=== PATIENT | female | born 1935 | race Caucasian/White ===

== ENCOUNTER 2017-02-01 09:16 | Emergency (ER) | payer MEDICARE, BC ==
[2017-02-01] MEDS ORDERED: Ondansetron INJ* 2 MG/ML VIAL IV ONE ×2 (10:09→13:07)
--- NOTE | 2017-02-01 10:22 | RAD ---
Indication: Chest pain. Single frontal view of the chest performed at 1000 hours was reviewed. Comparison is made with previous exam dated January 24, 2017. Interstitial edema is increased since previous exam. There is suggestion of a spiculated mass in the right midlung field which is more prominent on the current exam. CT of the chest is suggested for further evaluation. IMPRESSION: VASCULAR CONGESTION. QUESTION OF A SPICULATED DENSITY IN THE RIGHT MIDLUNG FIELD FOR WHICH CT IS SUGGESTED. 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
--- NOTE | 2017-02-01 10:23 | RAD ---
Indication: Right rib injury. 3 views of the right ribs demonstrates no fracture. No other bone or joint abnormalities identified. IMPRESSION: No fracture of the right ribs is noted.
[2017-02-01 10:43] LABS: Comments Flag Yes; Hematocrit 40 % (35-47); Hemoglobin 13.5 g/dl (12.0-16.0); Mean Corpuscular HGB Conc 34 g/dl (31-36); Mean Corpuscular Hemoglobin 36 pg (27-31); Mean Corpuscular Volume 106 fL (80-97); Mean Platelet Volume 10 um3 (7.4-10.4); Red Blood Count 3.79 10^6/ul (4.0-5.4); Red Cell Distribution Width 15 % (10.5-15); White Blood Count 8.1 10^3/ul (3.5-10.8)
[2017-02-01 10:44] LABS: Add Diff/Slide Review? Slide Review Added
[2017-02-01 10:54] LABS: Albumin 3.4 g/dL (3.2-5.2); BUN/Creatinine Ratio 18.5 (8-20); Calcium 8.7 mg/dL (8.6-10.3); Globulin 2.4 g/dL (2-4); Magnesium 1.8 mg/dL (1.9-2.7); Potassium 3.5 mmol/L (3.5-5.0); Total Bilirubin 1.1 mg/dL (0.2-1.0); Total Protein 5.8 g/dL (6.4-8.9)
[2017-02-01] MEDS ORDERED: Ibuprofen TAB* 600 MG PO ONE (11:17)
[2017-02-01] MEDS ORDERED: HYDROcodone/ACETAMIN 5-325 MG* 1 TAB PO ONE (11:17)
[2017-02-01 11:31] LABS: TSH (Thyroid Stimulating Horm) 3.2 mcIU/mL (0.34-5.60)
[2017-02-01] MEDS ORDERED: Morphine INJ* 2 MG/ML 1 ML CARPUJECT IV ONE (11:55)
--- NOTE | 2017-02-01 12:40 | RAD ---
Indication: Back pain. 5 views of lumbar spine are reviewed. Vertebral bodies appear normal in height. There is facet arthropathy at L2-L3, L3-L4, L4-L5 and L5-S1 with grade 1 spondylolisthesis of L3 on 4, L4 on 5. Spinal canal appears to be intact. IMPRESSION: Multilevel degenerative disc disease with grade 1 spondylolisthesis of L2 on 3, L3 on 4 and L4 on 5.
--- NOTE | 2017-02-01 12:44 | RAD ---
Indication: Back pain. 2 views of the thoracic spine demonstrates disc space calcifications throughout the lower lumbar spine. Osteopenia is noted. No fracture is noted. IMPRESSION: Diffuse osteopenia with calcifications in the discs.
[2017-02-01 15:41] VITALS: BP 134/65
[2017-02-01] MEDS ORDERED: ValACYclovir (*) 1 GM TAB PO SCH (21:00)
--- NOTE | 2017-02-02 18:43 | ED ---
Lyn Glover Thomas, scribed for Khoa Landeros MD on 02/01/17 at 1003 . HPI Chest Pain - HPI Summary HPI Summary: The pt is an 81 y/o F presenting to the ED c/o L-sided CP that began in the last few days. The pain radiates to her back. The pt rates the pain 4/10 and she describes it as aching. The patient c/o a persistent cough with phlegm production since 12/28/16, and her PMD Dr. Weber has referred her to the ED. Pt additionally c/o chills, nausea (in the ED), and vomiting (this AM). Pt denies fever. The patient has been treated with Augmentin and Oxycontin. PMHx: Pagets disease, asthma, spinal and cervical stenosis. PSHx: mastectomy. - History of Current Complaint Chief Complaint: EDGeneral Time Seen by Provider: 02/01/17 09:36 Hx Obtained From: Patient Onset/Duration: Started Days Ago - onset a few days ago, Still Present Timing: Constant Pain Intensity: 4 Pain Scale Used: 0-10 Numeric Chest Pain Location: Left Anterior Chest Pain Radiates: Yes Chest Pain Radiates To:: Back Character: Dull/Aching Associated Signs and Symptoms: Positive: Chest Pain, Chills, Nausea - in the ED , Productive Cough - phlegm production, Vomiting - this AM - Allergy/Home Medications Allergies/Adverse Reactions: Allergies Allergy/AdvReac Type Severity Reaction Status Date / Time CAT SCAN DYE Allergy Severe Itching Uncoded 01/21/17 14:53 XYLOCAINE WITH EPINEPHRINE AdvReac Intermediate Palpitation Uncoded 01/21/17 14: 53 s Home Medications: Home Medications Albuterol HFA INHALER* [Ventolin HFA Inhaler*] 1 - 2 puff INH Q6H PRN 02/01/17 [ History Confirmed 02/01/17] Aspirin Low Dose CHEW TAB* [Aspirin Low Dose TAB*] 81 mg PO DAILY 02/01/17 [ History Confirmed 02/01/17] Budesonide/Formote 160/4.5(NF) [Symbicort 160/4.5 (NF)] 1 puff INH BID 02/01/17 [History Confirmed 02/01/17] Bumetanide TAB* [Bumex 1 MG TAB*] 0.5 mg PO MOWEFR 02/01/17 [History Confirmed 02/01/17] Ciclesonide 80 MCG MDI (NF) [Alvesco 80 MDI (NF)] 1 puff INH BID 02/01/17 [ History Confirmed 02/01/17] DOXYcycline CAP(*) [DOXYcycline 100MG CAP(*)] 100 mg PO BID 02/01/17 [History Confirmed 02/01/17] Diclofenac 1% GEL (NF) [Voltaren 1% GEL (NF)] 1 applic TOPICAL DAILY 02/01/17 [ History Confirmed 02/01/17] Docusate CAP* [Colace Cap*] 200 mg PO DAILY 02/01/17 [History Confirmed 02/01/17 ] Ergocalciferol CAP* [Drisdol CAP*] 50,000 unit PO MONTHLY 02/01/17 [History Confirmed 02/01/17] Estradiol [Estrogel] 0.06 % TRANSDERM .2 TIMES A WEEK 02/01/17 [History Confirmed 02/01/17] Ibuprofen TAB* [Advil TAB*] 400 mg PO TID PRN 02/01/17 [History Confirmed ] Magnesium Hydroxide LIQ* [Milk of Magnesia LIQ*] 30 ml PO DAILY PRN 02/01/17 [ History Confirmed 02/01/17] Multivitamins/Minerals TAB* [Theragran/minerals TAB*] 1 tab PO DAILY 02/01/17 [ History Confirmed 02/01/17] Naproxen Sodium-Diphenhydramin [Aleve PM 220-25 mg] 1 tab PO BEDTIME PRN [History Confirmed 02/01/17] Polyethylene Glycol 3350* [Miralax*] 17 gm PO DAILY 02/01/17 [History Confirmed 02/01/17] Potassium Chloride [Klor-Con 8] 8 meq PO MOWEFR 02/01/17 [History Confirmed ] PMH/Surg Hx/FS Hx/Imm Hx Previously Healthy: No Endocrine/Hematology History: Reports: Hx Bone Marrow Disease - MYELODYSPLASTIC SYNDROME Denies: Hx Diabetes, Hx Systemic Lupus Erythematosus Cardiovascular History: Denies: Hx Congestive Heart Failure, Hx Hypertension, Hx Pacemaker/ICD Respiratory History: Reports: Hx Asthma - ADULT ONSET-2002, Hx Chronic Obstructive Pulmonary Disease (COPD), Other Respiratory Problems/Disorders - HX OF PETER GI History: Reports: Hx Diverticulosis History: Reports: Other Problems/Disorders - caricle of urethra Denies: Hx Dialysis, Hx Renal Disease Musculoskeletal History: Reports: Hx Arthritis - OSTEOARTHRITIS, Hx Back Problems, Hx Osteoporosis, Other Musculoskeletal History - right rotator cuff injury Denies: Hx Rheumatoid Arthritis Sensory History: Reports: Hx Contacts or Glasses, Hx Hearing Aid - JORI Opthamlomology History: Reports: Hx Contacts or Glasses Neurological History: Reports: Other Neuro Impairments/Disorders - PAIN CLINIC PT Psychiatric History: Reports: Hx Depression Denies: Hx Panic Disorder - Cancer History Cancer Type, Location and Year: Paggett's disease - breast right mastectomy; toe sq cell carcinoma Hx Chemotherapy: No Hx Radiation Therapy: No - Surgical History Surgery Procedure, Year, and Place: SKIN BIOPSY June 29 at [facility]; T&A 194; APPENDIX 1950; Rt OVARY CYST REMOVED 1950; X3; DENTAL IMPLANTS 2013; Rt MASTECTOMY 1985; WEDGE RESECTION Rt LUNG; BRONCHOSCOPY X3; Rt BREAST BIOPSY 1971 AND 1985; HERNIA REPAIR ; D&C ; REPAIR OF DOG BITE ON LEG 07/23; CATARACTS BILATERAL 01/22 & 02/22; RIGHT 2ND TOE AMPUTATED 06/28; BONE MARROW BIOPSY X3 01/25, 04/28 & 04/30; LAMINECTOMY L3-4 & L4-5 08/04/12; SEVERAL MOH'S PROCEDURES; lumbar stimulator 09/2013 - could not be programmed so removed - CHECKED WITH DR. MENENDEZ TODAY(01/04/14)...HE LOOKED AT XRAYS DATED 10/13/13 WHICH CONFIRMED THE STIMULATOR AND LEADS HAD BEEN REMOVED..OK FOR MRI PER DR. MENENDEZ...RAMESH,RT Hx Anesthesia Reactions: No Infectious Disease History: Yes Infectious Disease History: Reports: History Other Infectious Disease - MYCOBACTERIUM AVIUM Denies: Traveled Outside the [place] in Last 30 Days - Family History Known Family History: Negative: Hypertension, Diabetes - Social History Alcohol Use: Weekly Alcohol Amount: 3-4 drinks per week Hx Substance Use: No Substance Use Type: Reports: None Substance Use Comment - Amount & Last Used: butran's patch Hx Tobacco Use: No Smoking Status (MU): Former Smoker Type: Cigarettes Length of Time of Smoking/Using Tobacco: 13 years Have You Smoked in the Last Year: No Review of Systems Positive: Chills. Negative: Fever Positive: Chest Pain - L-sided with radiation to back Positive: Cough - productive cough since 12/28/16. Positive: Vomiting - this AM, Nausea All Other Systems Reviewed And Are Negative: Yes Physical Exam - Summary Physical Exam Summary: VITAL SIGNS: Reviewed. GENERAL: Patient is a well-developed and nourished female is lying comfortable in the stretcher. Patient is not in any acute respiratory distress. HEAD AND FACE: No signs of trauma. ~No ecchymosis, hematomas or skull depressions. No sinus tenderness. EYES: PERRLA, EOMI x 2, No injected conjunctiva, no nystagmus. EARS: Hearing grossly intact. Ear canals and tympanic membranes are within normal limits. MOUTH: Oropharynx within normal limits. NECK: Supple, trachea is midline, no adenopathy, no JVD, no carotid bruit, no c- spine tenderness, neck with full ROM. CHEST: Symmetric. She is tender to her rib cave. LUNGS: Clear to auscultation bilaterally. No wheezing. There are crackles in both bases of the lungs. CVS: Regular rate and rhythm, S1 and S2 present, no murmurs or gallops appreciated. ABDOMEN: Soft, non-tender. No signs of distention. No rebound no guarding, and no masses palpated. Bowel sounds are normal. EXTREMITIES: FROM in all major joints, no edema, no cyanosis or clubbing. NEURO: Alert and oriented x 3. No acute neurological deficits. Speech is normal and follows commands. SKIN: Dry and warm Triage Information Reviewed: Yes Vital Signs On Initial Exam: Initial Vitals Temp Pulse Resp BP Pulse Ox 99.1 F 77 16 169/76 98 02/01/17 09:17 02/01/17 09:17 02/01/17 09:17 02/01/17 09:17 02/01/17 09:17 Vital Signs Reviewed: Yes Diagnostics - Vital Signs Vital Signs Temp Pulse Resp BP Pulse Ox 02/01/17 09:17 99.1 F 77 16 169/76 98 - Laboratory Lab Results: Lab Results 02/01/17 02/01/17 02/01/17 Range/Units 10:22 10:22 10:22 WBC 8.1 (3.5-10.8) 10^3/ul RBC 3.79 L (4.0-5.4) 10^6/ul Hgb 13.5 (12.0-16.0) g/dl Hct 40 (35-47) % MCV 106 H (80-97) fL MCH 36 H (27-31) pg MCHC 34 (31-36) g/dl RDW 15 (10.5-15) % Plt Count 96 L (150-450) 10^3/ul MPV 10 (7.4-10.4) um3 Neut % (Auto) 62.5 (38-83) % Lymph % (Auto) 13.8 L (25-47) % Traill % (Auto) 17.3 H (1-9) % Eos % (Auto) 6.0 (0-6) % Baso % (Auto) 0.4 (0-2) % Absolute Neuts (auto) 5.1 (1.5-7.7) 10^3/ul Absolute Lymphs (auto) 1.1 (1.0-4.8) 10^3/ul Absolute Monos (auto) 1.4 H (0-0.8) 10^3/ul Absolute Eos (auto) 0.5 (0-0.6) 10^3/ul Absolute Basos (auto) 0 (0-0.2) 10^3/ul Absolute Nucleated RBC 0.01 10^3/ul Nucleated RBC % 0.2 Sodium (133-145) mmol/L Potassium (3.5-5.0) mmol/L Chloride (101-111) mmol/L Carbon Dioxide (22-32) mmol/L Anion Gap (2-11) mmol/L BUN (6-24) mg/dL Creatinine (0.51-0.95) mg/dL Est GFR ( Amer) (>60) Est GFR (Non-Af Amer) (>60) BUN/Creatinine Ratio (8-20) Glucose (70-100) mg/dL Lactic Acid (0.5-2.0) mmol/L Calcium (8.6-10.3) mg/dL Magnesium (1.9-2.7) mg/dL Total Bilirubin (0.2-1.0) mg/dL AST (13-39) U/L ALT (7-52) U/L Alkaline Phosphatase (34-104) U/L Total Creatine Kinase 36 (10-223) U/L CK-MB (CK-2) (0.6-6.3) ng/mL Troponin I (<0.04) ng/mL B-Natriuretic Peptide 96 ( - 100) pg/mL Total Protein (6.4-8.9) g/dL Albumin (3.2-5.2) g/dL Globulin (2-4) g/dL Albumin/Globulin Ratio (1-3) TSH (0.34-5.60) mcIU/mL 02/01/17 02/01/17 02/01/17 Range/Units 10:22 10:22 13:00 WBC (3.5-10.8) 10^3/ul RBC (4.0-5.4) 10^6/ul Hgb (12.0-16.0) g/dl Hct (35-47) % MCV (80-97) fL MCH (27-31) pg MCHC (31-36) g/dl RDW (10.5-15) % Plt Count (150-450) 10^3/ul MPV (7.4-10.4) um3 Neut % (Auto) (38-83) % Lymph % (Auto) (25-47) % Traill % (Auto) (1-9) % Eos % (Auto) (0-6) % Baso % (Auto) (0-2) % Absolute Neuts (auto) (1.5-7.7) 10^3/ul Absolute Lymphs (auto) (1.0-4.8) 10^3/ul Absolute Monos (auto) (0-0.8) 10^3/ul Absolute Eos (auto) (0-0.6) 10^3/ul Absolute Basos (auto) (0-0.2) 10^3/ul Absolute Nucleated RBC 10^3/ul Nucleated RBC % Sodium 134 (133-145) mmol/L Potassium 3.5 (3.5-5.0) mmol/L Chloride 101 (101-111) mmol/L Carbon Dioxide 29 (22-32) mmol/L Anion Gap 4 (2-11) mmol/L BUN 12 (6-24) mg/dL Creatinine 0.65 (0.51-0.95) mg/dL Est GFR ( Amer) 112.0 (>60) Est GFR (Non-Af Amer) 87.0 (>60) BUN/Creatinine Ratio 18.5 (8-20) Glucose 100 (70-100) mg/dL Lactic Acid 0.7 (0.5-2.0) mmol/L Calcium 8.7 (8.6-10.3) mg/dL Magnesium 1.8 L (1.9-2.7) mg/dL Total Bilirubin 1.10 H (0.2-1.0) mg/dL AST 14 (13-39) U/L ALT 12 (7-52) U/L Alkaline Phosphatase 37 (34-104) U/L Total Creatine Kinase (10-223) U/L CK-MB (CK-2) 2.0 (0.6-6.3) ng/mL Troponin I 0.00 0.01 (<0.04) ng/mL B-Natriuretic Peptide ( - 100) pg/mL Total Protein 5.8 L (6.4-8.9) g/dL Albumin 3.4 (3.2-5.2) g/dL Globulin 2.4 (2-4) g/dL Albumin/Globulin Ratio 1.4 (1-3) TSH 3.20 (0.34-5.60) mcIU/mL Result Diagrams: 02/01/17 10:22 02/01/17 10:22 Lab Statement: Any lab studies that have been ordered have been reviewed, and results considered in the medical decision making process. - Radiology CXR Xray Interpretation: No Acute Changes - VASCULAR CONGESTION. QUESTION OF A SPICULATED DENSITY IN THE RIGHT MIDLUNG FIELD FOR WHICH CT IS SUGGESTED. 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 ED physician has reviewed this report and agrees. Radiology Interpretation Completed By: Radiologist Ribs XR Xray Interpretation: No Acute Changes - No fracture of the right ribs is noted. ED physician has reviewed this report and agrees. Radiology Interpretation Completed By: Radiologist T-Spine XR Xray Interpretation: No Acute Changes - Diffuse osteopenia with calficiations in the discs. ED physician has reviewed this report and agrees. Radiology Interpretation Completed By: Radiologist L-Spine XR Xray Interpretation: No Acute Changes - Multilevel degenerative disc disease with grade 1 spondylolisthesis of L2 on 3, L3 on 4 and L4 on 5. ED physician has reviewed this report and agrees. Radiology Interpretation Completed By: Radiologist - EKG 09:34 Cardiac Rate: NL - 78 BPM EKG Rhythm: Sinus Rhythm EKG Interpretation: No ST elevations. Chest Pain Course/Dx - Course Assessment/Plan: The pt is an 81 y/o F presenting to the ED c/o L-sided CP that began in the last few days. The pain radiates to her back. The pt rates the pain 4/10 and she describes it as aching. The patient c/o a persistent cough with phlegm production since 12/28/16, and her PMD Dr. Weber has referred her to the ED. Pt additionally c/o chills, nausea (in the ED), and vomiting ( this AM). Pt denies fever. The patient has been treated with Augmentin and Oxycontin. PMHx: Pagets disease, asthma, spinal and cervical stenosis. PSHx: mastectomy. Test results are without significant abnormality. CXR shows VASCULAR CONGESTION. QUESTION OF A SPICULATED DENSITY IN THE RIGHT MIDLUNG FIELD FOR WHICH CT IS SUGGESTED. 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 Ribs XR shows No Fx. T-spine XR shows Diffuse osteopenia with calcifications in the discs. L-Spine XR shows Multilevel degenerative disc disease with grade 1 spondylolisthesis of L2 on. 3, L3 on 4 and L4 on 5. I believed that the patients symptoms are secondary to viral infection; therefore , I believed she would benefit from a cough suppressant. I also re-examined the patients back after 8 hours and now she has developed a rash with positive vesicles; therefore, I believe the pain is secondary to shingles. The patient was started on Valtrex, given morphine for the pain, and the patient was very comfortable. I discussed the physical exam and findings with Dr. Rocael Weber and he agrees with management. The patient will be discharged back to the custodial. - Chest Pain Differential Diagnosis/HQI/PQRI: Acute AR, ACS, Angina, CHF, Chest Wall, GI Disease, Lower Respiratory Infection - Diagnoses Provider Diagnoses: Cough, Shingles, Back pain, Rib pain on right side Discharge - Discharge Plan Condition: Stable Disposition: HOME Prescriptions: Promethazine W/Codeine [Promethazine/Codeine] 1 syp PO TID PRN #90 ml MDD 15 ml PRN Reason: Cough ValACYclovir (*) [Valtrex 1 GM(*)] 1 gm PO BID #14 tab ValACYclovir (*) [Valtrex 1 GM(*)] 1 gm PO BID #20 tab Patient Education Materials: Shingles (ED), Chronic Cough (ED) Referrals: Rocael Weber MD [Primary Care Provider] - 3 Days Additional Instructions: Follow up with your primary care provider in 3 days. Return to the emergency department for any new or worsening symptoms. The documentation as recorded by the Lyn dominguez Thomas accurately reflects the service I personally performed and the decisions made by Tigre mario Walter, MD.
== END 2017-02-01 16:21 | disposition home or self-care (01) ==
LOC: ED 09:16
DX: B02.9 Zoster without complications (principal); R07.81 Pleurodynia; R05 Cough; M54.9 Dorsalgia, unspecified; D46.9 Myelodysplastic syndrome, unspecified; J44.9 Chronic obstructive pulmonary disease, unspecified; Z87.891 Personal history of nicotine dependence; Z88.8 Allergy status to other drugs, medicaments and biological substances; Z91.041 Radiographic dye allergy status; M51.36 Other intervertebral disc degeneration, lumbar region; R11.2 Nausea with vomiting, unspecified; R07.9 Chest pain, unspecified; M88.9 Osteitis deformans of unspecified bone
CPT/HCPCS: 36415; 71010; 72070; 72100; 80053; 82550; 82553; 83605; 83735; 83880; 84443; 84484; 85025; 87040; 93005; 96374; 96375; 99284; A9270-GY; J2270; J2405

== ENCOUNTER 2017-05-18 20:53 | Inpatient (IN) | payer MEDICARE, BC ==
--- OUTSIDE RECORDS SUMMARY | 2017-05-18 21:00 | XMS REPORT ---
:1935 External Reference #:[id number] Author Organization [facility] Address [address] [address] Phone [phone] Care Team Providers Name Role Phone Rocael Weber MD Primary Care Physician Unavailable Payers Type Date Identification Numbers Payment Provider Subscriber Medicare Primary Effective: Policy Number: Medicare Alis Cabrera 2013 [id number] Wan PayID: [id number] [address] [place] [address] Medigap Part B Policy Number: [id number] [facility] Alis Rick [place] PayID: [id number] [address] [place] [address] Medigap Part B Expires: 2016 Policy Number: [id number] [facility] Sagle Wan PayID: [id number] [address] [place] [address] Commercial PayID: [id number] [facility] Alisbrionna Ruiznant [address] [place] [address] Problems Date Description Provider Status Onset: 08/25/2015 Late effect of open wound of Moe Booth M.D. Active extremities without tendon injury Onset: 11/28/2015 Eosinophil count raised Magaly Will N.P. 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 hours Prednisone 10/04/ Active Tablets 10mg 1 tab qd Cristobal, 2016 MD Lalo Flonase Allergy 11/27/ Active Suspension 50mcg/Act Magaly Relief 2016 Nicolette, N.P. Lidocaine / Active Patches 5% 3 patchs Unknown 0000 qd Oxycontin / Active Tab ER 12H 10mg 1 tab by Unknown 0000 Abuse-Det mouth in the Am and 20 po in PM Percocet / Active Tablets 5-325mg 2 po @hs Unknown 0000 prn Rifampin / Active Capsules 300mg q1 tab Unknown 0000 po bid Zithromax / Active Tablets 500mg 1 tab po Unknown 0000 qd Dulera / Active Aerosol 100-5mcg/A [address] bid Vitamin D / Active Capsules 88228Mbfi 1 cap by Unknown (Ergocalciferol 0000 mouth ) every month Alvesco / Active Aerosol 80mcg/Act 2 puffs Unknown 0000 bid Ventolin HFA / Active Aerosol 108(90Base 2 puffs Unknown 0000 ) mcg/Act by mouth four times a day as needed Senna / Active Tablets 8.6mg 4 tabs Unknown 0000 po qd Estrace / Active Cream 0.1mg/GM apply Unknown 0000 once a week Movantik / Active Tablets 25mg 1 tab po Unknown 0000 qd Sertraline HCL / Active Tablets 50mg 1 tab po Unknown 0000 mon, sat, and saturday Bumetanide / Active Tablets 0.5mg 1 tab po Unknown 0000 mon, Wed, and Saturday Potassium / Active Capsules ER 8Meq 1 tab po Unknown Chloride ER 0000 mon, sat, and eloy Zoloft 0000/ Active Tablets 50mg 1 by Unknown 0000 mouth every day Augmentin 0000/ Active Tablets 500-125mg 1 by Unknown 0000 mouth twice a day Percocet 02/19/ Hx Tablets 5-325mg 40tabs 1 PO Q4H Ernst MShayna 2008 - ac Nichols, 12/23/ MDiana 2013 Dexamethasone /00/ Hx Unknown - 2015 Diprivan /00/ Hx Unknown - 2015 Fentanyl /00/ Hx Unknown 2015 Cefazolin / Hx Unknown Sodium - 2015 Levaquin // Hx Unknown 2015 Bupivacaine HCL 00/ Hx Unknown 2015 Neomycin/Polymy / Hx Unknown gonzalo/Dexamethaso 0000 - ne 2015 Oxycodone HCL /00/ Hx Unknown 2015 Remifemin /00/ Hx Unknown 2015 Albuterol 00/ Hx use 1-2 Unknown Sulfate 0000 - puffs 11/27/ every 6 2016 hours Xopenex /00/ Hx Unknown - 2015 Ondansetron HCL 0000/ Hx Tablets 4mg 30tabs one by Unknown 0000 - mouth 11/27/ every 8 2016 hours as needed for nausea Kim Allergy 0000/ Hx Tablets 180mg 1 tab po Unknown 0000 - qd 2016 Prednisone 00/00/ Hx Tablets 10mg 1 tab qd Unknown 0000 - 2016 Calcium 600 + D 0000/ Hx Tablets 600-200mg- 1 tab po Unknown 0000 - Unit qd 2016 Spiriva 00/00/ Hx Aerosol 1.25mcg/Ac 2 puffs Unknown Respimat 0000 - t once a 2016 Centrum Silver 00/00/ Hx Tablets 1 tab po Unknown 0000 - qd 2016 Medications Administered in Office Medication Date Status Form Strength Qnty SIG Indications Ordering Provider Triamcinolone 04/26/ Administered Injection Zaneb (Kenalog) 2017 MD Sally Triamcinolone 12/27/ Administered Injection Zaneb (Kenalog) 2016 MD Sally Triamcinolone 09/25/ Administered Injection Zaneb (Kenalog) 2016 MD Sally Triamcinolone 06/28/ Administered Injection Zaneb (Kenalog) 2016 MD Sally Triamcinolone 03/29/ Administered Injection Zaneb (Kenalog) 2015 MD Sally Celestone 3 mg 11/03/ Administered Injection Dipti and 3mg 2015 ANASTASIYA Nieves Depomedrol 40MG 08/24/ Administered Injection Moe 2015 Lucas Booth Depomedrol 80MG 01/14/ Administered Injection Rebecca 2013 Lucas Bennett Depomedrol 80MG 03/06/ Administered Injection Moe 2010 Lucas Booth Depomedrol 40MG 02/17/ Administered Injection Calvin Lomeli M.D. Vital Signs Date Vital Result Comment 05/08/2017 Heart Rate 88 /min BP Systolic Sitting 106 mmHg BP Diastolic Sitting 64 mmHg Body Temperature 99.0 F 04/26/2017 Heart Rate 82 /min BP Systolic Sitting 102 mmHg BP Diastolic Sitting 68 mmHg Body Temperature 98.5 F Pain Level 2 02/18/2017 Heart Rate 95 /min BP Systolic 110 mmHg BP Diastolic 60 mmHg Respiratory Rate 18 /min Body Temperature 98.0 F O2 % BldC Oximetry 98 % 01/09/2017 Height 64 inches 5'4" Weight 126.00 lb BP Systolic Sitting 118 mmHg BP Diastolic Sitting 70 mmHg Pain Level 2 BMI (Body Mass Index) 21.6 kg/m2 12/27/2016 Height 64 inches 5'4" Weight 125.00 lb per patient BP Systolic 110 mmHg BP Diastolic 68 mmHg Respiratory Rate 16 /min Pain Level 5 BMI (Body Mass Index) 21.5 kg/m2 10/04/2016 Weight 129.12 lb Heart Rate 84 /min BP Systolic Sitting 116 mmHg BP Diastolic Sitting 66 mmHg Respiratory Rate 16 /min Body Temperature 98.6 F O2 % BldC Oximetry 99 % 09/25/2016 Height 64 inches 5'4" Weight 124.00 lb Heart Rate 85 /min BP Systolic 127 mmHg BP Diastolic 65 mmHg Body Temperature 97.5 F Pain Level 2 BMI (Body Mass Index) 21.3 kg/m2 06/28/2016 Height 64 inches 5'4" Weight 134.00 lb Respiratory Rate 16 /min Pain Level 6 BMI (Body Mass Index) 23.0 kg/m2 04/26/2016 Height 64 inches 5'4" Weight 143.00 lb Respiratory Rate 16 /min Pain Level 4 BMI (Body Mass Index) 24.5 kg/m2 03/29/2016 Height 64 inches 5'4" Weight 143.00 lb Respiratory Rate 16 /min Pain Level 4 BMI (Body Mass Index) 24.5 kg/m2 12/02/2015 Height 64 inches 5'4" Weight 143.00 lb Pain Level 3 BMI (Body Mass Index) 24.5 kg/m2 11/28/2015 Weight 143.12 lb Heart Rate 84 /min BP Systolic Sitting 122 mmHg BP Diastolic Sitting 62 mmHg Respiratory Rate 20 /min Body Temperature 98.4 F O2 % BldC Oximetry 97 % 11/04/2015 Height 64 inches 5'4" Weight 140.00 lb Pain Level 1 BMI (Body Mass Index) 24.0 kg/m2 10/12/2015 Height 64 inches 5'4" Weight 140.00 lb Heart Rate 64 /min Respiratory Rate 18 /min Pain Level 3 BMI (Body Mass Index) 24.0 kg/m2 09/28/2015 Height 64 inches 5'4" Weight 140.00 lb Pain Level 7 BMI (Body Mass Index) 24.0 kg/m2 08/25/2015 Height 64 inches 5'4" Weight 140.00 lb Heart Rate 95 /min BP Systolic 125 mmHg BP Diastolic 76 mmHg BMI (Body Mass Index) 24.0 kg/m2 02/17/2015 Weight 148.50 lb Heart Rate 86 /min BP Systolic Sitting 116 mmHg BP Diastolic Sitting 64 mmHg Respiratory Rate 16 /min Body Temperature 98.7 F O2 % BldC Oximetry 95 % 01/14/2014 Height 64 inches 5'4" Weight 135.00 lb Heart Rate 72 /min BMI (Body Mass Index) 23.2 kg/m2 12/24/2013 Height 64 inches 5'4" Heart Rate 73 /min BP Systolic 104 mmHg BP Diastolic 64 mmHg 11/12/2013 Height 64 inches 5'4" Weight 155.00 lb Heart Rate 83 /min BP Systolic 126 mmHg BP Diastolic 69 mmHg BMI (Body Mass Index) 26.6 kg/m2 10/15/2013 Height 64 inches 5'4" Weight 135.00 lb Heart Rate 83 /min BP Systolic 129 mmHg BP Diastolic 75 mmHg BMI (Body Mass Index) 23.2 kg/m2 03/06/2011 Height 66 inches 5'6" Weight 148.00 lb Heart Rate 87 /min BP Systolic 129 mmHg BP Diastolic 76 mmHg BMI (Body Mass Index) 23.9 kg/m2 Results Test Date Test Result H/L Range Note Laboratory test 05/01/2017 Surgical Pathology SEE RESULT BELOW 1, 2 finding Laboratory test 11/28/2015 Culture Throat SEE RESULT BELOW 3, 4 finding 1 [id number] SEE RESULT BELOW Name: ALIS BLAS : [address]: Kee Cleary MD Acct: [id number] Unit: [id number] AGE: 82 Location: [facility] Re05/01/17 SEX: F Status: REG REF SPEC: [id number] CANELO: 05/01/17-0951 [facility] DR: Kee Cleary MD REQ: [id number] RECD: 05/01/17 STATUS: MEGAN SMITH DR: Cinthya Zavala MD _ ORDERED: LEVEL 4 COMMENTS: [id number] FINAL DIAGNOSIS Skin, left lateral foot, incisional biopsy: -- Ulcer and ulcer bed with chronic stasis change. -- No evidence of malignancy. CLINICAL HISTORY History of other skin cancers, venous stasis, myelodysplastic syndrome PRE-OPERATIVE DIAGNOSIS Non-healing lesion; carcinoma versus ulcer GROSS DESCRIPTION The specimen is received in formalin labeled, Incisional Biopsy Skin Lesion Left Lateral Foot, and consists of a 0.7 x 0.3 cm white-pink to red-brown volar skin wedge excised to a maximum depth of 0.4 cm, which is inked, trisected and entirely submitted in one cassette. Signed (signature on file) Frances Brennan MD 03/09 0935 END OF REPORT * ML=Testing performed at Main Lab DEPARTMENT OF PATHOLOGY, [address] [place] [address] Landon Barrera M.D. Director [facility] # [id number] SEE RESULT BELOW Name: ALIS BLAS : [address]: Magaly Will NP Acct: [id number] Unit: [id number] AGE: 80 Location: [facility] Re11/28/15 SEX: F Status: REG REF SPEC: [id number] CANELO: 11/28/15-1015 [facility] DR: Magaly Will NP REQ: [id number] RECD: 11/28/15 STATUS: COMP _ SOURCE: THROAT SPDESC: ORDERED: Throat Culture COMMENTS: [id number] Procedure Result Reported Site Throat Culture Final 11/30/15- 1005 ML Organism 1 NORMAL WHIT Quantity 3+ Throat cultures are clinically indicated to detect the presence of group A strep, arcanobacterium and yeast. In certain cases, predominating organisms will be reported. * ML - MAIN LAB ([facility]) . END OF REPORT * ML=Testing performed at Main Lab DEPARTMENT OF PATHOLOGY, [address] [place] [address] Landon Barrera M.D. Director [facility] # [id number] Procedures Date CPT Code Description Status 04/26/2017 Inject/Drain Joint/Bursa Major Completed 12/27/2016 Inject/Drain Joint/Bursa Major Completed 09/25/2016 Inject/Drain Joint/Bursa Major Completed 06/28/2016 Inject/Drain Joint/Bursa Major Completed 03/29/2016 Inject/Drain Joint/Bursa Major Completed 11/04/2015 Inject/Drain Joint/Bursa Major Completed 08/25/2015 Inject/Drain Joint/Bursa Major Completed 01/14/2014 Inject/Drain Joint/Bursa Major Completed 09/23/2013 02090 EKG, Interpretation Only Completed 02/22/2012 67964 Rad Exam; Ankle Comp Completed 02/22/2012 45625 Rad Exam; Tib-Fib Completed 03/06/2011 87278 Rad Shoulder Comp, Min. 2 Views Completed 03/06/2011 Inject/Drain Joint/Bursa Major Completed 02/17/2010 Inject/Drain Joint/Bursa Major Completed 01/18/2010 43369 Xray Knee 3 Views Completed 01/18/2010 05586 Rad Exam; Knee, Ap&L Completed Encounters Type Date Location Provider CPT E/M Dx Office Visit 02/18/2017 [facility] [place] [address] M48.061 12:44p B02.8 B02.23 M54.5 Office Visit 01/09/2017 1:15p [facility] Mon[facility] PA-C 93452 M48.06 Ginger Farmer M71.38 Office Visit [facility]2016 [facility] [address] H92.01 N.P. Office Visit 04/26/2016 11:15a [place] [address] M19.111 Of Benita M75.121 M25.511 Office Visit 12/02/2015 9:30a [facility] [place] [address] M19.111 Benita M75.121 Office Visit 11/28/2015 12:07p [facility] Nicolette, N.P. 75472 J02.9 Z88.1 R23.3 Office Visit 10/12/2015 8:40a [facility] Dipti Nieves 39107 M19.111 Of Benita LANGFORD S46.011S Office Visit 09/28/2015 11:40a [facility] Dipti Ezequiel, 92105 M19.111 Of Benita MORGAN-C S46.011S Office Visit 08/25/2015 10:00a [facility] Moe Booth 44370 S46.011S Of Benita Zavala M19.111 Office Visit 02/17/2015 1:30p [facility] Kimberli Link.Myra 44838 H92.02 Office Visit 01/14/2014 11:00a [facility] Rebecca Bennett 05497 840.4 Of Benita Zavala 727.62 Office Visit 12/24/2013 11:30a [facility] Rebecca Bennett 76399 726.10 Of Benita Zavala 727.62 Office Visit 11/12/2013 2:30p [facility] Rebecca Bennett 90410 727.62 Of Benita Zavala Office Visit 10/15/2013 3:45p [facility] Rebecca Bennett 76920 727.62 Of Benita Zavala Office Visit 02/22/2012 1:00p [facility] Rigo Jimenez M.D. 99483 719.47 Of C.MLeo 724.4 Office Visit 04/17/2011 10:45a [facility] Moe Booth M.D. 63835 840.4 C.[facility] Office Visit 03/06/2011 1:30p [facility] Moe Booth M.D. 73455 840.4 C.M.A. 716.91 Office Visit 03/22/2010 9:00a [facility] Fito Jiménez M.D. 17598 724.4 C.M.A. Office Visit 02/17/2010 9:00a [facility] Fito Jiménez M.D. 46257 836.0 C.M.A. 275.49 727.09 712.36 Office Visit 01/18/2010 10:30a [facility] Fito Jiménez M.D. 98298 716.96 C.M.A. 727.09 Office Visit 08/23/2009 10:30a [facility] Fito Jim[facility]nez M.D. 49713 729.5 C.MLeo 729.81 719.53 Office Visit 02/20/2008 9:15a [facility] Ernst Mobleypaoloever, [address]39 722.10 Of Ivan Zavala Plan of Care Future Appointment(s):05/29/2017 1:15 pm - George Shipley MD at [facility]06/25/2017 2:00 pm - Celio Zavala MD at [facility]05/08/2017 - George Shipley MDL97.501 Non-prs chr ulcer oth prt unsp foot limited to brkdwn skinFollow up:Follow Up: 3 weeks
--- OUTSIDE RECORDS SUMMARY | 2017-05-18 21:02 | XMS REPORT ---
:1935 External Reference #:[id number] Author Organization [facility] Address [address] [place] [address] Phone [phone] Care Team Providers Name Role Phone Lance Crum M.D. Care Team Information Developer Analyst Unavailable Rocael Weber M.D. Primary Care Physician Unavailable Payers Type Date Identification Numbers Payment Provider Subscriber Medicare Primary Effective: Policy Number: Medicare-[facility] Alis T [id number] [facility] [place] PayID: [id number] [address] [place] [address] Medigap Part B Effective: Policy Number: Driss Snell T 2016 [id number] [facility] [place] Group Number: [id number] [address] Group Name: [place] [address] PayID: [id number] Medigap Part B Policy Number: [id number] Ludmila @ [place] Alis Blas Attn:Medical Billing 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 Active Onset: 12/05/2012 Allergic rhinitis due to pollen Deborah Diaz M.D. 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 Active asthmaticus Onset: 02/01/2012 Allergic rhinitis Deborah Diaz M.D. Active Family History Date Family Member(s) Problem(s) Comments General Seasonal Allergies General Diabetes General Heart Disease General Hypertension General Liver Cancer Father Heart Disease Mother Liver Cancer may have been metastatic from elsewhere First Brother Seasonal Allergies First Brother Diabetes agent orange exposure First Brother Hypertension First Sister Heart Disease First Sister Hypertension Social History Type Date Description Comments Marital Status Legal Status: Lives With Spouse Home Environment Has central air Home Environment There are draperies in the home Home Environment The home is not monty Home Environment The floors are wood Home Environment 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 Prednisone 12/26/ Active Tablets 5mg 60tab 12 tabs by D46.9 [facility] 2016 s mouth Pieretti, everyday x 5 M.D. days Alvesco 06/20/ Active Aerosol 160mcg/Act 36.6u 2 puffs D46.9 [facility] 2016 nits inhalation Pieretti, twice a day M.D. Dulera 06/20/ Active Aerosol 200-5mcg/A 39gm [address] [facility] [address] inhalations Pieretti, am&pm M.D. Prednisone 01/10/ Active Tablets 10mg 30tab 1 tablet by D46.9 [facility] 2015 s mouth every Pier, day with M.D. breakfast Proair HFA 05/24/ Active Aerosol 108(90Base 8.500 two [facility] 2015 ) mcg/Act gm inhalations Pieretti, every 4 M.D. 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 Calcium / Active Tablets 315-200mg- 1 tab daily. Unknown Citrate + D 0000 Unit Estrace / Active Cream 0.1mg/GM Topical. Unknown 0000 Vitamin D / Active Tablets Unknown 0000 Oxycodone-Ac / Active Tablets 5-325mg twice daily Unknown etaminophen 0000 Oxycontin / Active Tab ER 12H 10mg 10 mg in am Unknown 0000 Abuse-Det 20 mg in pm Klor-Con / Active Tablets ER 8Meq 1 tab daily. Weber, 0000 Lucas Cote Sertraline / Active Tablets 50mg 1 tab at Weber, HCL 0000 night. Lucas Cote Bumetanide / Active Tablets 0.5mg Weber, 0000 Lucas Cote Miralax / Active Powder Unknown 0000 Zithromax / Active Tablets 500mg 1 by mouth Unknown 0000 every day Flonase / Active Suspension 50mcg/Act 2 spray each Unknown Allergy 0000 nostril Relief everyday Voltaren / Active Gel 1% as eneded Unknown 0000 Lyrica / Active Capsules 150mg Weber, 0000 Lucas Mendes Amoxicillin/ / Active Tablets 875-125mg Unknown Clavulanate 0000 Potassium Medications Administered in Office Medication Date Status Form Strength Qnty SIG Indications Ordering Provider Injection Administered Injection Lance 009 Skyla, M.D. Injection Administered Injection Lance 009 Skyla, M.D. Injection Administered Injection Lance 009 Skyla, M.D. Injection Administered Injection Lance 009 Skyla, M.D. Injection Administered Injection Lance 009 Skyla, M.D. Injection Administered Injection Lance 009 Skyla, M.D. Injection Administered Injection Lance 009 Skyla, M.D. Injection Administered Injection Lance 009 Skyla, M.D. Injection Administered Injection Lance 009 Skyla, M.D. Injection Administered Injection Lance 009 Skyla, M.D. Injection Administered Injection Lance 009 Skyla, M.D. Injection Administered Injection Vikram Gill, M.D. Injection Administered Injection Lance 009 Skyla, M.D. Injection Administered Injection Lance 008 Skyla, M.D. Injection Administered Injection Lance 008 Skyla, M.D. Injection Administered Injection Lance 008 Skyla, M.D. Injection Administered Injection Lance 008 Skyla, M.D. Injection Administered Injection Lance 008 Skyla, M.D. Injection Administered Injection Lance 008 Skyla, M.D. Injection Administered Injection Lance 008 Skyla, M.D. Injection Administered Injection Lance 008 Skyla, M.D. Injection Administered Injection Lance 008 Skyla, M.D. Injection Administered Injection Lance 008 Skyla, M.D. Injection Administered Injection Lance 008 Skyla, M.D. Injection Administered Injection Lance 008 Skyla, M.D. Injection Administered Injection Lance 008 Skyla, M.D. Injection Administered Injection Lance 008 Skyla, M.D. Injection Administered Injection Lance 008 Skyla, M.D. Injection Administered Injection Lance 008 Skyla, M.D. Injection Administered Injection Lance 008 Skyla, M.D. Injection Administered Injection Lance 008 Skyla, M.D. Injection Administered Injection Lance 007 Skyla, M.D. Injection Administered Injection Lance 007 Skyla, M.D. Injection Administered Injection Lance 007 Skyla, M.D. Injection Administered Injection Lance 007 Skyla, M.D. Injection Administered Injection Lance 007 Skyla, M.D. Injection Administered Injection Lance 007 Skyla, M.D. Injection Administered Injection Lance 007 Skyla, M.D. Injection Administered Injection Lance 007 Skyla, M.D. Injection Administered Injection Lance 007 Skyla, M.D. Injection Administered Injection Lance 007 Skyla, M.D. Injection Administered Injection Lance 007 Skyla, M.D. Injection Administered Injection Lance 007 Skyla, M.D. Injection Administered Injection Lance 007 Skyla, M.D. Injection Administered Injection Lance 007 Skyla, M.D. Injection Administered Injection Lance 007 Skyla, M.D. Injection Administered Injection Lance 007 Skyla, M.D. Injection Administered Injection Lance 007 Skyla, M.D. Injection Administered Injection Lance 007 Skyla, M.D. Injection Administered Injection Lance 007 Skyla, M.D. Injection Administered Injection Lance 007 Skyla, M.D. Injection Administered Injection Lance 007 Skyla, M.D. Injection Administered Injection Lance 006 Skyla, M.D. Injection Administered Injection Lance 006 Skyla, M.D. Injection Administered Injection Lance 006 Skyla, M.D. Injection Administered Injection Lance 006 Skyla, M.D. Xolair Administered Injection Roxanna LaceyDShayna Injection Administered Injection Lance 006 Skyla, MShaynaDShayna Xolair Administered Injection Lance 006 Skyla, M.D. Xolair Administered Injection Lance 006 Skyla, M.D. Injection Administered Injection Lance 006 Skyla, M.D. Injection Administered Injection Lance 006 Skyla, M.D. Xolair Administered Injection Lance 006 Skyla, M.D. Injection Administered Injection Lance 006 Skyla, M.Arik. Xolair Administered Injection Lance 006 Skyla, M.D. Injection Administered Injection Lance 006 Skyal, M.D. Injection Administered Injection Lance 006 Skyla, M.D. Xolair Administered Injection Lance 006 Skyla, M.D. Injection Administered Injection Lance 006 Skyla, M.D. Xolair Administered Injection Lance 006 Skyla, M.D. Injection Administered Injection Lance 006 Skyla, M.D. Xolair Administered Injection Marck 006 Acowski, M.D. Injection Administered Injection Lance 006 Skyla, M.D. Xolair Administered Injection Lance 006 Skyla, M.D. Injection Administered Injection Lance 006 Skyla, M.D. Xolair Administered Injection Lance 006 Skyla, M.D. Injection Administered Injection Lance 006 Skyla, M.D. Xolair Administered Injection Lance 006 Skyla, M.D. Injection Administered Injection Lance 006 Skyla, M.D. Xolair Administered Injection Lance 006 Skyla, M.D. Injection Administered Injection Lance 006 Skyla, M.D. Injection Administered Injection Lance 006 Skyla, M.D. Injection Administered Injection Lance 006 Skyla, M.D. Injection Administered Injection Lance 006 Skyla, M.D. Injection Administered Injection Alnce 006 Skyla, M.D. Injection Administered Injection Marck 005 Chrostowski, M.D. Injection Administered Injection Lance 005 Skyla, M.D. Injection Administered Injection Lance 005 Skyla, M.D. Injection Administered Injection Lance 005 Skyla, M.D. Injection Administered Injection Lance 005 Skyla, M.D. Injection Administered Injection Lance 005 Skyla, M.D. Injection Administered Injection Lance 005 Skyla, M.D. Injection Administered Injection Lance 005 Skyla, M.D. Injection Administered Injection Lance 005 Skyla, M.D. Injection Administered Injection Lance 005 Skyla, M.D. Injection Administered Injection Lance 005 Skyla, M.D. Injection Administered Injection Lance 005 Skyla, M.D. Injection Administered Injection Lance 005 Skyla, M.D. Injection Administered Injection Lance 005 Skyla, M.D. Injection Administered Injection Lance 005 Skyla, M.D. Injection Administered Injection Lance 005 Skyla, M.D. Injection Administered Injection Lance 005 Skyla, M.D. Injection Administered Injection Lance 005 Skyla, M.D. Injection Administered Injection Lance 005 Skyla, M.D. Injection Administered Injection Lance 005 Skyla, M.D. Injection Administered Injection Lance 005 Skyla, M.D. Injection Administered Injection Lance 005 Skyla, M.D. Injection Administered Injection Lance 005 Skyla, M.D. Injection Administered Injection Lance 005 Skyla, M.D. Injection Administered Injection Lance 005 Skyla, M.D. Injection Administered Injection Lance 005 Skyla, M.D. Injection Administered Injection Lance 005 Skyla, M.D. Injection Administered Injection Lance 005 Skyla, M.D. Injection Administered Injection Lance 005 Skyla, M.D. Injection Administered Injection Lance 005 Skyla, M.D. Injection Administered Injection Lance 005 Skyla, M.D. Injection Administered Injection Lance 005 Skyla, M.D. Injection Administered Injection Lance 005 Skyla, M.D. Injection Administered Injection Lance 005 Skyla, M.D. Injection Administered Injection Lance 005 Skyla, M.D. Injection Administered Injection Lance 005 Skyla, M.D. Injection Administered Injection Lance 005 Skyla, M.D. Injection Administered Injection Lance 005 Skyla, M.D. Injection Administered Injection Lance 005 Skyla, M.D. Injection Administered Injection Lance 005 Skyla, M.D. Injection Administered Injection Lance 005 Skyla, M.D. Injection Administered Injection Lance 005 Skyla, M.D. Injection Administered Injection Lance 005 Skyla, M.D. Injection Administered Injection Lance 005 Skyla, M.D. Injection Administered Injection Lance 005 Skyla, M.D. Injection 01/03/2 Administered Injection Lance 005 Skyla, M.D. Injection Administered Injection Lance 004 Skyla, M.D. Injection Administered Injection Lance 004 Skyla, M.D. Injection Administered Injection Lance 004 Skyla, M.D. Injection Administered Injection Lance 004 Skyla, M.D. Injection Administered Injection Lance 004 Skyla, M.D. Injection Administered Injection Lance 004 Skyla, M.D. Injection Administered Injection Lance 004 Skyla, M.D. Injection Administered Injection Lance 004 Skyla, M.D. Injection Administered Injection Lance 004 Skyla, M.D. Injection Administered Injection Lance 004 Skyla, M.D. Injection Administered Injection Lance 004 Skyla, M.D. Injection Administered Injection Lance 004 Skyla, M.D. Injection Administered Injection Lance 004 Skyla, M.D. Injection Administered Injection Lance 004 Skyla, M.D. Injection Administered Injection Lance 004 Skyla, M.D. Injection Administered Injection Lance 004 Skyla, M.D. Injection Administered Injection Lance 004 Skyla, M.D. Injection Administered Injection Lance 004 Skyla, M.D. Injection Administered Injection Lance 004 Skyla, M.D. Injection Administered Injection Lance 004 Skyla, M.D. Injection Administered Injection Lance 004 Skyla, M.D. Injection Administered Injection Lance 004 Skyla, M.D. Injection Administered Injection Lance 004 Skyla, M.D. Injection Administered Injection Lance 004 Skyla, M.D. Injection Administered Injection Lance 004 Skyla, M.D. Injection Administered Injection Lance 004 Skyla, M.D. Injection Administered Injection Lance 004 Skyla, M.D. Injection Administered Injection Lance 004 Skyla, M.D. Injection Administered Injection Lance 004 Skyla, M.D. Injection Administered Injection Lance 004 Skyla, M.D. Injection Administered Injection Lance 004 Skyla, M.D. Injection Administered Injection Lance 004 Skyla, M.D. Injection Administered Injection Lance 004 Skyla, M.D. Injection Administered Injection Lance 004 Skyla, M.D. Injection Administered Injection Lance 004 Skyla, M.D. Injection Administered Injection Lance 004 Skyla, M.D. Injection Administered Injection Lance 004 Skyla, M.D. Injection Administered Injection Lance 004 Skyla, M.D. Injection Administered Injection Lance 004 Skyla, M.D. Injection Administered Injection Lance 004 Skyla, M.D. Injection Administered Injection Lance 004 Skyla, M.D. Injection Administered Injection Lance 004 Skyla, M.D. Injection Administered Injection Lance 004 Skyla, M.D. Injection Administered Injection Lance 004 Skyla, M.D. Injection Administered Injection Lance 004 Skyla, M.D. Injection Administered Injection Lance 004 Skyla, M.D. Injection Administered Injection Lance 004 Skyla, M.D. Injection Administered Injection Lance 004 Skyla, M.D. Injection Administered Injection Lance 004 Skyla, M.D. Injection Administered Injection Lance 004 Skyla, M.D. Injection Administered Injection Lance 004 Skyla, M.D. Injection Administered Injection Lance 004 Skyla, M.D. Injection Administered Injection Lance Izabel Crum M.D. Injection Administered Injection Lance Izabel Crum M.D. Injection Administered Injection Lance Izabel Crum M.D. Injection Administered Injection Lance Izabel Crum M.D. Injection Administered Injection Lancekelly Crum M.D. Injection Administered Injection Lancekelly Crum M.D. Injection Administered Injection Lancekelly Crum M.D. Immunizations CPT Code Status Date Vaccine Lot # 35757 Given 12/21/2013 Influenza Vaccine 79134 Given 12/21/2010 Pneumococcal Vaccine 10116 Given Unknown Pneumococcal Vaccine 45815 Given Unknown Pneumococcal Vaccine 17749 Ordered 01/20/2010 Pneumococcal Vaccine 46928 Given Unknown Influenza Vaccine 29681 Given Unknown Influenza Vaccine 10420 Given Unknown Influenza Vaccine 90322 Given Unknown Influenza Vaccine 97544 Ordered 12/21/2012 Influenza Vaccine Vital Signs Date Vital Result Comment 05/01/2017 Height 63.5 inches 5'3.50" Weight 120.00 lb Weight in kg's 54.432 Respiratory Rate 16 /min Heart Rate 80 /min O2 % BldC Oximetry 96 % BP Systolic 108 mmHg BP Diastolic 53 mmHg [facility] 22 BMI (Body Mass Index) 20.9 kg/m2 12/26/2016 Height 63.5 inches 5'3.50" Weight 133.00 lb Weight in kg's 60.329 Respiratory Rate 20 /min Heart Rate 84 /min O2 % BldC Oximetry 97 % BP Systolic 121 mmHg BP Diastolic 73 mmHg [facility] 22 BMI (Body Mass Index) 23.2 kg/m2 08/24/2016 Height 63.5 inches 5'3.50" Weight 125.00 lb Weight in kg's 56.700 Respiratory Rate 16 /min Heart Rate 85 /min O2 % BldC Oximetry 97 % BP Systolic 108 mmHg BP Diastolic 67 mmHg [facility] 14 BMI (Body Mass Index) 21.8 kg/m2 06/20/2016 Height 63.5 inches 5'3.50" Weight 125.00 lb per patient Weight in kg's 56.700 Respiratory Rate 16 /min Heart Rate 84 /min Body Temperature 99.1 F O2 % BldC Oximetry 96 % BP Systolic 100 mmHg BP Diastolic 60 mmHg [facility] 12 BMI (Body Mass Index) 21.8 kg/m2 05/16/2016 Height 63.5 inches 5'3.50" Weight 130.00 lb Pt verbalized Weight in kg's 58.968 Respiratory Rate 16 /min Heart Rate 100 /min Body Temperature 100.1 F O2 % BldC Oximetry 93 % BP Systolic 103 mmHg BP Diastolic 60 mmHg [facility] 10 BMI (Body Mass Index) 22.7 kg/m2 01/11/2016 Height 63.5 inches 5'3.50" Weight 142.00 lb Weight in kg's 64.411 Respiratory Rate 20 /min Heart Rate 109 /min O2 % BldC Oximetry 96 % BP Systolic 120 mmHg BP Diastolic 71 mmHg [facility] 15 BMI (Body Mass Index) 24.8 kg/m2 09/07/2015 Height 64 inches 5'4" Weight 140.00 lb patient stated Weight in kg's 63.504 Respiratory Rate 16 /min Heart Rate 92 /min O2 % BldC Oximetry 97 % BP Systolic 106 mmHg BP Diastolic 59 mmHg [facility] 17 BMI (Body Mass Index) 24.0 kg/m2 05/11/2015 Height 64 inches 5'4" Weight 147.00 lb Weight in kg's 66.679 Respiratory Rate 16 /min Heart Rate 90 /min O2 % BldC Oximetry 96 % BP Systolic 105 mmHg BP Diastolic 61 mmHg [facility] 19 BMI (Body Mass Index) 25.2 kg/m2 02/11/2015 Height 64 inches 5'4" Weight 148.00 lb Weight in kg's 67.133 Respiratory Rate 16 /min Heart Rate 93 /min Body Temperature 98.2 F O2 % BldC Oximetry 98 % BP Systolic 122 mmHg BP Diastolic 63 mmHg [facility] 9 BMI (Body Mass Index) 25.4 kg/m2 12/17/2014 Height 64 inches 5'4" Weight 146.00 lb Weight in kg's 66.226 Respiratory Rate 20 /min Heart Rate 79 /min O2 % BldC Oximetry 98 % BP Systolic 110 mmHg BP Diastolic 55 mmHg [facility] 16 BMI (Body Mass Index) 25.1 kg/m2 11/19/2014 Height 64 inches 5'4" Weight 143.00 lb Weight in kg's 64.865 Respiratory Rate 16 /min Heart Rate 85 /min O2 % BldC Oximetry 97 % BP Systolic 122 mmHg BP Diastolic 69 mmHg [facility] 13 BMI (Body Mass Index) 24.5 kg/m2 10/15/2014 Height 64 inches 5'4" Weight 140.00 lb Weight in kg's 63.504 Respiratory Rate 16 /min Heart Rate 78 /min O2 % BldC Oximetry 95 % BP Systolic 100 mmHg BP Diastolic 60 mmHg [facility] 13 BMI (Body Mass Index) 24.0 kg/m2 07/09/2014 Height 63 inches 5'3" Weight 140.00 lb Weight in kg's 63.504 Respiratory Rate 18 /min Heart Rate 78 /min O2 % BldC Oximetry 94 % BP Systolic 120 mmHg BP Diastolic 72 mmHg [facility] 16 BMI (Body Mass Index) 24.8 kg/m2 06/18/2014 Height 63 inches 5'3" Weight 138.00 lb Weight in kg's 62.597 Respiratory Rate 16 /min Heart Rate 84 /min Body Temperature 97.2 F O2 % BldC Oximetry 96 % BP Systolic 108 mmHg BP Diastolic 65 mmHg [facility] 15 BMI (Body Mass Index) 24.4 kg/m2 04/23/2014 Height 63 inches 5'3" Weight 139.00 lb Weight in kg's 63.050 Respiratory Rate 16 /min Heart Rate 82 /min O2 % BldC Oximetry 98 % BP Systolic 115 mmHg BP Diastolic 65 mmHg [facility] 15 BMI (Body Mass Index) 24.6 kg/m2 01/08/2014 Height 63.5 inches 5'3.50" Weight 135.00 lb Weight in kg's 61.236 Respiratory Rate 18 /min Heart Rate 86 /min O2 % BldC Oximetry 96 % BP Systolic 116 mmHg BP Diastolic 72 mmHg [facility] 18 BMI (Body Mass Index) 23.5 kg/m2 10/02/2013 Height 63.5 inches 5'3.50" Weight 135.00 lb Weight in kg's 61.236 Respiratory Rate 18 /min Heart Rate 82 /min O2 % BldC Oximetry 96 % BP Systolic 110 mmHg BP Diastolic 70 mmHg [facility] 20 BMI (Body Mass Index) 23.5 kg/m2 09/28/2013 Height 63.5 inches 5'3.50" Weight 135.[address] Weight in kg's 61.236 Heart Rate 80 /min O2 % BldC Oximetry 96 % BP Systolic 110 mmHg BP Diastolic 70 mmHg BMI (Body Mass Index) 23.5 kg/m2 09/18/2013 Height 63.5 inches 5'3.50" Weight 132.00 lb Weight in kg's 59.875 Respiratory Rate 14 /min Heart Rate 89 /min O2 % BldC Oximetry 97 % BP Systolic 106 mmHg BP Diastolic 68 mmHg [facility] 10 BMI (Body Mass Index) 23.0 kg/m2 05/15/2013 Height 63 inches 5'3" Weight 125.00 lb Weight in kg's 56.700 Respiratory Rate 18 /min Heart Rate 94 /min O2 % BldC Oximetry 97 % BP Systolic 120 mmHg BP Diastolic 70 mmHg [facility] 14 BMI (Body Mass Index) 22.1 kg/m2 04/17/2013 Height 63 inches 5'3" Weight 124.50 lb Per PT Weight in kg's 56.473 Respiratory Rate 16 /min Heart Rate 89 /min O2 % BldC Oximetry 98 % BP Systolic 110 mmHg BP Diastolic 60 mmHg [facility] 14 BMI (Body Mass Index) 22.1 kg/m2 03/06/2013 Height 63 inches 5'3" Weight 125.00 lb Weight in kg's 56.700 Respiratory Rate 12 /min Heart Rate 90 /min O2 % BldC Oximetry 95 % BP Systolic 112 mmHg BP Diastolic 62 mmHg [facility] 11 BMI (Body Mass Index) 22.1 kg/m2 12/05/2012 Height 63 inches 5'3" Weight 129.00 lb Weight in kg's 58.514 Respiratory Rate 16 /min Heart Rate 82 /min O2 % BldC Oximetry 97 % BP Systolic 120 mmHg BP Diastolic 70 mmHg BMI (Body Mass Index) 22.8 kg/m2 08/01/2012 Height 64 inches 5'4" Weight 129.00 lb Weight in kg's 58.514 Respiratory Rate 18 /min Heart Rate 100 /min O2 % BldC Oximetry 95 % BP Systolic 122 mmHg BP Diastolic 82 mmHg BMI (Body Mass Index) 22.1 kg/m2 07/21/2012 Height 64 inches 5'4" Weight 128.00 lb Weight in kg's 58.061 Respiratory Rate 20 /min Heart Rate 94 /min O2 % BldC Oximetry 95 % BP Systolic 120 mmHg BP Diastolic 78 mmHg BMI (Body Mass Index) 22.0 kg/m2 07/11/2012 Height 64 inches 5'4" Weight 130.00 lb Weight in kg's 58.968 Respiratory Rate 16 /min Heart Rate 96 /min O2 % BldC Oximetry 96 % BP Systolic 110 mmHg BP Diastolic 70 mmHg BMI (Body Mass Index) 22.3 kg/m2 02/01/2012 Heart Rate 75 /min O2 % BldC Oximetry 96 % Results Test Date Test Result H/L Range Note Laboratory test finding 05/16/2016 C Reactive Protein 27.14 mg/L High &lt ; 5.00 1 B Type Natriuretic Peptide 49 pg/mL 2 Comp Metabolic Panel 05/16/2016 Sodium 134 mmol/L 133-145 Potassium 4.7 mmol/L 3.5-5.0 Chloride 101 mmol/L 101-111 Co2 Carbon Dioxide 29 mmol/L 22-32 Anion Gap 4 mmol/L 2-11 Glucose 95 mg/dL 70-100 Blood Urea Nitrogen 18 mg/dL 6-24 Creatinine 0.85 mg/dL 0.51-0.95 BUN/Creatinine Ratio 21.2 High 8-20 Calcium 8.7 mg/dL 8.6-10.3 Total Protein 5.7 g/dL Low 6.4-8.9 Albumin 3.4 g/dL 3.2-5.2 Globulin 2.3 g/dL 2-4 Albumin/Globulin Ratio 1.5 1-3 Total Bilirubin 1.20 mg/dL High 0.2-1.0 Alkaline Phosphatase 62 U/L 34-104 Alt 13 U/L 7-52 Ast 13 U/L 13-39 Egfr Non- 63.9 >60 Egfr 82.1 >60 3 Laboratory test finding 05/16/2016 Troponin I 0.00 ng/mL <0.04 4 CBC Auto Diff 05/16/2016 White Blood Count 8.4 10^3/uL 3.5-10.8 Red Blood Count 3.71 10^6/uL Low 4.0-5.4 Hemoglobin 13.0 g/dL 12.0-16.0 Hematocrit 39 % 35-47 Mean Corpuscular Volume 105 fL High 80-97 Mean Corpuscular Hemoglobin 35 pg High 27-31 Mean Corpuscular HGB Conc 33 g/dL 31-36 Red Cell Distribution Width 15 % 10.5-15 Platelet Count 75 10^3/uL Low 150-450 Mean Platelet Volume 13 um3 High 7.4-10.4 Abs Neutrophils 4.1 10^3/uL 1.5-7.7 Abs Lymphocytes 0.8 10^3/uL Low 1.0-4.8 Abs Monocytes 1.0 10^3/uL High 0-0.8 Abs Eosinophils 2.3 10^3/uL High 0-0.6 Abs Basophils 0.1 10^3/uL 0-0.2 Abs Nucleated RBC 0 10^3/uL Granulocyte % 48.9 % 38-83 Lymphocyte % 9.9 % Low 25-47 Monocyte % 12.2 % High 1-9 Eosinophil % 27.5 % High 0-6 Basophil % 1.5 % 0-2 Nucleated Red Blood Cells % 0 1 Acute inflammation: >10.00 2 >100 to <200 pg/mL: likely compensated congestive heart failure (CHF) 200 to 400 pg/mL: likely moderate CHF >400 pg/mL: likely moderate to severe CHF 3 Because ethnic data is not always readily available, this report includes an eGFR for both -Americans and non- Americans. The National Kidney Disease Education Program (NKDEP) does not endorse the use of the MDRD equation for patients that are not between the ages of 18 and 70, are , have extremes of body size, muscle mass, or nutritional status, or are non- or non-. According to the National Kidney Foundation, irrespective of diagnosis, the stage of the disease is based on the level of kidney function: Stage Description GFR(mL/min/1.73 m(2)) 1 Kidney damage with normal or decreased GFR 90 2 Kidney damage with mild decrease in GFR 60-89 3 Moderate decrease in GFR 30-59 4 Severe decrease in GFR 15-29 5 Kidney failure <15 (or dialysis) 4 99th percentile=0.04 ng/mL Troponin results at [facility] and [facility] are not interchangeable. Procedures Date CPT Code Description Status 05/01/2017 32464 Pre PFT Completed 12/26/2016 15715 Pre PFT Completed 08/24/2016 08964 Pre PFT Completed 06/20/2016 09927 Pre PFT Completed 05/16/2016 76058 Pre PFT Completed 01/11/2016 26282 Pre PFT Completed 09/07/2015 51464 Pre PFT Completed 05/11/2015 26988 Pre PFT Completed 02/11/2015 20391 Pre PFT Completed 12/17/2014 51011 Pre PFT Completed 11/19/2014 21571 Pre PFT Completed 10/15/2014 22964 Pulmonary Function Test Completed 04/23/2014 22976 Pre PFT Completed 09/28/2013 17322 Pulmonary Function Test Completed 09/18/2013 37017 Pulmonary Function Test Completed 09/18/2013 14258 Pulmonary Function Test Completed 04/17/2013 92346 Oxygen Level - Pulse Oximiter Completed 03/06/2013 22575 Oxygen Level - Pulse Oximiter Completed 12/05/2012 51040 Oxygen Level - Pulse Oximiter Completed 07/21/2012 18604 Oxygen Level - Pulse Oximiter Completed 02/01/2012 55714 Oxygen Level - Pulse Oximiter Completed 07/25/2011 48516 Nitric Oxide Gas Determination Completed 07/25/2011 86211 Oxygen Level - Pulse Oximiter Completed 03/30/2011 14045 Pulmonary Function Test Completed 10/07/2009 53392 Extract 1-10 Completed 01/21/2009 52799 Pulmonary Function Test Completed 11/12/2008 07120 Injection Completed 11/05/2008 69913 Extract 1-10 Completed 11/01/2008 82248 Injection Completed 10/25/2008 25030 Injection Completed 10/18/2008 93715 Injection Completed 10/15/2008 69923 Pre PFT Completed 10/11/2008 82569 Injection Completed 10/04/2008 64499 Injection Completed 09/27/2008 22058 Injection Completed 09/20/2008 70543 Injection Completed 09/15/2008 73403 Injection Completed 09/08/2008 76531 Injection Completed 09/03/2008 64962 Pulmonary Function Test Completed 08/30/2008 16210 Injection Completed 08/27/2008 63076 Pulmonary Function Test Completed 08/23/2008 51207 Injection Completed 08/20/2008 89856 Extract 1-10 Completed 05/28/2008 76223 Pulmonary Function Test Completed 05/14/2008 62617 Pulmonary Function Test Completed 05/10/2008 92062 Injection Completed 03/22/2008 94846 Injection Completed 02/25/2008 09167 Injection Completed 01/16/2008 99131 Injection Completed 01/02/2008 38641 Injection Completed 12/29/2007 93245 Extract 1-10 Completed 12/19/2007 01671 Injection Completed 12/05/2007 05543 Injection Completed 11/21/2007 84249 Injection Completed 11/03/2007 95066 Injection Completed 10/22/2007 70454 Injection Completed 10/10/2007 74741 Injection Completed 09/22/2007 73326 Injection Completed 09/08/2007 44635 Injection Completed 08/25/2007 38256 Injection Completed 08/19/2007 34985 Extract 1-10 Completed 08/18/2007 58317 Injection Completed 08/11/2007 90328 Injection Completed 08/04/2007 57717 Injection Completed 07/28/2007 70976 Injection Completed 07/21/2007 27697 Injection Completed 04/18/2007 80741 Injection Completed 04/02/2007 84915 Injection Completed 03/17/2007 10772 Injection Completed 02/26/2007 77110 Injection Completed 02/12/2007 75244 Injection Completed 12/13/2006 37819 Injection Completed 11/29/2006 05822 Injection Completed 11/25/2006 66210 Extract 1-10 Completed 11/15/2006 65388 Injection Completed 10/28/2006 27206 Injection Completed 10/14/2006 43278 Injection Completed 09/30/2006 74431 Injection Completed 09/02/2006 51773 Injection Completed 08/28/2006 81909 Extract 1-10 Completed 08/21/2006 89285 Injection Completed 08/07/2006 25242 Injection Completed 07/24/2006 80946 Injection Completed 07/19/2006 58553 Pulmonary Function Test Completed 07/12/2006 93598 Injection Completed 06/28/2006 53183 Injection Completed 06/14/2006 17050 Injection Completed 06/10/2006 89636 Extract 1-10 Completed 05/31/2006 86235 Injection Completed 05/17/2006 11435 Injection Completed 05/03/2006 58989 Injection Completed 04/19/2006 31802 Injection Completed 04/03/2006 05050 Injection Completed 03/20/2006 55191 Injection Completed 02/18/2006 40562 Injection Completed 02/11/2006 73433 Pulmonary Function Test Completed 02/08/2006 01655 Xolair Completed 02/01/2006 72894 Injection Completed 01/25/2006 54297 Xolair Completed 12/26/2005 68431 Xolair Completed 12/12/2005 10867 Injection Completed 11/30/2005 57591 Injection Completed 11/28/2005 51107 Xolair Completed 11/16/2005 22305 Injection Completed 11/12/2005 75853 Xolair Completed 11/12/2005 07251 Injection Completed 11/07/2005 48176 Extract 1-10 Completed 11/02/2005 18381 Injection Completed 10/29/2005 47337 Xolair Completed 10/19/2005 27850 Injection Completed 10/15/2005 26891 Xolair Completed 10/08/2005 39182 Injection Completed 10/03/2005 21535 Pulmonary Function Test Completed 10/01/2005 11125 Xolair Completed 09/24/2005 63667 Injection Completed 09/12/2005 55408 Xolair Completed 09/10/2005 01880 Injection Completed 08/29/2005 85970 Xolair Completed 08/27/2005 48118 Injection Completed 08/15/2005 42462 Xolair Completed 08/13/2005 36942 Injection Completed 08/01/2005 81872 Xolair Completed 07/30/2005 56505 Injection Completed 07/20/2005 37958 Drug Administration Completed 07/18/2005 62503 Injection Completed 07/06/2005 80388 Drug Administration Completed 06/22/2005 06910 Drug Administration Completed 06/20/2005 63766 Injection Completed 06/08/2005 65233 Drug Administration Completed 06/04/2005 87254 Extract 1-10 Completed 05/25/2005 21706 Injection Completed 05/23/2005 40762 Therapeutic And Diagnostic Inj Completed 05/23/2005 19953 Drug Administration Completed 05/09/2005 55737 Therapeutic And Diagnostic Inj Completed 05/09/2005 52046 Drug Administration Completed 2005 73265 Injection Completed 04/25/2005 44435 Therapeutic And Diagnostic Inj Completed 04/25/2005 61284 Drug Administration Completed 04/11/2005 88798 Injection Completed 04/09/2005 51543 Therapeutic And Diagnostic Inj Completed 03/26/2005 24276 Injection Completed 03/21/2005 21501 Therapeutic And Diagnostic Inj Completed 03/12/2005 07927 Injection Completed 03/07/2005 80684 Therapeutic And Diagnostic Inj Completed 02/26/2005 66779 Injection Completed 02/21/2005 58839 Injection Completed 02/14/2005 43392 Injection Completed 02/07/2005 02517 Injection Completed 01/26/2005 51254 Injection Completed 01/12/2005 48411 Injection Completed 01/10/2005 19760 Injection Completed 12/29/2004 53879 Injection Completed 12/27/2004 54130 Injection Completed 12/22/2004 20691 Extract 1-10 Completed 12/13/2004 83783 Injection Completed 12/11/2004 03148 Injection Completed 11/29/2004 84913 Injection Completed 11/27/2004 57823 Injection Completed 11/17/2004 07788 Injection Completed 11/15/2004 74380 Injection Completed 11/01/2004 60252 Injection Completed 10/25/2004 24246 Injection Completed 10/18/2004 00848 Injection Completed 10/11/2004 67331 Injection Completed 10/04/2004 77209 Injection Completed 09/27/2004 76173 Injection Completed 09/20/2004 58292 Injection Completed 09/13/2004 61158 Injection Completed 09/04/2004 72731 Injection Completed 08/30/2004 54302 Injection Completed 08/23/2004 45208 Injection Completed 08/16/2004 55344 Injection Completed 08/07/2004 19461 Injection Completed 08/02/2004 73333 Injection Completed 07/28/2004 26766 Extract 1-10 Completed 07/24/2004 15090 Injection Completed 07/17/2004 11155 Injection Completed 07/10/2004 50281 Injection Completed 07/03/2004 48980 Injection Completed 06/26/2004 67488 Injection Completed 06/19/2004 58545 Injection Completed 06/14/2004 95506 Injection Completed 06/05/2004 45912 Injection Completed 05/31/2004 13049 Injection Completed 05/22/2004 56305 Injection Completed 05/19/2004 41365 Injection Completed 05/08/2004 70615 Injection Completed 05/01/2004 39567 Injection Completed 04/24/2004 72529 Injection Completed 04/17/2004 80848 Injection Completed 04/10/2004 66043 Injection Completed 04/03/2004 02698 Injection Completed 03/27/2004 75078 Injection Completed 03/20/2004 60722 Injection Completed 03/15/2004 86001 Extract 1-10 Completed 03/13/2004 63132 Injection Completed 02/23/2004 07364 Injection Completed 02/21/2004 00473 Injection Completed 02/14/2004 89191 Injection Completed 02/11/2004 41942 Injection Completed 02/09/2004 83112 Injection Completed 01/19/2004 46226 Injection Completed 01/17/2004 68572 Injection Completed 01/14/2004 72934 Injection Completed 01/10/2004 20308 Injection Completed 01/03/2004 07651 Injection Completed 12/31/2003 99034 Injection Completed 12/24/2003 20863 Injection Completed 12/20/2003 38915 Injection Completed 12/15/2003 35008 Injection Completed 12/14/2003 45208 Extract 1-10 Completed 12/13/2003 84726 Injection Completed 12/08/2003 52852 Injection Completed 12/01/2003 45711 Injection Completed 11/29/2003 04732 Injection Completed 11/24/2003 31833 Injection Completed 11/19/2003 94382 Injection Completed 11/17/2003 23173 Injection Completed 11/05/2003 87538 Injection Completed 11/03/2003 81910 Injection Completed 11/01/2003 10625 Injection Completed 10/25/2003 43061 Injection Completed 10/20/2003 07944 Injection Completed 10/15/2003 87046 Injection Completed 10/08/2003 29846 Injection Completed 10/06/2003 69066 Injection Completed 10/01/2003 15672 Injection Completed 09/24/2003 99548 Injection Completed 09/22/2003 32010 Injection Completed 09/17/2003 06008 Injection Completed 09/10/2003 50798 Injection Completed 09/08/2003 94194 Injection Completed 08/30/2003 09045 Injection Completed 08/25/2003 28479 Injection Completed 08/23/2003 94347 Injection Completed 08/18/2003 04279 Extract 1-10 Completed 08/16/2003 95112 Injection Completed 08/11/2003 49534 Injection Completed 08/06/2003 66354 Injection Completed 08/02/2003 13625 Injection Completed 07/28/2003 00076 Injection Completed 07/19/2003 37403 Injection Completed 07/12/2003 35703 Injection Completed 07/09/2003 47102 Injection Completed 07/05/2003 16347 Injection Completed 06/28/2003 50760 Injection Completed 06/25/2003 61577 Injection Completed 06/21/2003 90800 Injection Completed 06/14/2003 03027 Injection Completed 06/07/2003 14738 Injection Completed 05/31/2003 66021 Injection Completed 05/28/2003 09776 Extract 1-10 Completed 05/19/2003 69604 Skin Tests Id Completed 05/12/2003 40140 Skin Tests Id Completed 05/05/2003 78246 Skin Test Scratch # Of Units ____ Completed 03/17/2003 81978 Pulmonary Function Test Completed Encounters Type Date Location Provider CPT E/M Dx Office Visit 12/26/2016 11:40a Mihaela Diaz M.D. 94316 D46.9 A31.0 D72.1 J30.1 J30.89 J45.50 Office Visit 08/24/2016 10:40a [place] Deborahdave Diaz M.D. 77320 D46.9 A31.0 D72.1 J30.1 J30.89 J45.50 Z68.21 Office Visit 06/20/2016 10:40a [place] Deborahdave Diaz M.D. 96038 J45.50 D46.9 A31.0 D72.1 J45.50 Z68.21 Office Visit 05/16/2016 11:00a [place] Deborahdave Diaz M.D. 67776 D46.9 A31.0 D72.1 J30.1 J30.89 J45.51 Office Visit 01/11/2016 11:20a Mihaela Diaz M.D. 06255 D46.9 A31.0 D72.1 J45.50 Office Visit 09/07/2015 1:40p Mihaela Diaz M.D. 79541 D46.9 A31.0 D72.1 J45.50 Z68.24 Office Visit 05/11/2015 11:00a Mihaela Diaz M.D. 74838 J45.50 D46.9 A31.0 D72.1 Z68.25 Office Visit 02/11/2015 8:40a Mihaela Diaz M.D. 06218 J45.50 D46.9 A31.0 D72.1 Z68.25 Office Visit 12/17/2014 10:40a Mihaela Diaz M.D. 56714 493.00 477.0 477.8 238.75 Office Visit 11/19/2014 8:40a Mihaela Diaz M.D. 53946 493.00 477.0 477.8 238.75 Office Visit 10/15/2014 11:40a Mihaela Diaz M.D. 11736 493.00 477.0 477.8 238.75 031.0 V85.1 Office Visit 07/09/2014 10:40a Mihaela Diaz M.D. 99097 493.00 477.0 477.8 238.75 031.0 Office Visit 06/18/2014 11:20a Mihaela Diaz M.D. 47720 493.00 477.0 477.8 238.75 493.92 Office Visit 04/23/2014 11:00a Mihaela Diaz M.D. 53792 493.00 477.0 477.8 238.75 031.0 493.92 Office Visit 01/08/2014 8:40a Mihaela Diaz M.D. 93271 493.00 477.0 477.8 238.75 031.0 Office Visit 10/02/2013 8:30a Mihaela Diaz M.D. 07395 493.00 477.0 477.8 238.75 Office Visit 09/28/2013 2:00p Mihaela Whitten M.D. 69474 493.00 Office Visit 09/18/2013 11:40a Mihaela Diaz M.D. 12427 477.0 493.00 477.8 477.0 238.75 493.92 477.8 Office Visit 09/18/2013 11:00a Mihaela Allergy Testing 42719 477.8 493.00 Office Visit 05/15/2013 3:20p Mihaela Diaz M.D. 73220 477.8 477.0 238.75 031.0 493.00 Office Visit 04/17/2013 8:40a Mihaela Diaz M.D. 75216 477.8 477.0 238.75 031.0 493.00 465.8 Office Visit 03/06/2013 3:20p Mihaela Diaz M.D. 97130 477.8 477.0 238.75 031.0 493.00 493.92 Office Visit 12/05/2012 11:20a Mihaela Diaz M.D. 44189 477.8 031.0 477.0 238.75 493.00 Office Visit 02/01/2012 11:00a Mihaela Diaz M.D. 18229 477.8 493.00 238.75 031.0 Office Visit 09/21/2011 11:40a Mihaela Diaz M.D. 60250 477.0 477.8 Office Visit 06/01/2011 3:40p Mihaela Diaz M.D. 05994 477.0 477.8 Office Visit 09/27/2010 11:40a Mihaela Diaz M.D. 06977 477.0 477.8 Office Visit 08/16/2010 11:20a Mihaela Diaz M.D. 77505 477.0 477.8 Office Visit 06/02/2010 4:20p Mihaela Gill M.D. 99560 477.0 477.8 Office Visit 11/16/2009 8:30a Mihaela Diaz M.D. 85557 477.0 477.8 Office Visit 09/30/2009 11:00a Mihaela Gill M.D. 67006 477.0 477.8 Office Visit 07/15/2009 10:40a Mihaela Gill M.D. 33233 477.0 477.8 Office Visit 04/25/2009 11:30[place] [address] 477.0 477.8 Office Visit 03/25/2009 10:00a Mihaela Gill M.D. 08442 477.0 477.8 Office Visit 03/07/2009 3:45p Mihaela Crum M.D. 70134 477.0 477.8 Office Visit 01/21/2009 11:00a Mihaela Gill M.D. 80503 477.0 477.8 493.90 Office Visit 01/07/2009 11:45a Mihaela Gill M.D. 93843 477.0 477.8 Office Visit 10/15/2008 2:00p Mihaela Gill M.D. 43513 477.0 477.8 493.90 Office Visit 08/27/2008 11:45a Mihaela Gill M.D. 04332 477.0 477.8 493.90 Office Visit 08/13/2008 3:15p Mihaela Gill M.D. 68111 477.0 477.8 Office Visit 05/14/2008 11:30a Mihaela Gill M.D. 54484 477.0 477.8 493.90 Office Visit 04/07/2008 8:45a Mihaela Marroquin M.D. 03186 477.0 477.8 Office Visit 10/17/2007 9:00a Mihaela Gill M.D. 99666 477.0 477.8 Office Visit 09/12/2007 10:00a Mihaela Gill M.D. 11080 477.0 477.8 Office Visit 06/06/2007 10:00a Mihaela Gill M.D. 36452 477.0 477.8 Office Visit 05/23/2007 10:00a Mihaela Gill M.D. 67920 477.0 477.8 Office Visit 12/28/2005 10:15a Mihaela Gill M.D. 55205 477.0 477.8 Office Visit 12/21/2005 9:15a Mihaela Gill M.D. 89063 477.0 477.8 Office Visit 12/07/2005 9:15a Mihaela Gill M.D. 62226 477.0 477.8 Office Visit 03/21/2005 11:30a Mihaela Crum M.D. 14839 477.0 477.8 Office Visit 02/07/2005 9:00a Mihaela Crmu M.D. 26741 477.0 477.8 Office Visit 12/13/2004 9:00a Mihaela Crum M.D. 26840 477.0 477.8 Office Visit 08/30/2004 10:00a Mihaela Crum M.D. 63531 477.0 477.8 Office Visit 07/03/2004 10:00a Mihaela Crum M.D. 03575 477.0 477.8 Office Visit 05/15/2004 10:00a Mihaela Crum M.D. 15196 477.0 477.8 Office Visit 07/28/2003 11:15a Mihaela Crum M.D. 42293 493.90 477.0 477.8 Office Visit 06/09/2003 11:15a Mihaela Crum M.D. 39271 493.90 Office Visit 05/26/2003 9:45a Mihaela Crum M.D. 06725 493.90 Office Visit 05/19/2003 10:30a Mihaela Crum M.D. 54941 493.90 Office Visit 04/28/2003 11:45a Mihaela Crum M.D. 16918 477.0 Office Visit 04/21/2003 11:15a Mihaela Crum M.D. 62923 493.90 Office Visit 03/10/2003 11:15a Mihaela Crum M.D. 40975 477.0 477.8 493.90 Office Visit 03/03/2003 10:15a Mihaela Crum M.D. 72372 477.0 477.8 493.90 Plan of Care Future Appointment(s):05/10/2017 10:20 am - HUEY [facility] at [facility]/2017 11:40 am - Deborah Diaz M.D. 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 pre-PFT today - reviewed - will repeat in April on a Sat/Sat (pt felt very fatigued today) continue ID , PMD, oncology f/u continue PCP f/u - call for sooner appt resume Dulera 200/ 5 2 puffs twice daily; rinse mouth after use. resume Spiriva 2 puffs once daily continue Albuterol 2 puffs every 4 hours as needed for cough, shortness of breath or chest tightness; call if using >2x/week consistently continue prednisone 10mg po daily
--- OUTSIDE RECORDS SUMMARY | 2017-05-18 21:02 | XMS REPORT ---
:1935 External Reference #:[id number] Author Organization [facility] Address [address] [address] Phone [phone] Care Team Providers Name Role Phone Rocael Weber MD Primary Care Physician Unavailable Payers Type Date Identification Numbers Payment Provider Subscriber Medicare Primary Effective: Policy Number: Medicare Alis Cabrera 2013 [id number] [place] PayID: [id number] [address] [place] [address] Medigap Part B Policy Number: [id number] [facility] Alis A [place] PayID: [id number] [address] [place] [address] Medigap Part B Expires: 2016 Policy Number: [id number] [facility] [place] PayID: [id number] [address] [place] [address] Commercial PayID: [id number] [facility] Alisbrionna Ruiznant [address] [place] [address] Problems Date Description Provider Status Onset: 08/25/2015 [...] Lives With Alone 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 hours Prednisone 10/04/ Active [...] ct bid Vitamin D / Active Capsules [id number] 1 cap by Unknown (Ergocalciferol 0000 mouth [...] ER 0000 mon, sat, and eloy Zoloft 00/00/ Active Tablets 50mg 1 by Unknown 0000 mouth every day Augmentin 0000/ Active Tablets 500-125mg 1 by Unknown 0000 mouth twice a day Percocet 02/19/ Hx Tablets 5-325mg 40tabs 1 PO Q4H Ernst FloresShayna 2007 - ac Nichols, 12/23/ MDiana 2013 Dexamethasone /00/ Hx Unknown - 2015 Diprivan /00/ Hx Unknown - 2015 Fentanyl /00/ Hx Unknown 2015 Cefazolin / Hx Unknown Sodium - 2015 Levaquin / Hx Unknown - 2015 Bupivacaine HCL 00/ Hx Unknown 2015 [...] 0000 - 2016 Calcium 600 + D 00/ Hx Tablets 600-200mg- 1 tab po Unknown 0000 - Unit qd 2016 Spiriva 00/00/ Hx Aerosol 1.25mcg/Ac 2 puffs Unknown Respimat 0000 - t once a 2016 Centrum Silver 00/00/ Hx Tablets 1 tab po Unknown 0000 - qd 2016 Triamcinolone 00// Active Injection Zaneb (Kenalog) 0000 MD Sally Medications Administered in Office Medication Date Status Form Strength Qnty SIG Indications Ordering Provider Triamcinolone 12/27/ Administered Injection Zaneb (Kenalog) 2016 [...] M.D. Vital Signs Date Vital Result Comment 04/26/2017 Heart Rate 82 /min BP Systolic [...] Result H/L Range Note Laboratory test finding 11/28/2015 Culture Throat SEE RESULT BELOW 1, 2 1 [id number] 2 SEE RESULT BELOW Name: ALIS BLAS : [address]: Magaly Will NP Acct: [id number] Unit: [id number] AGE: 80 Location: [facility] Re11/28/15 SEX: F Status: REG REF SPEC: [id number] CANELO: 11/28/15-[address]: Magaly Will NP REQ: [id number] RECD: 11/28/15 STATUS: COMP _ SOURCE: THROAT SPDESC: ORDERED: Throat Culture COMMENTS: [id number] Procedure Result Reported Site Throat Culture Final 11/30/15- 1005 ML Organism 1 NORMAL WHIT Quantity 3+ Throat cultures are clinically indicated to detect the presence of group A strep, arcanobacterium and yeast. In certain cases, predominating organisms will be reported. * ML - MAIN LAB ([facility]) . END OF REPORT * ML=Testing performed at Main Lab DEPARTMENT OF PATHOLOGY, [address] [place] [address] Landon Barrera M.D. Director [facility] # [id number] Procedures Date CPT Code Description Status 04/26/201750430 Inject/Drain Joint/Bursa Major Completed 12/27/201600459 Inject/Drain Joint/Bursa Major Completed 09/25/201695398 Inject/Drain Joint/Bursa Major Completed 06/28/201673467 Inject/Drain Joint/Bursa Major Completed 03/29/2016 Inject/Drain Joint/Bursa Major Completed 11/04/2015 Inject/Drain Joint/Bursa Major Completed 08/25/2015 Inject/Drain Joint/Bursa Major Completed 01/14/201438544 Inject/Drain Joint/Bursa Major Completed 09/23/2013 69796 EKG, Interpretation Only Completed 02/22/2012 86665 Rad Exam; Ankle Comp Completed 02/22/2012 92302 Rad Exam; Tib-Fib Completed 03/06/2011 47900 Rad Shoulder Comp, Min. 2 Views Completed 03/06/2011 Inject/Drain Joint/Bursa Major Completed 02/17/2010 Inject/Drain Joint/Bursa Major Completed 01/18/2010 04369 Xray Knee 3 Views Completed 01/18/2010 26918 Rad Exam; Knee, Ap&L Completed Encounters Type Date Location Provider CPT E/M Dx Office Visit 04/26/2017 1:00p [facility] [place] [address] M75.121 [facility]. 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 Office Visit 04/26/2016 11:15a [place] [address] M19.111 Of C.M.AShayna M75.121 M25.511 Office Visit 12/02/2015 9:30a [facility] [place] [address] M19.111 C.[facility]A. M75.121 Office Visit 11/28/2015 12:07p [facility] Magaly Will, N.P. 41143 J02.9 Z88.1 R23.3 Office Visit 10/12/2015 8:40a [facility] Dipti Nieves 31454 M19.111 Of Benita MORGAN-Marixa S46.011S Office Visit 09/28/2015 11:40a [facility] Dipti Nieves 75456 M19.111 Of CShaynaMLeo MORGAN-C S46.011S Office Visit 08/25/2015 10:00a [facility] Moe Booth 36375 S46.011S Of Benita Zavala M19.111 Office Visit 02/17/2015 1:30p [facility] Magaly Will N.P. 80206 H92.02 Office Visit 01/14/2014 11:00a [facility] Rebecca Bennett 51562 840.4 Of Benita Zavala 727.62 Office Visit 12/24/2013 11:30a [facility] Rebecca Bennett, 05441 726.10 Of C.Cj Zavala 727.62 Office Visit 11/12/2013 2:30p [facility] Rebecca Bennett 07695 727.62 Of CShannon Zavala Office Visit 10/15/2013 3:45p [facility] Rebecca Bennett, 47851 727.62 Of CShannon Zavala Office Visit 02/22/2012 1:00p [facility] Rigo Jimenez M.D. 50996 719.47 Of C.MLeo 724.4 Office Visit 04/17/2011 10:45a [facility] Moe Booth M.D. 83393 840.4 C.M.A. Office Visit 03/06/2011 1:30p [facility] Moe Booth M.D. 79003 840.4 C.M.A. 716.91 Office Visit 03/22/2010 9:00a [facility] Fito Jiménez M.D. 36351 724.4 C.M.A. Office Visit 02/17/2010 9:00a [facility] Fito Jim[facility]nez M.D. 53633 836.0 C.M.A. 275.49 727.09 712.36 Office Visit 01/18/2010 10:30a [facility] Fito Jiménez M.D. 60049 716.96 C.M.A. 727.09 Office Visit 08/23/2009 10:30a [facility] Fito Jiménez M.D. 50913 729.5 C.M.A. 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 maher after her visit with Madiha
[2017-05-18] MEDS ORDERED: Acetaminophen TAB* 325 MG PO ONE (21:31)
[2017-05-18] MEDS ORDERED: Morphine INJ* 2 MG/ML 1 ML CARPUJECT IV ONE ×2 (21:31→23:06)
[2017-05-18] MEDS ORDERED: Piperacillin/Tazobac ADVAN(*) 3.375 GM in NS 0.9% 100 ML* 100 ML IVPB ONE (21:31)
[2017-05-18] MEDS ORDERED: Ondansetron INJ* 2 MG/ML VIAL IV ONE (21:32)
[2017-05-18 21:55] LABS: ABS Basophils 0.2 10^3/ul (0-0.2); ABS Eosinophils 0.8 10^3/ul (0-0.6); ABS Lymphocytes 0.7 10^3/ul (1.0-4.8); ABS Monocytes 1.2 10^3/ul (0-0.8); ABS Neutrophils 3.1 10^3/ul (1.5-7.7); ABS Nucleated RBC 0 10^3/ul; Eosinophil % 13.3 % (0-6); Hematocrit 34 % (35-47); Hemoglobin 11.5 g/dl (12.0-16.0); Lymphocyte % 11.3 % (25-47); Mean Corpuscular HGB Conc 34 g/dl (31-36); Mean Corpuscular Hemoglobin 35 pg (27-31); Mean Corpuscular Volume 105 fL (80-97); Mean Platelet Volume 11 um3 (7.4-10.4); Nucleated Red Blood Cells % 0; Platelet Count 67 10^3/ul (150-450); Red Blood Count 3.28 10^6/ul (4.0-5.4); Red Cell Distribution Width 15 % (10.5-15)
[2017-05-18 21:56] LABS: EGFR Non-African American 68.3 (>60)
[2017-05-18 22:02] LABS: INR 0.95 (0.77-1.02)
[2017-05-18] MEDS: NS 0.9% 1000 ML* 1,000 ML IV ONE (22:03)
--- NOTE | 2017-05-18 22:38 | ED ---
Edilberto Glover Stephanie, scribed for Alfa Ferreira on 05/18/17 at 2131 . Complex/Multi-Sys Presentation - HPI Summary HPI Summary: The pt is an 82 y/o F BIBA to the ED with c/o fever that began earlier today. Symptoms include R wrist pain with swelling and an ulcer on the lateral aspect of the L foot. The pt denies cough and abd pain. Per daughter, the pts fever reached 101.2 F at 19:30 today. The pt is currently recovering after a bout of shingles that began on February 01. - History Of Current Complaint Chief Complaint: EDFever Time Seen by Provider: 05/18/17 21:06 Hx Obtained From: Patient, Family/M[employer] Liv[employer] Worker - daughter Onset/Duration: Lasting Days - 1, Still Present Timing: Constant Severity Currently: Moderate Location: Pain At: - R wrist Associated Signs And Symptoms: Positive: Fever, Other - ulcer on lateral aspect of L foot. Negative: Cough, Abdominal Pain - Allergies/Home Medications Allergies/Adverse Reactions: Allergies Allergy/AdvReac Type Severity Reaction Status Date / Time CAT SCAN DYE Allergy Severe Itching Uncoded 05/18/17 20:57 XYLOCAINE WITH EPINEPHRINE AdvReac Intermediate Palpitation Uncoded 05/18/17 20: 57 s PMH/Surg Hx/FS Hx/Imm Hx Endocrine/Hematology History: Reports: Hx Bone Marrow Disease - MYELODYSPLASTIC SYNDROME Denies: Hx Diabetes, Hx Systemic Lupus Erythematosus Cardiovascular History: Denies: Hx Congestive Heart Failure, Hx Hypertension, Hx Pacemaker/ICD Respiratory History: Reports: Hx Asthma - ADULT ONSET-2002, Hx Chronic Obstructive Pulmonary Disease (COPD), Other Respiratory Problems/Disorders - HX OF [email or web address] GI History: Reports: Hx Diverticulosis History: Reports: Other Problems/Disorders - caricle of urethra Denies: Hx Dialysis, Hx Renal Disease Musculoskeletal History: Reports: Hx Arthritis - OSTEOARTHRITIS, Hx Back Problems, Hx Osteoporosis, Other Musculoskeletal History - right rotator cuff injury Denies: Hx Rheumatoid Arthritis Sensory History: Reports: Hx Contacts or Glasses, Hx Hearing Aid - JORI Opthamlomology History: Reports: Hx Contacts or Glasses Neurological History: Reports: Other Neuro Impairments/Disorders - PAIN CLINIC PT Psychiatric History: Reports: Hx Depression Denies: Hx Panic Disorder - Cancer History Cancer Type, Location and Year: mastectomy . sqaumous cell toe amputation Hx Chemotherapy: No Hx Radiation Therapy: No - Surgical History Surgery Procedure, Year, and Place: SKIN BIOPSY June 29 at [facility]; T&A 194; APPENDIX 1950; Rt OVARY CYST REMOVED 1950; X3; DENTAL IMPLANTS 2013; Rt MASTECTOMY 1985; WEDGE RESECTION Rt LUNG; BRONCHOSCOPY X3; Rt BREAST BIOPSY 1971 AND 1985; HERNIA REPAIR ; D&C ; REPAIR OF DOG BITE ON LEG 07/23; CATARACTS BILATERAL 01/22 & 02/22; RIGHT 2ND TOE AMPUTATED 06/28; BONE MARROW BIOPSY X3 01/25, 04/28 & 04/30; LAMINECTOMY L3-4 & L4-5 08/04/12; SEVERAL MOH'S PROCEDURES; lumbar stimulator 09/2013 - could not be programmed so removed - CHECKED WITH DR. MENENDEZ TODAY(01/04/14)...HE LOOKED AT XRAYS DATED 10/13/13 WHICH CONFIRMED THE STIMULATOR AND LEADS HAD BEEN REMOVED..OK FOR MRI PER DR. MENENDEZ...RAMESH,RT Hx Anesthesia Reactions: No Infectious Disease History: No Infectious Disease History: Reports: History Other Infectious Disease - MYCOBACTERIUM AVIUM Denies: Traveled Outside the [place] in Last 30 Days - Family History Known Family History: Positive: Other - liver cancer Negative: Hypertension, Diabetes - Social History Occupation: Retired Lives: Alone Alcohol Use: Weekly Alcohol Amount: 2 glasses of wine/week Hx Substance Use: No Substance Use Type: Reports: None Substance Use Comment - Amount & Last Used: butran's patch Hx Tobacco Use: No Smoking Status (MU): Former Smoker Type: Cigarettes Length of Time of Smoking/Using Tobacco: 13 years Have You Smoked in the Last Year: No Review of Systems Positive: Fever Negative: Cough Negative: Abdominal Pain Positive: Other - R wrist pain Positive: Other - Erythema on R wrist, healing ulcer on lateral aspect of L foot All Other Systems Reviewed And Are Negative: Yes Physical Exam - Summary Physical Exam Summary: Appearance: Well appearing, no pain distress Skin: warm, dry, 2 cm healing ulcer on lateral aspect of L foot Head/face: normal Eyes: EOMI, NIDHI ENT: dry mucus membranes Neck: supple, non-tender Respiratory: CTA, breath sounds present Cardiovascular: pulses symmetrical, tachycardia Abdomen: non-tender, soft Bowel: present Musculoskeletal: strength/ROM intact, R wrist swelling with redness Neuro: normal, sensory motor intact, A&Ox3 Triage Information Reviewed: Yes Vital Signs On Initial Exam: Initial Vitals Temp Pulse Resp BP Pulse Ox 100.5 F 87 16 140/63 96 05/18/17 20:53 05/18/17 20:53 05/18/17 20:53 05/18/17 20:53 05/18/17 20:53 Vital Signs Reviewed: Yes Diagnostics - Vital Signs Vital Signs Temp Pulse Resp BP Pulse Ox 05/18/17 20:53 100.5 F 87 16 140/63 96 - Laboratory Lab Results: Lab Results 05/18/17 05/18/17 05/18/17 Range/Units 21:10 21:10 21:10 WBC 6.0 (3.5-10.8) 10^3/ul RBC 3.28 L (4.0-5.4) 10^6/ul Hgb 11.5 L (12.0-16.0) g/dl Hct 34 L (35-47) % MCV 105 H (80-97) fL MCH 35 H (27-31) pg MCHC 34 (31-36) g/dl RDW 15 (10.5-15) % Plt Count 67 L (150-450) 10^3/ul MPV 11 H (7.4-10.4) um3 Neut % (Auto) 51.6 (38-83) % Lymph % (Auto) 11.3 L (25-47) % Hill % (Auto) 20.9 H (1-9) % Eos % (Auto) 13.3 H (0-6) % Baso % (Auto) 2.9 H (0-2) % Absolute Neuts (auto) 3.1 (1.5-7.7) 10^3/ul Absolute Lymphs (auto) 0.7 L (1.0-4.8) 10^3/ul Absolute Monos (auto) 1.2 H (0-0.8) 10^3/ul Absolute Eos (auto) 0.8 H (0-0.6) 10^3/ul Absolute Basos (auto) 0.2 (0-0.2) 10^3/ul Absolute Nucleated RBC 0 10^3/ul Nucleated RBC % 0 ESR Pending INR (Anticoag Therapy) 0.95 (0.77-1.02) APTT 34.9 (26.0-36.3) seconds Sodium 135 (133-145) mmol/L Potassium 4.1 (3.5-5.0) mmol/L Chloride 101 (101-111) mmol/L Carbon Dioxide 30 (22-32) mmol/L Anion Gap 4 (2-11) mmol/L BUN 15 (6-24) mg/dL Creatinine 0.80 (0.51-0.95) mg/dL Est GFR ( Amer) 87.9 (>60) Est GFR (Non-Af Amer) 68.3 (>60) BUN/Creatinine Ratio 18.8 (8-20) Glucose 109 H (70-100) mg/dL Lactic Acid (0.5-2.0) mmol/L Uric Acid Pending Calcium 9.1 (8.6-10.3) mg/dL Total Bilirubin 0.90 (0.2-1.0) mg/dL AST 15 (13-39) U/L ALT 10 (7-52) U/L Alkaline Phosphatase 63 (34-104) U/L C-Reactive Protein Pending Total Protein 6.1 L (6.4-8.9) g/dL Albumin 3.4 (3.2-5.2) g/dL Globulin 2.7 (2-4) g/dL Albumin/Globulin Ratio 1.3 (1-3) 05/18/17 Range/Units 21:10 WBC (3.5-10.8) 10^3/ul RBC (4.0-5.4) 10^6/ul Hgb (12.0-16.0) g/dl Hct (35-47) % MCV (80-97) fL MCH (27-31) pg MCHC (31-36) g/dl RDW (10.5-15) % Plt Count (150-450) 10^3/ul MPV (7.4-10.4) um3 Neut % (Auto) (38-83) % Lymph % (Auto) (25-47) % Hill % (Auto) (1-9) % Eos % (Auto) (0-6) % Baso % (Auto) (0-2) % Absolute Neuts (auto) (1.5-7.7) 10^3/ul Absolute Lymphs (auto) (1.0-4.8) 10^3/ul Absolute Monos (auto) (0-0.8) 10^3/ul Absolute Eos (auto) (0-0.6) 10^3/ul Absolute Basos (auto) (0-0.2) 10^3/ul Absolute Nucleated RBC 10^3/ul Nucleated RBC % ESR INR (Anticoag Therapy) (0.77-1.02) APTT (26.0-36.3) seconds Sodium (133-145) mmol/L Potassium (3.5-5.0) mmol/L Chloride (101-111) mmol/L Carbon Dioxide (22-32) mmol/L Anion Gap (2-11) mmol/L BUN (6-24) mg/dL Creatinine (0.51-0.95) mg/dL Est GFR ( Amer) (>60) Est GFR (Non-Af Amer) (>60) BUN/Creatinine Ratio (8-20) Glucose (70-100) mg/dL Lactic Acid 0.7 (0.5-2.0) mmol/L Uric Acid Calcium (8.6-10.3) mg/dL Total Bilirubin (0.2-1.0) mg/dL AST (13-39) U/L ALT (7-52) U/L Alkaline Phosphatase (34-104) U/L C-Reactive Protein Total Protein (6.4-8.9) g/dL Albumin (3.2-5.2) g/dL Globulin (2-4) g/dL Albumin/Globulin Ratio (1-3) Result Diagrams: 05/18/17 21:10 05/18/17 21:10 Lab Statement: Any lab studies that have been ordered have been reviewed, and results considered in the medical decision making process. - Radiology CXR Xray Interpretation: Positive (See Comments) Radiology Interpretation Completed By: Radiologist - R lobe infiltrate Hand Xray Xray Interpretation: No Acute Changes Radiology Interpretation Completed By: Radiologist - Negative - EKG 21:31 EKG Rhythm: Sinus Rhythm - 84 BPM EKG Interpretation: No acute changes Complex Multi-Symp Course/Dx Course Of Treatment: The pt is an 82 y/o F BIBA to the ED with c/o fever that began earlier today. ED physician consulted with Dr. Acuna who agrees to admit the pt. - Diagnoses Differential Diagnoses/HQI/PQRI: Aspiration, Sepsis, Urinary Tract Infection, Other - flu/pneumonia,/mds/mac/cellulitisvrt hand Provider Diagnoses: Cellulitis of right hand, Gout, Pneumonia, Sepsis, Foot ulcer, Myelodysplastic syndrome, Mycobacterium avium complex - Physician Notifications Discussed Care Of Patient With: Rigo Acuna - He agrees to admit pt. Time Discussed With Above Provider: 22:29 - Critical Care Time Critical Care Time: 30-74 min Discharge - Discharge Plan Condition: Stable Disposition: ADMITTED TO [facility] Referrals: Cinthya Weber MD [Primary Care Provider] - The documentation as recorded by the Edilberto dominguez Stephanie accurately reflects the service I personally performed and the decisions made by Hanna mario Emmanuel.
[2017-05-18] MEDS ORDERED: Vancomycin(*) 1,000 MG in NS 0.9% 250 ML* 250 ML IVPB ONE (23:24)
[2017-05-18] MEDS ORDERED: Morphine INJ* 2 MG/ML 1 ML CARPUJECT IV PRN (23:27)
[2017-05-18] MEDS ORDERED: Albuterol HFA INHALER* 8 gm MDI INH PRN (23:42)
[2017-05-18] MEDS ORDERED: Polyethylene Glycol 3350* 17 GM PACKET PO PRN (23:42)
[2017-05-19] MEDS: NS 0.9% 1000 ML* 1,000 ML IV ONE (00:10)
--- NOTE | 2017-05-19 02:07 | HP ---
CC: Dr. Weber * ADMISSION HISTORY AND PHYSICAL: DATE OF ADMISSION: PRIMARY CARE PROVIDER: Cinthya Weber MD HEALTHCARE PROXY: Her 3 children, . CODE STATUS: DNR, discussed with the patient. MOLST completed and placed in the chart. SOURCE OF INFORMATION: History obtained from interview with the patient and her daughter. RELIABILITY: Good. CHIEF COMPLAINT: Right wrist pain. HISTORY OF PRESENT ILLNESS: This 82-year-old female with past medical history significant for myelodysplastic syndrome as well as mycobacterium avium complex infection, on chronic steroids, had been in usual state of health until the night prior to presentation. She was awoken from sleep with right wrist pain. She thought it was secondary to arthritis and tried Lidoderm or Voltaren gel, but did not notice any improvement. The following day, she wrapped her wrist with lidocaine gel. When her daughter arrived, noted it to be red. She checked her temperature and at home, was 100.3. She was also noted to be increasingly sluggish and fatigued throughout the day with increased pain in her right wrist. Two days prior, she was at [facility] and she thinks she may have hit her wrist while in the bathroom, but noticed no pain at that time. No other notable trauma. In the past, she believed she had left wrist swelling. She notes it occurred during this hospital stay. She denies other arthralgias or other episodes of joint swelling or erythema in the past. Specifically, denies history of gout. No changes in recent medication. Because of the increasing pain and fever, EMS was activated. Upon EMS arrival, they found her temporal temperature to be 101 degrees Fahrenheit. She was transferred to [facility] ED where she was evaluated by this author. 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 MEDICATIONS: Reviewed with the patient. She notes: 1. Rifampin 600 mg twice daily. 2. Zithromax 500 mg daily. 3. Flonase 1 spray both nares twice daily. 4. Prednisone 10 mg daily. 5. Dulera. 6. Spiriva. 7. Calcium. 8. Cetirizine. 9. Senna. 10. MiraLAX. 11. OxyContin 20 mg twice daily. 12. Oxycodone 5 mg every 4 hours. ALLERGIES: To CAT SCAN DYES, XYLOCAINE with EPINEPHRINE. FAMILY HISTORY: Significant for father with CAD in his 60s. Mother with hepatic cancer, sister with CVA. SOCIAL HISTORY: Drinks 2 to 3 glasses of wine per week. Smoked tobacco for 6 years, quit in 1968, lives at home alone. REVIEW OF SYSTEMS: Positive for right wrist pain, fatigue and fevers; otherwise , all other systems reviewed and negative. PHYSICAL EXAMINATION GENERAL: Elderly woman, appears stated age, sitting up in bed, interactive, pleasant, no apparent distress. VITAL SIGNS: In the emergency room, T-max 100.5, respiratory rate is 12, heart rate is 87, blood pressure 140/63. She is 89% on room air. HEENT: Oropharynx is clear. She has moist mucous membranes. Sclerae anicteric. NECK: She has non-elevated JVD. LUNGS: Has decreased breath sounds in her lungs. No rales or rhonchi. ABDOMEN: Soft, nontender, nondistended. EXTREMITIES: Warm and well perfused. Her right wrist is erythematous, hot, palpable swelling. She has significant pain to passive range of motion. She is able to wiggle her fingertips, has intact sensation distally. She has very limited, active range of motion. NEUROLOGIC: She is alert and oriented x3. Cranial nerves II through XII were intact. DIAGNOSTIC STUDIES/LAB DATA: Data reviewed. X-ray of her right hand, no formal interpretation at this time. Please follow official read in the morning. EKG, normal sinus rhythm, normal limit axis. QTc is 450, normal intervals. Normal R-wave progression. No ST or T-wave changes. Notable labs, lactic acid 0.7. CRP is 50. ESR is pending at this time. White blood cell count is 6.0, platelets are 67. Uric acid is 4.0. ASSESSMENT AND PLAN: An 82-year-old female with past medical history of myelodysplastic syndrome as well as mycobacterium avium complex, on chronic suppressive steroids presenting to the hospital with sudden onset of right wrist pain associated with erythema and fever. Right wrist swelling, greatest concern is for septic arthritis at the time given immunosuppression by myelodysplastic syndrome, chronic suppressive steroids as well as her age and presence of fever. I discussed the case at length with Dr. Christopher Reddy from Orthopedic Surgery. He would like an MRI prior to any attempted joint aspiration. I did voice my concern that an MRI would not be obtainable over night and that she may benefit from more expeditious joint aspiration. Dr. Reddy feels comfortable with patient having MRI in the morning if possible and seeing the patient at that time. I will cover the patient empirically with vancomycin and ceftriaxone 2 g daily. The MRI will be noncontrast based on creatinine clearance of 29 based on her ideal body weight. She cannot receive gadolinium. Other possible diagnoses include gout; however, no other gouty flares in her 82-year history and a normal uric acid argues against the diagnosis. She is clinically stable at this time. We discussed the possibility of CT scan in lieu of MRI, which orthopedic surgeon at this time does not favor and advised this author to order MRI and he will follow up with the patient in the morning. Mycobacterium avium: Continue azithromycin, rifampin as well as prednisone. Thrombocytopenia: Holding pharmacologic DVT prophylaxis, SCDs in place. History of asthma: Continue Spiriva as well as fluticasone and Dulera. Code status, DNR. Discussed with patient and her daughter present. [id number]/[facility] #: [id number] MTDD
[2017-05-19] MEDS: cefTRIAXone(*) 2 GM in NS 0.9% 100 ML* 100 ML IVPB SCH ×2 (02:13→23:42)
[2017-05-19] MEDS: Morphine INJ* 4 MG/ML 1 ML CARPUJECT IV PRN ×7 (02:20→20:10)
[2017-05-19] MEDS ORDERED: Vancomycin per Pharmacy* NOTE FOLLOW UP PRN (03:55)
[2017-05-19 06:59] LABS: ABS Basophils 0 10^3/ul (0-0.2); ABS Eosinophils 0.9 10^3/ul (0-0.6); ABS Lymphocytes 0.9 10^3/ul (1.0-4.8); ABS Monocytes 1.3 10^3/ul (0-0.8); ABS Neutrophils 3.3 10^3/ul (1.5-7.7); ABS Nucleated RBC 0 10^3/ul; Eosinophil % 14.7 % (0-6); Hematocrit 30 % (35-47); Hemoglobin 10.1 g/dl (12.0-16.0); Lymphocyte % 13.7 % (25-47); Mean Corpuscular HGB Conc 34 g/dl (31-36); Mean Corpuscular Hemoglobin 35 pg (27-31); Mean Corpuscular Volume 106 fL (80-97); Mean Platelet Volume 11 um3 (7.4-10.4); Nucleated Red Blood Cells % 0; Platelet Count 58 10^3/ul (150-450); Red Blood Count 2.84 10^6/ul (4.0-5.4); Red Cell Distribution Width 16 % (10.5-15); White Blood Count 6.4 10^3/ul (3.5-10.8)
[2017-05-19 07:13] LABS: EGFR Non-African American 66.4 (>60)
--- NOTE | 2017-05-19 07:56 | RAD ---
INDICATION: Fever COMPARISON: February 11, 2017 TECHNIQUE: An AP portable view obtained at 2200 hours is submitted. FINDINGS: Bones/Soft Tissues: There are no acute bony findings. Cardiomediastinal: The heart is normal in size.. Lungs: There is hyperinflation with chronic interstitial change. Given these diffuse findings a superimposed acute pneumonitis might be difficult to discern. There is no appreciable interval change, however, when allowing for slight differences in technique. Pleura: There are no pleural effusions. Other: None IMPRESSION: HYPERINFLATION WITH CHRONIC LUNG FINDINGS.
--- NOTE | 2017-05-19 07:58 | RAD ---
INDICATION: Diffuse right hand and wrist pain COMPARISON: None TECHNIQUE: AP and lateral views were obtained. FINDINGS: There is osteopenia. There is advanced first CMC joint osteoarthritis. There is moderate IP and MCP joint osteoarthritis. There is no acute bony change. There is mild diffuse soft tissue swelling about the wrist IMPRESSION: OSTEOARTHRITIC CHANGES. NO ACUTE FINDINGS
[2017-05-19] MEDS: RiFAMPin CAP* 300 MG CAP PO SCH ×3 (08:53→21:34)
[2017-05-19] MEDS: Docusate CAP* 100 MG PO SCH (08:53)
[2017-05-19] MEDS: Azithromycin TAB* 250 MG PO SCH ×2 (08:54→11:08)
[2017-05-19] MEDS: Multivitamins/Minerals TAB PO SCH (08:54)
[2017-05-19] MEDS: predniSONE TAB* 10 MG PO SCH (08:54)
[2017-05-19] MEDS: oxyCODONE SR TAB(*) 20 MG TAB.SR PO SCH ×2 (08:54→21:33)
[2017-05-19] MEDS: Fluticasone NASAL SPRAY 50MCG* 16 gm SPRAY BTL BOTH NARES SCH (08:54)
[2017-05-19] MEDS ORDERED: RiFAMPin CAP* 300 MG CAP PO SCH (09:00)
[2017-05-19] MEDS ORDERED: Azithromycin 100 MG/5 ML SUSP* 100 MG/5 ML BTL PO SCH (09:00)
[2017-05-19] MEDS ORDERED: Spiriva Inhaler DEVICE* 1 EACH DEVICE INH ONE (09:00)
[2017-05-19] MEDS: Mometasone/Formoter 100/5 MDI INH SCH (09:09)
[2017-05-19] MEDS: Tiotropium CAP.INH* CAP.INH/18 MCG (USE ORDER SET !) INH SCH (09:09)
[2017-05-19] MEDS ORDERED: HYDROmorphone INJ* 2 MG/ML CARPUJECT SYRINGE IV SLOW PU ONE (10:08)
[2017-05-19] MEDS: Vancomycin(*) 1,000 MG in NS 0.9% 250 ML* 250 ML IVPB SCH (12:51)
[2017-05-19] MEDS: oxyCODONE TAB* 5 MG TAB PO PRN (14:46)
[2017-05-20] MEDS: Morphine INJ* 4 MG/ML 1 ML CARPUJECT IV PRN ×4 (00:12→22:38)
[2017-05-20] MEDS: Vancomycin(*) 1,000 MG in NS 0.9% 250 ML* 250 ML IVPB SCH ×3 (00:56→23:29)
[2017-05-20] MEDS: Ondansetron INJ* 2 MG/ML VIAL IV PRN ×2 (04:24→18:41)
[2017-05-20 06:57] LABS: ABS Basophils 0.4 10^3/ul (0-0.2); ABS Eosinophils 0.8 10^3/ul (0-0.6); ABS Monocytes 1.6 10^3/ul (0-0.8); ABS Neutrophils 4.6 10^3/ul (1.5-7.7); ABS Nucleated RBC 0 10^3/ul; Eosinophil % 9.4 % (0-6); Hematocrit 34 % (35-47); Hemoglobin 11.5 g/dl (12.0-16.0); Lymphocyte % 12.3 % (25-47); Mean Corpuscular HGB Conc 34 g/dl (31-36); Mean Corpuscular Hemoglobin 35 pg (27-31); Mean Corpuscular Volume 104 fL (80-97); Mean Platelet Volume 11 um3 (7.4-10.4); Nucleated Red Blood Cells % 0; Platelet Count 65 10^3/ul (150-450); Red Blood Count 3.26 10^6/ul (4.0-5.4); Red Cell Distribution Width 15 % (10.5-15); White Blood Count 8.4 10^3/ul (3.5-10.8)
[2017-05-20 07:05] LABS: EGFR Non-African American 95.2 (>60)
--- NOTE | 2017-05-20 08:30 | RAD ---
Indication: Right Wrist swelling. Axial proton density, sagittal T1, axial T1, T2 fat sat, sagittal T2 fat sat, coronal T1, T2 fat sat and STIR images of the wrist were obtained. The study is limited due to motion artifact. There is osteoarthritis with joint space narrowing in the radiocarpal joint. No evidence of bone marrow edema is noted. There is however fluid in the radiocarpal joint, distal radial ulnar joint and the intercarpal joint. There is diffuse subcutaneous edema. IMPRESSION: No evidence of bone marrow edema is noted. There is a joint effusion with diffuse subcutaneous edema. Septic arthritis is not excluded. Osteoarthritis of the radiocarpal joint is noted.
[2017-05-20] MEDS: Mometasone/Formoter 100/5 MDI INH SCH (08:34)
[2017-05-20] MEDS: Tiotropium CAP.INH* CAP.INH/18 MCG (USE ORDER SET !) INH SCH (08:34)
[2017-05-20] MEDS: Azithromycin TAB* 250 MG PO SCH (09:45)
[2017-05-20] MEDS: Fluticasone NASAL SPRAY 50MCG* 16 gm SPRAY BTL BOTH NARES SCH (09:45)
[2017-05-20] MEDS: Docusate CAP* 100 MG PO SCH (09:46)
[2017-05-20] MEDS: oxyCODONE SR TAB(*) 20 MG TAB.SR PO SCH ×2 (09:46→22:38)
[2017-05-20] MEDS: predniSONE TAB* 10 MG PO SCH (09:46)
[2017-05-20] MEDS: RiFAMPin CAP* 300 MG CAP PO SCH (09:46)
[2017-05-20] MEDS: Multivitamins/Minerals TAB PO SCH (09:47)
[2017-05-20] MEDS ORDERED: Vancomycin Trough Check NOTE FOLLOW UP ONE (11:30)
--- NOTE | 2017-05-20 13:39 | CONS ---
CONSULTATION REPORT: DATE OF CONSULT: 05/20/17 REQUESTING PHYSICIAN: Dr. Weber. CONSULTING SERVICE: Infectious Disease. REASON FOR CONSULT: Right wrist synovitis. IMPRESSION: 1. Two days of right wrist swelling, erythema, warmth, pain and tenderness, wrist effusion on MRI. The synovial fluid was aspirated from the wrist joint 16, 000 white cells, 75% neutrophils. Crystals are pending. Gram stain showed no organisms and the culture is negative at 1 day. Staph aureus PCR was negative. Fluid was obtained after about 12 hours of IV antibiotics, which may decrease the yield on bacterial studies. Differential diagnosis includes septic arthritis, though the cell count is a little bit low for that, lyme would be unusual as she does not get outside much and again the cell count is a little bit low for that too. It could be noninfectious inflammatory including gout or pseudogout. 2. Myelodysplastic syndrome 3. Chronic corticosteroid use. 4. History of Mycobacterium avium infection. RECOMMENDATION: Agree with broad-spectrum antibiotics while awaiting the crystal and culture results. HISTORY OF PRESENT ILLNESS: This is an 82-year-old woman admitted with fever and right wrist pain. She was well until a day and half ago. She was awakened from sleep with right wrist pain and swelling. She had a fever. The following day her daughter came and checked in on her after she used some topical treatment for osteoarthritis without much improvement. They brought her to the emergency room last night white count was especially on the night of the white count was 6, she had low grade fever of 38.1. She was started on antibiotics. She had an MRI with findings as noted above. She was seen by Dr. Andrade who aspirated her wrist yesterday afternoon, findings as noted above. She has had no fevers since coming to the hospital. She has been on vancomycin and ceftriaxone, as well as azithromycin and continued her chronic daily 10 mg of prednisone. Chest x-ray showed hyperinflation. Blood cultures are negative 24 hours and influenza PCR was negative. She does not have any other joints that bother her pain other than in her right wrist. She has not had symptoms like this happen her before and she never had a known diagnosis of gout. PAST MEDICAL HISTORY: 1. Spinal laminectomy. 2. History of spinal stimulator, which was subsequently removed. 3. Status post 3 C-sections. 4. Status post hernia repair. 5. Brest cancer, status post right mastectomy. 6. Squamous cell carcinoma. 7. Status post right great toe amputation. 8. Status post appendectomy. 9. Asthma. 10. Urethral polyp excision in 2013. 11. Diverticulitis. 12. Mycobacterium avium complex treated with VATS wedge resection and chronic antibiotics. 13. Myelodysplastic syndrome. 14. Migraine headache. MEDICATIONS: 1. Albuterol, 2. Azithromycin 500 mg daily. 3. Docusate. 4. Oxycodone. 5. OxyContin. 6. Prednisone 10 mg a day. 7. Rifampin 600 mg twice daily. 8. Ceftriaxone 2 g a day. 9. Spiriva. 10. Vancomycin 1 g every 12 [address] ALLERGIES: CT DYE, XYLOCAINE with EPINEPHRINE. FAMILY HISTORY: Father had coronary artery disease. Mother had liver cancer. SOCIAL HISTORY: She lives at [place], she had recently been to [facility] for an outpatient visit. She drinks a couple classes of wine a week. She is a past smoker. REVIEW OF SYSTEMS: The 14-point review of systems negative except as noted above in the history of present illness. PHYSICAL EXAM: Vital Signs: Temperature 36.7, heart rate 110, respiratory rate 16, blood pressure 158/84, oxygen saturation 94% on room air. In General: She is awake, appears uncomfortable. Neurologic: She is oriented x2, follows all commands, answers all questions, moves all extremities. HEENT: There is no conjunctival hemorrhage. Oropharynx without lesions. Neck: Supple. Lymph Nodes: There is no cervical or supraclavicular, inguinal, axillary or epitrochlear lymphadenopathy. Heart is regular and tachycardic without murmurs. Lungs: Clear to auscultation bilaterally. Abdomen: Soft, nontender, nondistended. There are bowel sounds presents. Skin: There is no rash or splinter hemorrhages. Musculoskeletal: No spine tenderness to palpation. On the right wrist there is diffuse edema, warmth, and mild erythema from the distal arm up through the hand. She can wiggle her fingers. Movement of the wrist joint is limited due to pain. There is diffuse tenderness to palpation. There is no crepitus or fluctuance. Right elbow range of motion is full. DIAGNOSTIC STUDIES/LAB DATA: White blood cell count 8, hemoglobin 11, platelets 65. Creatinine is 0.6, CRP 75. Please see impressions and recommendations outlined above. Thank you for asking me to see Ms. Blas in consultation. [id number]/[facility] #: [id number] RAVEN
--- NOTE | 2017-05-20 18:31 | CONSULT ---
Consult Consult: Ms. 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 Synovial aspiration reveals CPPD crystals and imaging studies confirm a joint effusion. My impression is acute pseudogout. We will initiate Colchicine .6mg tonight. If it is well tolerated without diarrhea, consider increasing to twice daily tomorrow. Also consider intra-articular steroid injection of steroids. We discussed how stress or dehydration or metabolic conditions can trigger flares of pseudogout, as she and her family her recalled having a prior flare of a swollen wrist about 4 years
[2017-05-20] MEDS: oxyCODONE TAB* 5 MG TAB PO PRN (18:40)
[2017-05-20] MEDS: cefTRIAXone(*) 2 GM in NS 0.9% 100 ML* 100 ML IVPB SCH (22:37)
[2017-05-20] MEDS: Colchicine* 0.6 MG TAB PO SCH (22:38)
--- NOTE | 2017-05-21 00:30 | CONS ---
CONSULTATION REPORT: DATE OF CONSULT: 05/20/17 CONSULTING PHYSICIAN: Dr. Cinthya Weber. REASON FOR CONSULT: Right wrist pain and swelling and history of pseudogout. CHIEF COMPLAINT: Wrist pain and swelling. HISTORY OF PRESENT ILLNESS: Mrs. Blas is an 82-year-old a woman, who is chronically immunosuppressed on steroid therapy. She has a history of mycobacterium avium as well as myelodysplastic syndrome. She has been on chronic steroids. She woke up spontaneously with right wrist pain shortly before admission and this led her to go to the emergency room for evaluation and treatment. On evaluation, included an x-ray as well as an MRI of the wrist , which confirmed osteoarthritis, but also joint effusion. 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 Despite this finding, she continues to be in significant discomfort with right wrist pain and swelling and discomfort that extends throughout the wrist itself to the forearm in a tenosynovitis type pattern. Infectious Disease has been consulted and currently she is on broad-spectrum antibiotics awaiting final cultures from the wrist aspiration. Of note, she has had a prior flare of wrist pain and swelling about 4 years ago and her family confirmed this as well. 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 She has tried topical therapy such as Lidoderm and Voltaren, but it did not seem to help more immediate flare. Her wrist was also red and also it should be noted at home that her temperature was 100.3. She was also very fatigued as well as sluggish and of note 2 days prior, she had been at [facility] and she may have hit her wrist, which resulted in the early swelling. She denied any other arthralgias, but she does have chronic knee and foot restriction. 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 No recent change in her medication. It was noted that she was febrile on initial presentation and she came to the [facility] where she was evaluated. Symptoms are worsened as the day goes on, but last all day with no alleviating factors with no other qualifying factors except that it is remaining red and swollen and difficult to mobilize. 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 PAST SURGICAL HISTORY: Includes laminectomy, 3 C-sections, hernia repair and right mastectomy in 1985 with right toe amputation in 2008, appendectomy and status post excision in 2012. MEDICATIONS AN OUTPATIENT: Include: 1. Rifampin 600 mg twice daily. 2. Zithromax 500 mg daily. 3. Flonase 1 spray both nares twice daily. 4. Prednisone 10 mg daily. 5. Dulera. 6. Spiriva. 7. Calcium. 8. Cetirizine. 9. Senna. 10. MiraLAX 11. OxyContin 20 mg twice daily. 12. Oxycodone 5 mg every 4 hours. ALLERGIES: Include CAT SCAN DYE, XYLOCAINE and EPINEPHRINE. FAMILY HISTORY: Notable for father with coronary disease in the 60s. Mother with hepatic cancer. Sister with stroke. SOCIAL HISTORY: She has in the past had some alcohol, but not more than 2 to 3 glasses of wine per week. She did smoke tobacco for 6 years, but quit quite sometime ago in 1968. She lives at home alone, but has a supportive family. REVIEW OF SYSTEMS: She has had some mild confusion and lethargy. HEENT: Denies trauma to the eyes or mouth. She has been mildly dehydrated recently. Lungs: Denies acute shortness of breath. Cardiovascular: Denies chest wall pain. Abdomen: Denies stomach upset or diarrhea. Skin: With some redness around her wrist. Neurologic: Some general malaise. : No blood in the urine or stool. Other 14-point review of systems were reviewed and were otherwise negative. PHYSICAL EXAM: She is an elderly woman, sitting in no acute distress, appeared to be chronically ill, but was able to answer simple questions. In the emergency room, her T-max was 100.5 but she is currently afebrile, respiratory rate of 18, heart rate of 87, blood pressure 140/63 initially. She does not appear hypoxic. HEENT exam is normocephalic atraumatic. Pupils are equal, round , and reactive to light and accommodate. Moist mucous membranes. Neck: Supple. No lymphadenopathy. Lungs: Slightly diminished breath sounds at the bases, but no rales or rhonchi. Abdomen: Soft, nontender, nondistended. No organomegaly. No hepatosplenomegaly. Extremities: Warm and well perfused. Neurologic: She was alert. : No CVA tenderness. Musculoskeletal Exam: There are mild varus deformities of her knees, but most prominently there was swelling of the right dorsum of the wrist with tenosynovitis extending from the mid part of the forearm to the wrist area to the dorsum of the hand with moderate wrist restriction. She was able to wiggle her fingertips. She had intact sensation distally. She had limited active range of motion of the wrist. Her opposite wrist appeared to be okay. DIAGNOSTIC STUDIES/LAB DATA: She had an EKG showing normal sinus rhythm, normal limit axis, QTc is 415, normal intervals, normal R-wave progression, no ST or T wave changes. Labs, she had CRP of 50s, which has gone up. Her high sensitivity C-reactive protein is also elevated. White count 6.0, platelets are 67,000, uric acid of 4 and lactic acid was 0.7. She had aspiration of her wrist, which did confirm calcium pyrophosphate crystals. She had an imaging study of her wrist, which did confirm osteoarthritis as well as a joint effusion, but no bone marrow edema. ASSESSMENT: She in elderly woman with: 1. Acute pseudogout of her wrist in the setting of chronic steroid therapy. 2. Osteoarthritis. 3. Joint effusion. 4. Fevers. 5. History of immunosuppression. At this point in time, it appears that her symptoms are most likely due to acute pseudogout and infection is being ruled out and Infectious Disease is also following as well. We discussed with her family that pseudogout can sometimes be precipitated by stressful events such as dehydration. Of note, she did lose her about a year ago today. She has also been somewhat dehydrated and there is some question as to whether prior trauma to the wrist may have precipitated an attack. At this point in time, her wrist remains very swollen. I was just adding colchicine 0.6 mg twice daily. I have added a 0.6 mg tonight after discussing her case with Dr. Weber. Potentially, we could increase this to twice daily, also consider intra-articular injections of steroids. First, I would like to see how the colchicine helps because her wrist was exquisitely tender and further injection might be very uncomfortable for her; however, she should watch for side effects of diarrhea and neuropathy from colchicine. We will continue to follow daily. [id number]/[facility] #: [id number] MTDD
[2017-05-21] MEDS: Morphine INJ* 4 MG/ML 1 ML CARPUJECT IV PRN ×4 (01:46→21:27)
[2017-05-21 07:26] LABS: Hematocrit 32 % (35-47); Mean Corpuscular HGB Conc 34 g/dl (31-36); Mean Corpuscular Hemoglobin 35 pg (27-31); Mean Corpuscular Volume 104 fL (80-97); Mean Platelet Volume 11 um3 (7.4-10.4); Platelet Count 67 10^3/ul (150-450); Red Blood Count 3.12 10^6/ul (4.0-5.4); Red Cell Distribution Width 15 % (10.5-15); White Blood Count 7.6 10^3/ul (3.5-10.8)
[2017-05-21 07:31] LABS: EGFR Non-African American 86.8 (>60)
[2017-05-21] MEDS: Fluticasone NASAL SPRAY 50MCG* 16 gm SPRAY BTL BOTH NARES SCH (07:55)
[2017-05-21] MEDS: oxyCODONE SR TAB(*) 20 MG TAB.SR PO SCH ×2 (07:58→21:28)
[2017-05-21] MEDS: Azithromycin TAB* 250 MG PO SCH (07:59)
[2017-05-21] MEDS: predniSONE TAB* 10 MG PO SCH (07:59)
[2017-05-21] MEDS: Docusate CAP* 100 MG PO SCH (07:59)
[2017-05-21] MEDS: Multivitamins/Minerals TAB PO SCH (07:59)
[2017-05-21] MEDS: RiFAMPin CAP* 300 MG CAP PO SCH (07:59)
[2017-05-21] MEDS: Tiotropium CAP.INH* CAP.INH/18 MCG (USE ORDER SET !) INH SCH (08:49)
[2017-05-21] MEDS: Mometasone/Formoter 100/5 MDI INH SCH (08:49)
[2017-05-21] MEDS: Colchicine* 0.6 MG TAB PO SCH ×2 (09:34→21:28)
[2017-05-21] MEDS: Vancomycin(*) 1,000 MG in NS 0.9% 250 ML* 250 ML IVPB SCH (11:59)
--- NOTE | 2017-05-21 13:07 | RAD ---
HISTORY: Confusion COMPARISONS: August 03, 2014 TECHNIQUE: Multiple contiguous axial CT scans were obtained of the head without intravenous contrast. FINDINGS: HEMORRHAGE/INFARCT: There is no hemorrhage or acute infarct. MASSES/SHIFT: There is no mass or shift. EXTRA-AXIAL SPACES: There are no extra-axial fluid collections. SULCI AND VENTRICLES: The sulci and ventricles are normal in size and position for the patient's stated age. CEREBRUM: There is mild, patchy hypoattenuation of the periventricular and subcortical white matter. BRAINSTEM: There are no focal parenchymal abnormalities. CEREBELLUM: There are no focal parenchymal abnormalities. VESSELS: The vessels are grossly normal. PARANASAL SINUSES: The paranasal sinuses are clear. ORBITS: The orbits are unremarkable. BONES AND SOFT TISSUE: No bone or soft tissue abnormalities are noted. OTHER: None IMPRESSION: NO ACUTE INTRACRANIAL PATHOLOGY. MILD CHRONIC SMALL VESSEL ISCHEMIC CHANGES.
--- NOTE | 2017-05-21 16:13 | PN ---
Progress Note - Progress Note Date of Service: 05/21/17 SOAP: Subjective: CC: R wrist pain HPIL 82 year old woman who developed right wrist pain, stiffness, and swelling, had aspiration which showed CPP crystals. She started colchicine yesterday, she 's not sure if her wrist is better or worse today. No fever, rash, or diarrhea. Her daughter thinks it is looking a little better. Objective: Vital Signs Temp 36.8 C 05/21/17 07:41 Pulse 104 05/21/17 07:41 Resp 17 05/21/17 09:58 BP 139/66 05/21/17 07:41 Pulse Ox 95 05/21/17 07:41 Intake & Output 05/20/17 05/21/17 05/21/17 18:59 06:59 18:59 Intake Total 450 0 600 Balance 450 0 600 Intake: IV Fluids 250 255 Vanco 250 255 IVPB 0 NS (0.9%) 0 Oral 200 0 345 Other: Estimated Void Large Large Medium # Bowel Movements 0 0 Estimated Stool Amount Medium # Voids 1 1 1 Gen:awake, no distress HEENT:PERRL, MMM Heart:RRR no murmur Lungs:CTA BL Abd:+BS NTND soft Skin: no rash MSK: R wrist diffuse edema, warmth, and tenderness, mild erythema; pain with flexion/extension Laboratory Results - last 24 hr 05/19/17 05/21/17 05/21/17 16:10 06:58 06:58 WBC 7.6 RBC 3.12 L Hgb 11.0 L Hct 32 L MCV 104 H MCH 35 H MCHC 34 RDW 15 Plt Count 67 L MPV 11 H Sodium 135 Potassium 3.7 Chloride 101 Carbon Dioxide 28 Anion Gap 6 BUN 10 Creatinine 0.65 Est GFR ( Amer) 111.7 Est GFR (Non-Af Amer) 86.8 BUN/Creatinine Ratio 15.4 Glucose 84 Calcium 8.8 C-Reactive Protein 140.33 H Fluid Source Synovial Fluid Glucose 66 Assessment: 1. Pseudogout R wrist; no evidence of underlying infection 2. encephalopathy, present on admission 3. 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 will stop antibiotics; further treatment per Dr Polo and Dr Weber 35 minutes floor time >50% face to face with patient and daughter discussing workup and treatment
--- NOTE | 2017-05-21 18:17 | PN ---
Subjective - Subjective Date of Service: 05/21/17 - chief complaint : wrist pain History: Per the patient and her daughter, Ms. Blas's wrist is doing a little better. She is able to movie it better and the redness and swelling is slightly diminished. Colchicine was increased to twice daily and she is tolerating this well. ID note appreciated; antibiotics were stopped She is making limited transfers with assistance to the bed and back Current Medications: Current Medications Albuterol (Ventolin Hfa Inhaler*) 2 puff INH Q6H PRN PRN Reason: SOB/WHEEZING Azithromycin (Zithromax Tab*) 500 mg PO DAILY [facility] Last Admin: 05/21/17 07:59 Dose: 500 mg Colchicine (Colcrys*) 0.6 mg PO BID [facility] Docusate Sodium (Colace Cap*) 200 mg PO DAILY [facility] Last Admin: 05/21/17 07:59 Dose: 200 mg Fluticasone Propionate (Flonase Nasal [place] 50mcg*) 2 spray BOTH NARES DAILY [facility] Last Admin: 05/21/17 07:55 Dose: 2 spray Mometasone Furoate/Formoterol Fumar (Dulera 100/5 Mdi*) 2 puff INH DAILY [facility] Last Admin: 05/21/17 08:49 Dose: 2 puff Morphine Sulfate (Morphine Inj (Syringe)*) 4 mg IV Q2H PRN PRN Reason: PAIN Last Admin: 05/21/17 07:54 Dose: 4 mg Multivitamins/Minerals (Theragran/Minerals Tab*) 1 tab PO DAILY [facility] Last Admin: 05/21/17 07:59 Dose: 1 tab Ondansetron HCl (Zofran Inj*) 4 mg IV Q4H PRN PRN Reason: NAUSEA/VOMITING Last Admin: 05/20/17 18:41 Dose: 4 mg Oxycodone HCl (Oxycontin(*)) 20 mg PO Q12HR [facility] Last Admin: 05/21/17 07:58 Dose: 20 mg Oxycodone HCl (Roxycodone Tab*) 5 mg PO Q6H PRN PRN Reason: PAIN Last Admin: 05/20/17 18:40 Dose: 5 mg Polyethylene Glycol/Electrolytes (Miralax*) 17 gm PO DAILY PRN PRN Reason: constipation Prednisone (Deltasone Tab*) 10 mg PO DAILY [facility] Last Admin: 05/21/17 07:59 Dose: 10 mg Rifampin (Rifampin Cap*) 600 mg PO DAILY [facility] Last Admin: 05/21/17 07:59 Dose: 600 mg Tiotropium [place] (Spiriva Cap.Inh*) 1 cap INH DAILY [facility] Last Admin: 05/21/17 08:49 Dose: 1 puff - Review of Systems Constitutional Symptoms: Yes: Weakness, Fatigue, No: Fever, Unexplained Falls Dermatology: Cancer: Yes - history of skin cancer Eyes: Positive: Normal Pulmonary: Positive: Normal Cardiology: Positive: Normal Gastroenterology: Positive: Normal Musculoskeletal: Positive: Joint Pain, Joint Stiffness, Arthritis, Joint Deformities Hematologic/Lymphatic: Positive: Anemia Neurology: Positive: Change in Memory, Change in Walking Allergic/Immunologic: Positive: Immunocompromise Home Medications: Home Medications Medication Instructions Recorded Confirmed Type predniSONE TAB* [Deltasone TAB*] 10 mg PO DAILY 01/13/13 04/23/17 History Fluticasone NASAL SPRAY 50MCG* 2 spray BOTH NARES DAILY 09/23/13 05/19/17 History [Fluticasone NASAL SPRAY*] Mometasone/Formoter 100/5 MDI* 2 puff INH BID 06/28/14 05/19/17 History [Dulera 100/5 MDI*] Tiotropium CAP.INH* [Spiriva 2 cap.inh INH DAILY 07/25/15 05/19/17 History CAP.INH*] Lidocaine PATCH 5%* [Lidoderm 5% 1 patch TRANSDERM DAILY PRN 11/24/15 05/19/17 History Patch*] RiFAMPin CAP* 2 cap PO DAILY 11/24/15 05/19/17 History oxyCODONE SR TAB(*) [Oxycontin 20 20 mg PO BID 11/24/15 05/19/17 History mg (*)] Sertraline* [Zoloft*] 50 mg PO DAILY 07/17/16 05/19/17 History Albuterol HFA INHALER* [Ventolin 1 - 2 puff INH Q6H PRN 02/01/17 05/19/17 History HFA Inhaler*] Aspirin Low Dose CHEW TAB* 81 mg PO DAILY 02/01/17 05/19/17 History [Aspirin Low Dose TAB*] Bumetanide TAB* [Bumex 1 MG TAB*] 0.5 mg PO MOWEFR PRN 02/01/17 05/19/17 History Diclofenac 1% GEL (NF) [Voltaren 1 applic TOPICAL DAILY PRN 02/01/17 04/23/17 History 1% GEL (NF)] Ergocalciferol CAP* [Drisdol CAP*] 50,000 unit PO MONTHLY 02/01/17 05/19/17 History Estradiol [Estrogel] 0.06 % TRANSDERM .2 TIMES A WEEK 02/01/17 04/23/17 History PRN Ibuprofen TAB* [Advil TAB*] 400 mg PO TID PRN 02/01/17 05/19/17 History Magnesium Hydroxide LIQ* [Milk of 30 ml PO DAILY PRN 02/01/17 05/19/17 History Magnesia LIQ*] Multivitamins/Minerals TAB* 1 tab PO DAILY 02/01/17 05/19/17 History [Theragran/minerals TAB*] Polyethylene Glycol 3350* 17 gm PO DAILY 02/01/17 05/19/17 History [Miralax*] Potassium Chloride [Klor-Con 8] 8 meq PO MOWEFR PRN 02/01/17 05/19/17 History Azithromycin [Azithromycin 500 MG 1 cap PO DAILY 04/23/17 05/19/17 History TAB] Oxycodone TAB(NF) [Oxycodone HCl 10 mg PO Q6H PRN 04/23/17 05/19/17 History 10 MG] Pregabalin CAP(*) [Lyrica CAP(*)] 150 mg PO BID 04/23/17 05/19/17 History Allergies: Allergies Allergy/AdvReac Type Severity Reaction Status Date / Time CAT SCAN DYE Allergy Severe Itching Uncoded 05/18/17 20:57 XYLOCAINE WITH EPINEPHRINE AdvReac Intermediate Palpitation Uncoded 05/18/17 20: 57 s Objective - Vital Signs Vital Signs: Vital Signs 05/20/17 05/20/17 05/20/17 18:40 20:00 20:17 Temperature 98.2 F Pulse Rate 105 Respiratory 16 14 20 Rate Blood Pressure 140/66 (mmHg) O2 Sat by Pulse 91 Oximetry 05/20/17 05/20/17 05/20/17 22:38 23:22 23:54 Temperature 98.3 F Pulse Rate 100 Respiratory 14 20 14 Rate Blood Pressure 134/63 (mmHg) O2 Sat by Pulse 98 Oximetry 05/20/17 05/21/17 05/21/17 23:55 01:36 01:40 Temperature 98.3 F Pulse Rate 102 Respiratory 12 16 16 Rate Blood Pressure 135/60 (mmHg) O2 Sat by Pulse 93 Oximetry 05/21/17 05/21/17 05/21/17 01:46 02:39 03:14 Temperature 98.4 F Pulse Rate 103 Respiratory 16 18 12 Rate Blood Pressure 129/62 (mmHg) O2 Sat by Pulse 94 Oximetry 05/21/17 05/21/17 05/21/17 05:49 07:41 07:54 Temperature 98.2 F Pulse Rate 104 Respiratory 14 16 16 Rate Blood Pressure 139/66 (mmHg) O2 Sat by Pulse 95 Oximetry 05/21/17 05/21/17 05/21/17 07:58 08:00 08:54 Temperature Pulse Rate Respiratory 16 17 16 Rate Blood Pressure (mmHg) O2 Sat by Pulse Oximetry 05/21/17 09:58 Temperature Pulse Rate Respiratory 17 Rate Blood Pressure (mmHg) O2 Sat by Pulse Oximetry - Intake and Output Intake and Output: Intake & Output 05/19/17 05/20/17 05/21/17 05/22/17 06:59 06:59 06:59 06:59 Intake Total 999 1201 450 600 Balance 999 1201 450 600 Weight 124 lb 11.2 oz 124 lb 11.2 oz Intake: IV Fluids 999 273 250 255 ABX - CEFTRIAXONE 0 NS (0.9%) 23 Vanco 250 250 255 IVPB 378 0 ABX - CEFTRIAXONE 111 NS (0.9%) 0 Vanco 267 Oral 0 550 200 345 Other: Estimated Void Large Medium Large Medium # Bowel Movements 0 0 0 Estimated Stool Amount Medium Medium # Voids 2 1 1 1 ADLs: Meal Record Start: 05/19/17 00: 18 Freq: DAILY@0900,1400,1800 Status: Active Protocol: Document 05/19/17 09:00 [id number] (Rec: 05/19/17 14:39 [id number] MED-C09) Document 05/20/17 09:00 [id number] (Rec: 05/20/17 09:00 [id number] MED-C09) Document 05/20/17 13:51 [id number] (Rec: 05/20/17 13:53 [id number] MED-C09) Document 05/20/17 18:00 [id number] (Rec: 05/20/17 19:04 [id number] MED-C09) Document 05/21/17 08:52 [id number] (Rec: 05/21/17 08:52 [id number] MED-C09) Document 05/21/17 14:00 [id number] (Rec: 05/21/17 14:08 [id number] MED-C11) Intake and Output Start: 05/19/17 00: 18 Freq: DAILY@0600,1400,2200 Status: Active Protocol: Document 05/19/17 06:00 [id number] (Rec: 05/19/17 06:24 [id number] MEDL-C01) Document 05/19/17 14:00 [id number] (Rec: 05/19/17 14:42 [id number] MED-C09) Document 05/19/17 22:00 [id number] (Rec: 05/19/17 22:41 [id number] MED-C11) Document 05/20/17 04:20 [id number] (Rec: 05/20/17 04:20 [id number] MEDL-C01) Document 05/20/17 13:51 [id number] (Rec: 05/20/17 13:53 [id number] MED-C09) Document 05/20/17 21:31 [id number] (Rec: 05/20/17 21:34 [id number] MED-C09) Document 05/21/17 06:00 [id number] (Rec: 05/21/17 06:06 [id number] MED-C42) Document 05/21/17 14:00 [id number] (Rec: 05/21/17 14:06 [id number] MED-M02) Document 05/21/17 14:08 [id number] (Rec: 05/21/17 14:09 [id number] MED-C11) - Physical Exam General Physical Exam Comment: No acute distress; sitting up Eye Exam: bilateral: EOMI Skin: Abnormal: Other - Venous stasis changes present; mild restriction of the knees although there is no synovitis of her knees Head: Yes Normocephalic Thyroid Function: Clinically Euthyroid Lungs and Chest: Yes: Chest Expansion Full, Chest Expansion Symetrica, Percussion Note Resonant Heart Rate and Rhythm: Regular JVP: Not Elevated [place] Beat: Non Displaced Additional Cardiovascular: Yes: [place] Beat not Displaced, Normal Heart Sounds Abdominal Exam: Yes: Soft - Rheumotological System Joints: Joint Deformities, Single Joint Abnormality - Right wrist swelling is improved slightly with decreased redness and warmth; able to move the wrist slightly and it is not as exquisitely tender as yesterday, Joint Swelling Additional Musculoskeletal: Lordosis, Kyphosis - Neuro Psychiatric: Normal Speech: Normal Results - Results Lab Results: Laboratory Results - last 24 hr 05/19/17 05/21/17 05/21/17 16:10 06:58 06:58 WBC 7.6 RBC 3.12 L Hgb 11.0 L Hct 32 L MCV 104 H MCH 35 H MCHC 34 RDW 15 Plt Count 67 L MPV 11 H Sodium 135 Potassium 3.7 Chloride 101 Carbon Dioxide 28 Anion Gap 6 BUN 10 Creatinine 0.65 Est GFR ( Amer) 111.7 Est GFR (Non-Af Amer) 86.8 BUN/Creatinine Ratio 15.4 Glucose 84 Calcium 8.8 C-Reactive Protein 140.33 H Fluid Source Synovial Fluid Glucose 66 Assessment - Problem List Plan: Pseudogout: improved slightly with Colchicine. She is tolerating this well with no diarrhea. Continue present care. Continue bedside PT. Mental status changes may also improve as we reduce inflammation. CRP could be checked again in a few days OA: wrist; continue mobility exercises Discussion with Family/Community Member: Discussed with daughter and patient
[2017-05-21] MEDS: Ondansetron INJ* 2 MG/ML VIAL IV PRN (20:35)
[2017-05-21] MEDS ORDERED: PROCHLORPERAZINE INJ 5 MG/ML 2 ML VIAL IV PRN (21:13)
[2017-05-22] MEDS: Morphine INJ* 4 MG/ML 1 ML CARPUJECT IV PRN ×4 (03:13→18:23)
[2017-05-22] MEDS: Mometasone/Formoter 100/5 MDI INH SCH (07:32)
[2017-05-22] MEDS: Tiotropium CAP.INH* CAP.INH/18 MCG (USE ORDER SET !) INH SCH (07:32)
[2017-05-22] MEDS: predniSONE TAB* 10 MG PO SCH (08:28)
[2017-05-22] MEDS: RiFAMPin CAP* 300 MG CAP PO SCH (08:28)
[2017-05-22] MEDS: Azithromycin TAB* 250 MG PO SCH (08:28)
[2017-05-22] MEDS: Docusate CAP* 100 MG PO SCH (08:28)
[2017-05-22] MEDS: Fluticasone NASAL SPRAY 50MCG* 16 gm SPRAY BTL BOTH NARES SCH (08:28)
[2017-05-22] MEDS: oxyCODONE SR TAB(*) 20 MG TAB.SR PO SCH ×2 (08:29→20:12)
[2017-05-22] MEDS: Multivitamins/Minerals TAB PO SCH (08:29)
[2017-05-22] MEDS: Colchicine* 0.6 MG TAB PO SCH ×2 (08:29→20:13)
[2017-05-22 08:53] LABS: Hematocrit 32 % (35-47); Hemoglobin 10.8 g/dl (12.0-16.0); Mean Corpuscular HGB Conc 34 g/dl (31-36); Mean Corpuscular Hemoglobin 35 pg (27-31); Mean Corpuscular Volume 105 fL (80-97); Mean Platelet Volume 11 um3 (7.4-10.4); Platelet Count 74 10^3/ul (150-450); Red Blood Count 3.06 10^6/ul (4.0-5.4); Red Cell Distribution Width 15 % (10.5-15); White Blood Count 5.5 10^3/ul (3.5-10.8)
[2017-05-22 09:04] LABS: EGFR Non-African American 103.1 (>60)
[2017-05-23 06:30] LABS: Hematocrit 33 % (35-47); Hemoglobin 10.9 g/dl (12.0-16.0); Mean Corpuscular HGB Conc 34 g/dl (31-36); Mean Corpuscular Hemoglobin 35 pg (27-31); Mean Corpuscular Volume 104 fL (80-97); Mean Platelet Volume 11 um3 (7.4-10.4); Platelet Count 78 10^3/ul (150-450); Red Blood Count 3.15 10^6/ul (4.0-5.4); Red Cell Distribution Width 15 % (10.5-15)
[2017-05-23 06:56] LABS: EGFR Non-African American 97.1 (>60)
[2017-05-23] MEDS: Mometasone/Formoter 100/5 MDI INH SCH (08:11)
[2017-05-23] MEDS: Tiotropium CAP.INH* CAP.INH/18 MCG (USE ORDER SET !) INH SCH (08:11)
[2017-05-23] MEDS: oxyCODONE SR TAB(*) 20 MG TAB.SR PO SCH (11:06)
[2017-05-23] MEDS: RiFAMPin CAP* 300 MG CAP PO SCH (11:06)
[2017-05-23] MEDS: Azithromycin TAB* 250 MG PO SCH (11:06)
[2017-05-23] MEDS: predniSONE TAB* 10 MG PO SCH (11:07)
[2017-05-23] MEDS: Docusate CAP* 100 MG PO SCH (11:07)
[2017-05-23] MEDS: Multivitamins/Minerals TAB PO SCH (11:07)
[2017-05-23] MEDS: Fluticasone NASAL SPRAY 50MCG* 16 gm SPRAY BTL BOTH NARES SCH (11:09)
[2017-05-23] MEDS: Colchicine* 0.6 MG TAB PO SCH (11:10)
[2017-05-23 15:28] VITALS: BP 118/52
--- NOTE | 2017-05-23 15:44 | TRS ---
CC: [facility] * DATE OF ADMISSION: 05/18/2017. DATE OF TRANSFER TO [facility]: 05/23/2017. TRANSFER DIAGNOSES: 1. Pseudogout right wrist. 2. Weakness and fever secondary to number 1. 3. History of asthma. 4. Myelodysplasia. 5. ALLERGIES TO CT SCAN DYE, EPINEPHRINE, KEFLEX. 6. Chronic Mycobacterium avium-intracellulare. 7. Chronic hypereosinophilia. 8. Cervical spondylosis. 9. History of squamous cell carcinoma of the toe. 10. Wound left foot. 11. Allergic rhinitis. 12. History of depression. HISTORY: Alis Blas is an 82-year-old woman admitted with weakness, fever and right wrist pain. Please see the dictated admission note for details of the present illness, past medical history, family history, social history, review of systems, and physical examination. LABORATORY DATA: CBC on May 18: WBC 6, H and H 11.5/34, MCV 105, PLT 67k , ESR 33; white count remained relatively stable, platelet count remained stable , H and H remained stable. INR 0.95, PTT 34.9. Chemistries: Sodium 137, potassium 4.0, chloride 106, CO2 28, BUN and creatinine 14/0.82, glucose 104, calcium 8.2; potassium became slightly low at 3.4 on May 22, otherwise electrolytes remained relatively stable. Comprehensive metabolic panel was essentially within normal limits. C-reactive protein started at 50.55, peaked at 140.33 on May 21 and was down to 55.68 on May 23. Lactic acid was normal at 0.7 on admission. Synovial fluid from May 19: Yellow, cloudy, WBC's 15,900, RBC's 2,670, total cell count 100, neutrophils 75, lymphocytes 6, monocytes 19, glucose 66, CPPD crystals noted on microscopy. Vancomycin trough on May 20 was 11. Flu swab was negative. Blood cultures were no growth. MRSA staph aureus of the fluid cultures were negative. Body fluid culture (synovial) was no growth. IMAGING STUDIES: 1. Chest x-ray on 05/18/2017 showed hyperinflation and chronic lung findings. 2. Hand x-ray on 05/18/2017 showed osteoarthritic changes, no acute findings. There was advanced first CMC joint arthritis, moderate IP and MCP arthritis, mild diffuse tissue swelling about the wrist noted. 3. MRI of the wrist on 05/19/2017 showed no evidence of bone marrow edema. There was a joint effusion with diffuse subcutaneous edema noted. 4. Brain CT on 05/21/2017 showed no acute intracranial pathology, mild chronic small vessel ischemic changes. 5. EKG on 05/18/2017 showed sinus rhythm, probable left atrial enlargement, left ventricular hypertrophy with anterior voltages having increased since the previous 12 lead of 02/01/2017. HOSPITAL COURSE: The patient was initially admitted. She was placed on broad spectrum antibiotics after cultures of the blood were obtained. The concern was that she might have a septic arthritis. Orthopedic consultation was obtained with Dr. Reddy who requested the MRI and then did a joint aspiration. Uric acid was normal at 4 suggesting this was not gout. The patient requested DNR, although full code was noted in the hospital record. This will have to be clarified. Infectious Disease consultation was obtained with Dr. Javier. He felt that differential diagnosis included septic arthritis, although the cell count was a bit low for that. He also did not feel it was Lyme disease. It was felt it could be noninfectious, such as gout or pseudogout. She was seen in rheumatologic consultation by Dr. Polo after we got the results of the crystals on 05/20/2017. He recommended colchicine. This seemed to help with the inflammation and swelling. She began to feel better. With negative cultures and improvement on colchicine, Dr. Javier stopped her antibiotics on 05/21/2017. She continued to improve. She was somewhat confused and weak during her hospitalization. This improved as her wrist began to feel better. She was able to move it. The erythema and edema went down. She had difficulty transferring due to the swelling in her wrist. She normally uses a walker. At the time of discharge, she felt ready to be discharged. MEDICATIONS AT THE TIME OF DISCHARGE: 1. Colchicine 0.6 mg twice daily. 2. Azithromycin 500 mg daily. 3. Albuterol two puffs every 4 hours prn wheezing or shortness of breath. 4. Fluticasone two sprays each nostril every day. 5. Rifampin 300 mg twice a day. 6. Prednisone 10 mg every day. 7. Dulera 200/5 two puffs twice a day. 8. Spiriva two inhalations every day. 9. Cetirizine 10 mg every day. 10. Oxycodone 20 mg twice daily. 11. Oxycodone 5 mg every 4 hours prn pain. 12. Vitamin D 50,000 units monthly. 13. Lyrica 150 mg twice daily. 14. Sertraline 50 mg daily. DISCHARGE INSTRUCTIONS: Physical therapy is ordered as well as occupational therapy. DIET: Regular. ACTIVITY: Up with assistance. [id number]/[facility] #: [id number] [facility]
== END 2017-05-23 16:05 | DRG 553 ==
LOC: ED 20:53 → MED 23:27
PROVIDERS: ADMIT Internal Medicine; ATTEND Internal Medicine
PROC: 0R9N3ZX Drainage of Right Wrist Joint, Percutaneous Approach, Diagnostic (ICD-10-PCS; principal; 2017-05-19)
DX: M11.231 Other chondrocalcinosis, right wrist (principal); G93.40 Encephalopathy, unspecified; L97.529 Non-pressure chronic ulcer of other part of left foot with unspecified severity; D72.1 Eosinophilia; E86.0 Dehydration; A31.8 Other mycobacterial infections; L03.113 Cellulitis of right upper limb; J44.9 Chronic obstructive pulmonary disease, unspecified; D46.9 Myelodysplastic syndrome, unspecified; F32.9 Major depressive disorder, single episode, unspecified; G89.29 Other chronic pain; G43.909 Migraine, unspecified, not intractable, without status migrainosus; M47.892 Other spondylosis, cervical region; M54.5 Low back pain; M19.90 Unspecified osteoarthritis, unspecified site; R41.0 Disorientation, unspecified; R53.83 Other fatigue; M25.431 Effusion, right wrist; Z96.9 Presence of functional implant, unspecified; M19.039 Primary osteoarthritis, unspecified wrist; M81.0 Age-related osteoporosis without current pathological fracture; Z89.429 Acquired absence of other toe(s), unspecified side; Z90.10 Acquired absence of unspecified breast and nipple; Z88.8 Allergy status to other drugs, medicaments and biological substances; Z98.42 Cataract extraction status, left eye; Z98.41 Cataract extraction status, right eye; Z89.421 Acquired absence of other right toe(s); Z87.891 Personal history of nicotine dependence; Z80.0 Family history of malignant neoplasm of digestive organs; Z85.3 Personal history of malignant neoplasm of breast; Z82.49 Family history of ischemic heart disease and other diseases of the circulatory system; Z82.3 Family history of stroke; Z72.89 Other problems related to lifestyle; Z88.1 Allergy status to other antibiotic agents; Z79.52 Long term (current) use of systemic steroids
CPT/HCPCS: 36415; 70450; 71045; 80048; 80053; 80202; 82945; 83605; 84550; 85025; 85027; 85610; 85652; 85730; 86140; 86141; 87040; 87070; 87073; 87205; 87502; 87640; 87641; 89051; 89060; 93005; 94640; 94760; A9270-GY; J0696; J0780; J1170; J2270; J2405; J2543; J3370; J7512

== ENCOUNTER 2018-04-23 12:12 | Inpatient (IN) | payer MEDICARE, BC ==
[2018-04-23] MEDS ORDERED: NS 0.9% 1000 ML* 1,000 ML IV ONE (12:42)
[2018-04-23] MEDS ORDERED: fentaNYL* 50 MCG/ML 2 ML VIAL (100 MCG VIAL) IV SLOW PU ONE (12:43)
--- NOTE | 2018-04-23 12:43 | ED ---
Adult Trauma - HPI Summary HPI Summary: This pt is an 82 y/o female presenting to [facility] via EMS from [place] for left groin pain s/p mechanical fall today. Pt reports she has a steep incline outside her cottage in [place] when she lost control of her walker and fell onto her left side. Denies head strike or LOC. Pt states she was unable to get up. Currently she is unable to ambulate. Denies fever, chills, chest pain, SOB, nausea, vomiting. Pt did take oxycontin today. She reports her tetanus shot is UTD. PMHx: mastectomy, myelodysplastic syndrome, pulmonary mycobacterial infection. No hx of CHF. Pt is a patient at [facility]. Allergies to cat scan dye, epinephrine mixed with lidocaine (reaction of palpitations). - History of Current Complaint Chief Complaint: EDExtremityLower Stated Complaint: FALL/LEFT LEG PAIN Time Seen by Provider: 04/23/18 12:29 Hx Obtained From: Patient Mechanism of Injury: Fall Ambulatory at the Scene: No Loss of Consciousness: no loss of consciousness Restraints: None Onset/Duration: Started Hours Ago, Traumatic, Still Present Onset of Pain: Immediate Current Severity: Severe Pain Intensity: 8 Pain Scale Used: 0-10 Numeric Location: Other - left groin Character: Aching Aggravating Factor(s): Movement Alleviating Factor(s): Rest Associated Signs & Symptoms: Positive: Ecchymosis. Negative: SOB, Chest Pain, Fever, Nausea/Vomiting, Loss of Consciousness - Additional Pertinent History Primary Care Physician: [id number] - Allergy/Home Medications Allergies/Adverse Reactions: Allergies Allergy/AdvReac Type Severity Reaction Status Date / Time Iodinated Contrast- Oral and Allergy Severe Itching Verified 02/26/18 11:59 IV Dye epinephrine AdvReac Severe Palpitation Verified 02/26/18 11:59 [From Xylocaine-Epinephrine] s lidocaine AdvReac Severe Palpitation Verified 02/26/18 11:59 [From Xylocaine-Epinephrine] s Home Medications: Home Medications Calcium Citrate/Vitamin D3 [Calcium Citrate/Vitamin D] 1 tab PO DAILY 04/23/18 [ History Confirmed 04/23/18] Cetirizine* [ZyrTEC 10 MG TAB*] 10 mg PO DAILY PRN 04/23/18 [History Confirmed 04/23/18] Colchicine* [Colcrys*] 0.6 mg PO BID 04/23/18 [History Confirmed 04/23/18] Ergocalciferol (Vitamin D2) [Vitamin D2] 50,000 unit PO MONTHLY 04/23/18 [ History Confirmed 04/23/18] Fluocinonide 0.05% CM(NF) [Lidex 0.05% CREAM(NF)] 1 applic TOPICAL BEDTIME PRN 04/23/18 [History Confirmed 04/23/18] Fluticasone NASAL SPRAY 50MCG* [Flonase NASAL SPRAY 50MCG*] 2 spray BOTH NARES DAILY 04/23/18 [History Confirmed 04/23/18] Ibuprofen TAB* [Advil TAB*] 400 mg PO BID PRN 04/23/18 [History Confirmed ] Multivit-Min/Iron/Folic/Lutein [Centrum Silver Women Tablet] 1 tab PO DAILY 06/10 [History Confirmed 04/23/18] Polyethylene Glycol 3350* [Miralax*] 17 gm PO DAILY PRN 04/23/18 [History Confirmed 04/23/18] Pregabalin CAP(*) [Lyrica CAP(*)] 150 mg PO BID 04/23/18 [History Confirmed 06/10] RiFAMPin CAP* 300 mg PO BID 04/23/18 [History Confirmed 04/23/18] Sertraline* [Zoloft*] 75 mg PO BEDTIME 04/23/18 [History Confirmed 04/23/18] oxyCODONE SR TAB(*) [Oxycontin 20 mg (*)] 20 mg PO BID MDD 40mg 04/23/18 [ History Confirmed 04/23/18] oxyCODONE TAB* [Roxycodone TAB 5 mg*] 5 mg PO Q4H PRN MDD 30 mg 04/23/18 [ History Confirmed 04/23/18] PMH/Surg Hx/FS Hx/Imm Hx Endocrine/Hematology History: Reports: Hx Bone Marrow Disease - MYELODYSPLASTIC SYNDROME Denies: Hx Diabetes, Hx Systemic Lupus Erythematosus Cardiovascular History: Denies: Hx Congestive Heart Failure, Hx Hypertension, Hx Pacemaker/ICD Respiratory History: Reports: Hx Asthma - ADULT ONSET-2002, Hx Chronic Obstructive Pulmonary Disease (COPD), Other Respiratory Problems/Disorders - HX OF PETER GI History: Reports: Hx Diverticulosis History: Reports: Other Problems/Disorders - caricle of urethra Denies: Hx Dialysis, Hx Renal Disease Musculoskeletal History: Reports: Hx Arthritis, Hx Back Problems, Hx Osteoporosis, Other Musculoskeletal History - right rotator cuff injury Denies: Hx Rheumatoid Arthritis Sensory History: Reports: Hx Contacts or Glasses, Hx Hearing Aid Opthamlomology History: Reports: Hx Contacts or Glasses Neurological History: Reports: Other Neuro Impairments/Disorders - PAIN CLINIC PT Psychiatric History: Reports: Hx Depression Denies: Hx Panic Disorder - Cancer History Cancer Type, Location and Year: mastectomy . sqaumous cell toe amputation Hx Chemotherapy: No Hx Radiation Therapy: No - Surgical History Surgery Procedure, Year, and Place: SKIN BIOPSY June 29 at [facility]; T&A 194; APPENDIX 1950; Rt OVARY CYST REMOVED 1950; X3; DENTAL IMPLANTS 2013; Rt MASTECTOMY 1985; WEDGE RESECTION Rt LUNG; BRONCHOSCOPY X3; Rt BREAST BIOPSY 1971 AND 1985; HERNIA REPAIR ; D&C ; REPAIR OF DOG BITE ON LEG 07/23; CATARACTS BILATERAL 01/22 & 02/22; RIGHT 2ND TOE AMPUTATED 06/28; BONE MARROW BIOPSY X3 01/25, 04/28 & 04/30; LAMINECTOMY L3-4 & L4-5 08/04/12; SEVERAL MOH'S PROCEDURES; lumbar stimulator 09/2013 - could not be programmed so removed - CHECKED WITH DR. MENENDEZ TODAY(01/04/14)...HE LOOKED AT XRAYS DATED 10/13/13 WHICH CONFIRMED THE STIMULATOR AND LEADS HAD BEEN REMOVED..OK FOR MRI PER DR. MENENDEZ...RAMESH,RT Hx Anesthesia Reactions: No Infectious Disease History: No Infectious Disease History: Reports: Hx Shingles - January 2017, History Other Infectious Disease - MYCOBACTERIUM AVIUM Denies: Hx Clostridium Difficile, Hx Hepatitis, Hx Human Immunodeficiency Virus (HIV), Hx of Known/Suspected MRSA, Hx Tuberculosis, Traveled Outside the [place] in Last 30 Days - Family History Known Family History: Positive: Other - liver cancer Negative: Hypertension, Diabetes - Social History Alcohol Use: Weekly Alcohol Amount: 4 Hx Substance Use: No Substance Use Type: Reports: None Substance Use Comment - Amount & Last Used: butran's patch Hx Tobacco Use: No Smoking Status (MU): Former Smoker Type: Cigarettes Length of Time of Smoking/Using Tobacco: 13 years Have You Smoked in the Last Year: No Review of Systems Negative: Fever, Chills Negative: Chest Pain Negative: Shortness Of Breath Negative: Vomiting, Nausea Musculoskeletal: Other - POS: left groin pain Positive: Bruising Negative: Headache All Other Systems Reviewed And Are Negative: Yes Physical Exam - Summary Physical Exam Summary: GENERAL: Patient is a well developed and nourished female who is lying comfortable in the stretcher. Patient is not in any acute respiratory distress. HEAD AND FACE: Normocephalic EYES: PERRLA, EOMI x 2. EARS: Hearing grossly intact. MOUTH: Oropharynx within normal limits. NECK: Supple, trachea is midline, no adenopathy, no JVD, no carotid bruit. CHEST: Symmetric, no tenderness at palpation LUNGS: Clear to auscultation bilaterally. No wheezing or crackles. CVS: Regular rate and rhythm, S1 and S2 present, no murmurs or gallops appreciated. ABDOMEN: Soft, non-tender. Bowel sounds are normal. No abdominal abnormal pulsations. EXTREMITIES: Full ROM in all major joints, no edema, no cyanosis or clubbing. NEURO: Alert and oriented x 3. No acute neurological deficits. Speech is normal and follows commands. SKIN: Dry and warm. Ecchymosis on the right elbow and right wrist area on the dorsal aspect. Skin tear on the left elbow. Triage Information Reviewed: Yes Vital Signs On Initial Exam: Initial Vitals Temp Pulse Resp BP Pulse Ox 98.9 F 76 18 147/72 97 04/23/18 12:17 04/23/18 12:17 04/23/18 12:17 04/23/18 12:17 04/23/18 12:17 Vital Signs Reviewed: Yes Diagnostics - Vital Signs Vital Signs Temp Pulse Resp BP Pulse Ox 04/23/18 12:17 98.9 F 76 18 147/72 97 - Laboratory Result Diagrams: 04/23/18 13:48 04/23/18 13:48 Lab Statement: Any lab studies that have been ordered have been reviewed, and results considered in the medical decision making process. - Radiology Chest XR Radiology Interpretation Completed By: Radiologist Summary of Radiographic Findings: Cardiomegaly is noted. Airspace disease in the right base, left base is unchanged from previous exam. Infiltrate in the left upper lobe is not excluded. Chronic parenchymal changes are not significantly changed since previous exam of May 18, 2017. Emphysematous changes are noted. Costochondral calcifications are noted. Dr. Denise has reviewed this report. Left hip and pelvis XR Radiology Interpretation Completed By: Radiologist Summary of Radiographic Findings: IMPRESSION: No radiographic evidence for LEFT hip or femur fracture. Osteoarthritis. Dr. Denise has reviewed this report. Left femur XR Radiology Interpretation Completed By: Radiologist Summary of Radiographic Findings: IMPRESSION: No radiographic evidence for LEFT hip or femur fracture. Osteoarthritis. Dr. Denise has reviewed this report. - CT Pelvis CT CT Interpretation Completed By: Radiologist Summary of CT Findings: IMPRESSION: #. No CT evidence for LEFT hip fracture. #. Nondisplaced fracture at the junction of the LEFT superior pubic ramus with the os pubis. Nondisplaced fracture of the RIGHT superior pubic ramus laterally at the junction with the acetabulum. Probable nondisplaced LEFT sacral ala insufficiency fracture with additional horizontal component of the sacral fracture at the S3-S4 level. #. Mild intramuscular hematoma at the LEFT obturator intemus muscle measuring up to 2.1 cm in transverse thickness compared with 1.7 cm for the contralateral side. Subcutaneous edema/ infiltrative hematoma at the posterolateral LEFT hip centered at level of the greater trochanter. Dr. Denise has reviewed this report. Re-Evaluation - Re-Evaluation First Eval Re-Evaluation Time: 14:45 Comment: Dr. Zavala reports she will consult for the pt and recommends admission. Second Eval Re-Evaluation Time: 15:03 Comment: I discussed the admission plan with the pt. She understands and agrees. Adult Trauma Course/Dx - Course Assessment/Plan: Pt is an 82 y/o female presenting to [facility] via EMS from [place] for left groin pain s/p mechanical fall today. Her tetanus shot is UTD. Workup remarkable for pelvis CT showing nondisplaced fracture at the junction of the LEFT superior pubic ramus with the os pubis. Nondisplaced fracture of the RIGHT superior pubic ramus laterally at the junction with the acetabulum. Probable nondisplaced LEFT sacral ala insufficiency fracture with additional horizontal component of the sacral fracture at the S3-S4 level. Dr. Zavala, orthopedist, came and saw the pt in the ED. She reports there is nothing to do from an orthopedic stand point. Dr. Zavala recommends admission to the hospitalist for placement as pt lives in a retirement. Case discussed with hospitalist, Dr. Chilel, who accepted the pt for admission. I discussed results with patient. The patient agrees with this plan. - Diagnoses Provider Diagnoses: Pelvis fracture - Physician Notifications Discussed Care Of Patient With: Celio Zavala Time Discussed With Above Provider: 14:45 Instructed by Provider To: Other - I discussed with Dr. Zavala, orthopedist, who recommends admission and she will consult on the pt. [15:09] Discussed with Dr. Chilel, hospitalist, who accepted the pt for admission. Discharge - Sign-Out/Discharge Documenting (check all that apply): Patient Departure - Admit to [facility] - Discharge Plan Condition: Stable Disposition: ADMITTED TO [facility] Referrals: Cinthya Weber MD [Primary Care Provider] - - Billing Disposition and Condition Condition: STABLE Disposition: Admitted to [facility] - Attestation Statements Document Initiated by Samson: Yes Documenting Scribe: Tammy Peralta Provider For Whom Elsyibe is Documenting (Include Credential): Kristin Denise MD Scribe Attestation: Tammy Glover, scribed for Kristin Denise MD on 04/23/18 at 1814. Scribe Documentation Reviewed: Yes Provider Attestation: The documentation as recorded by the Tammy dominguez accurately reflects the service I personally performed and the decisions made by me, Kristin Denise MD Status of Scribe Document: Viewed
[2018-04-23 14:05] LABS: Hematocrit 35 % (35-47); Hemoglobin 11.8 g/dl (12.0-16.0); Mean Corpuscular HGB Conc 34 g/dl (31-36); Mean Corpuscular Hemoglobin 35 pg (27-31); Mean Corpuscular Volume 104 fL (80-97); Mean Platelet Volume 10.4 fL (7.4-10.4); Platelet Count 81 10^3/ul (150-450); Red Blood Count 3.35 10^6/ul (4.00-5.40); Red Cell Distribution Width 15 % (10.5-15); White Blood Count 5.9 10^3/ul (3.5-10.8)
[2018-04-23 14:08] LABS: Activated Partial Thrombo Time 31.5 seconds (26.0-36.3); INR 1.01 (0.77-1.02)
[2018-04-23 14:18] LABS: Albumin/Globulin Ratio 1.1 (1-3); BUN/Creatinine Ratio 18.7 (8-20); Calcium 8.7 mg/dL (8.6-10.3); EGFR Non-African American 73.6 (>60); Globulin 2.7 g/dL (2-4); Total Bilirubin 0.8 mg/dL (0.2-1.0); Total Protein 5.7 g/dL (6.4-8.9)
[2018-04-23 14:33] LABS: ABS Basophils 0.1 10^3/ul (0-0.2); ABS Eosinophils 0.3 10^3/ul (0-0.6); ABS Lymphocytes 0.8 10^3/ul (1.0-4.8); ABS Monocytes 1.1 10^3/ul (0-0.8); ABS Neutrophils 3.7 10^3/ul (1.5-7.7); ABS Nucleated RBC 0 10^3/ul; Eosinophil % 4.6 %; Lymphocyte % 13.6 %; Nucleated Red Blood Cells % 0
[2018-04-23] MEDS ORDERED: Ondansetron ODT TAB* 4 MG PO PRN (17:03)
[2018-04-23] MEDS ORDERED: fentaNYL* 50 MCG/ML 2 ML VIAL (100 MCG VIAL) IV SLOW PU PRN (17:03)
[2018-04-23] MEDS ORDERED: Albuterol HFA INHALER* 8 gm MDI INH PRN (17:10)
[2018-04-23] MEDS ORDERED: NFT: Diclofenac 1% GEL (NF) 100 GM TUBE TOPICAL PRN (17:10)
[2018-04-23] MEDS ORDERED: oxyCODONE TAB* 5 MG TAB PO PRN (17:10)
[2018-04-23] MEDS ORDERED: Cetirizine* 10 MG TAB PO PRN (17:10)
--- NOTE | 2018-04-23 20:10 | HP ---
CC: Dr. Cinthya Weber * HISTORY AND PHYSICAL: DATE OF ADMISSION: 04/23/18. PRIMARY CARE PROVIDER: Dr. Cinthya Weber. CHIEF COMPLAINT: Fall. HISTORY OF PRESENT ILLNESS: Ms. Blas is an 82-year-old female, who was walking from the main dining beltran at [facility] back to her cottage when she lost control of her 4-wheeled walker. She states this was as she was going down a slight incline. The walker ended up running into the pole, holding up her roof of her cottage. When the walker hit the pole, she then fell over to the ground landing on her left side. She believes the walker fell on top of her. She summoned her medical alert briefly and she was subsequently evaluated by a nurse at [facility] and helped into her [facility]. The patient was not having too much pain at the time of the nurse evaluation and declined transfer to the emergency room at that point. She ultimately ended up getting into a chair and was unable to get up out of the chair on her own. She states that she had no loss of consciousness with the fall. Today, due to marked difficulty with ambulation and pain, she ultimately decided to present to the emergency room for evaluation. The patient does complain of pain within the bilateral groin, but worse on the left. She states the pain currently is not too bad, but she is trying not to move. PAST MEDICAL HISTORY: 1. History of breast cancer. 2. Asthma. 3. Chronic back pain. 4. History of Mycobacterium avium complex lung infection, status post VATS and wedge resection. 5. Myelodysplastic syndrome. 6. History of migraines. PAST SURGICAL HISTORY: 1. VATS and wedge resection. 2. Urethral polyp excision. 3. Appendectomy. 4. x3. 5. Laminectomy. 6. Right mastectomy. 7. Right toe amputation. MEDICATIONS: 1. Sertraline 75 mg p.o. q.h.s. 2. OxyContin 20 mg p.o. b.i.d. 3. Breo Ellipta 200/25 one puff inhaled daily. 4. Fluocinonide cream applied topically at bedtime p.r.n. rash. 5. Oxycodone 5 mg p.o. q.4 hours p.r.n. pain. 6. Diclofenac gel 1% apply topically daily p.r.n. pain. 7. Cetirizine 10 mg p.o. daily p.r.n. allergies. 8. Flonase 2 squirts both nostrils daily. 9. Colchicine 0.6 mg p.o. b.i.d. 10. Rifampin 300 mg p.o. b.i.d. 11. Ibuprofen 400 mg p.o. b.i.d. p.r.n. pain. 12. Azithromycin 500 mg p.o. daily. 13. Albuterol 2 puffs inhaled q.4 hours p.r.n. shortness of breath. 14. Prednisone 10 mg p.o. daily. 15. MiraLax 17 g p.o. daily p.r.n. constipation. 16. Lyrica 150 mg p.o. b.i.d. 17. Vitamin D2 of 50,000 units p.o. monthly. 18. Centrum Silver Women's 1 tablet p.o. daily. 19. Calcium citrate plus D 1 tab p.o. daily. ALLERGIES: IV CONTRAST DYE, XYLOCAINE WITH EPINEPHRINE, and KEFLEX. FAMILY HISTORY: Mom had a history of liver cancer. Dad had coronary artery disease in his 60s. SOCIAL HISTORY: The patient smoked for 6 years in the 60s, but quit in 1968. She drinks 2 glasses of wine weekly. 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 She is . She has 3 children. She indicates that her son, Vikram, would be her healthcare proxy. REVIEW OF SYSTEMS: Complete 11-system review of systems is obtained. Pertinent positives and negatives are as per HPI and otherwise negative. PHYSICAL EXAMINATION GENERAL: The patient is a well-developed elderly female, sitting up in the stretcher, in no acute distress. VITAL SIGNS: Blood pressure 151/68, pulse 75, respirations 18, temp 98.9, O2 saturation 94% on room air. HEENT: Pupils are equal, round. Extraocular muscles are intact. Oropharynx is clear. Oral mucosa is moist. There is no submandibular, cervical or supraclavicular adenopathy. Thyroid is not enlarged. No thyroid nodules noted. PULMONARY: Lungs are clear to auscultation bilaterally. CARDIAC: Normal S1, S2. Regular rate and rhythm. I do not appreciate any murmurs. ABDOMEN: Bowel sounds are present. Abdomen is soft, nontender, nondistended. MUSCULOSKELETAL: There is no cyanosis or clubbing of the digits. There is full range of motion of the upper extremities. Lower extremity range of motion is not tested at this time due to pain. NEURO: Cranial nerves II through XII are grossly intact. Sensation is intact to light touch throughout. Strength is 5/5 and symmetric to both upper and lower extremities bilaterally. PSYCH: The patient is alert. She is oriented x3. Affect appears appropriate SKIN: Warm and dry. There are no rashes. The patient has a healing abrasion to the left anterior allen. She also has skin tears noted to the left forearm and elbow. DIAGNOSTIC STUDIES/LAB DATA: WBC 5.9, hemoglobin 11.8, hematocrit 35, platelets 81,000. INR 1.01. Sodium 140, potassium 4.0, chloride 103, CO2 of 30 , BUN 14, creatinine 0.75, glucose 93. Calcium 8.7, bilirubin 0.8, AST 24, ALT 14, alk phos 49. Troponin 0.01. Albumin 3.0. Left femur x-ray: No evidence for left hip or femur fracture. Hip/pelvis x-ray: No evidence for left hip or femur fracture. CT pelvis: There is nondisplaced fracture at the junction of the left superior pubic ramus with the os pubis. Nondisplaced fracture of the right superior pubic ramus laterally at the junction with the acetabulum. Probable nondisplaced left sacral ala insufficiency fracture with additional horizontal component of the sacral fracture at the S3-S4 level. Mild intramuscular hematoma at the left obturator internus muscle measuring up to 2.1 cm in transverse thickness compared with 1.7 cm for the contralateral side. Subcutaneous edema/infiltrative hematoma at the posterolateral left hip centered at the level of the greater trochanter. Chest x-ray reveals chronic parenchymal changes not significantly changed since previous examination of 05/18/17. Emphysematous changes are noted. Costochondral calcifications are noted. ASSESSMENT AND PLAN: Ms. Blas is an 82-year-old female, who has a past history of breast cancer, myelodysplastic syndrome, Mycobacterium avium complex infection, and osteoarthritis, who presents to the emergency room after sustaining a fall on the day of prior to admission where she has subsequently been found to have bilateral pelvic fractures and a sacral ala insufficiency fracture. 1. Pelvic fractures and sacral ala fracture. At this point, pain control and time are needed to heal these fractures. Orthopedics was contacted by the emergency room and a nonsurgical approach was recommended. The patient already is on chronic pain medications including oxycodone 5 mg every 4 hours and OxyContin 20 mg twice daily. P.r.n. fentanyl will be available for severe pain. The patient will likely need subacute rehab as it is unlikely she will be able to return to her independent living straight from the hospital. She will continue on her calcium plus D and multivitamin. She will also continue with vitamin D2 of 50,000 units p.o. monthly. 2. Myelodysplastic syndrome. The patient is slightly anemic and thrombocytopenic. These counts can be monitored intermittently. The drop in hemoglobin may potentially be related to the small hematoma noted on CT scan. Followup CBC will be ordered for tomorrow morning. 3. Asthma. The patient will continue on her p.r.n. albuterol and Breo Ellipta. 4. History of pseudogout. The patient will continue on colchicine 0.6 mg p.o. twice daily. 5. DVT prophylaxis. According to the Adult Thrombosis Prophylaxis Risk Factor Assessment Guide, the patient has a total risk factor score of 8, making her the highest risk. Heparin 5000 units subcutaneous q.8 hours will be utilized as DVT prophylaxis. If the patient's H and H drops tomorrow morning, the subcu heparin should be held in the setting of potentially enlarging hematoma. 6. The patient is a DNR. TIME SPENT: Sixty-five minutes were spent admitting this patient. [id number]/[facility] #: [id number] RAVEN
[2018-04-23] MEDS: RiFAMPin CAP* 300 MG CAP PO SCH (20:15)
[2018-04-23] MEDS: Ibuprofen TAB* 400 MG PO SCH (20:15)
[2018-04-23] MEDS: Colchicine* 0.6 MG TAB PO SCH (21:36)
[2018-04-23] MEDS: oxyCODONE SR TAB(*) 20 MG TAB.SR PO SCH (21:37)
[2018-04-23] MEDS: Pregabalin CAP(*) 50 MG PO SCH (21:37)
[2018-04-23] MEDS: Sertraline* 50 MG TAB PO SCH (21:38)
[2018-04-23] MEDS: Heparin VIAL(*) 5000 UNITS/ML VIAL (FIVE THOUSAND) SUBCUT SCH (21:39)
--- NOTE | 2018-04-24 00:39 | CONS ---
CONSULTATION REPORT: DATE OF CONSULT: 04/23/18 ATTENDING PHYSICIAN: Dr. Celio Zavala. CHIEF COMPLAINT: Fall with left hip pain. HISTORY OF PRESENT ILLNESS: Briefly, Ms. Blas is an 82-year-old female, who is known to me for her shoulder, who was walking from the main dining beltran at [place] and she lost control of her 4-wheeled walker and she fell over to the ground landing on her left side. She summoned her medical alert and was evaluated by a nurse. She was unable to weight bear comfortably and was brought to the ER. She denied any loss of consciousness. She denies any numbness or tingling. She complains of groin pain. She underwent x-rays and CT scans. The pain is worse on the left side, but also present on the right side. PAST MEDICAL HISTORY: History of breast cancer, asthma, chronic back pain, history of Mycobacterium avium lung infection, status post VATS, myelodysplastic syndrome, and history of migraines. PAST SURGICAL HISTORY: VATS and wedge resection, urethral polyp excision, appendectomy, x3, laminectomy, right mastectomy, and right toe amputation. MEDICATIONS: 1. Sertraline. 2. OxyContin. 3. Breo Ellipta. 4. Fluocinonide. 5. Oxycodone. 6. Diclofenac. 7. Cetirizine. 8. Flonase. 9. Colchicine. 10. Rifampin. 11. Ibuprofen. 12. Azithromycin. 13. Albuterol. 14. Prednisone. 15. MiraLAX. 16. Lyrica. 17. Vitamin D. 18. Centrum. 19. Calcium citrate. ALLERGIES: To IV CONTRAST DYE, XYLOCAINE WITH EPINEPHRINE, and KEFLEX. FAMILY HISTORY: Mother had a history of liver cancer. Father had coronary artery disease. SOCIAL HISTORY: She is a . She lost her approximately almost 3 years ago. She smoked previously. She drinks 2 glasses of wine weekly. 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 She has children who live nearby. She walks with a 4- wheeled walker and lives in an independent living facility. REVIEW OF SYSTEMS: A 14-point review of systems reviewed with the patient, significant for bilateral hip and pelvis pain. No numbness or tingling. No fever or chills. No recent illnesses. Otherwise, remainder of the systems is negative. PHYSICAL EXAMINATION: GENERAL: She is no acute distress. She is well- developed, well-nourished. Temperature of 98.9, pulse 75, O2 94%, blood pressure 151/68. She is alert and oriented x3. She has pleasant mood and normal affect. Good balance and coordination of her upper extremities. She respires comfortably. Her abdomen is soft, nontender. EOMI. Heart: Regular rate and rhythm. Examination of the left leg demonstrates a small hematoma about the lateral hip. She is able to flex and extend her hips and she is sensate to light touch. She has brisk capillary refill. Her calf is soft and nontender. Mild discomfort with internal rotation of the hip. More pain on extension of the legs as opposed to flexion. DIAGNOSTIC STUDIES: X-rays include AP pelvis left hip x-rays as well as CT scan demonstrate bilateral rami fractures as well as significant osteoarthritis of bilateral hips. ASSESSMENT AND PLAN: She has pubic rami fractures bilaterally worse involving her left side. We talked about treatment options and ultimately this will be treated conservatively. I do think she is going to need physical therapy as she needs to be up and mobilized as soon as she is comfortable. She would likely need to be admitted for rehab placement. I will see her back in approximately 10 to 14 days. We will repeat the x-rays with inlet and outlet views. The patient voiced understanding. I will see the patient back in 10 to 14 days. [id number]/[facility] #: [id number] MTDD
[2018-04-24 05:11] LABS: Hematocrit 33 % (35-47); Hemoglobin 11.1 g/dl (12.0-16.0); Mean Corpuscular HGB Conc 34 g/dl (31-36); Mean Corpuscular Hemoglobin 35 pg (27-31); Mean Corpuscular Volume 103 fL (80-97); Mean Platelet Volume 10.5 fL (7.4-10.4); Platelet Count 65 10^3/ul (150-450); Red Blood Count 3.14 10^6/ul (4.00-5.40); Red Cell Distribution Width 15 % (10.5-15); White Blood Count 4.7 10^3/ul (3.5-10.8)
[2018-04-24] MEDS: Heparin VIAL(*) 5000 UNITS/ML VIAL (FIVE THOUSAND) SUBCUT SCH ×3 (05:53→22:18)
[2018-04-24 08:46] LABS: Urine Appearance Clear; Urine Bilirubin Negative (Negative); Urine Blood Negative (Negative); Urine Color Yellow; Urine Glucose Negative (Negative); Urine Ketones Negative (Negative); Urine Nitrite Negative (Negative); Urine Protein Negative (Negative); Urine Specific Gravity 1.013 (1.010-1.030); Urine Urobilinogen Negative (Negative)
[2018-04-24] MEDS: Polyethylene Glycol 3350* 17 GM PACKET PO SCH (08:59)
[2018-04-24] MEDS ORDERED: Tiotropium CAP.INH* CAP.INH/18 MCG (USE ORDER SET !) INH SCH (09:00)
[2018-04-24] MEDS: Fluticasone NASAL SPRAY 50MCG* 16 gm SPRAY BTL BOTH NARES SCH (09:01)
[2018-04-24] MEDS: NFT: Fluticasone/Vilanterol MDI(NF) 200/25 MDI INH SCH (09:01)
[2018-04-24] MEDS: Ibuprofen TAB* 400 MG PO SCH ×2 (09:03→22:16)
[2018-04-24] MEDS: Azithromycin TAB* 250 MG PO SCH (09:04)
[2018-04-24] MEDS: predniSONE TAB* 10 MG PO SCH (09:04)
[2018-04-24] MEDS: Calcium/Vitamin D TAB 250/125* TAB PO SCH (09:04)
[2018-04-24] MEDS: RiFAMPin CAP* 300 MG CAP PO SCH ×2 (09:04→22:13)
[2018-04-24] MEDS: Colchicine* 0.6 MG TAB PO SCH ×2 (09:04→22:14)
[2018-04-24] MEDS: Multivitamins/Minerals TAB PO SCH (09:04)
[2018-04-24] MEDS: oxyCODONE SR TAB(*) 20 MG TAB.SR PO SCH ×2 (09:04→22:16)
[2018-04-24] MEDS: Pregabalin CAP(*) 50 MG PO SCH ×2 (09:04→22:14)
[2018-04-24] MEDS ORDERED: Magnesium Hydroxide LIQ* 30 ML UDC PO PRN (16:00)
[2018-04-24] MEDS: Sertraline* 50 MG TAB PO SCH (22:15)
[2018-04-25] MEDS: Heparin VIAL(*) 5000 UNITS/ML VIAL (FIVE THOUSAND) SUBCUT SCH ×2 (05:26→13:14)
[2018-04-25] MEDS: Azithromycin TAB* 250 MG PO SCH (09:37)
[2018-04-25] MEDS: Pregabalin CAP(*) 50 MG PO SCH (09:37)
[2018-04-25] MEDS: Polyethylene Glycol 3350* 17 GM PACKET PO SCH (09:37)
[2018-04-25] MEDS: Colchicine* 0.6 MG TAB PO SCH (09:38)
[2018-04-25] MEDS: Calcium/Vitamin D TAB 250/125* TAB PO SCH (09:38)
[2018-04-25] MEDS: Fluticasone NASAL SPRAY 50MCG* 16 gm SPRAY BTL BOTH NARES SCH (09:39)
[2018-04-25] MEDS: oxyCODONE SR TAB(*) 20 MG TAB.SR PO SCH (09:39)
[2018-04-25] MEDS: Ibuprofen TAB* 400 MG PO SCH (09:40)
[2018-04-25] MEDS: RiFAMPin CAP* 300 MG CAP PO SCH (09:40)
[2018-04-25] MEDS: predniSONE TAB* 10 MG PO SCH (09:40)
[2018-04-25] MEDS: NFT: Fluticasone/Vilanterol MDI(NF) 200/25 MDI INH SCH (09:41)
[2018-04-25] MEDS: Multivitamins/Minerals TAB PO SCH (09:41)
[2018-04-25 11:31] VITALS: BP 101/45
--- NOTE | 2018-04-25 12:20 | TRS ---
DISCHARGE SUMMARY: DATE OF ADMISSION: 04/23/18 DATE OF DISCHARGE: 04/25/18 DISCHARGE DIAGNOSES: 1. Pelvic fracture. 2. Urinary retention. 3. Constipation. 4. History of atypical mycobacteria. 5. Myelodysplastic syndrome. 6. History of breast cancer. 7. Asthma. 8. Chronic back pain. 9. History of migraines. 10. Pseudogout. 11. Wound, left lower leg. 12. History of depression. HISTORY: Alis Blas is an 82-year-old woman admitted with pelvic fracture. Please see the dictated admission note for details of the present illness, past medical history, family history, social and personal history, review of systems, and physical examination. LABORATORY DATA: See chart. IMAGING: See chart. HOSPITAL COURSE: The patient was admitted. She had PT evaluation. She is weightbearing as tolerated. She had an orthopedic evaluation (see dictated noted). She had urinary retention, had to be straight cathed. She has not had a bowel movement since she has been in the hospital. At the time of discharge, she is comfortable except when she moves. She can sit up. She would like to go back to [facility] to the senior living. At the time of discharge, she is DNR per her wishes. DISCHARGE MEDICATIONS: She is to be on her usual medications. 1. Sertraline 75 mg daily. 2. OxyContin 20 mg b.i.d. 3. Breo Ellipta 200/25 one puff daily. 4. Fluocinonide p.r.n. 5. Oxycodone 5 mg q.4 hours p.r.n. pain. 6. Acetaminophen 650 q.4 hours p.r.n. pain. 7. Diclofenac gel topically p.r.n. 8. Cetirizine 10 mg daily p.r.n. allergies. 9. Flonase two squirts both nostrils daily. 10. Colchicine 0.6 mg b.i.d. 11. Rifampin 300 mg b.i.d. 12. Ibuprofen 400 mg b.i.d. p.r.n. pain. 13. Azithromycin 500 mg daily. 14. Albuterol 2 puffs q.4 hours p.r.n. shortness of breath. 15. Prednisone 10 mg daily. 16. MiraLax 17 gm daily p.r.n. constipation. 17. Lyrica 150 mg b.i.d. 18. Vitamin D2 50,000 units monthly. 19. Centrum Silver Women's 1 tablet daily. 20. Calcium citrate plus D 1 tablet daily. I will be her attending at [facility]. She is to get PT/OT. She is to be straight cathed every 8 hours as needed and she is to be on the [facility] bowel protocol. [id number]/[facility] #: [id number] MTDD
== END 2018-04-25 15:10 | DRG 536 ==
LOC: ED 12:12 → SSU 17:03 → OBSVTOIN 04-24 16:00
PROVIDERS: ADMIT Hospitalist; ATTEND Internal Medicine Geriatric Medicine
DX: S32.592A Other specified fracture of left pubis, initial encounter for closed fracture (principal); S32.10XA Unspecified fracture of sacrum, initial encounter for closed fracture; S32.591A Other specified fracture of right pubis, initial encounter for closed fracture; W01.0XXA Fall on same level from slipping, tripping and stumbling without subsequent striking against object, initial encounter; M16.0 Bilateral primary osteoarthritis of hip; J45.909 Unspecified asthma, uncomplicated; M54.89 Other dorsalgia; K59.00 Constipation, unspecified; R33.9 Retention of urine, unspecified; G43.909 Migraine, unspecified, not intractable, without status migrainosus; D46.9 Myelodysplastic syndrome, unspecified; Y92.096 Garden or yard of other non-institutional residence as the place of occurrence of the external cause; Z85.3 Personal history of malignant neoplasm of breast; Z88.8 Allergy status to other drugs, medicaments and biological substances; Z91.041 Radiographic dye allergy status; Z82.49 Family history of ischemic heart disease and other diseases of the circulatory system; Z80.0 Family history of malignant neoplasm of digestive organs; Z87.891 Personal history of nicotine dependence; Z79.1 Long term (current) use of non-steroidal anti-inflammatories (NSAID); Z79.891 Long term (current) use of opiate analgesic; Z79.51 Long term (current) use of inhaled steroids; Z79.52 Long term (current) use of systemic steroids; Z79.899 Other long term (current) drug therapy
CPT/HCPCS: 36415; 71045; 72192; 80053; 81003; 84484; 85025; 85027; 85610; 85730; 96372; 96374; 99284; A9270-GY; G0378; G8978-GP-CL; G8979-GP-CJ; J1644; J3010; J7512

== ENCOUNTER 2018-08-25 12:56 | Inpatient (IN) | payer MEDICARE, BC ==
--- NOTE | 2018-08-25 13:41 | ED ---
Sepsis HPI - HPI Summary HPI Summary: Pt is an 83 y/o female brought in by EMS who presents to the ED c/o fever. She was diagnosed with PNA 3 days ago. Pt has had a cough with yellow sputum for 3 weeks. She also c/o left ear pain but denies any CP or sore throat. Pt was sent here from [facility] for a sepsis workup, because pt has a fever and tachycardia. PMHx COPD, asthma. She is a former smoker. - History of Current Complaint Chief Complaint: EDGeneral Time Seen by Provider: 08/25/18 13:03 Stated Complaint: RAPID HEART RATE PER EMS Hx Obtained From: Patient, EMS Onset/Duration: Started Weeks Ago - 3, Worse Since Timing: Constant Current Severity: None Pain Intensity: 0 Pain Scale Used: 0-10 Numeric Aggravating Symptom(s): Nothing Alleviating Factor(s): Nothing Associated Signs & Symptoms: Cough - Additional Pertinent History Primary Care Physician: [id number] - Allergy/Home Medications Allergies/Adverse Reactions: Allergies Allergy/AdvReac Type Severity Reaction Status Date / Time Iodinated Contrast- Oral and Allergy Severe Itching Verified 08/25/18 13:08 IV Dye cephalexin [From Keflex] Allergy Rash Verified 08/25/18 14:15 epinephrine AdvReac Severe Palpitation Verified 08/25/18 13:08 [From Xylocaine-Epinephrine] s lidocaine AdvReac Severe Palpitation Verified 08/25/18 13:08 [From Xylocaine-Epinephrine] s Home Medications: Home Medications Acetaminophen TAB* [Tylenol TAB*] 650 mg PO Q4H PRN 08/25/18 [History Confirmed 08/25/18] Ketoconazole 2 % CREAM (NF) [Nizoral 2% CREAM (NF)] 1 applic TOPICAL DAILY PRN 08/25/18 [History Confirmed 08/25/18] Levalbuterol 0.63MG/3ML NEB* [Xopenex 0.63MG/3ML NEB*] 0.63 mg INH QID PRN 08/25 [History Confirmed 08/25/18] Lidocaine [Lidocaine Tony] 5 % TOPICAL Q4HR PRN 08/25/18 [History Confirmed 08/25] Magnesium Hydroxide LIQ* [Milk of Magnesia LIQ*] 30 ml PO DAILY PRN 08/25/18 [ History Confirmed 08/25/18] Moxifloxacin TAB(NF) [Avelox TAB (NF)] 400 mg DAILY 08/25/18 [History Confirmed 08/25/18] Nystatin SUSPENSION* [Nystatin*] 100,000 unit SWISH SWAL DAILY 08/25/18 [ History Confirmed 08/25/18] Petrolatum,White [Aquaphor Advanced Therapy] 41 % TOPICAL BEDTIME PRN 08/25/18 [ History Confirmed 08/25/18] Tiotropium CAP.INH* [Spiriva CAP.INH*] 1 cap.inh INH DAILY 08/25/18 [History Confirmed 08/25/18] predniSONE TAB* [Deltasone 10 MG TAB*] 40 mg PO DAILY 08/25/18 [History Confirmed 08/25/18] PMH/Surg Hx/FS Hx/Imm Hx Endocrine/Hematology History: Reports: Hx Bone Marrow Disease - MYELODYSPLASTIC SYNDROME Denies: Hx Diabetes, Hx Systemic Lupus Erythematosus Cardiovascular History: Denies: Hx Congestive Heart Failure, Hx Hypertension, Hx Pacemaker/ICD Respiratory History: Reports: Hx Asthma - ADULT ONSET-2002, Hx Chronic Obstructive Pulmonary Disease (COPD), Other Respiratory Problems/Disorders - HX OF PETER GI History: Reports: Hx Diverticulosis History: Reports: Other Problems/Disorders - caricle of urethra Denies: Hx Dialysis, Hx Renal Disease Musculoskeletal History: Reports: Hx Arthritis, Hx Back Problems, Hx Osteoporosis, Other Musculoskeletal History - right rotator cuff injury Denies: Hx Rheumatoid Arthritis Sensory History: Reports: Hx Contacts or Glasses, Hx Hearing Aid Opthamlomology History: Reports: Hx Contacts or Glasses Neurological History: Reports: Other Neuro Impairments/Disorders - PAIN CLINIC PT Psychiatric History: Reports: Hx Depression Denies: Hx Panic Disorder - Cancer History Cancer Type, Location and Year: mastectomy . sqaumous cell toe amputation Hx Chemotherapy: No Hx Radiation Therapy: No - Surgical History Surgery Procedure, Year, and Place: SKIN BIOPSY June 29 at [facility]; T&A 194; APPENDIX 1950; Rt OVARY CYST REMOVED 1950; X3; DENTAL IMPLANTS 2013; Rt MASTECTOMY 1985; WEDGE RESECTION Rt LUNG; BRONCHOSCOPY X3; Rt BREAST BIOPSY 1971 AND 1985; HERNIA REPAIR ; D&C ; REPAIR OF DOG BITE ON LEG 07/23; CATARACTS BILATERAL 01/22 & 02/22; RIGHT 2ND TOE AMPUTATED 06/28; BONE MARROW BIOPSY X3 01/25, 04/28 & 04/30; LAMINECTOMY L3-4 & L4-5 08/04/12; SEVERAL MOH'S PROCEDURES; lumbar stimulator 09/2013 - could not be programmed so removed - CHECKED WITH DR. MENENDEZ TODAY(01/04/14)...HE LOOKED AT XRAYS DATED 10/13/13 WHICH CONFIRMED THE STIMULATOR AND LEADS HAD BEEN REMOVED..OK FOR MRI PER DR. MENENDEZ...RAMESH,RT Hx Anesthesia Reactions: No Infectious Disease History: No Infectious Disease History: Reports: Hx Shingles - January 2017, History Other Infectious Disease - MYCOBACTERIUM AVIUM Denies: Hx Clostridium Difficile, Hx Hepatitis, Hx Human Immunodeficiency Virus (HIV), Hx of Known/Suspected MRSA, Hx Tuberculosis, Traveled Outside the [place] in Last 30 Days - Family History Known Family History: Positive: Other - liver cancer Negative: Hypertension, Diabetes - Social History Alcohol Use: Occasionally Alcohol Amount: 4 Hx Substance Use: No Substance Use Type: Reports: None Substance Use Comment - Amount & Last Used: butran's patch Hx Tobacco Use: Yes Smoking Status (MU): Former Smoker Type: Cigarettes Length of Time of Smoking/Using Tobacco: 13 years Have You Smoked in the Last Year: No Review of Systems Positive: Fever Positive: Ear Ache - L Negative: Chest Pain Positive: Cough All Other Systems Reviewed And Are Negative: Yes Physical Exam - Summary Physical Exam Summary: GENERAL: Patient is a well-developed and nourished F who is lying comfortable in the stretcher. Patient is not in any acute respiratory distress. HEAD AND FACE: Normocephalic EYES: PERRLA, EOMI x 2. EARS: Hearing grossly intact. MOUTH: Oropharynx within normal limits. NECK: Supple, trachea is midline, no adenopathy, no JVD, no carotid bruit. CHEST: Symmetric, no tenderness at palpation LUNGS: Diffuse rhonchi and wheezes. No crackles. CVS: Regular rate and rhythm, S1 and S2 present, no murmurs or gallops appreciated. ABDOMEN: Soft, non-tender. Bowel sounds are normal. No abnormal abdominal pulsations. EXTREMITIES: Full ROM in all major joints, no edema, no cyanosis or clubbing. NEURO: Alert and oriented x 3. No acute neurological deficits. Speech is normal and follows commands. SKIN: Dry and warm Triage Information Reviewed: Yes Vital Signs On Initial Exam: Initial Vitals Temp Pulse Resp BP Pulse Ox 98.8 F 99 19 134/82 95 08/25/18 13:02 08/25/18 13:02 08/25/18 13:02 08/25/18 13:02 08/25/18 13:02 Vital Signs Reviewed: Yes Diagnostics - Vital Signs Vital Signs Temp Pulse Resp BP Pulse Ox 08/25/18 13:02 98.8 F 99 19 134/82 95 - Laboratory Result Diagrams: 08/26/18 04:56 08/26/18 04:56 Lab Statement: Any lab studies that have been ordered have been reviewed, and results considered in the medical decision making process. - Radiology CXR Radiology Interpretation Completed By: Radiologist Summary of Radiographic Findings: LEFT basilar pneumonia. Stigmata of chronic obstructive pulmonary disease and emphysema. ED physician reviewed radiology report. - EKG 14:49 Cardiac Rate: NL - 88 bpm EKG Rhythm: Sinus Rhythm EKG Comparison: No Significant Change - as comparted to April 2017 Summary of EKG Findings: Inverted T waves in V1-V2 Course/Dx - Course Course Of Treatment: Pt is an 83 y/o female brought in by EMS who presents to the ED c/o fever, wet cough, tachycardia. She was diagnosed with PNA 3 days ago. A physical exam revealed Diffuse rhonchi and wheezes. A CXR revealed LEFT basilar pneumonia. Stigmata of chronic obstructive pulmonary disease and emphysema. An EKG revealed NSR and inverted T waves in V1-V2. Bloodwork obtained. In the course pt was given fluids, Duoneb, Azactam, Azithromycin, Rocephin, and Vancomycin. Final dx of pneumonia. Pt is admitted to Dr. Nix. I discussed results with patient. The patient agrees with this plan. - Differential Dx/Clinical Impression Provider Diagnosis: Pneumonia - Provider Notifications Discussed Care Of Patient With: Cinthya Weber Time Discussed With Above Provider: 15:33 Instructed by Provider To: Other - Admit the pt to the hospitalist, will consult tomorrow. At 15:50 Dr. Nix accepts for admission. Discharge - Sign-Out/Discharge Documenting (check all that apply): Patient Departure - Admit Patient Received Moderate/Deep Sedation with Procedure: No - Discharge Plan Condition: Stable Disposition: ADMITTED TO [facility] - Billing Disposition and Condition Condition: STABLE Disposition: Admitted to [facility] [place] - Attestation Statements Document Initiated by Scribe: Yes Documenting Scribe: Brenda Crawford Provider For Whom Samson is Documenting (Include Credential): Kristin Denise MD Scribe Attestation: Brenda Glover, scribed for Kristin Denise MD on 08/26/18 at 0731. Scribe Documentation Reviewed: Yes Provider Attestation: The documentation as recorded by the Brenda dominguez accurately reflects the service I personally performed and the decisions made by me, Kristin Denise MD Status of Scribe Document: Viewed
[2018-08-25] MEDS ORDERED: NS 0.9% 1000 ML** 1,000 ML IV ONE (13:52)
[2018-08-25] MEDS ORDERED: methylPREDNISolone 125 MG* 2 ML VIAL IV ONE (13:53)
[2018-08-25] MEDS ORDERED: cefTRIAXone(*) 1 GM in NS 0.9% 50 ML* 50 ML IVPB ONE (13:54)
[2018-08-25] MEDS ORDERED: Azithromycin 500 mg/250 ml NS 500 MG/250 ML BAG IVPB ONE (13:54)
[2018-08-25] MEDS ORDERED: Albuterol/Ipratropium NEB.SOL* Albuterol 2.5 MG/Ipratropium 0.5 MG 3 ML INH ONE (13:55)
[2018-08-25 14:14] LABS: ABS Basophils 0.1 10^3/ul (0-0.2); ABS Eosinophils 0.2 10^3/ul (0-0.6); ABS Lymphocytes 0.5 10^3/ul (1.0-4.8); ABS Monocytes 1.2 10^3/ul (0-0.8); Eosinophil % 3.1 %; Hematocrit 38 % (35-47); Hemoglobin 12.8 g/dL (12.0-16.0); Lymphocyte % 7.5 %; Mean Corpuscular HGB Conc 34 g/dL (31-36); Mean Corpuscular Hemoglobin 34 pg (27-31); Mean Corpuscular Volume 101 fL (80-97); Mean Platelet Volume 10.2 fL (7.4-10.4); Nucleated Red Blood Cells % 0.1; Platelet Count 106 10^3/uL (150-450); Red Blood Count 3.76 10^6 /uL (3.70-4.87); Red Cell Distribution Width 15 % (10.5-15)
[2018-08-25 14:30] LABS: Albumin 3.3 g/dL (3.2-5.2); Albumin/Globulin Ratio 1.2 (1-3); BUN/Creatinine Ratio 17.7 (8-20); Calcium 8.8 mg/dL (8.6-10.3); EGFR African American 83.7 (>60); EGFR Non-African American 69.2 (>60); Globulin 2.7 g/dL (2-4)
[2018-08-25 14:32] LABS: Troponin I 0.01 ng/mL (<0.04)
[2018-08-25 14:38] LABS: Activated Partial Thrombo Time 37.3 seconds (26.0-36.3); INR 1.13 (0.82-1.09)
[2018-08-25] MEDS ORDERED: Aztreonam (*) 1 GM in NS 0.9% 50 ML* 50 ML IVPB ONE (15:48)
[2018-08-25] MEDS ORDERED: Vancomycin(*) 1,000 MG in NS 0.9% 250 ML* 250 ML IVPB ONE (15:49)
[2018-08-25 17:16] LABS: Urine Appearance Clear; Urine Bilirubin Negative (Negative); Urine Blood Negative (Negative); Urine Color Amber; Urine Glucose Negative (Negative); Urine Ketones Negative (Negative); Urine Nitrite Negative (Negative); Urine Protein Negative (Negative); Urine Specific Gravity 1.006 (1.010-1.030); Urine Urobilinogen Negative (Negative)
[2018-08-25] MEDS ORDERED: Albuterol 2.5 MG/3 ML NEB.SOL* (0.083%) INH PRN (17:17)
[2018-08-25] MEDS ORDERED: Ondansetron INJ* 2 MG/ML VIAL IV PRN (17:17)
[2018-08-25] MEDS ORDERED: Diltiazem IV push/loading dose 5 MG/ML 5 ML vial (25 mg) IV SLOW PU ONE (17:30)
[2018-08-25] MEDS ORDERED: [UNRECOGNIZED DRUG - OTHER] TOPICAL PRN (17:31)
[2018-08-25] MEDS ORDERED: Ketoconazole 2 % CREAM (NF) 30 GM TUBE TOPICAL PRN (17:31)
[2018-08-25] MEDS ORDERED: Magnesium Hydroxide LIQ* 30 ML UDC PO PRN (17:31)
[2018-08-25] MEDS ORDERED: Fluocinonide 0.05% CM(NF) 60 GM TUBE TOPICAL PRN (17:31)
[2018-08-25] MEDS ORDERED: Lidocaine 5% OINT* TUBE TOPICAL PRN (17:31)
[2018-08-25] MEDS ORDERED: oxyCODONE TAB* 5 MG TAB PO PRN (17:31)
[2018-08-25] MEDS ORDERED: Cetirizine* 10 MG TAB PO PRN (17:31)
[2018-08-25] MEDS ORDERED: CMCS:Diclofenac 1% GEL (NF) 100 GM TUBE TOPICAL PRN (17:31)
[2018-08-25] MEDS ORDERED: Polyethylene Glycol 3350* 17 GM PACKET PO PRN (17:31)
[2018-08-25] MEDS: Lactated Ringers 1000 ML Bag* 1,000 ML IV SCH (18:03)
[2018-08-25] MEDS: Albuterol/Ipratropium NEB.SOL* Albuterol 2.5 MG/Ipratropium 0.5 MG 3 ML INH SCH ×2 (20:11→23:47)
[2018-08-25] MEDS: methylPREDNISolone 125 MG* 2 ML VIAL IV SCH (20:35)
[2018-08-25] MEDS: oxyCODONE SR TAB(*) 20 MG TAB.SR PO SCH (20:37)
[2018-08-25] MEDS: guaiFENesin ER TAB 600 MG PO SCH (20:37)
[2018-08-25] MEDS: Heparin VIAL(*) 5000 UNITS/ML VIAL (FIVE THOUSAND) SUBCUT SCH (20:38)
--- NOTE | 2018-08-25 20:48 | HP ---
CC: Dr. Cinthya Weber * ADMISSION HISTORY AND PHYSICAL: DATE OF ADMISSION: 08/25/18 PRIMARY CARE PROVIDER: Dr. Cinthya Weber. MY ATTENDING WHILE IN THE HOSPITAL: Dr. Tammy Nix.* (DICTATED BY MARISABEL HANDY) CHIEF COMPLAINT: Cough, shortness of breath times 08/13/18. HISTORY OF PRESENT ILLNESS: Ms. Blas is an 83-year-old female with a complex medical history significant for asthma; history of Mycobacterium avium complex infection, on chronic antibiotics; chronic eosinophilia; history of allergies and myelodysplastic syndrome, who presents to the emergency department after a complex course of treatment for an outpatient respiratory issue. The patient initially noticed on 08/13/18 that she started coughing. She had a sick contact with someone who shared a table with them in a cafeteria , who had a long illness course with cough and shortness of breath, which he did not seem to be able to get rid of. Initially, her cough was productive of only clear sputum. The patient did feel somewhat fatigued. She noticed decreased exercise tolerance. The patient denied shortness of breath. The patient had intermittent palpitations mainly with coughing. The patient was initially seen, had a chest x-ray which showed no infiltrate. The patient was started on steroids and inhalers. The patient tested negative at that time for influenza. The patient had minimal improvement on her steroids. The patient was started on a prednisone taper at 50 mg and then tapered by 10 mg daily. The patient was given a Levaquin prescription to take if symptoms worsened over the weekend and she felt that her symptoms did worsen and began taking the Levaquin with no improvement in her symptoms. The patient initially had body aches with her initial symptoms. The patient continued to have some body aches and rhinorrhea. The patient has had previous symptoms due to asthma exacerbations. The patient has had an x-ray during this time that showed bibasilar infiltrates consistent with bronchopneumonia. The patient's prescription was changed to moxifloxacin and she again did not notice improvement. The patient's sputum around this time changed from clear to yellow. The patient was prescribed Xopenex, but was not able to tolerate this. The patient continued to have intermittent episodes of palpitations at times with her cough. The patient was sent in from her skilled nursing on 08/25/18 due to persistent cough, shortness of breath, intermittent fevers, tachycardia. The patient at that time had new oxygen requirement. The patient in the emergency department was given azithromycin, ceftriaxone, aztreonam, and vancomycin for concerns for outpatient treatment failure with levofloxacin and moxifloxacin. The patient has not had a white blood cell count. The patient was initially tachycardic and during her ED course had a coughing fit and afterwards developed what appears to be an SVT with regular narrow complex tachycardia with a rate consistently at 140. The patient is asymptomatic with this. Denies any worsening shortness of breath. The patient has intermittent palpitations, but no chest pain, no dizziness. The patient feels that she has been having episodes like this on and off for the last several weeks. The patient has been taking consistently her Breo and her Spiriva. Due to concern for persistent asthma exacerbation and concern for persistent pneumonia, we were asked to evaluate the patient for admission to the hospital. PAST MEDICAL HISTORY: Asthma, Mycobacterium avium complex, chronic eosinophilia , myelodysplastic syndrome, spinal stenosis, allergic rhinitis, vitamin D deficiency, gout, radiculopathy. PAST SURGICAL HISTORY: , T and A, appendectomy MEDICATIONS: Per records from [facility]: 1. Spiriva 18 mcg inhalation daily. 2. Prednisone 7.5 mg p.o. daily chronically. The patient was recently restarted on a prednisone taper starting at 50 mg daily. 3. Oxycodone 5 mg p.o. daily. 4. Breo 200/25 one inhalation daily. 5. Centrum Silver Women 1 tablet p.o. daily. 6. Azithromycin 500 mg p.o. daily. 7. Ibuprofen 400 mg p.o. twice a day as needed. 8. Rifampin 300 mg p.o. twice a day. 9. Colchicine 0.6 mg p.o. twice daily. 10. Flonase 2 sprays both nares daily. 11. Cetirizine 10 mg p.o. daily. 12. Vitamin D2 at 50,000 units p.o. monthly. 13. Tylenol 650 mg p.o. q.4 hours as needed for pain or fever. 14. Voltaren 1 application topical daily. 15. MiraLAX 17 g p.o. daily. 16. Fluocinonide 0.5% application daily for pruritus. 17. Darci citrate/vitamin D 1 tab po daily. 18. OxyContin 20 mg p.o. b.i.d. 19. Nystatin swish and swallow 100,000 units by mouth daily. 20. Xopenex 0.63 mg/3 mL solution daily. 21. Moxifloxacin 400 mg p.o. daily. 22. Sertraline 75 mg p.o. daily. 23. Ketoconazole shampoo 1 application topical daily. 24. Aquaphor 41% one application topical daily. 25. Lidocaine ointment 5% topical daily. ALLERGIES: IODINATED CONTRAST caused a rash, EPINEPHRINE and XYLOCAINE caused a rash, KEFLEX caused a rash. FAMILY HISTORY: The patient's mother of liver cancer at age 90. The patient's father of pneumonia after an open heart surgery. The patient has a sister who of cancer and a brother who of an OR. SOCIAL HISTORY: The patient quit smoking in 1968. The patient occasional alcohol and has never used illicit drugs. 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 The patient is , has 3 children. The patient's surrogate decision maker will be her eldest son, Vikram Blas. REVIEW OF SYSTEMS: A 14-point review of systems was reviewed and is negative except as above in the HPI and noting the patient lost 5 pounds recently due to lack of appetite. PHYSICAL EXAMINATION GENERAL: The patient is an 83-year-old female, who appears stated age and sitting comfortably in bed, in no acute distress. VITAL SIGNS: Temperature 98.8; pulse rate 90 initially, went up to 140 consistently with regular rhythm by the end of the exam; respiratory rate 20; oxygen saturation 90% to 93% on room air; blood pressure 134/52. HEENT: Head: Normocephalic, atraumatic. Sclerae anicteric. No conjunctival injection. Nasal mucosa dry. Oral mucosa dry. No pharyngeal erythema, discharge, or exudate. Thrush present on the tongue. NECK: Supple, nontender. No lymphadenopathy. No carotid bruits auscultated. No JVD. RESPIRATORY: Rhonchi and harsh wheezing heard throughout. Good air exchange bilaterally. CARDIAC: Tachycardic. No clicks, murmurs, gallops, or rubs. Pulses are 2+ in the bilateral dorsalis pedis, posterior tibialis, and radial areas. No bilateral lower extremity edema noted. ABDOMEN: Soft, nontender, nondistended. Bowel sounds present and normoactive in all 4 quadrants. No hepatosplenomegaly. No abdominal bruits auscultated. No hepatojugular reflux. GENITOURINARY: No suprapubic or CVA tenderness. NEURO: Cranial nerves II through XII intact. No focal deficits. Alert and oriented x3. PSYCHIATRIC: Pleasant and cooperative. SKIN: Clean, dry, and intact. No rash. DIAGNOSTIC STUDIES/LAB DATA: White blood cell count 7.0, hemoglobin 12.8, MCV 101, platelet count 106. INR 1.13, APTT 37.3. Sodium 132, potassium 5.0, chloride 100, carbon dioxide 27, anion gap 5, BUN 14, creatinine 0.79, glucose 103, lactic acid 0.9, calcium 8.8. Bilirubin 1.0, AST 12, ALT 10, alkaline phosphatase 90. Troponin-I 0.01, BNP 98. Protein 6.0, albumin 3.3, globulin 2.7. Studies: Chest x-ray read as left basilar pneumonia, stigmata of obstructive pulmonary disease, and emphysema. Electrocardiogram shows normal sinus rhythm, normal axis. No ST segment elevation or depression. No hypertrophy or enlargement. Rate of 88, QTc of 472. Repeat EKG shows rate of 36, no discernable P waves, regular rhythm, persistently no ST segment elevation or depression. ASSESSMENT AND PLAN: Impression: Ms. Blas is an 83-year-old female with past medical history significant for asthma, Mycobacterium avium complex, chronic eosinophilia and myelodysplastic syndrome, who presents to the emergency department with almost 2-1/2 weeks of shortness of breath, wheezing, and intermittently productive cough with intermittent palpitations and concern for pneumonia. The patient will be admitted to the hospital for treatment of what appears to be refractory pneumonia, asthma exacerbation, and newly diagnosed supraventricular tachycardia. 1. Shortness of breath, asthma exacerbation, possible pneumonia. The patient has a chest x-ray consistent with pneumonia; however, the patient likely had recent pneumonia. It is unclear whether this is still an active problem. The patient has no fevers. The patient is tachycardic, but appears to be in supraventricular tachycardia at this time. The patient was previously treated with levofloxacin and moxifloxacin. The patient does have risk factors for resistant organisms including SNF admission. The patient will be treated with vancomycin and cefepime at this time. The patient has had no signs of aspiration and does not need anaerobic coverage at this time. The patient will be treated with high-dose steroids to help decrease bronchospasm as well as scheduled inhalers and her home inhalers. The patient appears dehydrated, which may be contributing to her tachycardia. The patient was given 1 L of fluids in the emergency department and will be given more fluids ongoing to achieve euvolemia. A procalcitonin will be sent, though this will take several days to come back. If it comes back negative that may be used as justification to discontinue broad-spectrum antibiotics at some point in the future. If the patient improves and continues to have no signs of ongoing pneumonia, this treatment may also be discontinued. 2. Supraventricular tachycardia. The patient appears to be in supraventricular tachycardia. The patient's most recent EKG has no discernible P waves, but has a very regular rhythm not consistent with atrial fibrillation. The patient has no known history of supraventricular tachycardia. This is likely being provoked by the patient's respiratory illness, steroid use, and inhalers. Given the patient's respiratory complaints at this time and the patient's lack of symptomatology, we will not treat with adenosine. The patient has been given diltiazem with moderate improvement at this time. This will be re-dosed as needed. The patient failed initial vagal maneuvers. The patient's cough actually appears to have provoked this spell and continued coughing has not helped decrease her rate or spontaneously convert her to sinus rhythm. 3. History of eosinophilia. The patient's differential on current CBC shows eosinophils within normal range. 4. Myelodysplastic syndrome. The patient's MCV is high. The patient, however , is not anemic. The patient may be dry. The patient's white blood cell count is normal and her platelet count is only slightly decreased. 5. Chronic pain. Continue the patient's home pain medications. 6. FEN: The patient will have a heart-healthy diet without caffeine. The patient will have fluids as above. 7. Disposition: The patient is admitted as observation to the hospital. TIME SPENT: Approximately 60 minutes was spent on the admission of this patient , 30 of which was spent [id number] with the patient obtaining history and physical and discussing treatment plan. This plan was discussed with my attending, Dr. Tammy Nix, and she is in agreement. MARISABEL HANDY [id number]/[facility] #: [id number] [facility] CENTERArik
[2018-08-25] MEDS: Sertraline* 50 MG TAB PO SCH (21:29)
[2018-08-25] MEDS: RiFAMPin CAP* 300 MG CAP PO SCH (21:30)
[2018-08-25] MEDS: Colchicine* 0.6 MG TAB PO SCH (21:30)
[2018-08-25] MEDS ORDERED: Vancomycin per Pharmacy* NOTE FOLLOW UP PRN (22:16)
[2018-08-25] MEDS: Cefepime 1 GM in Dextrose(*) 1 GM/50 ML BAG IV SCH (22:22)
[2018-08-26] MEDS: methylPREDNISolone 125 MG* 2 ML VIAL IV SCH ×3 (03:22→19:19)
[2018-08-26] MEDS: Albuterol/Ipratropium NEB.SOL* Albuterol 2.5 MG/Ipratropium 0.5 MG 3 ML INH SCH ×2 (03:31→07:49)
[2018-08-26] MEDS: Cefepime 1 GM in Dextrose(*) 1 GM/50 ML BAG IV SCH ×2 (05:41→17:22)
[2018-08-26] MEDS: Heparin VIAL(*) 5000 UNITS/ML VIAL (FIVE THOUSAND) SUBCUT SCH ×3 (05:45→21:05)
[2018-08-26] MEDS: Benzonatate CAP* 100 MG PO PRN (05:48)
[2018-08-26 06:05] LABS: ABS Basophils 0.1 10^3/ul (0-0.2); ABS Eosinophils 0.2 10^3/ul (0-0.6); ABS Lymphocytes 0.5 10^3/ul (1.0-4.8); ABS Monocytes 1.1 10^3/ul (0-0.8); ABS Neutrophils 4.1 10^3/ul (1.5-7.7); Eosinophil % 3.3 %; Hematocrit 34 % (35-47); Hemoglobin 11.6 g/dL (12.0-16.0); Mean Corpuscular HGB Conc 35 g/dL (31-36); Mean Corpuscular Hemoglobin 36 pg (27-31); Mean Corpuscular Volume 103 fL (80-97); Mean Platelet Volume 10.7 fL (7.4-10.4); Platelet Count 97 10^3/uL (150-450); Red Blood Count 3.28 10^6 /uL (3.70-4.87); Red Cell Distribution Width 15 % (10.5-15)
[2018-08-26 06:27] LABS: BUN/Creatinine Ratio 20.5 (8-20); Calcium 8.2 mg/dL (8.6-10.3); EGFR African American 84.9 (>60); EGFR Non-African American 70.2 (>60); Potassium 4.4 mmol/L (3.5-5.0)
[2018-08-26] MEDS: Vancomycin(*) 750 MG in NS 0.9% 250 ML* 250 ML IVPB SCH ×2 (06:38→18:09)
[2018-08-26] MEDS: Fluticasone/Vilanterol MDI(NF) 200/25 MDI INH SCH (07:48)
[2018-08-26] MEDS: Tiotropium CAP.INH* CAP.INH/18 MCG (USE ORDER SET !) INH SCH (07:49)
[2018-08-26] MEDS ORDERED: Albuterol/Ipratropium NEB.SOL* Albuterol 2.5 MG/Ipratropium 0.5 MG 3 ML INH PRN (07:55)
[2018-08-26] MEDS: RiFAMPin CAP* 300 MG CAP PO SCH ×2 (08:34→21:06)
[2018-08-26] MEDS: Multivitamins/Minerals TAB PO SCH (08:34)
[2018-08-26] MEDS: Fluticasone NASAL SPRAY 50MCG* 16 gm SPRAY BTL BOTH NARES SCH (08:34)
[2018-08-26] MEDS: Nystatin SUSPENSION* 100000 UNITS/ML 5 ML UDC SWISH SWAL SCH (08:34)
[2018-08-26] MEDS: oxyCODONE SR TAB(*) 20 MG TAB.SR PO SCH ×2 (08:35→21:06)
[2018-08-26] MEDS: Calcium/Vitamin D TAB 250/125* TAB PO SCH (08:35)
[2018-08-26] MEDS: Azithromycin TAB* 250 MG PO SCH (08:35)
[2018-08-26] MEDS: guaiFENesin ER TAB 600 MG PO SCH ×2 (08:35→21:05)
[2018-08-26] MEDS: Colchicine* 0.6 MG TAB PO SCH ×2 (08:37→21:06)
[2018-08-26] MEDS ORDERED: Spiriva Inhaler DEVICE* 1 EACH DEVICE INH ONE (09:00)
[2018-08-26] MEDS ORDERED: Diltiazem IV push/loading dose 5 MG/ML 5 ML vial (25 mg) IV SLOW PU ONE (09:34)
[2018-08-26] MEDS ORDERED: Diltiazem DRIP* 100 MG/100 ML ADDV.BAG IVPB SCH (10:00)
[2018-08-26 10:08] LABS: C Reactive Protein 79.06 mg/L (<8.01)
[2018-08-26] MEDS: Lactated Ringers 1000 ML Bag* 1,000 ML IV SCH (10:16)
--- NOTE | 2018-08-26 12:27 | CONS ---
CC: Cinthya Weber MD * CARDIOLOGY CONSULTATION REPORT: DATE OF CONSULT: 08/26/18 INDICATION FOR CONSULTATION: Supraventricular tachycardia. HISTORY OF PRESENT ILLNESS: The patient is an 83-year-old female with a history of chronic pulmonary issues, history of Mycobacterium avium complex, history of chronic eosinophilia, who is admitted to the hospital with cough. She was diagnosed with the pneumonia. While she was in the emergency room, she was having recurrent episodes of supraventricular tachycardia. The patient was given IV Cardizem in the emergency room with good result. The patient had another onset of supraventricular tachycardia. It started around 4 o'clock this morning. It has been continuous since 4 o'clock this morning. In speaking with the patient, she is aware of her palpitations, she is aware of her heart rate. She denies any chest pain. She denies any lightheadedness, dizziness or syncope. Around 10 o'clock this morning, the patient was given a dose of IV Cardizem and converted to normal sinus rhythm about 5 minutes later. PAST MEDICAL HISTORY: Significant for significant pulmonary issues including Mycobacterium avium complex, history of chronic eosinophilia, asthma. She also has a history of myelodysplastic syndrome, gout, spinal stenosis. PAST SURGICAL HISTORY: in the past, tonsillectomy, appendectomy. OUTPATIENT MEDICATIONS: 1. Spiriva inhaler once daily. 2. Prednisone as directed. 3. Breo inhaler once daily. 4. Multivitamin a day. 5. Azithromycin 500 mg a day. 6. Rifampin 300 mg twice a day. 7. Colchicine 0.6 mg b.i.d. 8. Zyrtec 10 mg a day. 9. Vitamin D tablet once a day. 10. OxyContin as needed. 11. Xopenex inhaler. 12. Sertraline 75 mg a day. ALLERGIES: She is allergic to IV CONTRAST, KEFLEX which causes a rash. SOCIAL HISTORY: She is . She has 3 children. 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 Rare alcohol intake. No smoking or tobacco use. PHYSICAL EXAM: Height is 5 feet 4 inches; weight is 134 pounds; temperature 97.7; heart rate is listed as 137, but when I left the floor, her heart rate was 90 and in normal sinus rhythm; respiratory rate is 16; oxygen saturation 96 % on room air; blood pressure 112/53. Sclerae anicteric. Oropharynx is pink without erythema. Carotids are 2+ without bruits. JVD is normal. Thyroid is normal. Cardiac Exam: S1 and S2 without any murmurs, rubs, or gallops. PMI is normal. Lungs had mild rhonchi. There are decreased breath sounds. There are no wheezes on exam. Abdomen is soft, nontender with nondistended with normal bowel sounds. Extremities show no edema. She has 2+ pulses throughout. The patient is awake, alert and oriented. DIAGNOSTIC STUDIES/LAB DATA: White count 6.0, hemoglobin 11, hematocrit 34, platelet count 97. Chemistries within normal limits. BUN and creatinine are normal. BNP is minimally elevated at 76. Troponins are negative x3. EKG this morning demonstrates supraventricular tachycardia at a rate of 126 beats per minute. Her echocardiogram is pending. IMPRESSION: This is an 83-year-old female with history of pulmonary issues who is admitted to the hospital with pneumonia. She was started on antibiotics. The patient was having recurrent episodes of supraventricular tachycardia. The patient did receive an IV infusion of Cardizem, which converted the patient back to normal sinus rhythm. For now, my recommendation is to evaluate her left ventricular function with her echocardiogram. The patient will continue her outpatient medications. The patient will be started on low dose calcium channel dru for suppression of her atrial arrhythmias. [id number]/[facility] #: [id number] [facility]
--- NOTE | 2018-08-26 16:37 | ECHO ---
*[facility]* [place] [address] Fax #: [phone] Transthoracic Echocardiogram Patient: Wan, Height: 64 in / Alis Cabrera 162.6 cm : 1935 Weight: 129.7 lb / Study Date: 08/26/2018 59 kg Age: 83 BP: 112 / 53 Gender: F BMI/BSA: 22.3 HR: 87 bpm kg/m^2 / 1.63 m^2 *Business Reporting Developer: * Sidra Sandoval [facility] RN *Referring Physician: * Shaquille Weber *Reading Physician: * Jeremy Park MD Indications: Abnormal EKG. History: PMH: Asthma. Mycobacterium avium complex infection. Conclusions Summary: 1. Left ventricle: Systolic function is normal. The estimated ejection fraction is 55-60%. Wall motion is normal; there are no regional wall motion abnormalities. 2. Right ventricle: Systolic function is normal. 3. Mitral valve: There is trace to mild regurgitation. 4. Aortic valve: There is trace to mild regurgitation. 5. Tricuspid valve: There is trace to mild regurgitation. 6. Pericardium, extracardiac: There is no pericardial effusion. 7. Impressions: No previous study was available for comparison. Study data: Transthoracic echocardiogram. Procedure: Transthoracic echocardiography was performed. Image quality was fair. Complete 2D, spectral Doppler, and color flow Doppler. Location: Procedure room. Patient status: Inpatient. Patient room number: 432. Rhythm: Normal sinus rhythm. Findings Left ventricle: The cavity size is normal. Wall thickness is normal. Systolic function is normal. The estimated ejection fraction is 55-60%. Wall motion is normal; there are no regional wall motion abnormalities. There is no consistent Doppler evidence of clinically significant diastolic dysfunction. Right ventricle: The cavity size is normal. Systolic function is normal. Left atrium: The atrium is normal in size. Right atrium: The atrium is normal in size. Mitral valve: The leaflets are mildly thickened. There is no evidence of stenosis. There is trace to mild regurgitation. The peak diastolic gradient is 3.0 mm Hg. Aortic valve: The valve is trileaflet. The leaflets are mildly thickened. There is no evidence of stenosis. There is trace to mild regurgitation. The LVOT to aortic valve VTI ratio is 0.72. The ratio of LVOT to aortic valve peak velocity is 0.75. The ratio of LVOT to aortic valve mean velocity is 0.71. The mean systolic gradient is 4.0 mm Hg. The peak systolic gradient is 5.0 mm Hg. Tricuspid valve: The valve is structurally normal. There is trace to mild regurgitation. Pulmonic valve: The valve is structurally normal. There is no evidence of stenosis. There is no significant regurgitation. The peak systolic gradient is 3.0 mm Hg. Aorta: Aortic root: The aortic root is not dilated. Ascending aorta: The ascending aorta is not dilated. Aortic arch: The aortic arch is not dilated. Pericardium: There is no pericardial effusion. Pulmonary arteries: Not well visualized. Systemic veins: Inferior vena cava: The vessel is normal in size. The respirophasic diameter changes are in the normal range (>= 50%). Measurements Left ventricle Value Ref Right atrium Value Ref VERONIQUE, LAX (L) 3.7 cm 3.8 - 5.2 ML dim, ES, A4C 3.7 cm 2.6 - 4.4 ESD, LAX 2.4 cm 2.2 - 3.5 SI dim, ES, A4C 4.5 cm 3.4 - 5.3 FS, LAX 34 % 27 - 45 PW, ED, LAX (H) 1.0 cm 0.6 - 0.9 Aortic valve Value Ref IVS/PW, ED 0.94 Shaquille diam, ED 2.0 cm --------- E', lat shaquille, TDI (L) 8.8 cm/sec >=10.0 Peak v, S 1.16 m/sec --- ------ E/e', lat shaquille, 10 Mean v, S 0.92 m/sec ------ --- TDI VTI, S 24.7 cm --------- E', med shaquille, TDI 8.3 cm/sec >=7.0 Mean grad, S 4.0 mm Hg --- ------ E/e', med shaquille, 10 Peak grad, S 5.0 mm Hg ------ --- TDI E', avg, TDI 8.6 cm/sec Mitral valve Value Ref E/e', avg, TDI 10 <=14 Peak E 0.86 m/sec --- ------ Peak A 1.25 m/sec --------- LVOT Value Ref Decel time 225 ms --------- Peak theo, S 0.88 m/sec Peak grad, D 3.0 mm Hg --------- Mean theo, S 0.65 m/sec Peak E/A ratio 0.7 --------- VTI, S 17.7 cm Mean grad, S 2 mm Hg Aortic root Value Ref Root diam 3.3 cm <3.9 Ventricular septum Value Ref IVS, ED, LAX 0.9 cm 0.6 - 0.9 Ascending aorta Value Ref IVS, ED 0.9 cm 0.6 - 0.9 AAo AP diam, S 3.2 cm --------- Right ventricle Value Ref Aortic arch Value Ref VERONIQUE, LAX 2.8 cm Arch diam 2.3 cm --------- VERONIQUE minor ax, 3.1 cm 1.9 - 3.5 A4C mid Decending aorta Value Ref Daisy peak theo 0.67 m/sec --------- Left atrium Value Ref AP dim, ES (L) 2.50 cm 2.70 - Inferior vena cava Value Ref 3.80 Diam 1.5 cm --------- ML dim, A4C 3.7 cm SI dim, A4C 5.0 cm Vol/bsa, ES, 1-p 25 ml/m^2 11 - 40 A4C Vol/bsa, ES, 1-p 25 ml/m^2 13 - 40 A2C Vol/bsa, ES, A/L 27 ml/m^2 16 - 34 Legend: (L) and (H) enmanuel values outside specified reference range. Prepared and electronically signed by Jeremy Park MD 08/26/2018 16:36
[2018-08-26] MEDS: Sertraline* 50 MG TAB PO SCH (21:05)
[2018-08-27] MEDS: Benzonatate CAP* 100 MG PO PRN (00:48)
[2018-08-27] MEDS ORDERED: Diltiazem IV push/loading dose 5 MG/ML 5 ML vial (25 mg) IV SLOW PU ONE (03:18)
[2018-08-27] MEDS: methylPREDNISolone 125 MG* 2 ML VIAL IV SCH (03:32)
[2018-08-27] MEDS: Lactated Ringers 1000 ML Bag* 1,000 ML IV SCH (04:41)
[2018-08-27] MEDS: Cefepime 1 GM in Dextrose(*) 1 GM/50 ML BAG IV SCH ×2 (05:30→17:59)
[2018-08-27] MEDS: Heparin VIAL(*) 5000 UNITS/ML VIAL (FIVE THOUSAND) SUBCUT SCH ×3 (05:30→21:01)
[2018-08-27 05:44] LABS: Hematocrit 34 % (35-47); Hemoglobin 11.4 g/dL (12.0-16.0); Mean Corpuscular HGB Conc 34 g/dL (31-36); Mean Corpuscular Hemoglobin 34 pg (27-31); Mean Corpuscular Volume 102 fL (80-97); Mean Platelet Volume 10.3 fL (7.4-10.4); Platelet Count 106 10^3/uL (150-450); Red Blood Count 3.33 10^6 /uL (3.70-4.87); Red Cell Distribution Width 15 % (10.5-15)
[2018-08-27] MEDS ORDERED: Vancomycin Trough Check NOTE FOLLOW UP ONE (06:00)
[2018-08-27 06:13] LABS: BUN/Creatinine Ratio 23.6 (8-20); C Reactive Protein 36.84 mg/L (<8.01); Calcium 8.3 mg/dL (8.6-10.3); EGFR African American 93.2 (>60); Potassium 4.3 mmol/L (3.5-5.0)
[2018-08-27 06:14] LABS: Vancomycin Trough 10.8 mcg/mL
[2018-08-27] MEDS: Vancomycin(*) 750 MG in NS 0.9% 250 ML* 250 ML IVPB SCH (06:21)
[2018-08-27] MEDS: Fluticasone/Vilanterol MDI(NF) 200/25 MDI INH SCH (08:03)
[2018-08-27] MEDS ORDERED: Moisturizing CREAM* 120 GM JAR TOPICAL PRN (09:00)
[2018-08-27] MEDS ORDERED: Triamcinolone 0.5% OINT * 15 GM TUBE TOPICAL PRN (09:00)
[2018-08-27] MEDS ORDERED: Clotrimazole 1% CREAM* 30 GM TOPICAL PRN (09:00)
[2018-08-27] MEDS: Fluticasone NASAL SPRAY 50MCG* 16 gm SPRAY BTL BOTH NARES SCH (09:16)
[2018-08-27] MEDS: Colchicine* 0.6 MG TAB PO SCH (09:16)
[2018-08-27] MEDS: oxyCODONE SR TAB(*) 20 MG TAB.SR PO SCH ×2 (09:17→21:00)
[2018-08-27] MEDS: RiFAMPin CAP* 300 MG CAP PO SCH ×2 (09:17→20:59)
[2018-08-27] MEDS: Multivitamins/Minerals TAB PO SCH (09:18)
[2018-08-27] MEDS: Azithromycin TAB* 250 MG PO SCH (09:18)
[2018-08-27] MEDS: Calcium/Vitamin D TAB 250/125* TAB PO SCH (09:19)
[2018-08-27] MEDS: guaiFENesin ER TAB 600 MG PO SCH ×2 (09:19→21:00)
[2018-08-27] MEDS: Nystatin SUSPENSION* 100000 UNITS/ML 5 ML UDC SWISH SWAL SCH (09:20)
[2018-08-27] MEDS: Tiotropium CAP.INH* CAP.INH/18 MCG (USE ORDER SET !) INH SCH (09:29)
[2018-08-27] MEDS: Mometasone/Formoter 200/5 MDI INH SCH ×2 (09:31→19:49)
[2018-08-27] MEDS: Acetaminophen TAB* 325 MG PO PRN ×2 (11:31→21:03)
[2018-08-27] MEDS: Verapamil SR TAB* 240 MG PO SCH ×2 (11:34→22:56)
[2018-08-27] MEDS: Albuterol 2.5 MG/3 ML NEB.SOL* (0.083%) INH SCH ×3 (12:01→19:47)
[2018-08-27] MEDS: methylPREDNISolone SOD 40 MG* 1 ML VIAL IV SCH (17:59)
[2018-08-27] MEDS: Vancomycin(*) 1,000 MG in NS 0.9% 250 ML* 250 ML IVPB SCH (19:16)
[2018-08-27] MEDS: Sertraline* 50 MG TAB PO SCH (21:00)
[2018-08-28] MEDS: Albuterol 2.5 MG/3 ML NEB.SOL* (0.083%) INH SCH ×7 (01:05→23:32)
[2018-08-28] MEDS: methylPREDNISolone SOD 40 MG* 1 ML VIAL IV SCH ×2 (05:17→17:10)
[2018-08-28] MEDS: Heparin VIAL(*) 5000 UNITS/ML VIAL (FIVE THOUSAND) SUBCUT SCH ×3 (05:19→20:33)
[2018-08-28] MEDS: Cefepime 1 GM in Dextrose(*) 1 GM/50 ML BAG IV SCH ×2 (05:30→17:16)
[2018-08-28] MEDS: Vancomycin(*) 1,000 MG in NS 0.9% 250 ML* 250 ML IVPB SCH (06:33)
[2018-08-28] MEDS: Tiotropium CAP.INH* CAP.INH/18 MCG (USE ORDER SET !) INH SCH (08:56)
[2018-08-28] MEDS: Mometasone/Formoter 200/5 MDI INH SCH ×2 (08:56→20:25)
[2018-08-28] MEDS: Verapamil SR TAB* 240 MG PO SCH (09:20)
[2018-08-28] MEDS: guaiFENesin ER TAB 600 MG PO SCH ×2 (09:20→20:30)
[2018-08-28] MEDS: Calcium/Vitamin D TAB 250/125* TAB PO SCH (09:21)
[2018-08-28] MEDS: Azithromycin TAB* 250 MG PO SCH (09:22)
[2018-08-28] MEDS: RiFAMPin CAP* 300 MG CAP PO SCH ×2 (09:22→20:31)
[2018-08-28] MEDS: Multivitamins/Minerals TAB PO SCH (09:22)
[2018-08-28] MEDS: Colchicine* 0.6 MG TAB PO SCH (09:23)
[2018-08-28] MEDS: oxyCODONE SR TAB(*) 20 MG TAB.SR PO SCH ×2 (09:23→20:31)
[2018-08-28] MEDS: Nystatin SUSPENSION* 100000 UNITS/ML 5 ML UDC SWISH SWAL SCH (09:24)
[2018-08-28] MEDS: Fluticasone NASAL SPRAY 50MCG* 16 gm SPRAY BTL BOTH NARES SCH (14:49)
[2018-08-28] MEDS ORDERED: Diltiazem IV push/loading dose 5 MG/ML 5 ML vial (25 mg) IV PUSH ONE (17:00)
[2018-08-28] MEDS: Sertraline* 50 MG TAB PO SCH (20:32)
[2018-08-28] MEDS ORDERED: Albuterol 2.5 MG/3 ML NEB.SOL* (0.083%) INH PRN (23:58)
[2018-08-29] MEDS: methylPREDNISolone SOD 40 MG* 1 ML VIAL IV SCH ×2 (05:45→18:28)
[2018-08-29] MEDS: Acetaminophen TAB* 325 MG PO PRN ×2 (05:46→10:05)
[2018-08-29] MEDS: Heparin VIAL(*) 5000 UNITS/ML VIAL (FIVE THOUSAND) SUBCUT SCH ×3 (05:49→22:03)
[2018-08-29] MEDS: Cefepime 1 GM in Dextrose(*) 1 GM/50 ML BAG IV SCH (05:58)
[2018-08-29] MEDS ORDERED: Vancomycin Trough Check NOTE FOLLOW UP ONE (06:00)
[2018-08-29 06:08] LABS: ABS Basophils 0.3 10^3/ul (0-0.2); ABS Eosinophils 0.6 10^3/ul (0-0.6); ABS Lymphocytes 1.4 10^3/ul (1.0-4.8); ABS Monocytes 1.2 10^3/ul (0-0.8); ABS Neutrophils 2.7 10^3/ul (1.5-7.7); Eosinophil % 9.3 %; Hematocrit 33 % (35-47); Hemoglobin 10.8 g/dL (12.0-16.0); Lymphocyte % 22.2 %; Mean Corpuscular HGB Conc 33 g/dL (31-36); Mean Corpuscular Hemoglobin 34 pg (27-31); Mean Corpuscular Volume 102 fL (80-97); Mean Platelet Volume 10.1 fL (7.4-10.4); Nucleated Red Blood Cells % 0.1; Platelet Count 97 10^3/uL (150-450); Red Cell Distribution Width 15 % (10.5-15); White Blood Count 6.1 10^3/uL (3.5-10.8)
[2018-08-29 06:22] LABS: BUN/Creatinine Ratio 19.2 (8-20); C Reactive Protein 27.98 mg/L (<8.01); Calcium 8.5 mg/dL (8.6-10.3); EGFR African American 91.7 (>60); EGFR Non-African American 75.8 (>60); Potassium 4.7 mmol/L (3.5-5.0)
[2018-08-29] MEDS: Mometasone/Formoter 200/5 MDI INH SCH ×2 (08:11→19:43)
[2018-08-29] MEDS: Tiotropium CAP.INH* CAP.INH/18 MCG (USE ORDER SET !) INH SCH (08:12)
[2018-08-29] MEDS: Verapamil SR TAB* 240 MG PO SCH (10:06)
[2018-08-29] MEDS: Colchicine* 0.6 MG TAB PO SCH (10:07)
[2018-08-29] MEDS: oxyCODONE SR TAB(*) 20 MG TAB.SR PO SCH ×2 (10:07→20:23)
[2018-08-29] MEDS: Multivitamins/Minerals TAB PO SCH (10:08)
[2018-08-29] MEDS: guaiFENesin ER TAB 600 MG PO SCH ×2 (10:08→20:21)
[2018-08-29] MEDS: Azithromycin TAB* 250 MG PO SCH (10:08)
[2018-08-29] MEDS: Calcium/Vitamin D TAB 250/125* TAB PO SCH (10:08)
[2018-08-29] MEDS: RiFAMPin CAP* 300 MG CAP PO SCH ×2 (10:08→20:22)
[2018-08-29] MEDS: Nystatin SUSPENSION* 100000 UNITS/ML 5 ML UDC SWISH SWAL SCH (10:09)
[2018-08-29] MEDS: Fluticasone NASAL SPRAY 50MCG* 16 gm SPRAY BTL BOTH NARES SCH (10:09)
[2018-08-29] MEDS: Cefepime ADVAN(*) 1 GM in NS 0.9% 50 ML* 50 ML IVPB SCH (18:31)
[2018-08-29] MEDS: Sertraline* 50 MG TAB PO SCH (20:22)
--- NOTE | 2018-08-29 21:48 | PN ---
PROGRESS NOTE: DATE OF VISIT: 08/29/18 HISTORY: The patient still feels very tired. She is complaining of mild headache. She has Tylenol ordered for this. She has a moist nonproductive cough. She would like to be able to go home tomorrow. Her daughters are coming to visit her this afternoon. PHYSICAL EXAMINATION: Vital Signs: Blood pressure 112/53; pulse 84; respirations 16; temperature 98.2, afebrile; O2 sat 94%. She appears fatigued. She is in no acute distress. Chest shows rales at half way up on left and at the right base. There is scattered expiratory wheeze. Heart: Regular, normal S1 and S2. No murmurs, gallops or rubs. Extremities are without calf tenderness or edema. LABORATORY DATA: CBC: WBC 6.1, H and H 10.8/33, MCV 102, PLT 97K. Chemistry: Sodium 137, potassium 4.7, chloride 105, CO2 of 28, BUN and creatinine 14/0.73, calcium 8.5, CRP is down to 27.98. IMPRESSION: The patient with pneumonia with positive cultures for pseudomonas. Plan is to continue IV antibiotics for another day. Hopefully, she can be discharged tomorrow. [id number]/[facility] #: [id number] RAVEN
[2018-08-30] MEDS: methylPREDNISolone SOD 40 MG* 1 ML VIAL IV SCH ×2 (04:45→17:30)
[2018-08-30] MEDS: Cefepime ADVAN(*) 1 GM in NS 0.9% 50 ML* 50 ML IVPB SCH (05:36)
[2018-08-30] MEDS: Heparin VIAL(*) 5000 UNITS/ML VIAL (FIVE THOUSAND) SUBCUT SCH ×3 (05:39→22:13)
[2018-08-30] MEDS: Tiotropium CAP.INH* CAP.INH/18 MCG (USE ORDER SET !) INH SCH (07:05)
[2018-08-30] MEDS: Mometasone/Formoter 200/5 MDI INH SCH ×2 (07:05→19:14)
[2018-08-30] MEDS: Verapamil SR TAB* 240 MG PO SCH (08:33)
[2018-08-30] MEDS: Fluticasone NASAL SPRAY 50MCG* 16 gm SPRAY BTL BOTH NARES SCH (08:34)
[2018-08-30] MEDS: Azithromycin TAB* 250 MG PO SCH (08:34)
[2018-08-30] MEDS: Multivitamins/Minerals TAB PO SCH (08:34)
[2018-08-30] MEDS: guaiFENesin ER TAB 600 MG PO SCH ×2 (08:34→22:13)
[2018-08-30] MEDS: Calcium/Vitamin D TAB 250/125* TAB PO SCH (08:35)
[2018-08-30] MEDS: Colchicine* 0.6 MG TAB PO SCH (08:35)
[2018-08-30] MEDS: RiFAMPin CAP* 300 MG CAP PO SCH ×2 (08:35→22:14)
[2018-08-30] MEDS: Nystatin SUSPENSION* 100000 UNITS/ML 5 ML UDC SWISH SWAL SCH (08:35)
[2018-08-30] MEDS: oxyCODONE SR TAB(*) 20 MG TAB.SR PO SCH ×2 (08:36→22:16)
[2018-08-30] MEDS: Cefepime 1 GM in Dextrose(*) 1 GM/50 ML BAG IV SCH (17:30)
[2018-08-30] MEDS: Sertraline* 50 MG TAB PO SCH (22:14)
[2018-08-31] MEDS: Benzonatate CAP* 100 MG PO PRN (02:04)
[2018-08-31] MEDS ORDERED: Metoprolol Tartrate IV* 1 MG/ML 5 ML VIAL IV ONE ×2 (04:01→05:46)
[2018-08-31] MEDS: methylPREDNISolone SOD 40 MG* 1 ML VIAL IV SCH ×2 (04:57→17:39)
[2018-08-31] MEDS: Heparin VIAL(*) 5000 UNITS/ML VIAL (FIVE THOUSAND) SUBCUT SCH ×3 (05:02→22:54)
[2018-08-31] MEDS: Cefepime 1 GM in Dextrose(*) 1 GM/50 ML BAG IV SCH ×2 (05:03→17:39)
[2018-08-31] MEDS: Tiotropium CAP.INH* CAP.INH/18 MCG (USE ORDER SET !) INH SCH (07:13)
[2018-08-31] MEDS: Mometasone/Formoter 200/5 MDI INH SCH ×2 (07:14→20:04)
[2018-08-31] MEDS: Fluticasone NASAL SPRAY 50MCG* 16 gm SPRAY BTL BOTH NARES SCH (08:33)
[2018-08-31] MEDS: RiFAMPin CAP* 300 MG CAP PO SCH ×2 (08:33→22:50)
[2018-08-31] MEDS: Nystatin SUSPENSION* 100000 UNITS/ML 5 ML UDC SWISH SWAL SCH (08:33)
[2018-08-31] MEDS: guaiFENesin ER TAB 600 MG PO SCH ×2 (08:33→22:48)
[2018-08-31] MEDS: Verapamil SR TAB* 240 MG PO SCH ×2 (08:33→23:08)
[2018-08-31] MEDS: oxyCODONE SR TAB(*) 20 MG TAB.SR PO SCH ×2 (08:34→22:49)
[2018-08-31] MEDS: Calcium/Vitamin D TAB 250/125* TAB PO SCH (08:34)
[2018-08-31] MEDS: Multivitamins/Minerals TAB PO SCH (08:34)
[2018-08-31] MEDS: Azithromycin TAB* 250 MG PO SCH (08:34)
[2018-08-31] MEDS: Colchicine* 0.6 MG TAB PO SCH (08:35)
[2018-08-31] MEDS: Sertraline* 50 MG TAB PO SCH (22:50)
[2018-09-01] MEDS: Cefepime 1 GM in Dextrose(*) 1 GM/50 ML BAG IV SCH (05:11)
[2018-09-01] MEDS: methylPREDNISolone SOD 40 MG* 1 ML VIAL IV SCH (05:11)
[2018-09-01] MEDS: Heparin VIAL(*) 5000 UNITS/ML VIAL (FIVE THOUSAND) SUBCUT SCH (05:12)
[2018-09-01 05:50] LABS: ABS Basophils 0.3 10^3/ul (0-0.2); ABS Eosinophils 0.6 10^3/ul (0-0.6); ABS Lymphocytes 1.6 10^3/ul (1.0-4.8); ABS Monocytes 1.2 10^3/ul (0-0.8); ABS Neutrophils 2.7 10^3/ul (1.5-7.7); Eosinophil % 9.2 %; Hematocrit 33 % (35-47); Hemoglobin 11.1 g/dL (12.0-16.0); Lymphocyte % 25.2 %; Mean Corpuscular HGB Conc 34 g/dL (31-36); Mean Corpuscular Hemoglobin 34 pg (27-31); Mean Corpuscular Volume 101 fL (80-97); Mean Platelet Volume 9.8 fL (7.4-10.4); Nucleated Red Blood Cells % 0.1; Platelet Count 96 10^3/uL (150-450); Red Blood Count 3.26 10^6 /uL (3.70-4.87); Red Cell Distribution Width 16 % (10.5-15); White Blood Count 6.4 10^3/uL (3.5-10.8)
[2018-09-01 06:04] LABS: BUN/Creatinine Ratio 28.8 (8-20); C Reactive Protein 8.85 mg/L (<8.01); Calcium 8.6 mg/dL (8.6-10.3); EGFR African American 91.7 (>60); EGFR Non-African American 75.8 (>60); Potassium 4.2 mmol/L (3.5-5.0)
[2018-09-01] MEDS: Mometasone/Formoter 200/5 MDI INH SCH (08:08)
[2018-09-01] MEDS: Tiotropium CAP.INH* CAP.INH/18 MCG (USE ORDER SET !) INH SCH (08:08)
[2018-09-01 09:46] VITALS: BP 116/57
[2018-09-01] MEDS: guaiFENesin ER TAB 600 MG PO SCH (09:52)
[2018-09-01] MEDS: oxyCODONE SR TAB(*) 20 MG TAB.SR PO SCH (09:53)
[2018-09-01] MEDS: RiFAMPin CAP* 300 MG CAP PO SCH (09:53)
[2018-09-01] MEDS: Colchicine* 0.6 MG TAB PO SCH (09:53)
[2018-09-01] MEDS: Azithromycin TAB* 250 MG PO SCH (09:54)
[2018-09-01] MEDS: Calcium/Vitamin D TAB 250/125* TAB PO SCH (09:54)
[2018-09-01] MEDS: Multivitamins/Minerals TAB PO SCH (09:54)
[2018-09-01] MEDS: Verapamil SR TAB* 240 MG PO SCH (09:54)
[2018-09-01] MEDS: Nystatin SUSPENSION* 100000 UNITS/ML 5 ML UDC SWISH SWAL SCH (09:55)
[2018-09-01] MEDS: Fluticasone NASAL SPRAY 50MCG* 16 gm SPRAY BTL BOTH NARES SCH (09:55)
--- NOTE | 2018-09-01 15:35 | DS ---
CC: [facility] [place] * DISCHARGE SUMMARY: DATE OF ADMISSION: 08/25/18 DATE OF DISCHARGE: 09/01/18 DISCHARGE DIAGNOSES: 1. Pseudomonas pneumonia 2. Supraventricular tachycardia. 3. History of Mycobacterium avium complex infection. 4. Spinal stenosis. 5. Myelodysplastic syndrome. 6. History of depression. 7. Chronic eosinophilia. 8. Asthma. 9. History of pseudogout. 10. Osteoporosis with history of pelvic fracture. 11. Gastroesophageal reflux disease. 12. 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 13. ? History of Paget's disease. 14. Breast cancer, right mastectomy 1985. 15. Video-assisted thoracoscopic procedure right wedge resection 2002. 16. History of colonic polyp. HISTORY: Alis Blas is an 83-year-old woman admitted with cough and tachycardia. Please see the dictated admission note for details of the present illness, past medical history, family history, social and personal history, review of systems, and physical examination. DIAGNOSTIC STUDIES/LAB DATA: CBC on admission: WBC 7.0, H and H 12.8/38, MCV 101, PLT 106K. Subsequent H and H went down to 11.1/33 on 09/01/18, platelet count was in the 96 to 106 range. INR 1.13, PTT 37.7. Chemistries on admission : Sodium 132, potassium 5.0, chloride 100, CO2 27, BUN and creatinine 14/0.79, glucose 103. Rest of her comprehensive metabolic panel within normal limits except for total protein 6 on admission. Troponins x3 were 0.01, 0.01, 0.01. Lactic acid was normal at 0.9. C-reactive protein was 79.06 on 08/26/18, came down to 8.85 on 09/01/18. BUN and creatinine remains stable. BNP was normal at 98. Magnesium was normal at 2. Urinalysis: Elenita clear, specific gravity 1.006, pH 7, dipstick negative. Toxicology: Vancomycin trough 10.8 on 08/27/18, 11.1 on 08/29/18. Urine for legionella and Streptococcus pneumoniae were negative. Sputum Gram stain grew out Pseudomonas aeruginosa sensitive to cefepime, resistant to quinolones, also sensitive to meropenem and pip-jesus. Intermediate sensitivity to gentamicin. Imaging: Chest x-ray on 08/25/18 showed a left basilar pneumonia and stigmata of chronic obstructive pulmonary disease. Chest x-ray on 08/29/18 showed persistent but improved patchy airspace disease at the left lung base. EKG on 08/25/18, showed sinus rhythm, no significant change. Repeat EKG on 10/08, showed sinus rhythm, changes in lead placement. EKG on 08/26/18 showed tachycardia, rate and rhythm new, otherwise no significant changes since the previous EKG. EKG on 08/26/18, showed replacement of tachycardia with sinus rhythm. EKG on 08/31/18, showed junctional tachycardia, absent P waves, supraventricular tachycardia replaced sinus rhythm. Transthoracic echocardiogram on 08/26/[address] Jeremy Park showed normal right ventricular systolic function, [id number] mitral and aortic regurgitation and tricuspid regurgitation. CONSULTATION: Dr. Park, Cardiology, 08/26/18, felt that the patient had recurrent episodes of supraventricular tachycardia which converted with Cardizem. He recommended the echocardiogram which was done. He recommended starting low dose calcium channel dru for suppression of atrial arrhythmias. HOSPITAL COURSE: The patient was admitted. It was felt she had pneumonia despite no fever. It is noted that she had supraventricular tachycardia. Previous treatment of her pneumonia had included levofloxacin and moxifloxacin. The admitting PA, Quintin Anaya, felt that the patient had risk factors for resistant organisms, started patient on vancomycin and cefepime at the time of admission. She was placed on telemetry. Her steroid doses were increased. She received high doses of steroids. When the sputum culture came back showing pseudomonas, vancomycin which had been started originally was discontinued. Her other medications were continued as they have been taken at home. She improved. She did continue to have supraventricular tachycardia, treated both with IV diltiazem and IV metoprolol which worked to convert her rhythm. She was started on p.o. verapamil. When the dose was increased to 120 twice a day on 08/31/18, she then had no further episodes of SVT that night. It seems that she was having the SVT at the end of the dosing interval previously. Her cough improved. The amount of sputum production improved. She continued to have rales on exam, more on the left than on the right. She had no fever. Her energy improved. At the time of discharge, she is improved and she is going back to assisted living at [facility] at [place]. Her exam shows that her vital signs are blood pressure 116/57, pulse 73, respirations 18, temperature 97.1, O2 sat 93%. She is on room air. On exam, she appears well. Her chest still shows rales on the left half way up and at the right base. Heart is regular. She has no calf tenderness or edema. Her activity when she goes back is as tolerated. I have watched her get out of bed on her own and walk in the [place] with a walker. She has gone the distance that she needs to go to get to the dining room at [facility]. Her diet is regular. MEDICATIONS: Her medications at the time of discharge are as follows: 1. Verapamil Extended Release 120 mg twice a day. 2. Prednisone 7.5 mg daily. 3. Spiriva 1 inhalation daily. 4. Oxycodone 5 mg every 4 hours as needed for pain. 5. Breo Ellipta 1 inhalation daily. 6. Centrum Silver 1 daily. 7. Azithromycin 500 mg daily. 8. Ibuprofen 400 mg twice a day as needed. 9. Rifampin 300 mg twice a day. 10. Colchicine 0.6 mg twice a day. 11. Flonase Allergy Relief 2 sprays each nostril daily. 12. Cetirizine 10 mg daily. 13. Vitamin D 50,000 units monthly. 14. Acetaminophen 650 every 4 hours as needed for pain. 15. Voltaren 1% topical gel as needed. 16. MiraLAX 17 g daily. 17. Fluocinonide topical solution to scalp once a day as needed. 18. Caltrate plus D one tab daily. 19. OxyContin 20 mg twice a day. 20. Xopenex 0.63 mg/3 mL nebulizer 4 times a day as needed. 21. Aquaphor topical ointment to heels at bedtime. 22. Lidocaine topical ointment as needed. Followup is with myself in 4 to 7 days. [id number]/[facility] #: [id number] MTDD
== END 2018-09-01 10:52 | DRG 178 ==
LOC: ED 12:56 → MEDTELE 17:17 → OBSVTOIN 08-26 09:40
PROVIDERS: ADMIT Internal Medicine; ATTEND Internal Medicine Geriatric Medicine
DX: J15.1 Pneumonia due to Pseudomonas (principal); I47.1 Supraventricular tachycardia; J44.0 Chronic obstructive pulmonary disease with (acute) lower respiratory infection; D46.9 Myelodysplastic syndrome, unspecified; K57.90 Diverticulosis of intestine, part unspecified, without perforation or abscess without bleeding; M19.90 Unspecified osteoarthritis, unspecified site; M81.0 Age-related osteoporosis without current pathological fracture; H91.90 Unspecified hearing loss, unspecified ear; D72.1 Eosinophilia; M10.9 Gout, unspecified; M48.00 Spinal stenosis, site unspecified; Z16.23 Resistance to quinolones and fluoroquinolones; M54.10 Radiculopathy, site unspecified; G89.29 Other chronic pain; F32.9 Major depressive disorder, single episode, unspecified; I08.3 Combined rheumatic disorders of mitral, aortic and tricuspid valves; E55.9 Vitamin D deficiency, unspecified; R51 Headache; Z90.11 Acquired absence of right breast and nipple; Z85.3 Personal history of malignant neoplasm of breast; Z85.828 Personal history of other malignant neoplasm of skin; Z97.4 Presence of external hearing-aid; Z86.010 Personal history of colon polyps; Z72.89 Other problems related to lifestyle; Z88.8 Allergy status to other drugs, medicaments and biological substances; Z88.1 Allergy status to other antibiotic agents; Z91.041 Radiographic dye allergy status; Z87.891 Personal history of nicotine dependence; Z89.421 Acquired absence of other right toe(s); Z80.0 Family history of malignant neoplasm of digestive organs; Z86.19 Personal history of other infectious and parasitic diseases; Z82.49 Family history of ischemic heart disease and other diseases of the circulatory system; Z79.52 Long term (current) use of systemic steroids
CPT/HCPCS: 36415; 71046; 80048; 80053; 80202; 81003; 83605; 83735; 83880; 84145; 84484; 85025; 85027; 85610; 85730; 86140; 87040; 87070; 87077; 87186; 87205; 87899; 93005; 93306; 94640; 99284; A9270-GY; G0378; J0456; J0692; J0696; J1644; J2920; J2930; J3370; J3490

== ENCOUNTER 2018-09-04 00:30 | Inpatient (IN) | payer MEDICARE, BC ==
[2018-09-04] MEDS ORDERED: Adenosine* 3 MG/ML VIAL ONE (00:53)
--- NOTE | 2018-09-04 00:59 | ED ---
Shortness of Breath - HPI Summary HPI Summary: This patient is an 83 year old F brought in by ambulance to [facility] with a chief complaint of SOB that began at approximately 1400 yesterday. The patient rates the pain 0/10 in severity. Symptoms aggravated by movement. Symptoms alleviated by nothing. Patient reports palpitations. Per medical records, the patient was seen here for SVT 10 days ago and was discharged from the hospital 3 days ago. - History of Current Complaint Time Seen by Provider: 09/04/18 00:32 Hx Obtained From: Patient Onset/Duration: Sudden Onset, Lasting Hours, Still Present Timing: Constant Dyspnea At: Rest Aggrevating Factors: Movement Alleviating Factors: Nothing - Allergy/Home Medications Allergies/Adverse Reactions: Allergies Allergy/AdvReac Type Severity Reaction Status Date / Time Iodinated Contrast- Oral and Allergy Severe Itching Verified 09/04/18 01:15 IV Dye cephalexin [From Keflex] Allergy Rash Verified 09/04/18 01:15 epinephrine AdvReac Severe Palpitation Verified 09/04/18 01:15 [From Xylocaine-Epinephrine] s lidocaine AdvReac Severe Palpitation Verified 09/04/18 01:15 [From Xylocaine-Epinephrine] s PMH/Surg Hx/FS Hx/Imm Hx Previously Healthy: No Endocrine/Hematology History: Reports: Hx Bone Marrow Disease - MYELODYSPLASTIC SYNDROME Denies: Hx Diabetes, Hx Systemic Lupus Erythematosus Cardiovascular History: Denies: Hx Congestive Heart Failure, Hx Hypertension, Hx Pacemaker/ICD Respiratory History: Reports: Hx Asthma - ADULT ONSET-2002, Hx Chronic Obstructive Pulmonary Disease (COPD), Other Respiratory Problems/Disorders - HX OF [facility] GI History: Reports: Hx Diverticulosis History: Reports: Other Problems/Disorders - caricle of urethra Denies: Hx Dialysis, Hx Renal Disease Musculoskeletal History: Reports: Hx Arthritis, Hx Back Problems, Hx Osteoporosis, Other Musculoskeletal History - right rotator cuff injury Denies: Hx Rheumatoid Arthritis Sensory History: Reports: Hx Contacts or Glasses, Hx Hearing Aid Opthamlomology History: Reports: Hx Contacts or Glasses Neurological History: Reports: Other Neuro Impairments/Disorders - PAIN CLINIC PT Psychiatric History: Reports: Hx Depression Denies: Hx Panic Disorder - Cancer History Cancer Type, Location and Year: mastectomy . sqaumous cell toe amputation Hx Chemotherapy: No Hx Radiation Therapy: No - Surgical History Surgery Procedure, Year, and Place: SKIN BIOPSY June 29 at [facility]; T&A 194; APPENDIX 1950; Rt OVARY CYST REMOVED 1950; X3; DENTAL IMPLANTS 2013; Rt MASTECTOMY 1985; WEDGE RESECTION Rt LUNG; BRONCHOSCOPY X3; Rt BREAST BIOPSY 1971 AND 1985; HERNIA REPAIR ; D&C ; REPAIR OF DOG BITE ON LEG 07/23; CATARACTS BILATERAL 01/22 & 02/22; RIGHT 2ND TOE AMPUTATED 06/28; BONE MARROW BIOPSY X3 01/25, 04/28 & 04/30; LAMINECTOMY L3-4 & L4-5 08/04/12; SEVERAL MOH'S PROCEDURES; lumbar stimulator 09/2013 - could not be programmed so removed - CHECKED WITH DR. MENENDEZ TODAY(01/04/14)...HE LOOKED AT XRAYS DATED 10/13/13 WHICH CONFIRMED THE STIMULATOR AND LEADS HAD BEEN REMOVED..OK FOR MRI PER DR. MENENDEZ...RAMESH,RT Hx Anesthesia Reactions: No Infectious Disease History: No Infectious Disease History: Reports: Hx Shingles - January 2017, History Other Infectious Disease - MYCOBACTERIUM AVIUM Denies: Hx Clostridium Difficile, Hx Hepatitis, Hx Human Immunodeficiency Virus (HIV), Hx of Known/Suspected MRSA, Hx Tuberculosis, Traveled Outside the [place] in Last 30 Days - Family History Known Family History: Positive: Other - liver cancer Negative: Hypertension, Diabetes - Social History Occupation: Retired Lives: Assisted Living Alcohol Use: Occasionally Alcohol Amount: 4 Hx Substance Use: No Substance Use Type: Reports: None Substance Use Comment - Amount & Last Used: butran's patch Hx Tobacco Use: Yes Smoking Status (MU): Former Smoker Type: Cigarettes Length of Time of Smoking/Using Tobacco: 13 years Have You Smoked in the Last Year: No Review of Systems Positive: Palpitations Positive: Shortness Of Breath All Other Systems Reviewed And Are Negative: Yes Physical Exam - Summary Physical Exam Summary: VITAL SIGNS: Reviewed. GENERAL: Patient is a well-developed and nourished female who is lying comfortable in the stretcher. Patient is not in any acute respiratory distress. HEAD AND FACE: No signs of trauma. No ecchymosis, hematomas or skull depressions. No sinus tenderness. EYES: PERRLA, EOMI x 2, No injected conjunctiva, no nystagmus. EARS: Hearing grossly intact. Ear canals and tympanic membranes are within normal limits. MOUTH: Oropharynx within normal limits. NECK: Supple, trachea is midline, no adenopathy, no JVD, no carotid bruit, no c- spine tenderness, neck with full ROM CHEST: Symmetric, no tenderness at palpation LUNGS: Clear to auscultation bilaterally. No wheezing or crackles. CVS: tachycardia, S1 and S2 present, no murmurs or gallops appreciated. ABDOMEN: Soft, non-tender. No signs of distention. No rebound no guarding, and no masses palpated. Bowel sounds are normal. EXTREMITIES: FROM in all major joints, no edema, no cyanosis or clubbing. NEURO: Alert and oriented x 3. No acute neurological deficits. Speech is normal and follows commands. SKIN: Dry and warm Triage Information Reviewed: Yes Vital Signs On Initial Exam: Initial Vitals Temp Pulse Resp BP Pulse Ox 99.3 F 144 16 120/77 97 09/04/18 00:37 09/04/18 00:37 09/04/18 00:37 09/04/18 00:37 09/04/18 00:37 Vital Signs Reviewed: Yes Diagnostics - Vital Signs Vital Signs Temp Pulse Resp BP Pulse Ox 09/04/18 00:37 99.3 F 144 16 120/77 97 - Laboratory Result Diagrams: 09/04/18 01:16 09/04/18 01:16 Lab Statement: Any lab studies that have been ordered have been reviewed, and results considered in the medical decision making process. - Radiology Chest XR Radiology Interpretation Completed By: ED Physician Summary of Radiographic Findings: CXR reveals, per ED physician, questionable right lower lobe infiltrate. - EKG 005 EKG Rhythm: SVT - An EKG taken at 50 reveals SVT at 143 BPM. 0054 Cardiac Rate: NL EKG Rhythm: Sinus Rhythm - 107 BPM Summary of EKG Findings: An EKG taken at 53 reveals nml sinus rhythm at 107 BPM post 6 mg of adenosine. Course/Dx - Course Course Of Treatment: This patient is an 83 year old F brought in by ambulance to [facility] with a chief complaint of SOB that began at approximately 1400 yesterday. Physical Exam Findings: Tachycardic. An EKG taken at 50 reveals SVT at 143 BPM. An EKG taken at 53 reveals nml sinus rhythm at 107 BPM post 6 mg of adenosine. CXR reveals, per ED physician, questionable right lower lobe infiltrate. Bloodwork obtained. In the ED course the patient was given adenosine and fluids. Consult with Dr. Acuna (hospitalist) at 0222. He agrees to admit the patient for further evaluation. The patient is agreeable with this plan. - Diagnoses Provider Diagnoses: COPD (chronic obstructive pulmonary disease), Supraventricular tachycardia - Physician Notifications Discussed Care of Patient With: Rigo Acuna Time Discussed With Above Provider: 02:22 Instructed by Provider To: Other - Consult with Dr. Acuna (hospitalist) at 0222. He agrees to admit the patient for further evaluation. Discharge - Sign-Out/Discharge Documenting (check all that apply): Patient Departure - Admit to [facility] Patient Received Moderate/Deep Sedation with Procedure: No - Discharge Plan Condition: Stable Disposition: ADMITTED TO [facility] - Billing Disposition and Condition Condition: STABLE Disposition: Admitted to [facility] - Attestation Statements Document Initiated by Samson: Yes Documenting Scribe: Belen Tang Provider For Whom Anetae is Documenting (Include Credential): Dr. Rosie Quinteros MD Scribe Attestation: Belen Glover scribed for Dr. Rosie Quinteros MD on 09/04/18 at 0424. Scribe Documentation Reviewed: Yes Provider Attestation: The documentation as recorded by the Belen dominguez accurately reflects the service I personally performed and the decisions made by me, Dr. Rosie Quinteros MD Status of Scribe Document: Viewed
[2018-09-04] MEDS ORDERED: NS 0.9% 1000 ML** 1,000 ML IV ONE (01:01)
[2018-09-04] MEDS ORDERED: Adenosine* 3 MG/ML VIAL IV PUSH ONE (01:01)
[2018-09-04 01:27] LABS: ABS Basophils 0.2 10^3/ul (0-0.2); ABS Eosinophils 0.6 10^3/ul (0-0.6); ABS Lymphocytes 1.4 10^3/ul (1.0-4.8); ABS Monocytes 1.5 10^3/ul (0-0.8); ABS Neutrophils 4.1 10^3/ul (1.5-7.7); Eosinophil % 7.1 %; Hematocrit 34 % (35-47); Hemoglobin 11.4 g/dL (12.0-16.0); Mean Corpuscular HGB Conc 33 g/dL (31-36); Mean Corpuscular Hemoglobin 34 pg (27-31); Mean Corpuscular Volume 102 fL (80-97); Mean Platelet Volume 9.6 fL (7.4-10.4); Nucleated Red Blood Cells % 0.1; Platelet Count 90 10^3/uL (150-450); Red Blood Count 3.35 10^6 /uL (3.70-4.87); Red Cell Distribution Width 16 % (10.5-15); White Blood Count 7.9 10^3/uL (3.5-10.8)
[2018-09-04 01:32] LABS: Activated Partial Thrombo Time 39.8 seconds (26.0-36.3); INR 1.06 (0.82-1.09)
[2018-09-04 01:39] LABS: Albumin 3.2 g/dL (3.2-5.2); Albumin/Globulin Ratio 1.4 (1-3); Calcium 8.6 mg/dL (8.6-10.3); EGFR African American 87.5 (>60); EGFR Non-African American 72.3 (>60); Globulin 2.3 g/dL (2-4); Magnesium 1.8 mg/dL (1.9-2.7); Potassium 4.5 mmol/L (3.5-5.0); Total Bilirubin 0.8 mg/dL (0.2-1.0); Total Protein 5.5 g/dL (6.4-8.9)
[2018-09-04 01:42] LABS: Troponin I 0.01 ng/mL (<0.04)
[2018-09-04 02:28] LABS: TSH (Thyroid Stimulating Horm) 3.47 mcIU/mL (0.34-5.60)
[2018-09-04] MEDS ORDERED: Triamcinolone 0.5% OINT * 15 GM TUBE TOPICAL PRN (03:02)
[2018-09-04] MEDS ORDERED: oxyCODONE TAB* 5 MG TAB PO PRN (03:02)
[2018-09-04] MEDS ORDERED: Diclofenac 1% GEL (NF) 100 GM TUBE TOPICAL PRN (03:02)
[2018-09-04] MEDS ORDERED: Clotrimazole 1% CREAM* 30 GM TOPICAL PRN (03:02)
[2018-09-04] MEDS ORDERED: Ibuprofen TAB* 400 MG PO PRN (03:02)
[2018-09-04] MEDS ORDERED: Cetirizine* 10 MG TAB PO PRN (03:02)
[2018-09-04] MEDS ORDERED: Acetaminophen TAB* 325 MG PO PRN (03:02)
[2018-09-04] MEDS ORDERED: Magnesium Hydroxide LIQ* 30 ML UDC PO PRN (03:02)
[2018-09-04] MEDS ORDERED: Levalbuterol 0.63MG/3ML NEB* UNIT OF USE INH PRN (03:02)
[2018-09-04] MEDS ORDERED: Lidocaine 5% OINT* TUBE TOPICAL PRN (03:02)
[2018-09-04] MEDS ORDERED: Magnesium Sulfate 2 GM IV* 2 GM/50 ML BAG IVPB ONE (03:17)
[2018-09-04] MEDS: Enoxaparin(*) 40 MG/0.4 ML SYR SUBCUT SCH (04:30)
--- NOTE | 2018-09-04 06:21 | HP ---
CC: Dr. Cinthya Weber* ADMISSION HISTORY AND PHYSICAL: DATE OF ADMISSION: 09/04/18. PRIMARY CARE PROVIDER: Dr. Cinthya Weber. HEALTHCARE PROXY: Her son, Vikram. CODE STATUS: Full. SOURCE OF INFORMATION: History obtained from interview with the patient, review of records from [facility] and review of past medical [place] [facility] RELIABILITY: Very good. HISTORY OF PRESENT ILLNESS: This is an 83-year-old female, with recent admission to [facility] [place] 08/25/18 to 09/01/18 after presenting with shortness of breath, cough following Pseudomonas pneumoniae with stay complicated by narrow complex tachycardia thought to represent SVT, status post initiation of verapamil b.i.d., ultimately discharged back to [facility] on 09/01/18. She started moderate exercise today in the afternoon with physical therapy. She noticed her heart racing and some shortness of breath. However, both of these improved with rest. Afterwards, she continued mild exercises. After dinner, she took her medications and was preparing for bed, went to the bathroom, noticed her heart racing, which was different than during her physical therapy. Her heart racing was reminiscent of what she had felt with the suspected SVT in the hospital. She had mild shortness of breath, but no chest discomfort at that time. She is evaluated by the [facility] nursing staff, contacted Dr. Weber 's office and discussed with Dr. Patel, who directed the patient to proceed to the emergency room. The patient notes that since her discharge, she has continued to cough, but it is less/improved since during her hospital stay. She has had no documented or subjective fevers or chills, nausea, vomiting, lightheadedness, loss of consciousness, GI or symptoms. She does struggle with chronic constipation. In the emergency room, she was found to have SVT of 143 beats per minute, received 6 mg adenosine with conversion to normal sinus rhythm. PAST MEDICAL HISTORY: Includes, 1. Asthma. 2. Mycobacterium avium complex, on chronic antibiotics. 3. Chronic eosinophilia. 4. Myelodysplastic syndrome. 5. Spinal stenosis. 6. Allergic rhinitis. 7. Vitamin D deficiency. 8. Pseudogout. 9. Radiculopathy. 10. Breast cancer, status post right mastectomy in 1985. 11. Recent SVT. 12. Depressing. 13. GERD. 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 15. Right wedge resection of lung in 2002. 16. 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 MEDICATIONS: Unchanged since discharge include: 1. Verapamil XR 120 twice daily. 2. Prednisone 7.5 mg daily. 3. Spiriva once daily. 4. Oxycodone 5 mg every 4 hours as needed. 5. Breo Ellipta 1 inhale daily. 6. Centrum Silver once daily. 7. Azithromycin 500 mg daily. 8. Ibuprofen 400 mg twice daily p.r.n. 9. Rifampin 300 mg twice daily. 10. Colchicine 0.6 mg twice daily. 11. Flonase 2 sprays each nostril. 12. Cetirizine 10 mg daily. 13. Vitamin D 50,000 units monthly. 14. Acetaminophen 650 mg every 4 hours as needed for pain. 15. MiraLAX 17 g. 16. Fluocinonide topical solution to scalp area as needed. 17. Caltrate plus D 1 tab daily. 18. OxyContin 20 mg twice daily. 19. Xopenex 4 times a day as needed. 20. Aquaphor topically as needed. 21. Lidocaine topically as needed. ALLERGIES: To IODINATED CONTRAST, ORAL and IV DYE, CEPHALEXIN, EPINEPHRINE, and LIDOCAINE, although it is noted that she has currently prescribed topical lidocaine. FAMILY HISTORY: Mother at 90, brother with CAD. SOCIAL HISTORY: Tobacco, quit in 1968, occasional alcohol, last was New Year' s. 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 Currently a resident at [facility]. REVIEW OF SYSTEMS: As per HPI, otherwise all other systems negative. PHYSICAL EXAMINATION GENERAL: Appears stated age, sitting up in bed, interactive, in no apparent distress. VITAL SIGNS: When seen by this author, 129/63, heart rate is 96, respiratory rate is 19. She is 95% on room air. T-max in the emergency room is 99.3. HEENT: Oropharynx is clear. She has moist mucous membranes. Sclerae anicteric. She has non-elevated JVD. No supraclavicular or cervical lymphadenopathy. LUNGS: Notable for rhonchi in the right base up extending one-half the way to the apex. Mild end-expiratory wheeze in the left base. HEART: She has a regular rate and rhythm. She has no murmurs, rubs or gallops. ABDOMEN: Soft, nontender, nondistended. EXTREMITIES: Warm, well perfused. She has 2+ peripheral pulses. She has no clubbing or cyanosis. She has trace bilateral pitting edema in the lower extremities. NEUROLOGIC: She is alert and oriented x3. Her cranial nerves II through XII are intact. She has no apparent anxiety, agitation, or depression. DIAGNOSTIC STUDIES/LAB DATA: Her labs are reviewed. Notable for hemoglobin of 11.4, hematocrit 34, platelets are 90, BUN 19, creatinine 0.74, glucose 96, potassium 4.5, magnesium 1.8, TSH is 3.4. Data reviewed. EKG narrow complex tachycardia, ventricular rate of 143, normal leftward axis, normal R-wave progression. No ST or T wave changes, Q in lead III alone with an isolated sub millimeter ST depression in lead III. Chest x-ray, official interpretation is pending. No new consolidations identified in this author's interpretation. ASSESSMENT AND PLAN: An 83-year-old female with recent discharge after treatment with pneumonia with hospital stay complicated with multiple episodes of supraventricular tachycardia, now returning with narrow complex tachycardia. 1. Supraventricular tachycardia. The patient will likely need dose adjustment of her medications. She is currently on verapamil 120 twice daily. Further titration is limited by her blood pressure, overnight diastolics in the heydi at 56. Potential cardiology consultation may be of assistance. There is an option to increase either her a.m. or p.m. dose. Also, potentially adding low- dose metoprolol to her verapamil may be of some benefit. Otherwise, continue verapamil 120 mg twice daily for now. 2. Mycobacterium. Continue suppressive azithromycin and rifaximin. 3. Asthma. Continue home steroid dose. This may also be for her mycobacterium avium complex. 4. Pseudogout. Continue colchicine. 5. Chronic pain. Continue OxyContin and oxycodone. 6. DVT prophylaxis, start Lovenox. [id number]/[facility] #: [id number] [facility]
[2018-09-04] MEDS ORDERED: Diltiazem IV push/loading dose 5 MG/ML 5 ML vial (25 mg) IV PUSH ONE (08:00)
[2018-09-04] MEDS: Fluticasone NASAL SPRAY 50MCG* 16 gm SPRAY BTL BOTH NARES SCH (08:08)
[2018-09-04] MEDS: predniSONE TAB* 5 MG PO SCH (08:09)
[2018-09-04] MEDS: Azithromycin TAB* 250 MG PO SCH (08:10)
[2018-09-04] MEDS: oxyCODONE SR TAB(*) 20 MG TAB.SR PO SCH ×2 (08:11→21:42)
[2018-09-04] MEDS: Colchicine* 0.6 MG TAB PO SCH ×2 (08:11→21:43)
[2018-09-04] MEDS: RiFAMPin CAP* 300 MG CAP PO SCH ×2 (08:12→21:41)
[2018-09-04] MEDS: Tiotropium CAP.INH* CAP.INH/18 MCG (USE ORDER SET !) INH SCH (08:12)
[2018-09-04] MEDS: [UNRECOGNIZED DRUG - OTHER] PO SCH (08:14)
[2018-09-04] MEDS: Fluticasone/Vilanterol MDI(NF) 200/25 MDI INH SCH (08:19)
[2018-09-04] MEDS ORDERED: Spiriva Inhaler DEVICE* 1 EACH DEVICE INH ONE (09:00)
[2018-09-04] MEDS ORDERED: VERAPAMIL 120 MG PO SCH (09:00)
[2018-09-04] MEDS ORDERED: VERAPAMIL 240 MG PO SCH ×2 (11:12→11:30)
[2018-09-04] MEDS: VERAPAMIL 240 MG PO SCH ×2 (11:43→21:43)
--- NOTE | 2018-09-04 13:21 | CONSULT ---
Subjective Date of Service: 09/04/18 Interval History: Admission and consult date 09/04/2018 PMD/service Cinthya Weber MD CC: Palpitations, dyspnea Reason for consult: SVT HISTORY OF PRESENT ILLNESS: This is an 83-year-old woman with a history as below. 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 When she was younger she had milder palpitations that resolved by standing up. Yesterday during PT had dyspnea and palpitations, improved with rest When went to bathroom palpitations worsened and had mild dyspnea No CP or presyncope/syncope In ER found with SVT broke 6 mg IV adenosine While in bathroom this AM had recurrent SVT broke with IV diltiazem Now in NSR and back to baseline status Pmhx/surg hx 1. Pseudomonas pneumonia 2. Supraventricular tachycardia, recent diagnosis seen by Dr. Park started on verapamil 120 mg ER bid 3. History of Mycobacterium avium complex infection. 4. Spinal stenosis. 5. Myelodysplastic syndrome. 6. History of depression. 7. Chronic eosinophilia. 8. Asthma. 9. History of pseudogout. 10. Osteoporosis with history of pelvic fracture. 11. Gastroesophageal reflux disease. 12. 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 13. ? History of Paget's disease. 14. Breast cancer, right mastectomy 1985. 15. Video-assisted thoracoscopic procedure right wedge resection 2002. 16. History of colonic polyp. ALLERGIES: To IODINATED CONTRAST, ORAL and IV DYE, CEPHALEXIN, EPINEPHRINE, and LIDOCAINE, although it is noted that she has currently prescribed topical lidocaine. FAMILY HISTORY: Mother at 90, brother with CAD. SOCIAL HISTORY: Tobacco, quit in 1968, occasional alcohol, last was New Year' s. 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 Currently a resident at [facility]. Medications Active Medications: Acetaminophen (Tylenol Tab*) 650 mg PO Q6H PRN PRN Reason: FEVER/PAIN Azithromycin (Zithromax Tab*) 500 mg PO DAILY [facility] Last Admin: 09/04/18 08:10 Dose: 500 mg Cetirizine HCl (Zyrtec*) 10 mg PO DAILY PRN PRN Reason: Allergy Symptoms Clotrimazole (Clotrimazole 1%*) 1 applic TOPICAL DAILY PRN PRN Reason: ITCHING Colchicine (Colcrys*) 0.6 mg PO BID [facility] Last Admin: 09/04/18 08:11 Dose: 0.6 mg Diclofenac Sodium (Voltaren 1% Gel (Nf)) 1 applic TOPICAL DAILY PRN; Protocol PRN Reason: PAIN Enoxaparin Sodium (Lovenox(*)) 40 mg SUBCUT Q24H [facility] Last Admin: 09/04/18 04:30 Dose: 40 mg Fluticasone Propionate (Flonase Nasal [place] 50mcg*) 2 spray BOTH NARES DAILY [facility] Last Admin: 09/04/18 08:08 Dose: 2 spray Fluticasone/Vilanterol (Breo Ellipta Mdi 200/25(Nf)) 1 puff INH DAILY [facility] Last Admin: 09/04/18 08:19 Dose: Not Given Ibuprofen (Motrin Tab*) 400 mg PO BID PRN PRN Reason: PAIN Levalbuterol HCl (Xopenex 0.63mg/3ml Neb*) 0.63 mg INH QID PRN PRN Reason: SHORTNESS OF BREATH Lidocaine (Xylocaine 5% Oint*) 1 applic TOPICAL Q4HR PRN PRN Reason: PAIN Magnesium Hydroxide (Milk Of Magnesia Liq*) 30 ml PO DAILY PRN PRN Reason: CONSTIPATION [Calcium Citrate - (Vit D3 Tab]) 1 tab PO DAILY [facility] Last Admin: 09/04/18 08:14 Dose: Not Given Oxycodone HCl (Oxycontin(*)) 20 mg PO BID [facility] Last Admin: 09/04/18 08:11 Dose: 20 mg Oxycodone HCl (Roxycodone Tab*) 5 mg PO Q4H PRN PRN Reason: PAIN Polyethylene Glycol/Electrolytes (Miralax*) 17 gm PO DAILY PRN PRN Reason: CONSTIPATION Prednisone (Deltasone Tab*) 7.5 mg PO DAILY [facility] Last Admin: 09/04/18 08:09 Dose: 7.5 mg Rifampin (Rifampin Cap*) 300 mg PO BID [facility] Last Admin: 09/04/18 08:12 Dose: 300 mg Sertraline HCl (Zoloft*) 75 mg PO BEDTIME [facility] Tiotropium [place] (Spiriva Cap.Inh*) 1 cap INH DAILY [facility] Last Admin: 09/04/18 08:12 Dose: 1 spray Triamcinolone Acetonide (Triamcinolone 0.5% Oint *) 1 applic TOPICAL BEDTIME PRN PRN Reason: PRURITIS Verapamil HCl (Calan Sr Tab*) 120 mg PO BID [facility] Last Admin: 09/04/18 11:43 Dose: 120 mg Home Medications: Diclofenac 1% GEL (NF) [Voltaren 1% GEL (NF)] 1 applic TOPICAL DAILY PRN [History Confirmed 09/04/18] Azithromycin TAB* [Zithromax TAB (Z-BRADLEY) 250 mg #6 tabs] 500 mg PO DAILY [History Confirmed 09/04/18] Fluticasone/Vilanterol [Breo Ellipta 200-25 Mcg INH] 1 each INH DAILY 08/26/17 [ History Confirmed 09/04/18] Calcium Citrate/Vitamin D3 [Calcium Citrate - Vit D3 Tab] 1 tab PO DAILY [History Confirmed 09/04/18] Cetirizine* [ZyrTEC 10 MG TAB*] 10 mg PO DAILY PRN 04/23/18 [History Confirmed 09/04/18] Colchicine* [Colcrys*] 0.6 mg PO BID 04/23/18 [History Confirmed 09/04/18] Ergocalciferol (Vitamin D2) [Vitamin D2] 50,000 unit PO MONTHLY 04/23/18 [ History Confirmed 09/04/18] Fluocinonide 0.05% CM(NF) [Lidex 0.05% CREAM(NF)] 1 applic TOPICAL BEDTIME PRN 04/23/18 [History Confirmed 09/04/18] Fluticasone NASAL SPRAY 50MCG* [Flonase NASAL SPRAY 50MCG*] 2 spray BOTH NARES DAILY 04/23/18 [History Confirmed 09/04/18] Ibuprofen TAB* [Advil TAB*] 400 mg PO BID PRN 04/23/18 [History Confirmed ] Multivit-Min/Iron/Folic/Lutein [Centrum Silver Women Tablet] 1 tab PO DAILY 06/10 [History Confirmed 09/04/18] Polyethylene Glycol 3350* [Miralax*] 17 gm PO DAILY PRN 04/23/18 [History Confirmed 09/04/18] RiFAMPin CAP* 300 mg PO BID 04/23/18 [History Confirmed 09/04/18] Sertraline* [Zoloft*] 75 mg PO BEDTIME 04/23/18 [History Confirmed 09/04/18] oxyCODONE SR TAB(*) [Oxycontin 20 mg (*)] 20 mg PO BID MDD 40mg 04/23/18 [ History Confirmed 09/04/18] oxyCODONE TAB* [Roxycodone TAB 5 mg*] 5 mg PO Q4H PRN MDD 30 mg 04/23/18 [ History Confirmed 09/04/18] predniSONE TAB* [Deltasone TAB*] 7.5 mg PO DAILY 05/21/18 [History Confirmed ] Acetaminophen TAB* [Tylenol TAB*] 650 mg PO Q4H PRN 08/25/18 [History Confirmed 09/04/18] Levalbuterol 0.63MG/3ML NEB* [Xopenex 0.63MG/3ML NEB*] 0.63 mg INH QID PRN 08/25 [History Confirmed 09/04/18] Lidocaine 5 % TOPICAL Q4HR PRN 08/25/18 [History Confirmed 09/04/18] Magnesium Hydroxide LIQ* [Milk of Magnesia LIQ*] 30 ml PO DAILY PRN 08/25/18 [ History Confirmed 09/04/18] Nystatin SUSPENSION* [Nystatin*] 100,000 unit SWISH SWAL DAILY 08/25/18 [ History Confirmed 09/04/18] Petrolatum,White [Aquaphor] 41 % TOPICAL BEDTIME PRN 08/25/18 [History Confirmed 09/04/18] Tiotropium CAP.INH* [Spiriva CAP.INH*] 1 cap.inh INH DAILY 08/25/18 [History Confirmed 09/04/18] Acetaminophen TAB* [Tylenol TAB*] 650 mg PO Q6H PRN tab 09/01/18 [Rx Confirmed 09/04/18] Clotrimazole 1% CREAM* [Clotrimazole 1%*] 1 applic TOPICAL DAILY PRN tube 09/01 [Rx Confirmed 09/04/18] Tiotropium CAP.INH* [Spiriva CAP.INH*] 1 cap INH DAILY cap.inh 09/01/18 [Rx Confirmed 09/04/18] Verapamil SR TAB* [Calan Sr TAB*] 120 mg PO BID #60 tab.sr 09/01/18 [Rx Confirmed 09/04/18] Review of Systems - Measurements Intake and Output: Intake and Output Last 24 Hours 09/02/18 09/03/18 09/04/18 09/05/18 06:59 06:59 06:59 06:59 Intake Total 0 Balance 0 Weight 128 lb 6.4 oz Intake: Oral 0 - Review of Systems Constitutional Symptoms: Positive: Weakness, Fatigue Dermatology: Negative: Rash, Skin Lesions HEENT: Negative: Change in Hearing, Vertigo Eyes: Negative: Change in Vision, Double Vision Thyroid: Negative: Cold Intolerance, Heat Intolerance Pulmonary: Positive: Cough, Respiratory Distress, Shortness of Breath, Asthma, Exercise Intolerance Negative: Hemoptysis, Wheezing, Home Oxygen Cardiology: Positive: Shortness of Breath, Palpitations Negative: Chest Pain, Swelling of Ankles, Peripheral Vascular Dis, Edema, Faintness, Syncope, Claudication, Paroxysmal Nocturnal Dyspnea, Orthopnea Gastroenterology: Negative: Abdominal Pain, Nausea, Vomiting Genital - Urinary: Negative: Dysuria, Hematuria Musculoskeletal: Negative: Joint Pain, Joint Stiffness Endocrinology: Negative: Obesity, Diabetes Hematologic/Lymphatic: Negative: Use of Anticoagulant, Use of Antiplatelet Drugs Neurology: Negative: Change in Speech, Change in Sphincter Function, Change in Walking Psychiatry: Negative: Unusual Anxiety, Suicidal Ideation Allergic/Immunologic: Negative: Hx HIV, Immunocompromise Review of Systems Statement: All other review of systems negative, unless stated above. Objective Vital Signs: Temp Pulse Resp BP Pulse Ox 98.3 F 92 17 107/62 94 09/04/18 07:27 09/04/18 09:30 09/04/18 11:43 09/04/18 07:27 09/04/18 07:27 Oxygen Devices in Use Now: None Appearance: nad, pleasant Ears/Nose/Mouth/Throat: NL Teeth, Lips, Gums, Clear Oropharnyx Neck: NL Appearance and Movements; NL JVP, Trachea Midline Respiratory: Symmetrical Chest Expansion and Respiratory Effort, - - coarse crackles best heard left base, no wheezing Cardiovascular: RRR, No Edema, - - no significant murmuir Abdominal: NL Sounds; No Tenderness; No Distention Extremities: No Clubbing, Cyanosis Skin: No Rash or Ulcers Neurological: Alert and Oriented x 3 Laboratory Results: 09/04/18 01:16 09/04/18 01:16 INR (Anticoag Therapy) 1.06 (0.82-1.09) 09/04/18 01:16 APTT 39.8 seconds (26.0-36.3) H 09/04/18 01:16 Total Bilirubin 0.80 mg/dL (0.2-1.0) 09/04/18 01:16 AST 15 U/L (13-39) 09/04/18 01:16 ALT 21 U/L (7-52) 09/04/18 01:16 Alkaline Phosphatase 78 U/L (34-104) 09/04/18 01:16 Total Protein 5.5 g/dL (6.4-8.9) L 09/04/18 01:16 Albumin 3.2 g/dL (3.2-5.2) 09/04/18 01:16 Globulin 2.3 g/dL (2-4) 09/04/18 01:16 Albumin/Globulin Ratio 1.4 (1-3) 09/04/18 01:16 TSH 3.47 mcIU/mL (0.34-5.60) 09/04/18 01:16 09/04/18 01:16 Troponin I 0.01 Diagnostic Imaging: Study Date: 08/26/2018 Conclusions Summary: 1. Left ventricle: Systolic function is normal. The estimated ejection fraction is 55-60%. Wall motion is normal; there are no regional wall motion abnormalities. 2. Right ventricle: Systolic function is normal. 3. Mitral valve: There is trace to mild regurgitation. 4. Aortic valve: There is trace to mild regurgitation. 5. Tricuspid valve: There is trace to mild regurgitation. 6. Pericardium, extracardiac: There is no pericardial effusion. EKG Data: COMPARISONS: September 04, 2018 VIEWS: 4: Frontal dual-energy and lateral views of the chest. IMPRESSION: COPD WITH PATCHY LEFT LOWER LOBE ATELECTASIS VERSUS CONSOLIDATION baseline ekg nsr, normal ekg Assessment/Plan I reviewed all of her arrhythmia ekg's. There are varying RP and RR intervals between them. 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 She is already on verapamil. There is a theoretical concern with her pulmonary status and using beta-blockers. She is not wheezing currently. Would continue verapamil and add toprol long acting 25 mg po bid ( ordered). She was also taught valsalva maneuver. I asked patients Nurse to ambulate Alis and check 02 saturations with ambulation. I would have a goal of 90% at the least and supplement as needed with exertion given she was active with prior onset. Patient should follow up with Dr. Park as previously planned for further evaluation and management
[2018-09-04] MEDS: Metoprolol Succinate XL TAB* 25 MG PO SCH ×2 (15:16→21:42)
[2018-09-04] MEDS: Sertraline* 25 MG TAB PO SCH (21:42)
[2018-09-05] MEDS: Enoxaparin(*) 40 MG/0.4 ML SYR SUBCUT SCH (04:23)
[2018-09-05 06:12] LABS: ABS Basophils 0.1 10^3/ul (0-0.2); ABS Eosinophils 0.5 10^3/ul (0-0.6); ABS Lymphocytes 1.3 10^3/ul (1.0-4.8); ABS Monocytes 1.5 10^3/ul (0-0.8); ABS Neutrophils 4.3 10^3/ul (1.5-7.7); Eosinophil % 6.6 %; Hematocrit 32 % (35-47); Lymphocyte % 17.2 %; Mean Corpuscular HGB Conc 34 g/dL (31-36); Mean Corpuscular Hemoglobin 35 pg (27-31); Mean Corpuscular Volume 102 fL (80-97); Mean Platelet Volume 10.2 fL (7.4-10.4); Nucleated Red Blood Cells % 0.1; Platelet Count 85 10^3/uL (150-450); Red Blood Count 3.15 10^6 /uL (3.70-4.87); Red Cell Distribution Width 16 % (10.5-15); White Blood Count 7.6 10^3/uL (3.5-10.8)
[2018-09-05 06:24] LABS: BUN/Creatinine Ratio 22.2 (8-20); C Reactive Protein 44.3 mg/L (<8.01); Calcium 8.5 mg/dL (8.6-10.3); EGFR African American 93.2 (>60); Magnesium 1.8 mg/dL (1.9-2.7); Potassium 4.2 mmol/L (3.5-5.0)
[2018-09-05] MEDS: Fluticasone/Vilanterol MDI(NF) 200/25 MDI INH SCH (08:07)
[2018-09-05] MEDS: Tiotropium CAP.INH* CAP.INH/18 MCG (USE ORDER SET !) INH SCH (08:08)
[2018-09-05] MEDS ORDERED: Magnesium Sulfate IV* 3 GM in NS 0.9% 100 ML* 100 ML IVPB ONE (10:07)
[2018-09-05] MEDS: Colchicine* 0.6 MG TAB PO SCH ×2 (10:31→20:43)
[2018-09-05] MEDS: RiFAMPin CAP* 300 MG CAP PO SCH ×2 (10:32→20:42)
[2018-09-05] MEDS: oxyCODONE SR TAB(*) 20 MG TAB.SR PO SCH ×2 (10:32→20:42)
[2018-09-05] MEDS: predniSONE TAB* 5 MG PO SCH (10:33)
[2018-09-05] MEDS: Metoprolol Succinate XL TAB* 25 MG PO SCH (10:33)
[2018-09-05] MEDS: Azithromycin TAB* 250 MG PO SCH (10:33)
[2018-09-05] MEDS: VERAPAMIL 240 MG PO SCH ×2 (10:34→20:42)
[2018-09-05] MEDS: [UNRECOGNIZED DRUG - OTHER] PO SCH (10:35)
[2018-09-05] MEDS: Fluticasone NASAL SPRAY 50MCG* 16 gm SPRAY BTL BOTH NARES SCH (10:35)
[2018-09-05] MEDS ORDERED: Metoprolol Succinate XL TAB* 25 MG PO ONE (11:52)
--- NOTE | 2018-09-05 11:56 | PN ---
Subjective Date of Service: 09/05/18 Interval History: f/u svt dyspnea overnight episode, not clearly related to 7 minute SVT seen no wheezing after BB suspect arrhythmia being driving by pulmonary process Medications Active Medications: Acetaminophen (Tylenol Tab*) 650 mg PO Q6H PRN PRN Reason: FEVER/PAIN Azithromycin (Zithromax Tab*) 500 mg PO DAILY [facility] Last Admin: 09/05/18 10:33 Dose: 500 mg Cetirizine HCl (Zyrtec*) 10 mg PO DAILY PRN PRN Reason: Allergy Symptoms Clotrimazole (Clotrimazole 1%*) 1 applic TOPICAL DAILY PRN PRN Reason: ITCHING Colchicine (Colcrys*) 0.6 mg PO BID [facility] Last Admin: 09/05/18 10:31 Dose: 0.6 mg Diclofenac Sodium (Voltaren 1% Gel (Nf)) 1 applic TOPICAL DAILY PRN; Protocol PRN Reason: PAIN Enoxaparin Sodium (Lovenox(*)) 40 mg SUBCUT Q24H [facility] Last Admin: 09/05/18 04:23 Dose: 40 mg Fluticasone Propionate (Flonase Nasal [place] 50mcg*) 2 spray BOTH NARES DAILY [facility] Last Admin: 09/05/18 10:35 Dose: 2 spray Fluticasone/Vilanterol (Breo Ellipta Mdi 200/25(Nf)) 1 puff INH DAILY [facility] Last Admin: 09/05/18 08:07 Dose: Not Given Magnesium Sulfate 3 gm/ Sodium (Chloride) 106 mls @ 53 mls/hr IVPB ONCE ONE Stop: 09/05/18 12:06 Last Admin: 09/05/18 11:16 Dose: 53 mls/hr Ibuprofen (Motrin Tab*) 400 mg PO BID PRN PRN Reason: PAIN Levalbuterol HCl (Xopenex 0.63mg/3ml Neb*) 0.63 mg INH QID PRN PRN Reason: SHORTNESS OF BREATH Lidocaine (Xylocaine 5% Oint*) 1 applic TOPICAL Q4HR PRN PRN Reason: PAIN Magnesium Hydroxide (Milk Of Magnesia Liq*) 30 ml PO DAILY PRN PRN Reason: CONSTIPATION Metoprolol Succinate (Toprol Xl Tab*) 50 mg PO BID [facility] Metoprolol Succinate (Toprol Xl Tab*) 25 mg PO ONCE ONE Stop: 09/05/18 11:53 [Calcium Citrate - (Vit D3 Tab]) 1 tab PO DAILY [facility] Last Admin: 09/05/18 10:35 Dose: Not Given Oxycodone HCl (Oxycontin(*)) 20 mg PO BID [facility] Last Admin: 09/05/18 10:32 Dose: 20 mg Oxycodone HCl (Roxycodone Tab*) 5 mg PO Q4H PRN PRN Reason: PAIN Polyethylene Glycol/Electrolytes (Miralax*) 17 gm PO DAILY PRN PRN Reason: CONSTIPATION Prednisone (Deltasone Tab*) 7.5 mg PO DAILY [facility] Last Admin: 09/05/18 10:33 Dose: 7.5 mg Rifampin (Rifampin Cap*) 300 mg PO BID [facility] Last Admin: 09/05/18 10:32 Dose: 300 mg Sertraline HCl (Zoloft*) 75 mg PO BEDTIME [facility] Last Admin: 09/04/18 21:42 Dose: 75 mg Tiotropium [place] (Spiriva Cap.Inh*) 1 cap INH DAILY [facility] Last Admin: 09/05/18 08:08 Dose: 1 cap Triamcinolone Acetonide (Triamcinolone 0.5% Oint *) 1 applic TOPICAL BEDTIME PRN PRN Reason: PRURITIS Verapamil HCl (Calan Sr Tab*) 120 mg PO BID [facility] Last Admin: 09/05/18 10:34 Dose: 120 mg Objective Vital Signs: Temp Pulse Resp BP Pulse Ox 99.1 F 85 16 102/47 95 09/05/18 11:06 09/05/18 11:06 09/05/18 11:06 09/05/18 11:06 09/05/18 11:06 Oxygen Devices in Use Now: Nasal Cannula Appearance: nad, pleasant Ears/Nose/Mouth/Throat: NL Teeth, Lips, Gums, Clear Oropharnyx Neck: NL Appearance and Movements; NL JVP, Trachea Midline Respiratory: Symmetrical Chest Expansion and Respiratory Effort, - - coarse crackles best heard left base, no wheezing Cardiovascular: RRR, No Edema, - - no significant murmuir Abdominal: NL Sounds; No Tenderness; No Distention Extremities: No Clubbing, Cyanosis Skin: No Rash or Ulcers Neurological: Alert and Oriented x 3 Laboratory Results: 09/05/18 05:49 09/05/18 05:49 INR (Anticoag Therapy) 1.06 (0.82-1.09) 09/04/18 01:16 APTT 39.8 seconds (26.0-36.3) H 09/04/18 01:16 Total Bilirubin 0.80 mg/dL (0.2-1.0) 09/04/18 01:16 AST 15 U/L (13-39) 09/04/18 01:16 ALT 21 U/L (7-52) 09/04/18 01:16 Alkaline Phosphatase 78 U/L (34-104) 09/04/18 01:16 Total Protein 5.5 g/dL (6.4-8.9) L 09/04/18 01:16 Albumin 3.2 g/dL (3.2-5.2) 09/04/18 01:16 Globulin 2.3 g/dL (2-4) 09/04/18 01:16 Albumin/Globulin Ratio 1.4 (1-3) 09/04/18 01:16 TSH 3.47 mcIU/mL (0.34-5.60) 09/04/18 01:16 09/04/18 01:16 Troponin I 0.01 Diagnostic Imaging: Study Date: 08/26/2018 Conclusions Summary: 1. Left ventricle: Systolic function is normal. The estimated ejection fraction is 55-60%. Wall motion is normal; there are no regional wall motion abnormalities. 2. Right ventricle: Systolic function is normal. 3. Mitral valve: There is trace to mild regurgitation. 4. Aortic valve: There is trace to mild regurgitation. 5. Tricuspid valve: There is trace to mild regurgitation. 6. Pericardium, extracardiac: There is no pericardial effusion. EKG Data: COMPARISONS: September 04, 2018 VIEWS: 4: Frontal dual-energy and lateral views of the chest. IMPRESSION: COPD WITH PATCHY LEFT LOWER LOBE ATELECTASIS VERSUS CONSOLIDATION baseline ekg nsr, normal ekg Assessment/Plan I reviewed all of her arrhythmia ekg's. There are varying RP and RR intervals between them. 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 She is already on verapamil. There is a theoretical concern with her pulmonary status and using beta-blockers. She is not wheezing currently on toprol 25 mg po bid and remains with short svt. Would continue verapamil and increaes toprol long acting to 50 mg po bid (ordered). 02 sats on ambulation yesterday reported normal, would try to keep at 90% or above
--- NOTE | 2018-09-05 15:27 | CONS ---
CONSULTATION REPORT: DATE OF ADMISSION: 09/04/18 DATE OF CONSULT: 09/05/18 PRIMARY CARE PROVIDER: Dr. Cinthay Weber. PHYSICIAN REQUESTING CONSULTATION: Dr. Cinthya Weber.* CONSULTING SERVICE: Infectious Disease. PROVIDER: Elmira Jean NP. ATTENDING PROVIDER: Dr. Matti Javier* (dictated by Elmira Jean NP). REASON FOR CONSULT: Possible pneumonia. IMPRESSION: 1. Cough. The patient reports that she has had a cough for approximately 5 weeks. She was treated for a pseudomonal pneumonia on her pervious admission, and was just discharged on 09/01/18. At that time, she was noted to have a left basilar pneumonia with stigmata of chronic obstructive pulmonary disease and emphysema. Her imaging on admission showed low lung volumes and small bibasilar infiltrates. Repeat chest x-ray shows chronic obstructive pulmonary disease with patchy left lower lobe atelectasis versus consolidation. She is afebrile, has no leukocytosis, neutrophils are not elevated. She is noted to have an elevated CRP that did increase overnight. She is noted to have crackles in her left lower lobe, and rhonchi that clear with a cough in the upper lobes. She reports postnasal drip. She was treated with antibiotics on her last hospitalization, IV cefepime for 7 days and 4 days of IV vancomycin. 2. Mycobacterium avium complex. Confirmed with biopsy in 2012. She is on chronic antibiotic therapy of rifampin and azithromycin. 3. Myelodysplastic syndrome. 4. CEPHALEXIN allergy, causes rash. PLAN/RECOMMENDATIONS: I suspect her symptoms represent her previous pneumonia resolving. Recommend holding on further antibiotics at this time as she does not have leukocytosis and is afebrile. Recommend incentive spirometer use. We will continue to follow her and the pending sputum culture. HISTORY OF PRESENT ILLNESS: Ms. Blas is an 83-year-old female with past medical history significant for asthma, Mycobacterium avium complex, on chronic antibiotics, chronic eosinophilia, myelodysplastic syndrome, spinal stenosis, allergic rhinitis, vitamin D deficiency, pseudogout, radiculopathy, Paget's disease of the breast, status post right breast mastectomy, SVT, depression, and GERD who was previously admitted to [facility] from 08/25/18 to 09/01/18 after presenting with complaints of shortness of breath and cough for pseudomonas pneumonia. During that hospitalization, she was also found to have a narrow complex tachycardia that is thought to represent SVT. She was discharged back to [facility] on 09/01/18. While working with Physical Therapy, she noted her heart was racing and shortness of breath. The shortness of breath and racing heart rate improved with resting. After dinner, she took her medications, continued to have heart racing, was evaluated by the [facility] nursing staff and the patient was sent to the emergency room for further evaluation. While in the emergency room, the patient was noted to have SVT with heart rate in the 140s. She received adenosine and converted to sinus rhythm. During our stay, she has continued to report some shortness of breath that has improved with the use of supplemental oxygen. She does not typically wear supplemental oxygen. She also reports having some low-grade fevers. She is chronically on azithromycin and rifampin for her Mycobacterium avium complex. She had labs that are fairly unremarkable. No leukocytosis. She has been afebrile while in the hospital. She reports a cough for approximately 5 weeks, coughing up mostly nonproductive but occasionally coughing up some thick yellow mucus. She also reports chronic postnasal drip. She feels that she has had some increase in her postnasal drip. She had a chest x-ray while in the emergency room showing low lung volumes, small bibasilar infiltrates. She had a repeat chest x -ray on 09/04/18 showing COPD with patchy left lower lobe atelectasis versus consolidation. She denies chills or chest pain. She reports chronic back pain. Denies rash or diarrhea. She has urinary frequency at baseline. Denies any recent travel. She does report that many of the residents at the nursing facility have had a cough recently. PAST MEDICAL HISTORY: 1. Asthma. 2. Mycobacterium avium complex diagnosed by biopsy in 2012. 3. Chronic eosinophilia. 4. Myelodysplastic syndrome. 5. Spinal stenosis. 6. Allergic rhinitis. 7. Vitamin D deficiency. 8. Paget's disease. 9. Pseudogout. 10. Radiculopathy. 11. SVT. 12. Depression. 13. Squamous cell carcinoma. 14. Basal cell carcinoma. PAST SURGICAL HISTORY: 1. Status post right mastectomy. 2. Status post right breast wedge resection. 3. 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 4. Excision of basal cell carcinoma of the nose. MEDICATIONS: Home Medications: 1. Prednisone 7.5 mg by mouth daily. 2. Oxycodone 5 mg by mouth every 4 hours as needed for pain. 3. Oxycodone SR 20 mg by mouth twice daily. 4. Verapamil 120 mg by mouth twice daily. 5. Spiriva 1 capsule inhalation daily. 6. Zoloft 75 mg by mouth at bedtime. 7. Rifampin 300 mg by mouth twice daily. 8. MiraLAX 17 g by mouth daily as needed for constipation. 9. Aquaphor 41% topical applied daily at bedtime as needed for dry skin. 10. Nystatin suspension 100,000 units swish and sallow daily. 11. Centrum Silver Women's. 12. Multivitamin 1 tablet by mouth daily. 13. Milk of Magnesia 30 mL by mouth daily as needed for constipation. 14. Lidocaine 5% topical apply every 4 hours as needed for pain. 15. Xopenex nebulizer 0.63 mg/3 mL 2.6 mg inhalation 4 times daily as needed for shortness of breath. 16. Ibuprofen 400 mg by mouth twice daily as needed for pain. 17. Breo-Ellipta 200/25 one tablet inhalation daily. 18. Flonase nasal spray 50 mcg two sprays to both nares daily. 19. Fluocinonide 0.05% cream, apply topical daily at bedtime as needed for itching. 20. Vitamin D2 50,000 units by mouth monthly. 21. Diclofenac 1% gel, apply topical daily as needed for pain. 22. Colchicine 0.6 mg by mouth twice daily. 23. Clotrimazole 1% cream, apply topical daily as needed for Itching. 24. Sertraline 10 mg by mouth daily as needed for allergy symptoms. 25. Calcium citrate/vitamin D3 one tablet by mouth daily. 26. Azithromycin 500 mg by mouth daily. 27. Acetaminophen 6540 mg every 4 to 6 hours as needed for fever or pain. Hospital Medications: 1. Acetaminophen 650 mg by mouth every 6 hours as needed for fever or pain. 2. Azithromycin 500 mg by mouth daily. 3. Sertraline 10 mg by mouth daily as needed for allergy symptoms. 4. Clotrimazole 1%, apply topical daily as needed for itching. 5. Colchicine 0.6 mg by mouth twice daily. 6. Diclofenac 1% gel apply topical daily needed for pain. 7. Lovenox 40 mg subcutaneous every 24 hours. 8. Flonase nasal spray 50 mcg, 2 sprays to both nares daily. 9. Breo-Ellipta MDI 200/25 one puff inhalation daily. 10. Ibuprofen 400 mg by mouth twice daily as needed for pain. 11. Xopenex 0.6 mg /mL 0.3 mg inhalation 4 times daily as needed for shortness of breath or wheeze. 12. Lidocaine 5% ointment, apply topical 4 times daily as needed for pain. 13. Milk of Magnesia 30 mL by mouth daily as needed for constipation. 14. Metoprolol succinate 50 mg by mouth twice daily. 15. OxyContin 200 mg by mouth every 4 hours as needed for pain. 16. Oxycodone 5 mg by mouth every 4 hours as needed for pain. 17. MiraLAX 17 g by mouth daily as needed for constipation. 18. Prednisone 7.5 mg by mouth daily. 19. Rifampin 300 mg by mouth twice daily. 20. Sertraline 75 mg by mouth at bedtime. 21. Spiriva 1 capsule inhalation daily. 22. Triamcinolone 0.5% ointment, apply topical daily at bedtime as needed for itching. 23. Verapamil 120 mg by mouth daily. 24. Calcium citrate/vitamin D3 one capsule by mouth daily. ALLERGIES: IODINATED CONTRAST, ORAL and IV; CEPHALEXIN causes rash; EPINEPHRINE and LIDOCAINE. FAMILY HISTORY: Brother, father, and sister with a history of heart disease. Brother with a history of diabetes. Mother with a history of liver cancer, passed at age 93. SOCIAL HISTORY: The patient occasionally drinks alcohol, is a former smoker. She quit smoking in 1968; prior to that, she had a 1-pack a day 10-year smoking history. Denies recreational drug use. REVIEW OF SYSTEMS: I performed a 10-point review of systems, all the pertinent positives and negative as mentioned in the history of present illness. The remaining review of systems is negative. PHYSICAL EXAM: Vital Signs: Temperature 99.1, heart rate 85, respiratory rate 16, O2 sat 95% on 2 L via nasal cannula, blood pressure 102/47. General Appearance: Alert, pleasant, appears to be in no acute distress. Head: Normocephalic and atraumatic. ENT: Pupils are equal and reactive to light. Extraocular movements are intact. Mucous membranes are moist. There is no conjunctival hemorrhage or erythema. Neck: Supple. No lymphadenopathy. Neurological: Alert and oriented x3, cranial nerves II through XII grossly intact. Cardiovascular: Regular rate and rhythm. S1 and S2 present. No murmurs, rubs, or gallops heard. Respiratory: No accessory muscle use. She has scattered rhonchi in bilateral upper lobes that clear with cough and crackles in the left lower lobe. Abdomen: Bowel sounds positive. Abdomen is soft, nontender, and nondistended. Extremities: No lower extremity edema. DP/ PT pulses are 2+ and symmetric. Musculoskeletal: No clubbing or cyanosis noted. The patient exhibits good strength in all extremities. Psychological: Calm and cooperative. Skin: No rashes or abnormalities seen. DIAGNOSTIC STUDIES/LAB DATA: Sodium 133, potassium 4.2, chloride 102, CO2 of 28 , BUN 16, creatinine 0.72, glucose 85. White blood cell count 7.6, hemoglobin 11.0, hematocrit 32, platelet count 85. CRP on admission yesterday was 22 and is 44.3 today. Sputum culture from today is pending at this time. Please see impressions and recommendations outlined above. Thank you for asking us to see Ms. Blas in consultation. TIME SPENT: Time for this consultation was approximately 40 minutes; greater than half of that was spent with the patient discussing medications, past medical history, the events leading to arrival today, performing a physical examination. Case has been reviewed with my attending, Dr. Javier who agrees with the plan of care. Reviewed by HUEY RANDHAWA 09/07/18 1948 [id number]/[facility] #: [id number] [place]
[2018-09-05] MEDS: Sertraline* 25 MG TAB PO SCH (20:41)
[2018-09-05] MEDS: Metoprolol Succinate XL TAB* 50 MG PO SCH (20:41)
[2018-09-06] MEDS: Enoxaparin(*) 40 MG/0.4 ML SYR SUBCUT SCH (05:22)
[2018-09-06 06:03] LABS: Hematocrit 32 % (35-47); Hemoglobin 10.9 g/dL (12.0-16.0); Mean Corpuscular HGB Conc 34 g/dL (31-36); Mean Corpuscular Hemoglobin 35 pg (27-31); Mean Corpuscular Volume 102 fL (80-97); Platelet Count 78 10^3/uL (150-450); Red Cell Distribution Width 16 % (10.5-15); White Blood Count 6.2 10^3/uL (3.5-10.8)
[2018-09-06 06:12] LABS: C Reactive Protein 76.3 mg/L (<8.01)
[2018-09-06] MEDS: Fluticasone/Vilanterol MDI(NF) 200/25 MDI INH SCH (08:08)
[2018-09-06] MEDS: Tiotropium CAP.INH* CAP.INH/18 MCG (USE ORDER SET !) INH SCH (08:09)
[2018-09-06] MEDS: Fluticasone NASAL SPRAY 50MCG* 16 gm SPRAY BTL BOTH NARES SCH (09:26)
[2018-09-06] MEDS: oxyCODONE SR TAB(*) 20 MG TAB.SR PO SCH ×2 (09:27→20:02)
[2018-09-06] MEDS: RiFAMPin CAP* 300 MG CAP PO SCH ×2 (09:27→20:04)
--- NOTE | 2018-09-06 09:27 | PN ---
Subjective Date of Service: 09/06/18 Interval History: f/u svt cough worse several minute svt yesterday afternoon conversant tolerating increased BB well, no generalized wheeze Medications Active Medications: Acetaminophen (Tylenol Tab*) 650 mg PO Q6H PRN PRN Reason: FEVER/PAIN Azithromycin (Zithromax Tab*) 500 mg PO DAILY [facility] Last Admin: 09/05/18 10:33 Dose: 500 mg Cetirizine HCl (Zyrtec*) 10 mg PO DAILY PRN PRN Reason: Allergy Symptoms Clotrimazole (Clotrimazole 1%*) 1 applic TOPICAL DAILY PRN PRN Reason: ITCHING Colchicine (Colcrys*) 0.6 mg PO BID [facility] Last Admin: 09/05/18 20:43 Dose: 0.6 mg Diclofenac Sodium (Voltaren 1% Gel (Nf)) 1 applic TOPICAL DAILY PRN; Protocol PRN Reason: PAIN Enoxaparin Sodium (Lovenox(*)) 40 mg SUBCUT Q24H [facility] Last Admin: 09/06/18 05:22 Dose: 40 mg Fluticasone Propionate (Flonase Nasal [place] 50mcg*) 2 spray BOTH NARES DAILY [facility] Last Admin: 09/05/18 10:35 Dose: 2 spray Fluticasone/Vilanterol (Breo Ellipta Mdi 200/25(Nf)) 1 puff INH DAILY [facility] Last Admin: 09/06/18 08:08 Dose: Not Given Ibuprofen (Motrin Tab*) 400 mg PO BID PRN PRN Reason: PAIN Levalbuterol HCl (Xopenex 0.63mg/3ml Neb*) 0.63 mg INH QID PRN PRN Reason: SHORTNESS OF BREATH Lidocaine (Xylocaine 5% Oint*) 1 applic TOPICAL Q4HR PRN PRN Reason: PAIN Magnesium Hydroxide (Milk Of Magnesia Liq*) 30 ml PO DAILY PRN PRN Reason: CONSTIPATION Metoprolol Succinate (Toprol Xl Tab*) 50 mg PO BID [facility] Last Admin: 09/05/18 20:41 Dose: 50 mg [Calcium Citrate - (Vit D3 Tab]) 1 tab PO DAILY [facility] Last Admin: 09/05/18 10:35 Dose: Not Given Oxycodone HCl (Oxycontin(*)) 20 mg PO BID [facility] Last Admin: 09/05/18 20:42 Dose: 20 mg Oxycodone HCl (Roxycodone Tab*) 5 mg PO Q4H PRN PRN Reason: PAIN Polyethylene Glycol/Electrolytes (Miralax*) 17 gm PO DAILY PRN PRN Reason: CONSTIPATION Prednisone (Deltasone Tab*) 7.5 mg PO DAILY [facility] Last Admin: 09/05/18 10:33 Dose: 7.5 mg Rifampin (Rifampin Cap*) 300 mg PO BID [facility] Last Admin: 09/05/18 20:42 Dose: 300 mg Sertraline HCl (Zoloft*) 75 mg PO BEDTIME [facility] Last Admin: 09/05/18 20:41 Dose: 75 mg Tiotropium [place] (Spiriva Cap.Inh*) 1 cap INH DAILY [facility] Last Admin: 09/06/18 08:09 Dose: 1 cap Triamcinolone Acetonide (Triamcinolone 0.5% Oint *) 1 applic TOPICAL BEDTIME PRN PRN Reason: PRURITIS Verapamil HCl (Calan Sr Tab*) 120 mg PO BID [facility] Last Admin: 09/05/18 20:42 Dose: 120 mg Objective Vital Signs: Temp Pulse Resp BP Pulse Ox 98.4 F 81 18 106/46 94 09/06/18 03:16 09/06/18 08:10 09/06/18 08:10 09/06/18 07:33 09/06/18 08:10 Oxygen Devices in Use Now: Nasal Cannula Appearance: nad, pleasant Ears/Nose/Mouth/Throat: NL Teeth, Lips, Gums, Clear Oropharnyx Neck: NL Appearance and Movements; NL JVP, Trachea Midline Respiratory: Symmetrical Chest Expansion and Respiratory Effort, - - coarse crackles best heard left base, no wheezing Cardiovascular: RRR, No Edema, - - no significant murmuir Abdominal: NL Sounds; No Tenderness; No Distention Extremities: No Clubbing, Cyanosis Skin: No Rash or Ulcers Neurological: Alert and Oriented x 3 Laboratory Results: 09/06/18 05:34 09/05/18 05:49 INR (Anticoag Therapy) 1.06 (0.82-1.09) 09/04/18 01:16 APTT 39.8 seconds (26.0-36.3) H 09/04/18 01:16 Total Bilirubin 0.80 mg/dL (0.2-1.0) 09/04/18 01:16 AST 15 U/L (13-39) 09/04/18 01:16 ALT 21 U/L (7-52) 09/04/18 01:16 Alkaline Phosphatase 78 U/L (34-104) 09/04/18 01:16 Total Protein 5.5 g/dL (6.4-8.9) L 09/04/18 01:16 Albumin 3.2 g/dL (3.2-5.2) 09/04/18 01:16 Globulin 2.3 g/dL (2-4) 09/04/18 01:16 Albumin/Globulin Ratio 1.4 (1-3) 09/04/18 01:16 TSH 3.47 mcIU/mL (0.34-5.60) 09/04/18 01:16 09/04/18 01:16 Troponin I 0.01 Diagnostic Imaging: Study Date: 08/26/2018 Conclusions Summary: 1. Left ventricle: Systolic function is normal. The estimated ejection fraction is 55-60%. Wall motion is normal; there are no regional wall motion abnormalities. 2. Right ventricle: Systolic function is normal. 3. Mitral valve: There is trace to mild regurgitation. 4. Aortic valve: There is trace to mild regurgitation. 5. Tricuspid valve: There is trace to mild regurgitation. 6. Pericardium, extracardiac: There is no pericardial effusion. EKG Data: COMPARISONS: September 04, 2018 VIEWS: 4: Frontal dual-energy and lateral views of the chest. IMPRESSION: COPD WITH PATCHY LEFT LOWER LOBE ATELECTASIS VERSUS CONSOLIDATION baseline ekg nsr, normal ekg Assessment/Plan I reviewed all of her arrhythmia ekg's. There are varying RP and RR intervals between them. 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 She is already on verapamil. She is tolerating the addition of toprol 50 mg po bid well. Would continue focused treatment of underlying pulmonary process. Seen, reviewed and discussed with Dr. Cinthya Weber
[2018-09-06] MEDS: Azithromycin TAB* 250 MG PO SCH (09:28)
[2018-09-06] MEDS: predniSONE TAB* 5 MG PO SCH (09:29)
[2018-09-06] MEDS: Metoprolol Succinate XL TAB* 50 MG PO SCH ×2 (09:29→20:03)
[2018-09-06] MEDS: Colchicine* 0.6 MG TAB PO SCH ×2 (09:30→20:06)
[2018-09-06] MEDS: VERAPAMIL 240 MG PO SCH ×2 (09:30→20:03)
[2018-09-06] MEDS: [UNRECOGNIZED DRUG - OTHER] PO SCH (09:31)
[2018-09-06] MEDS: Meropenem 1 GM PREMIX(*) 1 GM/50 ML BAG IV SCH ×2 (11:10→17:29)
[2018-09-06] MEDS: Sertraline* 25 MG TAB PO SCH (20:05)
[2018-09-07] MEDS: Meropenem 1 GM PREMIX(*) 1 GM/50 ML BAG IV SCH ×3 (02:06→18:06)
[2018-09-07] MEDS: Enoxaparin(*) 40 MG/0.4 ML SYR SUBCUT SCH (04:43)
[2018-09-07 06:03] LABS: ABS Eosinophils 0.4 10^3/ul (0-0.6); ABS Lymphocytes 1.2 10^3/ul (1.0-4.8); ABS Monocytes 1.1 10^3/ul (0-0.8); Eosinophil % 7.5 %; Hematocrit 32 % (35-47); Hemoglobin 10.7 g/dL (12.0-16.0); Lymphocyte % 20.4 %; Mean Corpuscular HGB Conc 33 g/dL (31-36); Mean Corpuscular Hemoglobin 35 pg (27-31); Mean Corpuscular Volume 104 fL (80-97); Mean Platelet Volume 9.9 fL (7.4-10.4); Nucleated Red Blood Cells % 0.1; Platelet Count 71 10^3/uL (150-450); Red Cell Distribution Width 16 % (10.5-15); White Blood Count 5.8 10^3/uL (3.5-10.8)
[2018-09-07 06:18] LABS: Calcium 8.5 mg/dL (8.6-10.3); EGFR African American 96.2 (>60); EGFR Non-African American 79.5 (>60); Magnesium 1.7 mg/dL (1.9-2.7)
[2018-09-07] MEDS: Fluticasone/Vilanterol MDI(NF) 200/25 MDI INH SCH (08:20)
[2018-09-07] MEDS: Tiotropium CAP.INH* CAP.INH/18 MCG (USE ORDER SET !) INH SCH (08:21)
--- NOTE | 2018-09-07 09:38 | PN ---
Subjective - Subjective Reason for Note: Progress Note History: I sent Alis Blas to the ED from [facility] when it was clear she was having another episode of SVT. She had another overnight - this was self limiting. She felt some difficulty with breathing during the episode, but no angina, chest pressure. She denies nausea/vomiting or diaphoresis. This morning she continues to have a productive cough, but no fevers, chills or sweats. 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 Pseudomonas pneumonia (Acute) Supraventricular tachycardia (Acute) I47.1 Chronic pain (Chronic) G89.29 History of right breast cancer (Chronic) Z85.3 Myelodysplastic syndrome (Chronic) D46.9 Spinal stenosis (Chronic) M48.00 Current Medications: Current Medications Acetaminophen (Tylenol Tab*) 650 mg PO Q6H PRN PRN Reason: FEVER/PAIN Azithromycin (Zithromax Tab*) 500 mg PO DAILY [facility] Last Admin: 09/06/18 09:28 Dose: 500 mg Calcium Citrate (Citracal Tab*) 200 mg PO DAILY [facility] Cetirizine HCl (Zyrtec*) 10 mg PO DAILY PRN PRN Reason: Allergy Symptoms Clotrimazole (Clotrimazole 1%*) 1 applic TOPICAL DAILY PRN PRN Reason: ITCHING Colchicine (Colcrys*) 0.6 mg PO BID [facility] Last Admin: 09/06/18 20:06 Dose: 0.6 mg Diclofenac Sodium (Voltaren 1% Gel (Nf)) 1 applic TOPICAL DAILY PRN; Protocol PRN Reason: PAIN Enoxaparin Sodium (Lovenox(*)) 40 mg SUBCUT Q24H [facility] Last Admin: 09/07/18 04:43 Dose: 40 mg Fluticasone Propionate (Flonase Nasal [place] 50mcg*) 2 spray BOTH NARES DAILY [facility] Last Admin: 09/06/18 09:26 Dose: 2 spray Fluticasone/Vilanterol (Breo Ellipta Mdi 200/25(Nf)) 1 puff INH DAILY [facility] Last Admin: 09/07/18 08:20 Dose: Not Given Meropenem (Merrem 1 Gm Premix(*)) 1 gm in 50 mls @ 100 mls/hr IV Q8H [facility] Last Admin: 09/07/18 02:06 Dose: 100 mls/hr Ibuprofen (Motrin Tab*) 400 mg PO BID PRN PRN Reason: PAIN Levalbuterol HCl (Xopenex 0.63mg/3ml Neb*) 0.63 mg INH QID PRN PRN Reason: SHORTNESS OF BREATH Lidocaine (Xylocaine 5% Oint*) 1 applic TOPICAL Q4HR PRN PRN Reason: PAIN Magnesium Hydroxide (Milk Of Magnesia Liq*) 30 ml PO DAILY PRN PRN Reason: CONSTIPATION Metoprolol Succinate (Toprol Xl Tab*) 50 mg PO BID [facility] Last Admin: 09/06/18 20:03 Dose: 50 mg Oxycodone HCl (Oxycontin(*)) 20 mg PO BID [facility] Last Admin: 09/06/18 20:02 Dose: 20 mg Oxycodone HCl (Roxycodone Tab*) 5 mg PO Q4H PRN PRN Reason: PAIN Polyethylene Glycol/Electrolytes (Miralax*) 17 gm PO DAILY PRN PRN Reason: CONSTIPATION Prednisone (Deltasone Tab*) 7.5 mg PO DAILY [facility] Last Admin: 09/06/18 09:29 Dose: 7.5 mg Rifampin (Rifampin Cap*) 300 mg PO BID [facility] Last Admin: 09/06/18 20:04 Dose: 300 mg Sertraline HCl (Zoloft*) 75 mg PO BEDTIME [facility] Last Admin: 09/06/18 20:05 Dose: 75 mg Tiotropium [place] (Spiriva Cap.Inh*) 1 cap INH DAILY [facility] Last Admin: 09/07/18 08:21 Dose: 1 cap Triamcinolone Acetonide (Triamcinolone 0.5% Oint *) 1 applic TOPICAL BEDTIME PRN PRN Reason: PRURITIS Verapamil HCl (Calan Sr Tab*) 120 mg PO BID [facility] Last Admin: 09/06/18 20:03 Dose: 120 mg Home Medications: Home Medications Medication Instructions Recorded Confirmed Type Diclofenac 1% GEL (NF) [Voltaren 1 applic TOPICAL DAILY PRN 02/01/17 09/04/18 History 1% GEL (NF)] Azithromycin TAB* [Zithromax TAB 500 mg PO DAILY 06/14/17 09/04/18 History (Z-BRADLEY) 250 mg #6 tabs] Fluticasone/Vilanterol [Breo 1 each INH DAILY 08/26/17 09/04/18 History Ellipta 200-25 Mcg INH] Calcium Citrate/Vitamin D3 1 tab PO DAILY 04/23/18 09/04/18 History [Calcium Citrate - Vit D3 Tab] Cetirizine* [ZyrTEC 10 MG TAB*] 10 mg PO DAILY PRN 04/23/18 09/04/18 History Colchicine* [Colcrys*] 0.6 mg PO BID 04/23/18 09/04/18 History Ergocalciferol (Vitamin D2) 50,000 unit PO MONTHLY 04/23/18 09/04/18 History [Vitamin D2] Fluocinonide 0.05% CM(NF) [Lidex 1 applic TOPICAL BEDTIME PRN 04/23/18 09/04/18 History 0.05% CREAM(NF)] Fluticasone NASAL SPRAY 50MCG* 2 spray BOTH NARES DAILY 04/23/18 09/04/18 History [Flonase NASAL SPRAY 50MCG*] Ibuprofen TAB* [Advil TAB*] 400 mg PO BID PRN 04/23/18 09/04/18 History Multivit-Min/Iron/Folic/Lutein 1 tab PO DAILY 04/23/18 09/04/18 History [Centrum Silver Women Tablet] Polyethylene Glycol 3350* 17 gm PO DAILY PRN 04/23/18 09/04/18 History [Miralax*] RiFAMPin CAP* 300 mg PO BID 04/23/18 09/04/18 History Sertraline* [Zoloft*] 75 mg PO BEDTIME 04/23/18 09/04/18 History oxyCODONE SR TAB(*) [Oxycontin 20 20 mg PO BID MDD 40mg 04/23/18 09/04/18 History mg (*)] oxyCODONE TAB* [Roxycodone TAB 5 5 mg PO Q4H PRN MDD 30 mg 04/23/18 09/04/18 History mg*] predniSONE TAB* [Deltasone TAB*] 7.5 mg PO DAILY 05/21/18 09/04/18 History Acetaminophen TAB* [Tylenol TAB*] 650 mg PO Q4H PRN 08/25/18 09/04/18 History Levalbuterol 0.63MG/3ML NEB* 0.63 mg INH QID PRN 08/25/18 09/04/18 History [Xopenex 0.63MG/3ML NEB*] Lidocaine 5 % TOPICAL Q4HR PRN 08/25/18 09/04/18 History Magnesium Hydroxide LIQ* [Milk of 30 ml PO DAILY PRN 08/25/18 09/04/18 History Magnesia LIQ*] Nystatin SUSPENSION* [Nystatin*] 100,000 unit SWISH SWAL DAILY 08/25/18 History Petrolatum,White [Aquaphor] 41 % TOPICAL BEDTIME PRN 08/25/18 09/04/18 History Tiotropium CAP.INH* [Spiriva 1 cap.inh INH DAILY 08/25/18 09/04/18 History CAP.INH*] Acetaminophen TAB* [Tylenol TAB*] 650 mg PO Q6H PRN tab 09/01/18 09/04/18 Rx Clotrimazole 1% CREAM* 1 applic TOPICAL DAILY PRN tube 09/01/18 09/04/18 Rx [Clotrimazole 1%*] Tiotropium CAP.INH* [Spiriva 1 cap INH DAILY cap.inh 09/01/18 09/04/18 Rx CAP.INH*] Verapamil SR TAB* [Calan Sr TAB*] 120 mg PO BID #60 tab.sr 09/01/18 09/04/18 Rx Allergies: Allergies Allergy/AdvReac Type Severity Reaction Status Date / Time Iodinated Contrast- Oral and Allergy Severe Itching Verified 09/04/18 01:15 IV Dye cephalexin [From Keflex] Allergy Rash Verified 09/04/18 01:15 epinephrine AdvReac Severe Palpitation Verified 09/04/18 01:15 [From Xylocaine-Epinephrine] s lidocaine AdvReac Severe Palpitation Verified 09/04/18 01:15 [From Xylocaine-Epinephrine] s Objective - Vital Signs Vital Signs: Vital Signs 09/06/18 09/06/18 09/06/18 11:08 12:30 19:09 Temperature 98.7 F 98.1 F Pulse Rate 76 78 Respiratory 16 18 18 Rate Blood Pressure 107/50 105/49 (mmHg) O2 Sat by Pulse 93 96 Oximetry 09/06/18 09/06/18 09/06/18 20:00 20:02 21:02 Temperature Pulse Rate 126 Respiratory 18 18 Rate Blood Pressure 110/60 (mmHg) O2 Sat by Pulse 96 Oximetry 09/06/18 09/06/18 09/06/18 21:07 22:02 23:45 Temperature 98.7 F Pulse Rate 84 73 Respiratory 16 20 Rate Blood Pressure 115/57 (mmHg) O2 Sat by Pulse 91 Oximetry 09/07/18 09/07/18 09/07/18 03:02 04:23 07:17 Temperature 98.6 F 98.2 F 99.3 F Pulse Rate 74 79 78 Respiratory 16 20 20 Rate Blood Pressure 118/54 134/57 128/56 (mmHg) O2 Sat by Pulse 94 93 94 Oximetry 09/07/18 09/07/18 07:37 08:22 Temperature Pulse Rate 77 Respiratory 20 20 Rate Blood Pressure (mmHg) O2 Sat by Pulse 94 Oximetry - Intake and Output Intake and Output: Intake & Output 09/04/18 09/05/18 09/06/18 09/07/18 11:59 11:59 11:59 11:59 Intake Total 0 840 546 970 Balance 0 840 546 970 Weight 128 lb 6.4 oz Intake: IV Fluids 206 50 Magnesium 106 Meropenem 50 NS (0.9%) 100 IVPB 50 Meropenem 50 Oral 0 840 340 870 Other: Estimated Void Large # Voids 1 2 1 ADLs: Meal Record Start: 09/04/18 03: 31 Freq: DAILY@0900,1400,1800 Status: Active Protocol: Created 09/04/18 03:31 System (Rec: 09/04/18 03:31 System [email or web address]) Document 09/04/18 14:00 [id number] (Rec: 09/04/18 14:45 [id number]) Document 09/04/18 18:00 [id number] (Rec: 09/04/18 18:32 [id number] TELE-C10) Document 09/05/18 09:00 [id number] (Rec: 09/05/18 09:30 [id number] TELE-C10) Document 09/05/18 14:00 [id number] (Rec: 09/05/18 14:48 [id number] TELE-C10) Document 09/05/18 18:00 (Rec: 09/05/18 18:01 [id number] TELE-C13) Document 09/06/18 09:00 [id number] (Rec: 09/06/18 09:06 [id number] TELE-C08) Document 09/06/18 14:00 [id number] (Rec: 09/06/18 14:40 [id number] [email or web address]) Document 09/06/18 18:00 [id number] (Rec: 09/06/18 18:53 [id number]) Intake and Output Start: 09/04/18 00: 50 Freq: Status: Active Protocol: Created 09/04/18 00:50 System (Rec: 09/04/18 00:50 System [id number]) Intake and Output Start: 09/04/18 03: 31 Freq: DAILY@0600,1400,2200 Status: Active Protocol: Created 09/04/18 03:31 System (Rec: 09/04/18 03:31 System [email or web address]) Document 09/04/18 06:00 [id number] (Rec: 09/04/18 06:12 [id number] TELE-C34) Document 09/04/18 21:36 [id number] (Rec: 09/04/18 21:37 [id number] TELE-C10) Document 09/05/18 05:58 (Rec: 09/05/18 05:58 TELE-C32) Document 09/05/18 21:23 (Rec: 09/05/18 21:23 [id number]) Document 09/06/18 05:15 (Rec: 09/06/18 05:16 TELE-C11) Document 09/06/18 22:00 (Rec: 09/06/18 22:08 [id number]) Document 09/07/18 04:58 (Rec: 09/07/18 04:59 [id number]) - Physical Exam General Physical Exam Comment: She looks frail, chronically ill General: No Cyanosis, Yes Anemia, No Jaundice, No Clubbing Skin: Normal: Rash Lungs and Chest: Yes: Percussion Note Resonant, Crackles, Wheezes. No: Chest Expansion Full, Chest Expansion Symetrica, Vessicular Breath Sounds, Respiratory Distress, Use of Accessory Muscles Heart Rate and Rhythm: Regular Additional Cardiovascular: Yes: Normal Heart Sounds, Pedal Edema - trace. No: Heart Murmur Abdominal Exam: Yes: Soft, Bowel Sounds Present. No: Distention, Hepatomegaly, Abdominal Tenderness Results - Results Lab Results: Laboratory Results - last 24 hr 09/07/18 09/07/18 04:55 04:55 WBC 5.8 RBC 3.10 L Hgb 10.7 L Hct 32 L MCV 104 H MCH 35 H MCHC 33 RDW 16 H Plt Count 71 L MPV 9.9 Neut % (Auto) 51.9 Lymph % (Auto) 20.4 [place] % (Auto) 19.6 Eos % (Auto) 7.5 Baso % (Auto) 0.6 Absolute Neuts (auto) 3.0 Absolute Lymphs (auto) 1.2 Absolute Monos (auto) 1.1 H Absolute Eos (auto) 0.4 Absolute Basos (auto) 0.0 Absolute Nucleated RBC 0.0 Nucleated RBC % 0.1 Sodium 134 L Potassium 4.0 Chloride 101 Carbon Dioxide 28 Anion Gap 5 BUN 14 Creatinine 0.70 Est GFR ( Amer) 96.2 Est GFR (Non-Af Amer) 79.5 BUN/Creatinine Ratio 20.0 Glucose 81 Calcium 8.5 L Magnesium 1.7 L EKG Report: I reviewed the rhythm strip from telemetry - another narrow complex tachycardia with occasional sinus beats. Assessment - Problem List Assessment: Patient Problems Asthma (Acute) Mycobacterium avium complex (Acute) Pseudomonas pneumonia (Acute) Supraventricular tachycardia (Acute) Chronic pain (Chronic) History of right breast cancer (Chronic) Myelodysplastic syndrome (Chronic) Spinal stenosis (Chronic) Plan: Supraventricular tachycardia (Acute) She had another episode - Dr. Huerta is following this. Her magnesium was 1.7 - probably not a player, but I will give her a single tablet per day of maxox 400 mg/ Asthma (Acute) She has marked expiratory wheeze Pseudomonas pneumonia (Acute) her CRP climbed a little more. Her % neutrophils are not elevated. Hence there is some conflict between acute phase reactants. She will continue on anti-pseudomonal treatment as this is a difficult bacterium to eradicate. She is having a CT chest this morning Mycobacterium avium complex (Acute) ongoing, underlying lung pathology Chronic pain (Chronic) continue current Rx History of right breast cancer (Chronic) Myelodysplastic syndrome (Chronic) Spinal stenosis (Chronic) I discussed the above with the patient and she agrees with the management plan.
[2018-09-07] MEDS: VERAPAMIL 240 MG PO SCH ×2 (09:59→20:32)
[2018-09-07] MEDS: predniSONE TAB* 5 MG PO SCH (09:59)
[2018-09-07] MEDS: Azithromycin TAB* 250 MG PO SCH (09:59)
[2018-09-07] MEDS: Metoprolol Succinate XL TAB* 50 MG PO SCH ×2 (09:59→20:31)
[2018-09-07] MEDS: oxyCODONE SR TAB(*) 20 MG TAB.SR PO SCH ×2 (10:01→20:31)
[2018-09-07] MEDS: Colchicine* 0.6 MG TAB PO SCH ×2 (10:02→20:33)
[2018-09-07] MEDS: Calcium Citrate TAB* 200 MG PO SCH (10:02)
[2018-09-07] MEDS: RiFAMPin CAP* 300 MG CAP PO SCH ×2 (10:03→20:31)
[2018-09-07] MEDS: Fluticasone NASAL SPRAY 50MCG* 16 gm SPRAY BTL BOTH NARES SCH (10:03)
--- NOTE | 2018-09-07 11:17 | PN ---
Subjective Date of Service: 09/07/18 Interval History: f/u svt several more svt episodes noted not clearly symptomatic, mg 1.7 today conversant tolerating increased BB well Medications Active Medications: Acetaminophen (Tylenol Tab*) 650 mg PO Q6H PRN PRN Reason: FEVER/PAIN Azithromycin (Zithromax Tab*) 500 mg PO DAILY [facility] Last Admin: 09/07/18 09:59 Dose: 500 mg Calcium Citrate (Citracal Tab*) 200 mg PO DAILY [facility] Last Admin: 09/07/18 10:02 Dose: 200 mg Cetirizine HCl (Zyrtec*) 10 mg PO DAILY PRN PRN Reason: Allergy Symptoms Clotrimazole (Clotrimazole 1%*) 1 applic TOPICAL DAILY PRN PRN Reason: ITCHING Colchicine (Colcrys*) 0.6 mg PO BID [facility] Last Admin: 09/07/18 10:02 Dose: 0.6 mg Diclofenac Sodium (Voltaren 1% Gel (Nf)) 1 applic TOPICAL DAILY PRN; Protocol PRN Reason: PAIN Enoxaparin Sodium (Lovenox(*)) 40 mg SUBCUT Q24H [facility] Last Admin: 09/07/18 04:43 Dose: 40 mg Fluticasone Propionate (Flonase Nasal [place] 50mcg*) 2 spray BOTH NARES DAILY [facility] Last Admin: 09/07/18 10:03 Dose: 2 spray Fluticasone/Vilanterol (Breo Ellipta Mdi 200/25(Nf)) 1 puff INH DAILY [facility] Last Admin: 09/07/18 08:20 Dose: Not Given Meropenem (Merrem 1 Gm Premix(*)) 1 gm in 50 mls @ 100 mls/hr IV Q8H [facility] Last Admin: 09/07/18 10:11 Dose: 100 mls/hr Magnesium Sulfate 3 gm/ Sodium (Chloride) 106 mls @ 53 mls/hr IVPB ONCE ONE Stop: 09/07/18 13:12 Ibuprofen (Motrin Tab*) 400 mg PO BID PRN PRN Reason: PAIN Levalbuterol HCl (Xopenex 0.63mg/3ml Neb*) 0.63 mg INH QID PRN PRN Reason: SHORTNESS OF BREATH Last Admin: 09/07/18 10:40 Dose: 0.63 mg Lidocaine (Xylocaine 5% Oint*) 1 applic TOPICAL Q4HR PRN PRN Reason: PAIN Magnesium Hydroxide (Milk Of Magnesia Liq*) 30 ml PO DAILY PRN PRN Reason: CONSTIPATION Magnesium Oxide (Magox 400 Tab*) 400 mg PO DAILY [facility] Metoprolol Succinate (Toprol Xl Tab*) 50 mg PO BID [facility] Last Admin: 09/07/18 09:59 Dose: 50 mg Oxycodone HCl (Oxycontin(*)) 20 mg PO BID [facility] Last Admin: 09/07/18 10:01 Dose: 20 mg Oxycodone HCl (Roxycodone Tab*) 5 mg PO Q4H PRN PRN Reason: PAIN Polyethylene Glycol/Electrolytes (Miralax*) 17 gm PO DAILY PRN PRN Reason: CONSTIPATION Prednisone (Deltasone Tab*) 7.5 mg PO DAILY [facility] Last Admin: 09/07/18 09:59 Dose: 7.5 mg Rifampin (Rifampin Cap*) 300 mg PO BID [facility] Last Admin: 09/07/18 10:03 Dose: 300 mg Sertraline HCl (Zoloft*) 75 mg PO BEDTIME [facility] Last Admin: 09/06/18 20:05 Dose: 75 mg Tiotropium [place] (Spiriva Cap.Inh*) 1 cap INH DAILY [facility] Last Admin: 09/07/18 08:21 Dose: 1 cap Triamcinolone Acetonide (Triamcinolone 0.5% Oint *) 1 applic TOPICAL BEDTIME PRN PRN Reason: PRURITIS Verapamil HCl (Calan Sr Tab*) 120 mg PO BID [facility] Last Admin: 09/07/18 09:59 Dose: 120 mg Objective Vital Signs: Temp Pulse Resp BP Pulse Ox 99.3 F 76 18 128/56 97 09/07/18 07:17 09/07/18 10:40 09/07/18 10:40 09/07/18 07:17 09/07/18 10:40 Oxygen Devices in Use Now: Nasal Cannula Appearance: nad, pleasant Ears/Nose/Mouth/Throat: NL Teeth, Lips, Gums, Clear Oropharnyx Neck: NL Appearance and Movements; NL JVP, Trachea Midline Respiratory: Symmetrical Chest Expansion and Respiratory Effort, - Cardiovascular: RRR, - Abdominal: NL Sounds; No Tenderness; No Distention Extremities: No Clubbing, Cyanosis Skin: No Rash or Ulcers Neurological: Alert and Oriented x 3 Laboratory Results: 09/07/18 04:55 09/07/18 04:55 INR (Anticoag Therapy) 1.06 (0.82-1.09) 09/04/18 01:16 APTT 39.8 seconds (26.0-36.3) H 09/04/18 01:16 Total Bilirubin 0.80 mg/dL (0.2-1.0) 09/04/18 01:16 AST 15 U/L (13-39) 09/04/18 01:16 ALT 21 U/L (7-52) 09/04/18 01:16 Alkaline Phosphatase 78 U/L (34-104) 09/04/18 01:16 Total Protein 5.5 g/dL (6.4-8.9) L 09/04/18 01:16 Albumin 3.2 g/dL (3.2-5.2) 09/04/18 01:16 Globulin 2.3 g/dL (2-4) 09/04/18 01:16 Albumin/Globulin Ratio 1.4 (1-3) 09/04/18 01:16 TSH 3.47 mcIU/mL (0.34-5.60) 09/04/18 01:16 09/04/18 01:16 Troponin I 0.01 Diagnostic Imaging: Study Date: 08/26/2018 Conclusions Summary: 1. Left ventricle: Systolic function is normal. The estimated ejection fraction is 55-60%. Wall motion is normal; there are no regional wall motion abnormalities. 2. Right ventricle: Systolic function is normal. 3. Mitral valve: There is trace to mild regurgitation. 4. Aortic valve: There is trace to mild regurgitation. 5. Tricuspid valve: There is trace to mild regurgitation. 6. Pericardium, extracardiac: There is no pericardial effusion. Exam Date: 09/07/[address] CHEST W/O Indication: Recurrent pneumonia. IMPRESSION: Areas of peribronchial thickening in the right middle lobe and right lower lobe with patchy areas of airspace disease likely representing pneumonia in the left lower lobe. Groundglass opacity in the left upper lobe with suggestion of a 8 mm nodule with a small focus of air. This may also represent peribronchial thickening and inflammatory changes. Follow-up exam is suggested. Likely mucus plugging from bronchiectasis should be considered. EKG Data: COMPARISONS: September 04, 2018 VIEWS: 4: Frontal dual-energy and lateral views of the chest. IMPRESSION: COPD WITH PATCHY LEFT LOWER LOBE ATELECTASIS VERSUS CONSOLIDATION baseline ekg nsr, normal ekg Assessment/Plan I reviewed all of her arrhythmia ekg's. There are varying RP and RR intervals between them. 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 She is already on verapamil. She is tolerating the addition of toprol 50 mg po bid well. Will replace magnesium IV 3 grams ( ordered today) Would continue focused treatment of underlying pulmonary process.
[2018-09-07] MEDS ORDERED: Magnesium Sulfate IV* 3 GM in NS 0.9% 100 ML* 100 ML IVPB ONE (11:30)
[2018-09-07] MEDS: Sertraline* 25 MG TAB PO SCH (20:32)
[2018-09-07] MEDS: Polyethylene Glycol 3350* 17 GM PACKET PO PRN (21:40)
[2018-09-08] MEDS: Meropenem 1 GM PREMIX(*) 1 GM/50 ML BAG IV SCH ×3 (03:01→17:42)
[2018-09-08] MEDS: Enoxaparin(*) 40 MG/0.4 ML SYR SUBCUT SCH (05:07)
[2018-09-08] MEDS ORDERED: Diltiazem IV push/loading dose 5 MG/ML 5 ML vial (25 mg) IV SLOW PU ONE ×2 (05:45→17:20)
[2018-09-08 06:54] LABS: ABS Basophils 0.1 10^3/ul (0-0.2); ABS Eosinophils 0.3 10^3/ul (0-0.6); ABS Lymphocytes 1.2 10^3/ul (1.0-4.8); ABS Monocytes 1.1 10^3/ul (0-0.8); ABS Neutrophils 2.6 10^3/ul (1.5-7.7); Eosinophil % 6.3 %; Hematocrit 32 % (35-47); Lymphocyte % 22.2 %; Mean Corpuscular HGB Conc 34 g/dL (31-36); Mean Corpuscular Hemoglobin 36 pg (27-31); Mean Corpuscular Volume 105 fL (80-97); Nucleated Red Blood Cells % 0.1; Platelet Count 70 10^3/uL (150-450); Red Blood Count 3.03 10^6 /uL (3.70-4.87); Red Cell Distribution Width 16 % (10.5-15); White Blood Count 5.3 10^3/uL (3.5-10.8)
[2018-09-08 07:05] LABS: BUN/Creatinine Ratio 24.6 (8-20); C Reactive Protein 56.93 mg/L (<8.01); Calcium 8.5 mg/dL (8.6-10.3); EGFR African American 104.8 (>60); EGFR Non-African American 86.6 (>60); Potassium 4.1 mmol/L (3.5-5.0)
[2018-09-08] MEDS: Fluticasone/Vilanterol MDI(NF) 200/25 MDI INH SCH (07:55)
[2018-09-08] MEDS: Tiotropium CAP.INH* CAP.INH/18 MCG (USE ORDER SET !) INH SCH (07:56)
[2018-09-08] MEDS: oxyCODONE SR TAB(*) 20 MG TAB.SR PO SCH ×2 (08:55→20:50)
[2018-09-08] MEDS: Colchicine* 0.6 MG TAB PO SCH ×2 (08:55→20:49)
[2018-09-08] MEDS: Calcium Citrate TAB* 200 MG PO SCH (08:55)
[2018-09-08] MEDS: Magnesium Oxide TAB* 400 MG PO SCH (08:55)
[2018-09-08] MEDS: RiFAMPin CAP* 300 MG CAP PO SCH ×2 (08:55→20:54)
[2018-09-08] MEDS: predniSONE TAB* 5 MG PO SCH (08:55)
[2018-09-08] MEDS: Fluticasone NASAL SPRAY 50MCG* 16 gm SPRAY BTL BOTH NARES SCH (08:55)
[2018-09-08] MEDS: Azithromycin TAB* 250 MG PO SCH (08:55)
--- NOTE | 2018-09-08 10:17 | PN ---
Subjective Date of Service: 09/08/18 Interval History: f/u svt 1 hour symptomatic SVT this AM, varying response to vagal maneuvers overall still coughing Medications Active Medications: Acetaminophen (Tylenol Tab*) 650 mg PO Q6H PRN PRN Reason: FEVER/PAIN Azithromycin (Zithromax Tab*) 500 mg PO DAILY [facility] Last Admin: 09/08/18 08:55 Dose: 500 mg Calcium Citrate (Citracal Tab*) 200 mg PO DAILY [facility] Last Admin: 09/08/18 08:55 Dose: 200 mg Cetirizine HCl (Zyrtec*) 10 mg PO DAILY PRN PRN Reason: Allergy Symptoms Clotrimazole (Clotrimazole 1%*) 1 applic TOPICAL DAILY PRN PRN Reason: ITCHING Colchicine (Colcrys*) 0.6 mg PO BID [facility] Last Admin: 09/08/18 08:55 Dose: 0.6 mg Diclofenac Sodium (Voltaren 1% Gel (Nf)) 1 applic TOPICAL DAILY PRN; Protocol PRN Reason: PAIN Enoxaparin Sodium (Lovenox(*)) 40 mg SUBCUT Q24H [facility] Last Admin: 09/08/18 05:07 Dose: 40 mg Fluticasone Propionate (Flonase Nasal [place] 50mcg*) 2 spray BOTH NARES DAILY [facility] Last Admin: 09/08/18 08:55 Dose: 2 spray Fluticasone/Vilanterol (Breo Ellipta Mdi 200/25(Nf)) 1 puff INH DAILY [facility] Last Admin: 09/08/18 07:55 Dose: Not Given Meropenem (Merrem 1 Gm Premix(*)) 1 gm in 50 mls @ 100 mls/hr IV Q8H [facility] Last Admin: 09/08/18 03:01 Dose: 100 mls/hr Ibuprofen (Motrin Tab*) 400 mg PO BID PRN PRN Reason: PAIN Levalbuterol HCl (Xopenex 0.63mg/3ml Neb*) 0.63 mg INH QID PRN PRN Reason: SHORTNESS OF BREATH Last Admin: 09/07/18 10:40 Dose: 0.63 mg Lidocaine (Xylocaine 5% Oint*) 1 applic TOPICAL Q4HR PRN PRN Reason: PAIN Magnesium Hydroxide (Milk Of Magnesia Liq*) 30 ml PO DAILY PRN PRN Reason: CONSTIPATION Magnesium Oxide (Magox 400 Tab*) 400 mg PO DAILY [facility] Last Admin: 09/08/18 08:55 Dose: 400 mg Metoprolol Succinate (Toprol Xl Tab*) 50 mg PO BID [facility] Last Admin: 09/07/18 20:31 Dose: 50 mg Oxycodone HCl (Oxycontin(*)) 20 mg PO BID [facility] Last Admin: 09/08/18 08:55 Dose: 20 mg Oxycodone HCl (Roxycodone Tab*) 5 mg PO Q4H PRN PRN Reason: PAIN Polyethylene Glycol/Electrolytes (Miralax*) 17 gm PO DAILY PRN PRN Reason: CONSTIPATION Last Admin: 09/07/18 21:40 Dose: 17 gm Prednisone (Deltasone Tab*) 7.5 mg PO DAILY [facility] Last Admin: 09/08/18 08:55 Dose: 7.5 mg Rifampin (Rifampin Cap*) 300 mg PO BID [facility] Last Admin: 09/08/18 08:55 Dose: 300 mg Sertraline HCl (Zoloft*) 75 mg PO BEDTIME [facility] Last Admin: 09/07/18 20:32 Dose: 75 mg Tiotropium [place] (Spiriva Cap.Inh*) 1 cap INH DAILY [facility] Last Admin: 09/08/18 07:56 Dose: 1 cap Triamcinolone Acetonide (Triamcinolone 0.5% Oint *) 1 applic TOPICAL BEDTIME PRN PRN Reason: PRURITIS Verapamil HCl (Calan Sr Cap*) 180 mg PO BID [facility] Objective Vital Signs: Temp Pulse Resp BP Pulse Ox 98.4 F 76 18 96/45 93 09/08/18 07:33 09/08/18 07:57 09/08/18 08:55 09/08/18 07:33 09/08/18 07:57 Oxygen Devices in Use Now: None Appearance: nad, pleasant Ears/Nose/Mouth/Throat: NL Teeth, Lips, Gums, Clear Oropharnyx Neck: NL Appearance and Movements; NL JVP, Trachea Midline Respiratory: Symmetrical Chest Expansion and Respiratory Effort, - Cardiovascular: RRR, - Abdominal: NL Sounds; No Tenderness; No Distention Extremities: No Clubbing, Cyanosis Skin: No Rash or Ulcers Neurological: Alert and Oriented x 3 Laboratory Results: 09/08/18 05:31 09/08/18 05:31 INR (Anticoag Therapy) 1.06 (0.82-1.09) 09/04/18 01:16 APTT 39.8 seconds (26.0-36.3) H 09/04/18 01:16 Total Bilirubin 0.80 mg/dL (0.2-1.0) 09/04/18 01:16 AST 15 U/L (13-39) 09/04/18 01:16 ALT 21 U/L (7-52) 09/04/18 01:16 Alkaline Phosphatase 78 U/L (34-104) 09/04/18 01:16 Total Protein 5.5 g/dL (6.4-8.9) L 09/04/18 01:16 Albumin 3.2 g/dL (3.2-5.2) 09/04/18 01:16 Globulin 2.3 g/dL (2-4) 09/04/18 01:16 Albumin/Globulin Ratio 1.4 (1-3) 09/04/18 01:16 TSH 3.47 mcIU/mL (0.34-5.60) 09/04/18 01:16 09/04/18 01:16 Troponin I 0.01 Diagnostic Imaging: Study Date: 08/26/2018 Conclusions Summary: 1. Left ventricle: Systolic function is normal. The estimated ejection fraction is 55-60%. Wall motion is normal; there are no regional wall motion abnormalities. 2. Right ventricle: Systolic function is normal. 3. Mitral valve: There is trace to mild regurgitation. 4. Aortic valve: There is trace to mild regurgitation. 5. Tricuspid valve: There is trace to mild regurgitation. 6. Pericardium, extracardiac: There is no pericardial effusion. Exam Date: 09/07/[address] CHEST W/O Indication: Recurrent pneumonia. IMPRESSION: Areas of peribronchial thickening in the right middle lobe and right lower lobe with patchy areas of airspace disease likely representing pneumonia in the left lower lobe. Groundglass opacity in the left upper lobe with suggestion of a 8 mm nodule with a small focus of air. This may also represent peribronchial thickening and inflammatory changes. Follow-up exam is suggested. Likely mucus plugging from bronchiectasis should be considered. EKG Data: COMPARISONS: September 04, 2018 VIEWS: 4: Frontal dual-energy and lateral views of the chest. IMPRESSION: COPD WITH PATCHY LEFT LOWER LOBE ATELECTASIS VERSUS CONSOLIDATION baseline ekg nsr, normal ekg Assessment/Plan I reviewed all of her arrhythmia ekg's. There are varying RP and RR intervals between them. 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 She is tolerating the addition of toprol 50 mg po bid well. Will increase verapamil long acting from 120 to 180 mg po bid (ordered). Keep electrolytes replaced. Would continue focused treatment of underlying pulmonary process. Next step would amiodarone or a non urgent catheter ablation. Seen and discussed with Dr. Cinthya Weber
[2018-09-08] MEDS: Verapamil SR CAP* 180 MG PO SCH ×2 (10:58→20:51)
[2018-09-08] MEDS: Metoprolol Succinate XL TAB* 50 MG PO SCH ×2 (12:25→20:49)
[2018-09-08] MEDS: Sertraline* 25 MG TAB PO SCH (20:51)
[2018-09-09] MEDS: Meropenem 1 GM PREMIX(*) 1 GM/50 ML BAG IV SCH ×3 (02:17→17:09)
[2018-09-09] MEDS: Metoprolol Succinate XL TAB* 50 MG PO SCH ×2 (05:13→21:13)
[2018-09-09] MEDS: Enoxaparin(*) 40 MG/0.4 ML SYR SUBCUT SCH (05:58)
[2018-09-09] MEDS: Verapamil SR CAP* 180 MG PO SCH ×2 (06:59→21:14)
[2018-09-09] MEDS: Tiotropium CAP.INH* CAP.INH/18 MCG (USE ORDER SET !) INH SCH (07:22)
[2018-09-09] MEDS: Fluticasone/Vilanterol MDI(NF) 200/25 MDI INH SCH (07:23)
[2018-09-09] MEDS: Fluticasone NASAL SPRAY 50MCG* 16 gm SPRAY BTL BOTH NARES SCH (08:53)
[2018-09-09] MEDS: Azithromycin TAB* 250 MG PO SCH (08:54)
[2018-09-09] MEDS: RiFAMPin CAP* 300 MG CAP PO SCH ×2 (08:54→21:14)
[2018-09-09] MEDS: oxyCODONE SR TAB(*) 20 MG TAB.SR PO SCH ×2 (08:54→21:13)
[2018-09-09] MEDS: Magnesium Oxide TAB* 400 MG PO SCH (08:54)
[2018-09-09] MEDS: Calcium Citrate TAB* 200 MG PO SCH (08:54)
[2018-09-09] MEDS: predniSONE TAB* 5 MG PO SCH (08:54)
[2018-09-09] MEDS: Colchicine* 0.6 MG TAB PO SCH ×2 (08:55→21:13)
[2018-09-09] MEDS ORDERED: Magnesium Sulfate IV* 3 GM in NS 0.9% 100 ML* 100 ML IVPB ONE (12:00)
--- NOTE | 2018-09-09 13:54 | PN ---
Progress Note - Progress Note Date of Service: 09/09/18 SOAP: Subjective: CC: cough HPI: 83 year old woman with COPD and recent treatment for pneumonia admitted with fatigue and worsening cough. Today feels cough is better, still very tired. No shortness of breath at rest. Appetite fair, no abd pain or diarrhea. Objective: Vital Signs Temp 36.6 C 09/09/18 11:12 Pulse 76 09/09/18 11:12 Resp 18 09/09/18 11:12 BP 93/44 09/09/18 11:12 Pulse Ox 94 09/09/18 11:12 Intake & Output 09/08/18 09/09/18 09/09/18 18:59 06:59 18:59 Intake Total 1365 70 125 Balance 1365 70 125 Intake: IV Fluids 15 20 Meropenem 15 20 IVPB 50 50 Meropenem 50 50 Oral 1300 0 125 Other: Estimated Void Medium # Voids 1 Gen:awake, no distress HEENT: no thrush Heart:RRR no murmur Lungs:Decr BS at bases, distant breath sounds, no wheeze Abd:+BS NTND soft Skin: no rash Microbiology 09/05/18 10:45 Sputum Gram Stain - Final 09/05/18 10:45 Sputum Sputum Culture - Final Pseudomonas Aeruginosa Normal [place] CT scattered infiltrate left base Assessment: 1. Pneumonia, stable. Pseudomonas in sputum which may be pathogen or colonization. 2. 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 meropenem 1gm IV Q8hrs day 4/10 w weekly cbc, cmp, crp
[2018-09-09] MEDS: Sertraline* 25 MG TAB PO SCH (21:14)
[2018-09-10] MEDS: Diltiazem IV push/loading dose 5 MG/ML 5 ML vial (25 mg) IV SLOW PU PRN (00:19)
[2018-09-10] MEDS: Meropenem 1 GM PREMIX(*) 1 GM/50 ML BAG IV SCH ×3 (03:04→17:21)
[2018-09-10] MEDS: Enoxaparin(*) 40 MG/0.4 ML SYR SUBCUT SCH (04:21)
[2018-09-10 04:51] LABS: C Reactive Protein 33.75 mg/L (<8.01); Calcium 8.2 mg/dL (8.6-10.3); EGFR African American 90.3 (>60); EGFR Non-African American 74.6 (>60); Magnesium 2.1 mg/dL (1.9-2.7); Potassium 4.5 mmol/L (3.5-5.0)
[2018-09-10 05:11] LABS: ABS Eosinophils 0.5 10^3/ul (0-0.6); ABS Lymphocytes 1.4 10^3/ul (1.0-4.8); ABS Monocytes 1.1 10^3/ul (0-0.8); ABS Neutrophils 2.4 10^3/ul (1.5-7.7); Eosinophil % 10.1 %; Hematocrit 31 % (35-47); Hemoglobin 10.6 g/dL (12.0-16.0); Lymphocyte % 25.4 %; Mean Corpuscular HGB Conc 34 g/dL (31-36); Mean Corpuscular Hemoglobin 35 pg (27-31); Mean Corpuscular Volume 103 fL (80-97); Mean Platelet Volume 10.6 fL (7.4-10.4); Nucleated Red Blood Cells % 0.1; Platelet Count 75 10^3/uL (150-450); Red Blood Count 3.03 10^6 /uL (3.70-4.87); Red Cell Distribution Width 16 % (10.5-15); White Blood Count 5.4 10^3/uL (3.5-10.8)
[2018-09-10] MEDS: predniSONE TAB* 5 MG PO SCH (08:43)
[2018-09-10] MEDS: Colchicine* 0.6 MG TAB PO SCH ×2 (08:43→21:12)
[2018-09-10] MEDS: Magnesium Oxide TAB* 400 MG PO SCH ×2 (08:43→21:11)
[2018-09-10] MEDS: Verapamil SR CAP* 180 MG PO SCH ×2 (08:43→21:11)
[2018-09-10] MEDS: Calcium Citrate TAB* 200 MG PO SCH (08:43)
[2018-09-10] MEDS: oxyCODONE SR TAB(*) 20 MG TAB.SR PO SCH ×2 (08:43→21:12)
[2018-09-10] MEDS: RiFAMPin CAP* 300 MG CAP PO SCH ×2 (08:43→21:11)
[2018-09-10] MEDS: Metoprolol Succinate XL TAB* 50 MG PO SCH ×2 (08:44→21:11)
[2018-09-10] MEDS: Fluticasone/Vilanterol MDI(NF) 200/25 MDI INH SCH (08:44)
[2018-09-10] MEDS: Azithromycin TAB* 250 MG PO SCH (08:44)
[2018-09-10] MEDS: Fluticasone NASAL SPRAY 50MCG* 16 gm SPRAY BTL BOTH NARES SCH (08:46)
--- NOTE | 2018-09-10 10:29 | PN ---
Progress Note - Progress Note Date of Service: 09/10/18 SOAP: Subjective: CC: Cough and shortness of breath HPI: Ms. Blas is an 83 yo female with PMH significant for asthma, pulmonary MAC, chronic eosinophilia, myelodysplastic syndrome, spinal stenosis, allergic rhinitis, depression and GERD. Denies fever, chills, ABD pain, N/V/D. Reports continued intermittent shortness of breath (at rest, with talking and eating), non productive cough, and fatigue. Also reports a poor appetite, but states this is worse than her baseline decreased appetite. Objective: Vital Signs - 8 hr 09/10/18 09/10/18 09/10/18 03:37 07:37 07:54 Temperature 97.7 F 98.5 F Pulse Rate 67 71 Respiratory 18 16 19 Rate Blood Pressure 98/48 105/47 (mmHg) O2 Sat by Pulse 98 94 Oximetry Physical Exam: General: NAD, sitting up in a chair Neurological: Alert and Oriented x4 HEENT: No thrush, moist MM Cardiovascular: Heart rate regular Respiratory: Lung sounds clear, diminished in the bases Abdominal: Bowel sounds present; ABD soft, non tender and non distended Skin: No rash Laboratory Results - last 24 hr 09/10/18 09/10/18 04:20 04:20 WBC 5.4 RBC 3.03 L Hgb 10.6 L Hct 31 L MCV 103 H MCH 35 H MCHC 34 RDW 16 H Plt Count 75 L MPV 10.6 H Neut % (Auto) 44.5 Lymph % (Auto) 25.4 Karnes % (Auto) 19.6 Eos % (Auto) 10.1 Baso % (Auto) 0.4 Absolute Neuts (auto) 2.4 Absolute Lymphs (auto) 1.4 Absolute Monos (auto) 1.1 H Absolute Eos (auto) 0.5 Absolute Basos (auto) 0.0 Absolute Nucleated RBC 0.0 Nucleated RBC % 0.1 Sodium 134 L Potassium 4.5 Chloride 102 Carbon Dioxide 28 Anion Gap 4 BUN 17 Creatinine 0.74 Est GFR ( Amer) 90.3 Est GFR (Non-Af Amer) 74.6 BUN/Creatinine Ratio 23.0 H Glucose 84 Calcium 8.2 L Magnesium 2.1 C-Reactive Protein 33.75 H Microbiology 09/05/18 10:45 Gram Stain - Final Sputum Sputum Culture - Final Pseudomonas Aeruginosa Normal [place] Assessment: 1. Pneumonia. Sputum with pseudomonas, this may represent a pathogen or colonization. Afebrile and no leukocytosis. Has been able to be weaned off supplemental oxygen. 2. COPD. 3. 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 Will need weekly CBC, CMP, and CRP while on IV ABX. PICC line has been placed.
[2018-09-10] MEDS: Tiotropium CAP.INH* CAP.INH/18 MCG (USE ORDER SET !) INH SCH (11:05)
[2018-09-10] MEDS: Sertraline* 25 MG TAB PO SCH (21:11)
[2018-09-10] MEDS: Polyethylene Glycol 3350* 17 GM PACKET PO PRN (21:20)
[2018-09-11] MEDS: Meropenem 1 GM PREMIX(*) 1 GM/50 ML BAG IV SCH ×3 (02:19→17:14)
[2018-09-11] MEDS ORDERED: Diltiazem IV push/loading dose 5 MG/ML 5 ML vial (25 mg) ONE (04:44)
[2018-09-11] MEDS: Diltiazem IV push/loading dose 5 MG/ML 5 ML vial (25 mg) IV SLOW PU PRN ×3 (04:53→17:14)
[2018-09-11] MEDS: Enoxaparin(*) 40 MG/0.4 ML SYR SUBCUT SCH (04:54)
[2018-09-11] MEDS ORDERED: Diltiazem IV VIAL* 5 MG/ML 10 ML VIAL IV ONE (06:00)
[2018-09-11] MEDS ORDERED: Diltiazem IV push/loading dose 5 MG/ML 5 ML vial (25 mg) IV PUSH ONE (08:00)
[2018-09-11] MEDS: Tiotropium CAP.INH* CAP.INH/18 MCG (USE ORDER SET !) INH SCH (08:22)
[2018-09-11] MEDS: Fluticasone/Vilanterol MDI(NF) 200/25 MDI INH SCH (08:25)
[2018-09-11] MEDS: Fluticasone NASAL SPRAY 50MCG* 16 gm SPRAY BTL BOTH NARES SCH (10:03)
[2018-09-11] MEDS: Azithromycin TAB* 250 MG PO SCH (10:06)
[2018-09-11] MEDS: predniSONE TAB* 5 MG PO SCH (10:07)
[2018-09-11] MEDS: RiFAMPin CAP* 300 MG CAP PO SCH ×2 (10:08→21:00)
[2018-09-11] MEDS: Calcium Citrate TAB* 200 MG PO SCH (10:08)
[2018-09-11] MEDS: Verapamil SR CAP* 180 MG PO SCH ×2 (10:09→20:56)
[2018-09-11] MEDS: Metoprolol Succinate XL TAB* 50 MG PO SCH ×2 (10:09→20:56)
[2018-09-11] MEDS: Colchicine* 0.6 MG TAB PO SCH ×2 (10:09→21:00)
[2018-09-11] MEDS: Magnesium Oxide TAB* 400 MG PO SCH ×2 (10:09→20:57)
[2018-09-11] MEDS ORDERED: oxyCODONE TAB* 5 MG TAB PO PRN (11:48)
[2018-09-11] MEDS: Amiodarone TAB* 200 MG PO SCH ×2 (12:39→20:58)
[2018-09-11] MEDS: Sertraline* 25 MG TAB PO SCH (20:57)
[2018-09-11] MEDS: oxyCODONE SR TAB(*) 20 MG TAB.SR PO SCH (20:58)
[2018-09-11] MEDS ORDERED: Amiodarone TAB* 200 MG PO SCH (21:00)
[2018-09-12] MEDS: Meropenem 1 GM PREMIX(*) 1 GM/50 ML BAG IV SCH ×3 (01:58→17:04)
[2018-09-12] MEDS: Enoxaparin(*) 40 MG/0.4 ML SYR SUBCUT SCH (03:50)
[2018-09-12 06:08] LABS: Albumin 3.1 g/dL (3.2-5.2); Albumin/Globulin Ratio 1.2 (1-3); BUN/Creatinine Ratio 26.1 (8-20); C Reactive Protein 26.04 mg/L (<8.01); Calcium 8.6 mg/dL (8.6-10.3); EGFR African American 97.8 (>60); EGFR Non-African American 80.9 (>60); Globulin 2.6 g/dL (2-4); Magnesium 2.1 mg/dL (1.9-2.7); Potassium 4.5 mmol/L (3.5-5.0); Total Bilirubin 0.6 mg/dL (0.2-1.0); Total Protein 5.7 g/dL (6.4-8.9)
[2018-09-12] MEDS: Metoprolol Succinate XL TAB* 50 MG PO SCH ×2 (08:15→21:14)
[2018-09-12] MEDS: Calcium Citrate TAB* 200 MG PO SCH (08:15)
[2018-09-12] MEDS: predniSONE TAB* 5 MG PO SCH (08:15)
[2018-09-12] MEDS: Amiodarone TAB* 200 MG PO SCH ×2 (08:15→21:02)
[2018-09-12] MEDS: Magnesium Oxide TAB* 400 MG PO SCH ×2 (08:15→21:03)
[2018-09-12] MEDS: Azithromycin TAB* 250 MG PO SCH (08:15)
[2018-09-12] MEDS: Verapamil SR CAP* 180 MG PO SCH (08:15)
[2018-09-12] MEDS: RiFAMPin CAP* 300 MG CAP PO SCH ×2 (08:15→21:01)
[2018-09-12] MEDS: Fluticasone NASAL SPRAY 50MCG* 16 gm SPRAY BTL BOTH NARES SCH (08:16)
[2018-09-12] MEDS: oxyCODONE SR TAB(*) 20 MG TAB.SR PO SCH ×2 (08:16→21:02)
[2018-09-12] MEDS: Colchicine* 0.6 MG TAB PO SCH ×2 (08:16→21:13)
[2018-09-12] MEDS: Tiotropium CAP.INH* CAP.INH/18 MCG (USE ORDER SET !) INH SCH (09:12)
[2018-09-12] MEDS: Fluticasone/Vilanterol MDI(NF) 200/25 MDI INH SCH (10:05)
--- NOTE | 2018-09-12 15:28 | PN ---
Subjective Date of Service: 09/12/18 Interval History: Patient is feeling well today. No palpitations, no CP, minimal SOB. Patient has intermittent cough, with intermittent sputum production. Patient denies F/C, N/V , abdominal pain, dysuria, or lightheadedness. Family History: Unchanged from Admission Social History: Unchanged from Admission Past Medical History: Unchanged from Admission Objective Active Medications: Acetaminophen (Tylenol Tab*) 650 mg PO Q6H PRN PRN Reason: FEVER/PAIN Last Admin: 09/09/18 21:14 Dose: 650 mg Amiodarone HCl (Cordarone Tab*) 200 mg PO BID [facility] Last Admin: 09/12/18 08:15 Dose: 200 mg Azithromycin (Zithromax Tab*) 500 mg PO DAILY [facility] Last Admin: 09/12/18 08:15 Dose: 500 mg Calcium Citrate (Citracal Tab*) 200 mg PO DAILY [facility] Last Admin: 09/12/18 08:15 Dose: 200 mg Cetirizine HCl (Zyrtec*) 10 mg PO DAILY PRN PRN Reason: Allergy Symptoms Clotrimazole (Clotrimazole 1%*) 1 applic TOPICAL DAILY PRN PRN Reason: ITCHING Colchicine (Colcrys*) 0.6 mg PO BID [facility] Last Admin: 09/12/18 08:16 Dose: 0.6 mg Diclofenac Sodium (Voltaren 1% Gel (Nf)) 1 applic TOPICAL DAILY PRN; Protocol PRN Reason: PAIN Diltiazem HCl (Diltiazem Iv Push/Loading Dose) 10 mg IV SLOW PU Q6H PRN PRN Reason: SVT AND HR > 120 Last Admin: 09/11/18 17:14 Dose: 10 mg Enoxaparin Sodium (Lovenox(*)) 40 mg SUBCUT Q24H [facility] Last Admin: 09/12/18 03:50 Dose: 40 mg Fluticasone Propionate (Flonase Nasal [place] 50mcg*) 2 spray BOTH NARES DAILY [facility] Last Admin: 09/12/18 08:16 Dose: 2 spray Fluticasone/Vilanterol (Breo Ellipta Mdi 200/25(Nf)) 1 puff INH DAILY [facility] Last Admin: 09/12/18 10:05 Dose: Not Given Heparin Sodium (Porcine) (Heparin Flush Picc/Ml/Cvc(*)) 1 - 3 ml FLUSH 0600, 1800 [facility]; Protocol Last Admin: 09/12/18 05:33 Dose: 2 ml Meropenem (Merrem 1 Gm Premix(*)) 1 gm in 50 mls @ 100 mls/hr IV Q8H [facility] Last Admin: 09/12/18 10:07 Dose: 100 mls/hr Ibuprofen (Motrin Tab*) 400 mg PO BID PRN PRN Reason: PAIN Levalbuterol HCl (Xopenex 0.63mg/3ml Neb*) 0.63 mg INH QID PRN PRN Reason: SHORTNESS OF BREATH Last Admin: 09/07/18 10:40 Dose: 0.63 mg Lidocaine (Xylocaine 5% Oint*) 1 applic TOPICAL Q4HR PRN PRN Reason: PAIN Magnesium Hydroxide (Milk Of Magnesia Liq*) 30 ml PO DAILY PRN PRN Reason: CONSTIPATION Magnesium Oxide (Magox 400 Tab*) 400 mg PO BID [facility] Last Admin: 09/12/18 08:15 Dose: 400 mg Metoprolol Succinate (Toprol Xl Tab*) 25 mg PO BID [facility] Last Admin: 09/12/18 08:15 Dose: 25 mg Nystatin (Nystatin Suspension*) 200,000 units PO QID [facility] Oxycodone HCl (Roxycodone Tab*) 5 mg PO Q4H PRN PRN Reason: PAIN Oxycodone HCl (Oxycontin(*)) 20 mg PO Q12HR [facility] Last Admin: 09/12/18 08:16 Dose: 20 mg Polyethylene Glycol/Electrolytes (Miralax*) 17 gm PO DAILY PRN PRN Reason: CONSTIPATION Last Admin: 09/10/18 21:20 Dose: 17 gm Prednisone (Deltasone Tab*) 7.5 mg PO DAILY [facility] Last Admin: 09/12/18 08:15 Dose: 7.5 mg Rifampin (Rifampin Cap*) 300 mg PO BID [facility] Last Admin: 09/12/18 08:15 Dose: 300 mg Sertraline HCl (Zoloft*) 75 mg PO BEDTIME [facility] Last Admin: 09/11/18 20:57 Dose: 75 mg Tiotropium [place] (Spiriva Cap.Inh*) 1 cap INH DAILY [facility] Last Admin: 09/12/18 09:12 Dose: 1 cap Triamcinolone Acetonide (Triamcinolone 0.5% Oint *) 1 applic TOPICAL BEDTIME PRN PRN Reason: PRURITIS Verapamil HCl (Calan Sr Cap*) 120 mg PO BID [facility] Vital Signs - 8 hr 09/12/18 09/12/18 09/12/18 07:30 07:52 08:16 Temperature 97.9 F Pulse Rate 73 Respiratory 20 20 20 Rate Blood Pressure 122/52 (mmHg) O2 Sat by Pulse 96 Oximetry 09/12/18 09/12/18 09/12/18 09:12 10:11 11:30 Temperature 98.5 F Pulse Rate 80 79 Respiratory 16 16 20 Rate Blood Pressure 92/37 (mmHg) O2 Sat by Pulse 95 94 Oximetry 09/12/18 11:46 Temperature Pulse Rate Respiratory Rate Blood Pressure 100/44 (mmHg) O2 Sat by Pulse Oximetry Oxygen Devices in Use Now: Nasal Cannula Appearance: Patient is an 83yo female who appears stated age and is sitting in the bed in [facility]. Eyes: No Scleral Icterus, PERRLA Ears/Nose/Mouth/Throat: NL Teeth, Lips, Gums, Clear Oropharnyx, Mucous Membranes Moist, - - Thrush Neck: NL Appearance and Movements; NL JVP, Trachea Midline Respiratory: Symmetrical Chest Expansion and Respiratory Effort, Clear to Auscultation Cardiovascular: NL Sounds; No Murmurs; No JVD, RRR, No Edema Abdominal: NL Sounds; No Tenderness; No Distention, No Hepatosplenomegaly Lymphatic: No Cervical Adenopathy Extremities: No Edema, No Clubbing, Cyanosis Skin: No Rash or Ulcers, No Nodules or Sclerosis Neurological: Alert and Oriented x 3, NL Sensation, NL Muscle Strength and Tone , - - CN II-XII intact. Result Diagrams: 09/10/18 04:20 09/12/18 05:19 Microbiology and Other Data: Microbiology 09/05/18 10:45 Gram Stain - Final Sputum Sputum Culture - Final Pseudomonas Aeruginosa Normal [place] Assess/Plan/Problems-Billing Assessment: Patient is an 83yo female with a PMH for MAC, Asthma, MDS, here with persistent Pseudomonas Pneumonia, being treated with Meropenum and intermittent SVT which is responding to amiodarone. - Patient Problems (1) Supraventricular tachycardia Current Visit: Yes Status: Acute Code(s): I47.1 - SUPRAVENTRICULAR TACHYCARDIA SNOMED Code(s): 1923905 Comment: - Recurrent Episodes, resistent to Rate controlling medications - Now on Metoprolol, Verapamil, and Amiodarone with no SVT in almost 24 hours. - Patient should be >48hrs SVT free before discharge - Continue to Monitor on telemetry, appreciate Cardiology input. (2) Pseudomonas pneumonia Current Visit: Yes Status: Acute Comment: - Failed treatment with Cefepime, Now on Meropenum for a total of 10 days - Symptoms much improving, Continue Expectorants - PICC line in place (3) Asthma Current Visit: Yes Status: Acute Code(s): J45.909 - UNSPECIFIED ASTHMA, UNCOMPLICATED SNOMED Code(s): 544003431 Comment: - Exacerbated by pneumonia, continue maintenence inhalers and steroids (4) Mycobacterium avium complex Current Visit: Yes Status: Acute Code(s): A31.0 - PULMONARY MYCOBACTERIAL INFECTION SNOMED Code(s): 890453451 Comment: - Continue Rifampin and Azithromycin (5) Myelodysplastic syndrome Current Visit: Yes Status: Chronic Code(s): D46.9 - MYELODYSPLASTIC SYNDROME , UNSPECIFIED SNOMED Code(s): 688324612 Comment: - Chronic, Stable (6) DVT prophylaxis Current Visit: Yes Status: Acute Code(s): Z29.9 - ENCOUNTER FOR PROPHYLACTIC MEASURES, UNSPECIFIED SNOMED Code(s): 027322283 Comment: - Lovenox while Platelets >50K (7) Full code status Current Visit: Yes Status: Acute Code(s): Z78.9 - OTHER SPECIFIED HEALTH STATUS SNOMED Code(s): 830052061 Status and Disposition: Inpatient, disposition per clinical course
[2018-09-12] MEDS: Nystatin SUSPENSION* 100000 UNITS/ML 5 ML UDC PO SCH ×2 (17:04→21:03)
[2018-09-12 17:37] LABS: Hematocrit 33 % (35-47); Hemoglobin 10.9 g/dL (12.0-16.0); Mean Corpuscular HGB Conc 34 g/dL (31-36); Mean Corpuscular Hemoglobin 34 pg (27-31); Mean Corpuscular Volume 101 fL (80-97); Red Cell Distribution Width 16 % (10.5-15); White Blood Count 5.4 10^3/uL (3.5-10.8)
[2018-09-12 18:02] LABS: ABS Basophils 0.3 10^3/ul (0-0.2); ABS Eosinophils 0.4 10^3/ul (0-0.6); ABS Lymphocytes 1.4 10^3/ul (1.0-4.8); ABS Monocytes 1.2 10^3/ul (0-0.8); ABS Neutrophils 2.2 10^3/ul (1.5-7.7); Eosinophil % 6.5 %; Lymphocyte % 26.1 %; Mean Platelet Volume 10.4 fL (7.4-10.4); Nucleated Red Blood Cells % 0.2; Platelet Count 78 10^3/uL (150-450)
[2018-09-12] MEDS: Sertraline* 25 MG TAB PO SCH (21:01)
[2018-09-12] MEDS: Verapamil SR TAB* 240 MG PO SCH (21:02)
[2018-09-12] MEDS: Polyethylene Glycol 3350* 17 GM PACKET PO PRN (21:13)
[2018-09-13] MEDS: Meropenem 1 GM PREMIX(*) 1 GM/50 ML BAG IV SCH ×3 (03:00→17:41)
[2018-09-13] MEDS: Enoxaparin(*) 40 MG/0.4 ML SYR SUBCUT SCH (03:05)
[2018-09-13 05:43] LABS: Calcium 8.5 mg/dL (8.6-10.3); Magnesium 1.9 mg/dL (1.9-2.7); Potassium 4.4 mmol/L (3.5-5.0)
[2018-09-13 05:49] LABS: BUN/Creatinine Ratio 23.9 (8-20); EGFR African American 101.2 (>60); EGFR Non-African American 83.7 (>60)
[2018-09-13 06:32] LABS: ABS Basophils 0.1 10^3/ul (0-0.2); ABS Eosinophils 0.6 10^3/ul (0-0.6); ABS Lymphocytes 1.4 10^3/ul (1.0-4.8); ABS Monocytes 1.1 10^3/ul (0-0.8); ABS Neutrophils 2.5 10^3/ul (1.5-7.7); Eosinophil % 10.3 %; Hematocrit 32 % (35-47); Hemoglobin 10.8 g/dL (12.0-16.0); Lymphocyte % 24.2 %; Mean Corpuscular HGB Conc 34 g/dL (31-36); Mean Corpuscular Hemoglobin 35 pg (27-31); Mean Corpuscular Volume 104 fL (80-97); Mean Platelet Volume 10.7 fL (7.4-10.4); Platelet Count 81 10^3/uL (150-450); Red Blood Count 3.09 10^6 /uL (3.70-4.87); Red Cell Distribution Width 16 % (10.5-15); White Blood Count 5.6 10^3/uL (3.5-10.8)
[2018-09-13] MEDS: Fluticasone/Vilanterol MDI(NF) 200/25 MDI INH SCH (07:38)
[2018-09-13] MEDS: Tiotropium CAP.INH* CAP.INH/18 MCG (USE ORDER SET !) INH SCH (07:39)
[2018-09-13] MEDS: predniSONE TAB* 5 MG PO SCH (09:58)
[2018-09-13] MEDS: Calcium Citrate TAB* 200 MG PO SCH (09:59)
[2018-09-13] MEDS: Azithromycin TAB* 250 MG PO SCH (09:59)
[2018-09-13] MEDS: oxyCODONE SR TAB(*) 20 MG TAB.SR PO SCH ×2 (10:00→20:14)
[2018-09-13] MEDS: Colchicine* 0.6 MG TAB PO SCH ×2 (10:00→20:14)
[2018-09-13] MEDS: RiFAMPin CAP* 300 MG CAP PO SCH ×2 (10:00→20:14)
[2018-09-13] MEDS: Metoprolol Succinate XL TAB* 50 MG PO SCH ×2 (10:01→20:14)
[2018-09-13] MEDS: Fluticasone NASAL SPRAY 50MCG* 16 gm SPRAY BTL BOTH NARES SCH (10:02)
[2018-09-13] MEDS: Amiodarone TAB* 200 MG PO SCH ×2 (10:02→20:15)
[2018-09-13] MEDS: Verapamil SR TAB* 240 MG PO SCH ×2 (10:02→20:14)
[2018-09-13] MEDS: Magnesium Oxide TAB* 400 MG PO SCH ×2 (10:02→20:15)
[2018-09-13] MEDS: Nystatin SUSPENSION* 100000 UNITS/ML 5 ML UDC PO SCH ×4 (10:03→20:15)
--- NOTE | 2018-09-13 12:36 | PN ---
Subjective Date of Service: 09/13/18 Interval History: Patient is feeling well today. Patient had one paroxysm of SOB with activity which correlated to Sinus tachycardia on telemetry and passed quickly. Patient denies other SOB. Patient denies F/C, N/V, abdominal pain, diarrhea, CP, dizziness, or other pain. Patient is very excited for her Granddaughter's wedding today. Family History: Unchanged from Admission Social History: Unchanged from Admission Past Medical History: Unchanged from Admission Objective Active Medications: Acetaminophen (Tylenol Tab*) 650 mg PO Q6H PRN PRN Reason: FEVER/PAIN Last Admin: 09/09/18 21:14 Dose: 650 mg Amiodarone HCl (Cordarone Tab*) 200 mg PO BID [facility] Last Admin: 09/13/18 10:02 Dose: 200 mg Azithromycin (Zithromax Tab*) 500 mg PO DAILY [facility] Last Admin: 09/13/18 09:59 Dose: 500 mg Calcium Citrate (Citracal Tab*) 200 mg PO DAILY [facility] Last Admin: 09/13/18 09:59 Dose: 200 mg Cetirizine HCl (Zyrtec*) 10 mg PO DAILY PRN PRN Reason: Allergy Symptoms Clotrimazole (Clotrimazole 1%*) 1 applic TOPICAL DAILY PRN PRN Reason: ITCHING Colchicine (Colcrys*) 0.6 mg PO BID [facility] Last Admin: 09/13/18 10:00 Dose: 0.6 mg Diclofenac Sodium (Voltaren 1% Gel (Nf)) 1 applic TOPICAL DAILY PRN; Protocol PRN Reason: PAIN Diltiazem HCl (Diltiazem Iv Push/Loading Dose) 10 mg IV SLOW PU Q6H PRN PRN Reason: SVT AND HR > 120 Last Admin: 09/11/18 17:14 Dose: 10 mg Enoxaparin Sodium (Lovenox(*)) 40 mg SUBCUT Q24H [facility] Last Admin: 09/13/18 03:05 Dose: 40 mg Fluticasone Propionate (Flonase Nasal [place] 50mcg*) 2 spray BOTH NARES DAILY [facility] Last Admin: 09/13/18 10:02 Dose: 2 spray Fluticasone/Vilanterol (Breo Ellipta Mdi 200/25(Nf)) 1 puff INH DAILY [facility] Last Admin: 09/13/18 07:38 Dose: Not Given Heparin Sodium (Porcine) (Heparin Flush Picc/Ml/Cvc(*)) 1 - 3 ml FLUSH 0600, 1800 [facility]; Protocol Last Admin: 09/13/18 05:39 Dose: 1 ml Meropenem (Merrem 1 Gm Premix(*)) 1 gm in 50 mls @ 100 mls/hr IV Q8H [facility] Last Admin: 09/13/18 10:05 Dose: 100 mls/hr Ibuprofen (Motrin Tab*) 400 mg PO BID PRN PRN Reason: PAIN Levalbuterol HCl (Xopenex 0.63mg/3ml Neb*) 0.63 mg INH QID PRN PRN Reason: SHORTNESS OF BREATH Last Admin: 09/07/18 10:40 Dose: 0.63 mg Lidocaine (Xylocaine 5% Oint*) 1 applic TOPICAL Q4HR PRN PRN Reason: PAIN Magnesium Hydroxide (Milk Of Magnesia Liq*) 30 ml PO DAILY PRN PRN Reason: CONSTIPATION Magnesium Oxide (Magox 400 Tab*) 400 mg PO BID [facility] Last Admin: 09/13/18 10:02 Dose: 400 mg Metoprolol Succinate (Toprol Xl Tab*) 25 mg PO BID [facility] Last Admin: 09/13/18 10:01 Dose: 25 mg Nystatin (Nystatin Suspension*) 200,000 units PO QID [facility] Last Admin: 09/13/18 10:03 Dose: 200,000 units Oxycodone HCl (Roxycodone Tab*) 5 mg PO Q4H PRN PRN Reason: PAIN Oxycodone HCl (Oxycontin(*)) 20 mg PO Q12HR [facility] Last Admin: 09/13/18 10:00 Dose: 20 mg Polyethylene Glycol/Electrolytes (Miralax*) 17 gm PO DAILY PRN PRN Reason: CONSTIPATION Last Admin: 09/12/18 21:13 Dose: 17 gm Prednisone (Deltasone Tab*) 7.5 mg PO DAILY [facility] Last Admin: 09/13/18 09:58 Dose: 7.5 mg Rifampin (Rifampin Cap*) 300 mg PO BID [facility] Last Admin: 09/13/18 10:00 Dose: 300 mg Sertraline HCl (Zoloft*) 75 mg PO BEDTIME [facility] Last Admin: 09/12/18 21:01 Dose: 75 mg Tiotropium [place] (Spiriva Cap.Inh*) 1 cap INH DAILY [facility] Last Admin: 09/13/18 07:39 Dose: 1 cap Triamcinolone Acetonide (Triamcinolone 0.5% Oint *) 1 applic TOPICAL BEDTIME PRN PRN Reason: PRURITIS Verapamil HCl (Calan Sr Tab*) 120 mg PO BID [facility] Last Admin: 09/13/18 10:02 Dose: 120 mg Vital Signs - 8 hr 09/13/18 09/13/18 09/13/18 07:40 08:00 10:00 Temperature 98.6 F Pulse Rate 80 Respiratory 18 18 18 Rate Blood Pressure 112/44 (mmHg) O2 Sat by Pulse 91 Oximetry 09/13/18 12:19 Temperature Pulse Rate Respiratory 16 Rate Blood Pressure (mmHg) O2 Sat by Pulse Oximetry Oxygen Devices in Use Now: Nasal Cannula Appearance: Patient is an 83yo female who appears stated age and is sitting in the bed in [facility]. Eyes: No Scleral Icterus, PERRLA Ears/Nose/Mouth/Throat: NL Teeth, Lips, Gums, Clear Oropharnyx, Mucous Membranes Moist Neck: NL Appearance and Movements; NL JVP, Trachea Midline Respiratory: Symmetrical Chest Expansion and Respiratory Effort, Clear to Auscultation Cardiovascular: NL Sounds; No Murmurs; No JVD, RRR, No Edema Abdominal: NL Sounds; No Tenderness; No Distention, No Hepatosplenomegaly Lymphatic: No Cervical Adenopathy Extremities: No Edema, No Clubbing, Cyanosis Skin: No Nodules or Sclerosis, - - Senile Purpura. Neurological: Alert and Oriented x 3, NL Sensation, NL Muscle Strength and Tone , - - CN II-XII intact. Result Diagrams: 09/13/18 04:55 09/13/18 04:54 Microbiology and Other Data: Microbiology 09/05/18 10:45 Gram Stain - Final Sputum Sputum Culture - Final Pseudomonas Aeruginosa Normal [facility] Assess/Plan/Problems-Billing Assessment: Patient is an 83yo female with a PMH for MAC, Asthma, MDS, here with persistent Pseudomonas Pneumonia, being treated with Meropenum and intermittent SVT which is responding to amiodarone. - Patient Problems (1) Supraventricular tachycardia Current Visit: Yes Status: Acute Code(s): I47.1 - SUPRAVENTRICULAR TACHYCARDIA SNOMED Code(s): 5301174 Comment: - Recurrent Episodes, resistent to Rate controlling medications - Epidsode overnight appears not to correlate with SVT - Now on Metoprolol, Verapamil, and Amiodarone with no SVT in almost 48 hours. - Patient should be >48hrs SVT free before discharge - Continue to Monitor on telemetry, appreciate Cardiology input. (2) Pseudomonas pneumonia Current Visit: Yes Status: Acute Comment: - Failed treatment with Cefepime, Now on Meropenum for a total of 10 days - Symptoms much improving, Continue Expectorants - PICC line in place (3) Asthma Current Visit: Yes Status: Acute Code(s): J45.909 - UNSPECIFIED ASTHMA, UNCOMPLICATED SNOMED Code(s): 293729374 Comment: - Exacerbated by pneumonia, continue maintenence inhalers and steroids (4) Mycobacterium avium complex Current Visit: Yes Status: Acute Code(s): A31.0 - PULMONARY MYCOBACTERIAL INFECTION SNOMED Code(s): 239941884 Comment: - Continue Rifampin and Azithromycin (5) Myelodysplastic syndrome Current Visit: Yes Status: Chronic Code(s): D46.9 - MYELODYSPLASTIC SYNDROME , UNSPECIFIED SNOMED Code(s): 659931786 Comment: - Chronic, Stable (6) DVT prophylaxis Current Visit: Yes Status: Acute Code(s): Z29.9 - ENCOUNTER FOR PROPHYLACTIC MEASURES, UNSPECIFIED SNOMED Code(s): 883578434 Comment: - Lovenox while Platelets >50K (7) Full code status Current Visit: Yes Status: Acute Code(s): Z78.9 - OTHER SPECIFIED HEALTH STATUS SNOMED Code(s): 359828563 Status and Disposition: Inpatient, disposition per clinical course
--- NOTE | 2018-09-13 13:14 | PN ---
Subjective Date of Service: 09/13/18 - CC: weakness, SOB Interval History: Patient very winded with any exertion, just trying to lean forward in bed. Coughing up thick phlegm, she states this is new. Medications Active Medications: Acetaminophen (Tylenol Tab*) 650 mg PO Q6H PRN PRN Reason: FEVER/PAIN Last Admin: 09/09/18 21:14 Dose: 650 mg Amiodarone HCl (Cordarone Tab*) 200 mg PO BID [facility] Last Admin: 09/13/18 10:02 Dose: 200 mg Azithromycin (Zithromax Tab*) 500 mg PO DAILY [facility] Last Admin: 09/13/18 09:59 Dose: 500 mg Calcium Citrate (Citracal Tab*) 200 mg PO DAILY [facility] Last Admin: 09/13/18 09:59 Dose: 200 mg Cetirizine HCl (Zyrtec*) 10 mg PO DAILY PRN PRN Reason: Allergy Symptoms Clotrimazole (Clotrimazole 1%*) 1 applic TOPICAL DAILY PRN PRN Reason: ITCHING Colchicine (Colcrys*) 0.6 mg PO BID [facility] Last Admin: 09/13/18 10:00 Dose: 0.6 mg Diclofenac Sodium (Voltaren 1% Gel (Nf)) 1 applic TOPICAL DAILY PRN; Protocol PRN Reason: PAIN Diltiazem HCl (Diltiazem Iv Push/Loading Dose) 10 mg IV SLOW PU Q6H PRN PRN Reason: SVT AND HR > 120 Last Admin: 09/11/18 17:14 Dose: 10 mg Enoxaparin Sodium (Lovenox(*)) 40 mg SUBCUT Q24H [facility] Last Admin: 09/13/18 03:05 Dose: 40 mg Fluticasone Propionate (Flonase Nasal [place] 50mcg*) 2 spray BOTH NARES DAILY [facility] Last Admin: 09/13/18 10:02 Dose: 2 spray Fluticasone/Vilanterol (Breo Ellipta Mdi 200/25(Nf)) 1 puff INH DAILY [facility] Last Admin: 09/13/18 07:38 Dose: Not Given Heparin Sodium (Porcine) (Heparin Flush Picc/Ml/Cvc(*)) 1 - 3 ml FLUSH 0600, 1800 [facility]; Protocol Last Admin: 09/13/18 05:39 Dose: 1 ml Meropenem (Merrem 1 Gm Premix(*)) 1 gm in 50 mls @ 100 mls/hr IV Q8H [facility] Last Admin: 09/13/18 10:05 Dose: 100 mls/hr Ibuprofen (Motrin Tab*) 400 mg PO BID PRN PRN Reason: PAIN Levalbuterol HCl (Xopenex 0.63mg/3ml Neb*) 0.63 mg INH QID PRN PRN Reason: SHORTNESS OF BREATH Last Admin: 09/07/18 10:40 Dose: 0.63 mg Lidocaine (Xylocaine 5% Oint*) 1 applic TOPICAL Q4HR PRN PRN Reason: PAIN Magnesium Hydroxide (Milk Of Magnesia Liq*) 30 ml PO DAILY PRN PRN Reason: CONSTIPATION Magnesium Oxide (Magox 400 Tab*) 400 mg PO BID [facility] Last Admin: 09/13/18 10:02 Dose: 400 mg Metoprolol Succinate (Toprol Xl Tab*) 25 mg PO BID [facility] Last Admin: 09/13/18 10:01 Dose: 25 mg Nystatin (Nystatin Suspension*) 200,000 units PO QID [facility] Last Admin: 09/13/18 10:03 Dose: 200,000 units Oxycodone HCl (Roxycodone Tab*) 5 mg PO Q4H PRN PRN Reason: PAIN Oxycodone HCl (Oxycontin(*)) 20 mg PO Q12HR [facility] Last Admin: 09/13/18 10:00 Dose: 20 mg Polyethylene Glycol/Electrolytes (Miralax*) 17 gm PO DAILY PRN PRN Reason: CONSTIPATION Last Admin: 09/12/18 21:13 Dose: 17 gm Prednisone (Deltasone Tab*) 7.5 mg PO DAILY [facility] Last Admin: 09/13/18 09:58 Dose: 7.5 mg Rifampin (Rifampin Cap*) 300 mg PO BID [facility] Last Admin: 09/13/18 10:00 Dose: 300 mg Sertraline HCl (Zoloft*) 75 mg PO BEDTIME [facility] Last Admin: 09/12/18 21:01 Dose: 75 mg Tiotropium [place] (Spiriva Cap.Inh*) 1 cap INH DAILY [facility] Last Admin: 09/13/18 07:39 Dose: 1 cap Triamcinolone Acetonide (Triamcinolone 0.5% Oint *) 1 applic TOPICAL BEDTIME PRN PRN Reason: PRURITIS Verapamil HCl (Calan Sr Tab*) 120 mg PO BID [facility] Last Admin: 09/13/18 10:02 Dose: 120 mg Objective Vital Signs: Temp Pulse Resp BP Pulse Ox 98.6 F 80 16 112/44 91 09/13/18 07:40 09/13/18 07:40 09/13/18 12:19 09/13/18 07:40 09/13/18 07:40 Oxygen Devices in Use Now: Nasal Cannula Appearance: [place] female at 80 degrees, appears chronically ill, tachypnic with talking, moving in bed Eyes: No Scleral Icterus, PERRLA Ears/Nose/Mouth/Throat: NL Teeth, Lips, Gums, Clear Oropharnyx, Mucous Membranes Moist Neck: Trachea Midline, No Thyroid Enlargement, Masses Respiratory: Symmetrical Chest Expansion and Respiratory Effort - Diminished BS throughout, loud rhonchi throughout., - Cardiovascular: RRR - distant, - Abdominal: NL Sounds; No Tenderness; No Distention Extremities: No Clubbing, Cyanosis Skin: - - violaceous discoloration legs, 1-2+ pitting edema. Neurological: Alert and Oriented x 3 Lines/Tubes/Other Access: Clean, Dry and Intact Peripheral IV Laboratory Results: 09/13/18 04:55 09/13/18 04:54 INR (Anticoag Therapy) 1.06 (0.82-1.09) 09/04/18 01:16 APTT 39.8 seconds (26.0-36.3) H 09/04/18 01:16 Total Bilirubin 0.60 mg/dL (0.2-1.0) 09/12/18 05:19 AST 12 U/L (13-39) L 09/12/18 05:19 ALT 13 U/L (7-52) 09/12/18 05:19 Alkaline Phosphatase 82 U/L (34-104) 09/12/18 05:19 Total Protein 5.7 g/dL (6.4-8.9) L 09/12/18 05:19 Albumin 3.1 g/dL (3.2-5.2) L 09/12/18 05:19 Globulin 2.6 g/dL (2-4) 09/12/18 05:19 Albumin/Globulin Ratio 1.2 (1-3) 09/12/18 05:19 TSH 3.47 mcIU/mL (0.34-5.60) 09/04/18 01:16 09/04/18 01:16 Troponin I 0.01 Diagnostic Imaging: Study Date: 08/26/2018 Conclusions Summary: 1. Left ventricle: Systolic function is normal. The estimated ejection fraction is 55-60%. Wall motion is normal; there are no regional wall motion abnormalities. 2. Right ventricle: Systolic function is normal. 3. Mitral valve: There is trace to mild regurgitation. 4. Aortic valve: There is trace to mild regurgitation. 5. Tricuspid valve: There is trace to mild regurgitation. 6. Pericardium, extracardiac: There is no pericardial effusion. Exam Date: 09/07/[address] CHEST W/O Indication: Recurrent pneumonia. IMPRESSION: Areas of peribronchial thickening in the right middle lobe and right lower lobe with patchy areas of airspace disease likely representing pneumonia in the left lower lobe. Groundglass opacity in the left upper lobe with suggestion of a 8 mm nodule with a small focus of air. This may also represent peribronchial thickening and inflammatory changes. Follow-up exam is suggested. Likely mucus plugging from bronchiectasis should be considered. EKG Data: Tele: NSR, no SVT rare ST. Assessment/Plan 83 yo with prolonged stay due to pulmonary issues: chronic M. carmen complex, asthma with pneumonia on CXR/CT and growing pseudomonas. On aggressive antibiotic and pulmonary regimen. Recurrent SVT during this admission, did not respond adequately to BB, CCB, now on amiodarone with good suppression. Pulmonary: Refractory to aggressive management, hospitalists and ID covering. SVT: Likely secondary to pulmonary issues, now controlled with BB, verapamil and amiodarone. Continue with current antiarrhythmics. continue with aggressive management and supportive care of the patients pulmonary disease. Cardiology will follow distantly. I would discharge the patient on amiodarone, have the patient f/u with cardiology 1 month post discharge approx.
[2018-09-13] MEDS: Sertraline* 25 MG TAB PO SCH (20:15)
[2018-09-14] MEDS: Enoxaparin(*) 40 MG/0.4 ML SYR SUBCUT SCH (03:10)
[2018-09-14] MEDS: Meropenem 1 GM PREMIX(*) 1 GM/50 ML BAG IV SCH ×3 (03:10→17:17)
[2018-09-14 05:54] LABS: BUN/Creatinine Ratio 22.9 (8-20); Calcium 8.6 mg/dL (8.6-10.3); EGFR African American 96.2 (>60); EGFR Non-African American 79.5 (>60); Potassium 4.5 mmol/L (3.5-5.0)
[2018-09-14] MEDS: Tiotropium CAP.INH* CAP.INH/18 MCG (USE ORDER SET !) INH SCH (07:23)
[2018-09-14] MEDS: Fluticasone/Vilanterol MDI(NF) 200/25 MDI INH SCH (07:25)
[2018-09-14] MEDS: Nystatin SUSPENSION* 100000 UNITS/ML 5 ML UDC PO SCH ×4 (09:09→21:00)
[2018-09-14] MEDS: predniSONE TAB* 5 MG PO SCH (09:09)
[2018-09-14] MEDS: Metoprolol Succinate XL TAB* 50 MG PO SCH ×2 (09:10→21:01)
[2018-09-14] MEDS: RiFAMPin CAP* 300 MG CAP PO SCH ×2 (09:10→21:01)
[2018-09-14] MEDS: Azithromycin TAB* 250 MG PO SCH (09:11)
[2018-09-14] MEDS: Calcium Citrate TAB* 200 MG PO SCH (09:11)
[2018-09-14] MEDS: Magnesium Oxide TAB* 400 MG PO SCH ×2 (09:12→21:01)
[2018-09-14] MEDS: Colchicine* 0.6 MG TAB PO SCH ×2 (09:12→21:01)
[2018-09-14] MEDS: Verapamil SR TAB* 240 MG PO SCH ×2 (09:13→21:01)
[2018-09-14] MEDS: Amiodarone TAB* 200 MG PO SCH ×2 (09:13→21:01)
[2018-09-14] MEDS: oxyCODONE SR TAB(*) 20 MG TAB.SR PO SCH ×2 (09:13→21:01)
[2018-09-14] MEDS: Fluticasone NASAL SPRAY 50MCG* 16 gm SPRAY BTL BOTH NARES SCH (09:14)
--- NOTE | 2018-09-14 13:10 | PN ---
Subjective Date of Service: 09/14/18 Family History: Unchanged from Admission Social History: Unchanged from Admission Past Medical History: Unchanged from Admission Objective Active Medications: Acetaminophen (Tylenol Tab*) 650 mg PO Q6H PRN PRN Reason: FEVER/PAIN Last Admin: 09/09/18 21:14 Dose: 650 mg Amiodarone HCl (Cordarone Tab*) 200 mg PO BID [facility] Last Admin: 09/14/18 09:13 Dose: 200 mg Azithromycin (Zithromax Tab*) 500 mg PO DAILY [facility] Last Admin: 09/14/18 09:11 Dose: 500 mg Calcium Citrate (Citracal Tab*) 200 mg PO DAILY [facility] Last Admin: 09/14/18 09:11 Dose: 200 mg Cetirizine HCl (Zyrtec*) 10 mg PO DAILY PRN PRN Reason: Allergy Symptoms Clotrimazole (Clotrimazole 1%*) 1 applic TOPICAL DAILY PRN PRN Reason: ITCHING Colchicine (Colcrys*) 0.6 mg PO BID [facility] Last Admin: 09/14/18 09:12 Dose: 0.6 mg Diclofenac Sodium (Voltaren 1% Gel (Nf)) 1 applic TOPICAL DAILY PRN; Protocol PRN Reason: PAIN Diltiazem HCl (Diltiazem Iv Push/Loading Dose) 10 mg IV SLOW PU Q6H PRN PRN Reason: SVT AND HR > 120 Last Admin: 09/11/18 17:14 Dose: 10 mg Enoxaparin Sodium (Lovenox(*)) 40 mg SUBCUT Q24H [facility] Last Admin: 09/14/18 03:10 Dose: 40 mg Fluticasone Propionate (Flonase Nasal [place] 50mcg*) 2 spray BOTH NARES DAILY [facility] Last Admin: 09/14/18 09:14 Dose: 2 spray Fluticasone/Vilanterol (Breo Ellipta Mdi 200/25(Nf)) 1 puff INH DAILY [facility] Last Admin: 09/14/18 07:25 Dose: Not Given Heparin Sodium (Porcine) (Heparin Flush Picc/Ml/Cvc(*)) 1 - 3 ml FLUSH 0600, 1800 [facility]; Protocol Last Admin: 09/14/18 05:04 Dose: 1 ml Meropenem (Merrem 1 Gm Premix(*)) 1 gm in 50 mls @ 100 mls/hr IV Q8H [facility] Last Admin: 09/14/18 09:14 Dose: 100 mls/hr Ibuprofen (Motrin Tab*) 400 mg PO BID PRN PRN Reason: PAIN Levalbuterol HCl (Xopenex 0.63mg/3ml Neb*) 0.63 mg INH QID PRN PRN Reason: SHORTNESS OF BREATH Last Admin: 09/07/18 10:40 Dose: 0.63 mg Lidocaine (Xylocaine 5% Oint*) 1 applic TOPICAL Q4HR PRN PRN Reason: PAIN Magnesium Hydroxide (Milk Of Magnesia Liq*) 30 ml PO DAILY PRN PRN Reason: CONSTIPATION Magnesium Oxide (Magox 400 Tab*) 400 mg PO BID [facility] Last Admin: 09/14/18 09:12 Dose: 400 mg Metoprolol Succinate (Toprol Xl Tab*) 25 mg PO BID [facility] Last Admin: 09/14/18 09:10 Dose: 25 mg Nystatin (Nystatin Suspension*) 200,000 units PO QID [facility] Last Admin: 09/14/18 12:38 Dose: 200,000 units Oxycodone HCl (Roxycodone Tab*) 5 mg PO Q4H PRN PRN Reason: PAIN Oxycodone HCl (Oxycontin(*)) 20 mg PO Q12HR [facility] Last Admin: 09/14/18 09:13 Dose: 20 mg Polyethylene Glycol/Electrolytes (Miralax*) 17 gm PO DAILY PRN PRN Reason: CONSTIPATION Last Admin: 09/12/18 21:13 Dose: 17 gm Prednisone (Deltasone Tab*) 7.5 mg PO DAILY [facility] Last Admin: 09/14/18 09:09 Dose: 7.5 mg Rifampin (Rifampin Cap*) 300 mg PO BID [facility] Last Admin: 09/14/18 09:10 Dose: 300 mg Sertraline HCl (Zoloft*) 75 mg PO BEDTIME [facility] Last Admin: 09/13/18 20:15 Dose: 75 mg Tiotropium [place] (Spiriva Cap.Inh*) 1 cap INH DAILY [facility] Last Admin: 09/14/18 07:23 Dose: 1 cap Triamcinolone Acetonide (Triamcinolone 0.5% Oint *) 1 applic TOPICAL BEDTIME PRN PRN Reason: PRURITIS Verapamil HCl (Calan Sr Tab*) 120 mg PO BID [facility] Last Admin: 09/14/18 09:13 Dose: 120 mg Vital Signs - 8 hr 09/14/18 09/14/18 09/14/18 08:00 08:40 09:13 Temperature 98.2 F Pulse Rate 84 Respiratory 18 18 18 Rate Blood Pressure 111/45 (mmHg) O2 Sat by Pulse 98 Oximetry 09/14/18 09/14/18 11:30 11:34 Temperature 98.5 F Pulse Rate 78 Respiratory 16 18 Rate Blood Pressure 101/46 (mmHg) O2 Sat by Pulse 93 Oximetry Oxygen Devices in Use Now: Nasal Cannula Appearance: Patient is an 83yo female who appears stated age and is sitting in the bed in NAD. Eyes: No Scleral Icterus, PERRLA Ears/Nose/Mouth/Throat: NL Teeth, Lips, Gums, Clear Oropharnyx, Mucous Membranes Moist Neck: NL Appearance and Movements; NL JVP, Trachea Midline Respiratory: Symmetrical Chest Expansion and Respiratory Effort, - - Slight Expiratory wheezing ib B/L Lower lobes Cardiovascular: NL Sounds; No Murmurs; No JVD, RRR, No Edema Abdominal: NL Sounds; No Tenderness; No Distention, No Hepatosplenomegaly Lymphatic: No Cervical Adenopathy Extremities: No Edema, No Clubbing, Cyanosis Skin: No Nodules or Sclerosis Neurological: Alert and Oriented x 3, NL Sensation, NL Muscle Strength and Tone , - - CN II-XII intact. Result Diagrams: 09/13/18 04:55 09/14/18 05:06 Microbiology and Other Data: Microbiology 09/05/18 10:45 Gram Stain - Final Sputum Sputum Culture - Final Pseudomonas Aeruginosa Normal [place] Assess/Plan/Problems-Billing Assessment: Patient is an 83yo female with a PMH for MAC, Asthma, MDS, here with persistent Pseudomonas Pneumonia, being treated with Meropenum and intermittent SVT which is responding to amiodarone. - Patient Problems (1) Supraventricular tachycardia Current Visit: Yes Status: Acute Code(s): I47.1 - SUPRAVENTRICULAR TACHYCARDIA SNOMED Code(s): 4442475 Comment: - Recurrent Episodes, resistent to Rate controlling medications - Epidsode overnight appears not to correlate with SVT - Now on Metoprolol, Verapamil, and Amiodarone with no SVT in almost 72 hours. - Follow up Cardiology, Monitor TSH and PFTs outpatient. - Continue to Monitor on telemetry, appreciate Cardiology input. (2) Pseudomonas pneumonia Current Visit: Yes Status: Acute Comment: - Failed treatment with Cefepime, Now on Meropenum for a total of 10 days, day 9 /10 - Symptoms much improving, Continue Expectorants - PICC line in place (3) Asthma Current Visit: Yes Status: Acute Code(s): J45.909 - UNSPECIFIED ASTHMA, UNCOMPLICATED SNOMED Code(s): 450957024 Comment: - Exacerbated by pneumonia, continue maintenence inhalers and steroids (4) Mycobacterium avium complex Current Visit: Yes Status: Acute Code(s): A31.0 - PULMONARY MYCOBACTERIAL INFECTION SNOMED Code(s): 979108384 Comment: - Continue Rifampin and Azithromycin (5) Myelodysplastic syndrome Current Visit: Yes Status: Chronic Code(s): D46.9 - MYELODYSPLASTIC SYNDROME , UNSPECIFIED SNOMED Code(s): 704378981 Comment: - Chronic, Stable (6) DVT prophylaxis Current Visit: Yes Status: Acute Code(s): Z29.9 - ENCOUNTER FOR PROPHYLACTIC MEASURES, UNSPECIFIED SNOMED Code(s): 100700517 Comment: - Lovenox while Platelets >50K (7) Full code status Current Visit: Yes Status: Acute Code(s): Z78.9 - OTHER SPECIFIED HEALTH STATUS SNOMED Code(s): 698912122 Status and Disposition: Inpatient, disposition per clinical course, Hopeful D/C tomorrow.
[2018-09-14] MEDS: Sertraline* 25 MG TAB PO SCH (21:01)
[2018-09-15] MEDS: Meropenem 1 GM PREMIX(*) 1 GM/50 ML BAG IV SCH ×2 (03:11→09:25)
[2018-09-15] MEDS: Enoxaparin(*) 40 MG/0.4 ML SYR SUBCUT SCH (03:56)
[2018-09-15 05:11] LABS: Hematocrit 31 % (35-47); Hemoglobin 10.5 g/dL (12.0-16.0); Mean Corpuscular HGB Conc 34 g/dL (31-36); Mean Corpuscular Hemoglobin 34 pg (27-31); Mean Corpuscular Volume 101 fL (80-97); Red Blood Count 3.08 10^6 /uL (3.70-4.87); Red Cell Distribution Width 16 % (10.5-15); White Blood Count 4.6 10^3/uL (3.5-10.8)
[2018-09-15 05:25] LABS: BUN/Creatinine Ratio 25.8 (8-20); Calcium 8.4 mg/dL (8.6-10.3); EGFR African American 110.7 (>60); EGFR Non-African American 91.5 (>60); Potassium 4.4 mmol/L (3.5-5.0)
[2018-09-15 05:29] LABS: ABS Eosinophils 0.5 10^3/ul (0-0.6); ABS Lymphocytes 1.2 10^3/ul (1.0-4.8); ABS Monocytes 0.9 10^3/ul (0-0.8); Eosinophil % 9.9 %; Mean Platelet Volume 10.4 fL (7.4-10.4); Nucleated Red Blood Cells % 0.1; Platelet Count 78 10^3/uL (150-450)
[2018-09-15] MEDS: Fluticasone/Vilanterol MDI(NF) 200/25 MDI INH SCH (07:39)
[2018-09-15] MEDS: Tiotropium CAP.INH* CAP.INH/18 MCG (USE ORDER SET !) INH SCH (08:01)
[2018-09-15] MEDS ORDERED: Metoprolol Succinate XL TAB* 25 MG PO SCH (09:00)
[2018-09-15 09:13] VITALS: BP 102/45
[2018-09-15] MEDS: Fluticasone NASAL SPRAY 50MCG* 16 gm SPRAY BTL BOTH NARES SCH (09:25)
[2018-09-15] MEDS: Azithromycin TAB* 250 MG PO SCH (09:26)
[2018-09-15] MEDS: Magnesium Oxide TAB* 400 MG PO SCH (09:26)
[2018-09-15] MEDS: Colchicine* 0.6 MG TAB PO SCH (09:26)
[2018-09-15] MEDS: RiFAMPin CAP* 300 MG CAP PO SCH (09:26)
[2018-09-15] MEDS: oxyCODONE SR TAB(*) 20 MG TAB.SR PO SCH (09:26)
[2018-09-15] MEDS: predniSONE TAB* 5 MG PO SCH (09:26)
[2018-09-15] MEDS: Calcium Citrate TAB* 200 MG PO SCH (09:26)
[2018-09-15] MEDS: Nystatin SUSPENSION* 100000 UNITS/ML 5 ML UDC PO SCH (09:27)
[2018-09-15] MEDS: Verapamil SR TAB* 240 MG PO SCH (09:27)
[2018-09-15] MEDS: Amiodarone TAB* 200 MG PO SCH (09:27)
[2018-09-15] MEDS ORDERED: Ertapenem* 1 GM in NS 0.9% 50 ML* 50 ML IVPB ONE (09:33)
--- NOTE | 2018-09-15 15:21 | DS ---
CC: Dr. Cinthya Weber; Dr. Penny Nuñez; Dr. Jeremy Park* DISCHARGE SUMMARY: DATE OF ADMISSION: 09/04/18 DATE OF DISCHARGE: 09/15/18 PRIMARY CARE PROVIDER: Dr. Cinthya Weber. MY ATTENDING WHILE IN THE HOSPITAL: Dr. Penny Nuñez* (dictated by MARISABEL Handy). PATIENT'S OUTPATIENT PATCHER: Dr. Jeremy Park. PRIMARY DISCHARGE DIAGNOSES: 1. Pneumonia. 2. Supraventricular tachycardia possibly chaotic atrial tachycardia or AV node reentry tachycardia. 3. Asthma exacerbation. SECONDARY DISCHARGE DIAGNOSES: 1. Mycobacterium avium complex, on chronic therapy. 2. Chronic eosinophilia. 3. Myelodysplastic syndrome. 4. Spinal stenosis. 5. Allergic rhinitis. 6. Vitamin D deficiency. 7. Pseudogout. 8. Radiculopathy. 9. History of breast cancer. 10. Depression. 11. Gastroesophageal reflux disease. 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 13. History of lung resection. 14. History of basal cell carcinoma. STUDIES DURING THE HOSPITAL STAY: EKG from 09/04/18 read as SVT, no discernible P waves, rate of 143, QTc of 471. Normal axis, no ST segment elevation or depression. No hypertrophy or enlargement. Repeat EKG from shows sinus rhythm, possible left atrial enlargement, left ventricular hypertrophy no significant changes. Repeat EKG from 09/08/18 shows resumption of SVT, possible retrograde T waves after the QRS complex. Repeat EKG shows resumption of sinus rhythm, no significant changes. Chest x-ray from 09/04/18 read as low lung volumes, small bibasilar infiltrate, chest x-ray from 09/04/18 read as COPD, patchy left lower lobe atelectasis versus consolidation. Chest CT from 09/07/18 shows areas of peribronchial thickening in the right middle lobe and right lower lobe with patchy areas of air space disease, likely representing pneumonia, left lower lobe, ground-glass opacities in the left upper lobe suggesting an 8 mm nodule with a small focus of air which may represent peribronchial thickening, inflammatory changes, followup films suggested, likely mucus plugging from Bronchiectasis should be considered. MEDICATIONS AT DISCHARGE: 1. Voltaren. 2. Verapamil 120 mg p.o. b.i.d. 3. Tiotropium 1 cap inhalation daily. 4. Sertraline 25 mg p.o. at bedtime. 5. Rifampin 300 mg p.o. b.i.d. 6. Prednisone 7.5 mg p.o. daily. 7. MiraLAX 17 g p.o. daily as needed for constipation. 8. Aquaphor 41% topical at bedtime as needed. 9. Centrum silver 1 tab p.o. daily. 10. Magnesium hydroxide 30 mL p.o. daily as needed. 11. Lidocaine gel 5% topical 125 g as needed for pain. 12. Xopenex 0.63 mg inhalation q.i.d. as needed for shortness of breath. 13. Ibuprofen 400 mg p.o. b.i.d. as needed for pain. 14. Breo-Ellipta 225 one inhalation daily. 15. Fluticasone 2 sprays both nares daily. 16. Furosemide 1 application topical at bedtime as needed for itching. 17. Diclofenac 1 application topical daily as needed for pain. 18. Colchicine 0.6 mg p.o. b.i.d. 19. Clotrimazole 1 application topical daily as needed. 20. Azithromycin 500 mg p.o. daily. 21. Tylenol 650 mg p.o. q.4 hours as needed. 22. Oxycodone 5 mg p.o. q.4 hours as needed. 23. OxyContin 20 mg p.o. b.i.d. 24. Nystatin 20,000 units p.o. q.i.d. x28 doses. 25. Metoprolol succinate 25 mg p.o. b.i.d. 26. Magnesium oxide 400 mg p.o. b.i.d. 27. Amiodarone 200 mg p.o. b.i.d. x 11 doses and then decreasing to daily. 28. Darci D one tab p.o. daily. 29. Vitamin D2 at 50,000 units p.o. monthly. 30. Cetirizine 10 mg p.o. daily as needed. New medications at discharge 1. Amiodarone. 2. Nystatin. 3. Magnesium. 4. Metoprolol. Medications discontinued at discharge are none. HOSPITAL COURSE: This is a brief summary of the patient's presentation. For more details, please see the history and physical from Dr. Rigo Acuna on . In brief, the patient is an 83-year-old female with past medical history significant for the above, who presented to the emergency department after being discharged 3 days prior. During the previous hospitalization, she was here for presumed pseudomonas pneumonia, asthma exacerbation and SVT. The patient returned due to recurrence of SVT with heart rates up to 143 which was able to be converted with adenosine. Patient was started on metoprolol and had her verapamil increased. The patient was seen in consultation by Dr. Park of cardiology who believed this was due to either AVNRT or chaotic atrial tachycardia due to her significant respiratory issues. The patient was also seen in consultation by Dr. Matti Javier of Infectious Diseases who initially recommended no antibiotics but then following patient's continued symptoms and CT scan read as above, he recommended 10 total days of meropenem based on sensitivities from patient's sputum culture which showed that despite 10 days of cefepime treatment on previous admission that her bacteria is now resistant to cefepime. Patient continued to have SVT intermittently throughout her hospitalization and was started on Amiodarone on 09/11/18, the patient's last episode of SVT was on 09/12/18. Patient was significantly symptomatic from her SVT and always knew when it was happening. This often needed diltiazem to be given IV. The patient was magnesium deficient, this was repleted orally and IV with magnesium levels consistently above 2.0 by the end of her hospitalization. The patient felt essentially back to her baseline except for increased tiredness and some shortness of breath but otherwise stable for discharge back to [facility] on 09/15/18 having been greater than 72 hours SVT free. The patient's verapamil was initially increased to 180 mg twice daily but was decreased again to 120 mg twice daily which is her home dose due to concerns of borderline hypotension. PHYSICAL EXAM ON THE DAY OF DISCHARGE: General: The patient is an 83-year-old female who appears stated age and sitting comfortably in bed, in no acute distress. Vital Signs: Temperature 97.8, pulse rate 78, respiratory rate 20, oxygen saturation 97% on room air, blood pressure 102/45. HEENT: Head: Normocephalic, atraumatic. Sclerae anicteric. No conjunctival injection. Nasal mucosa moist. Oral mucosa moist. No pharyngeal erythema, discharge, or exudate. Neck: Supple, nontender. No lymphadenopathy. No carotid bruits auscultated. No JVD. Cardiac: Regular rate and rhythm. No clicks, murmurs, gallops, or rubs. Pulses are 2+ in the bilateral dorsalis pedis, posterior tibialis, and radial areas in the bilateral extremities. Respiratory: Diminished, slight wheezes in bilateral lower lobes bilaterally. No other adventitious lung sounds. Good aeration bilaterally. Abdomen: Soft, nontender , nondistended. Bowel sounds present and normoactive in all 4 quadrants. No hepatosplenomegaly. No abdominal bruits auscultated. No hepatojugular reflux. Genitourinary: No suprapubic or CVA tenderness. Skin: Large amounts of senile purpura. The patient has subconjunctival hemorrhage of her right eye. DISCHARGE PLAN: The patient will be discharged back to [facility] for subacute rehab with the goal of returning to her previous level of functioning. The patient should follow up with her primary care provider within 1 week and the facility provider as needed. The patient is receiving one dose of ertapenem today in the place of her last 3 doses of meropenem so as to not need continuation of her Midline and intermittent antibiotic infusions at [place]. This is to complete a 10- day course of meropenem for patient's pseudomonas pneumonia. The patient should be continued to be monitored after discontinuation of her therapy for recurrent symptoms as further antibiotic treatment of this pseudomonas will be difficult if meropenem is not an option. The patient is currently requiring intermittently 2 L oxygen but saturates well on room air. The patient should use 2 L as needed. The patient should use the Xopenex inhaler as needed and should continue on her triple antibiotic therapy. The patient should follow routinely with her drilling assistant. The patient should have PFTs intermittently per protocol to monitor amiodarone toxicity and she should also be monitored for her other respiratory concerns. This might be done through her drilling assistant. The patient should follow up with her customer support executive within [address] Jeremy Park who she was previously scheduled to see for her amiodarone treatment and concerns for recurrent SVT. The patient should have a heart healthy diet and engage in activities as tolerated. The patient will be continued on her home pain control regimen and her chronic treatments for MAC. TIME SPENT: Approximately 60 minutes was spent on the discharge of this patient , 30 of which was spent [id number] with the patient obtaining history and physical and discussing treatment plan. MARISABEL HANDY [id number]/CPS #: [id number]
== END 2018-09-15 12:41 | DRG 308 ==
LOC: ED 00:30 → MEDTELE 03:08 → OBSVTOIN 13:07
PROVIDERS: ADMIT Internal Medicine; ATTEND Internal Medicine
PROC: 02HV33Z Insertion of Infusion Device into Superior Vena Cava, Percutaneous Approach (ICD-10-PCS; principal; 2018-09-09)
DX: I47.1 Supraventricular tachycardia (principal); J15.1 Pneumonia due to Pseudomonas; J45.901 Unspecified asthma with (acute) exacerbation; A31.0 Pulmonary mycobacterial infection; D46.9 Myelodysplastic syndrome, unspecified; M19.90 Unspecified osteoarthritis, unspecified site; M81.0 Age-related osteoporosis without current pathological fracture; M48.00 Spinal stenosis, site unspecified; M54.10 Radiculopathy, site unspecified; M11.20 Other chondrocalcinosis, unspecified site; K21.9 Gastro-esophageal reflux disease without esophagitis; G89.29 Other chronic pain; F32.9 Major depressive disorder, single episode, unspecified; I08.3 Combined rheumatic disorders of mitral, aortic and tricuspid valves; E55.9 Vitamin D deficiency, unspecified; J43.9 Emphysema, unspecified; H91.90 Unspecified hearing loss, unspecified ear; E83.42 Hypomagnesemia; Z16.19 Resistance to other specified beta lactam antibiotics; Z88.1 Allergy status to other antibiotic agents; Z91.041 Radiographic dye allergy status; Z88.8 Allergy status to other drugs, medicaments and biological substances; Z97.4 Presence of external hearing-aid; Z85.3 Personal history of malignant neoplasm of breast; Z86.19 Personal history of other infectious and parasitic diseases; Z80.0 Family history of malignant neoplasm of digestive organs; Z85.828 Personal history of other malignant neoplasm of skin; Z90.11 Acquired absence of right breast and nipple; Z89.421 Acquired absence of other right toe(s); Z98.42 Cataract extraction status, left eye; Z98.41 Cataract extraction status, right eye; Z72.89 Other problems related to lifestyle; Z87.891 Personal history of nicotine dependence; Z90.2 Acquired absence of lung [part of]; Z82.49 Family history of ischemic heart disease and other diseases of the circulatory system; Z86.010 Personal history of colon polyps; Z83.3 Family history of diabetes mellitus; Z79.52 Long term (current) use of systemic steroids
CPT/HCPCS: 36415; 71045; 71046; 71250; 80048; 80053; 83735; 84443; 84484; 85025; 85027; 85610; 85730; 86140; 87070; 87077; 87186; 87205; 93005; 94640; 99284; A9270-GY; J0153; J1335; J1650; J2185; J3475; J3490; J7512

== ENCOUNTER 2018-09-15 21:39 | Inpatient (IN) | payer MEDICARE, BC ==
--- NOTE | 2018-09-15 22:03 | ED ---
Palpitations / Dysrhythmia - HPI Summary HPI Summary: This patient is an 83 year old female presenting to [facility] with a chief complaint of palpitations. Patient states she felt her heart pounding 4 hours hours ago and then stopped just prior to examination. The patient has a Hx of SVT. She was discharged from the hospital yesterday after experiencing a similar episode. - History of Current Complaint Chief Complaint: EDDysrhythmPalp Time Seen by Provider: 09/15/18 21:53 Hx Obtained From: Patient Onset/Duration: Sudden Onset, Lasting Hours, Resolved Character: Fast, Pounding - Allergy/Home Medications Allergies/Adverse Reactions: Allergies Allergy/AdvReac Type Severity Reaction Status Date / Time Iodinated Contrast- Oral and Allergy Severe Itching Verified 09/04/18 01:15 IV Dye cephalexin [From Keflex] Allergy Rash Verified 09/04/18 01:15 epinephrine AdvReac Severe Palpitation Verified 09/04/18 01:15 [From Xylocaine-Epinephrine] s lidocaine AdvReac Severe Palpitation Verified 09/04/18 01:15 [From Xylocaine-Epinephrine] s PMH/Surg Hx/FS Hx/Imm Hx Endocrine/Hematology History: Reports: Hx Bone Marrow Disease - MYELODYSPLASTIC SYNDROME, Hx Anemia Denies: Hx Diabetes, Hx Systemic Lupus Erythematosus Cardiovascular History: Denies: Hx Congestive Heart Failure, Hx Hypertension, Hx Pacemaker/ICD, Hx Peripheral Vascular Disease Respiratory History: Reports: Hx Asthma - ADULT ONSET-2002, Hx Chronic Obstructive Pulmonary Disease (COPD), Other Respiratory Problems/Disorders - HX OF PETER GI History: Reports: Hx Diverticulosis Denies: Hx Jaundice History: Reports: Other Problems/Disorders - caricle of urethra Denies: Hx Dialysis, Hx Renal Disease Musculoskeletal History: Reports: Hx Arthritis, Hx Back Problems, Hx Osteoporosis, Other Musculoskeletal History - right rotator cuff injury Denies: Hx Rheumatoid Arthritis Sensory History: Reports: Hx Contacts or Glasses, Hx Hearing Aid Opthamlomology History: Reports: Hx Contacts or Glasses Neurological History: Reports: Other Neuro Impairments/Disorders - PAIN CLINIC PT Psychiatric History: Reports: Hx Depression Denies: Hx Panic Disorder - Cancer History Cancer Type, Location and Year: mastectomy . sqaumous cell toe amputation Hx Chemotherapy: No Hx Radiation Therapy: No - Surgical History Surgery Procedure, Year, and Place: SKIN BIOPSY June 29 at [facility]; T&A 194; APPENDIX 1950; Rt OVARY CYST REMOVED 1950; X3; DENTAL IMPLANTS 2013; Rt MASTECTOMY 1985; WEDGE RESECTION Rt LUNG; BRONCHOSCOPY X3; Rt BREAST BIOPSY 1971 AND 1985; HERNIA REPAIR ; D&C ; REPAIR OF DOG BITE ON LEG 07/23; CATARACTS BILATERAL 01/22 & 02/22; RIGHT 2ND TOE AMPUTATED 06/28; BONE MARROW BIOPSY X3 01/25, 04/28 & 04/30; LAMINECTOMY L3-4 & L4-5 08/04/12; SEVERAL MOH'S PROCEDURES; lumbar stimulator 09/2013 - could not be programmed so removed - CHECKED WITH DR. MENENDEZ TODAY(01/04/14)...HE LOOKED AT XRAYS DATED 10/13/13 WHICH CONFIRMED THE STIMULATOR AND LEADS HAD BEEN REMOVED..OK FOR MRI PER DR. MENENDEZ...RAMESH,RT Hx Anesthesia Reactions: No Infectious Disease History: No Infectious Disease History: Reports: Hx Shingles - January 2017, History Other Infectious Disease - MYCOBACTERIUM AVIUM Denies: Hx Clostridium Difficile, Hx Hepatitis, Hx Human Immunodeficiency Virus (HIV), Hx of Known/Suspected MRSA, Hx Tuberculosis, Traveled Outside the [place] in Last 30 Days - Family History Known Family History: Positive: Other - liver cancer Negative: Hypertension, Diabetes - Social History Alcohol Use: Rare Alcohol Amount: 4 Hx Substance Use: No Substance Use Type: Reports: None Substance Use Comment - Amount & Last Used: butran's patch Hx Tobacco Use: Yes Smoking Status (MU): Former Smoker Type: Cigarettes Length of Time of Smoking/Using Tobacco: 13 years Have You Smoked in the Last Year: No Review of Systems Negative: Fever Positive: Palpitations All Other Systems Reviewed And Are Negative: Yes Physical Exam - Summary Physical Exam Summary: VITAL SIGNS: Reviewed. GENERAL: Patient is a well-developed and nourished FEMALE who is lying comfortable in the stretcher. Patient is not in any acute respiratory distress. HEAD AND FACE: No signs of trauma. No ecchymosis, hematomas or skull depressions. No sinus tenderness. EYES: PERRLA, EOMI x 2, Right subconjuctival hemorrhage, no nystagmus. EARS: Hearing grossly intact. Ear canals and tympanic membranes are within normal limits. MOUTH: Oropharynx within normal limits. NECK: Supple, trachea is midline, no adenopathy, no JVD, no carotid bruit, no c- spine tenderness, neck with full ROM CHEST: Symmetric, no tenderness at palpation LUNGS: Clear to auscultation bilaterally. No wheezing or crackles. CVS: Regular rate and rhythm, S1 and S2 present, no murmurs or gallops appreciated. ABDOMEN: Soft, non-tender. No signs of distention. No rebound no guarding, and no masses palpated. Bowel sounds are normal. EXTREMITIES: FROM in all major joints, trace bilateral pitting edema, no cyanosis or clubbing. NEURO: Alert and oriented x 3. No acute neurological deficits. Speech is normal and follows commands. SKIN: Dry and warm Triage Information Reviewed: Yes Vital Signs On Initial Exam: Initial Vitals Temp Pulse Resp BP Pulse Ox 98.3 F 88 16 140/72 93 09/15/18 21:50 09/15/18 21:50 09/15/18 21:50 09/15/18 21:50 09/15/18 21:50 Vital Signs Reviewed: Yes Diagnostics - Vital Signs Vital Signs Temp Pulse Resp BP Pulse Ox 09/15/18 21:50 98.3 F 88 16 140/72 93 - Laboratory Result Diagrams: 09/16/18 05:11 09/16/18 05:11 Lab Statement: Any lab studies that have been ordered have been reviewed, and results considered in the medical decision making process. - EKG 2216 Cardiac Rate: NL EKG Rhythm: Sinus Rhythm - 87 BPM Summary of EKG Findings: Normal axis, normal interval, no ischemic changes. Course/Dx - Course Course Of Treatment: This patient is an 83 year old female presenting to [facility] with a chief complaint of palpitations. Patient was discharged from the hospital today. Patient had bloodwork done prior to her discharge today, so it did not need to be repeated. She will be readmitted with a diagnosis of SVT following this most recent episode. Dr. Mccartney, Hospitalist, accepted the patient for admission. This plan was discussed with the patient and she was agreeable with this plan. - Diagnoses Provider Diagnoses: SVT (supraventricular tachycardia) Discharge - Sign-Out/Discharge Documenting (check all that apply): Patient Departure - Admission Patient Received Moderate/Deep Sedation with Procedure: No - Discharge Plan Condition: Stable Disposition: ADMITTED TO [facility] - Billing Disposition and Condition Condition: STABLE Disposition: Admitted to [facility] - Attestation Statements Document Initiated by Elsyibe: Yes Documenting Scribe: Rigo Magana Provider For Whom Samson is Documenting (Include Credential): Rosie Quinteros MD Scribe Attestation: Rigo Glover, scribed for Rosie Quinteros MD on 09/16/18 at 0637. Scribe Documentation Reviewed: Yes Provider Attestation: The documentation as recorded by the Rigo dominguez accurately reflects the service I personally performed and the decisions made by me, Rosie Quinteros MD Status of Scribe Document: Viewed
[2018-09-15] MEDS ORDERED: oxyCODONE TAB* 5 MG TAB PO PRN (23:09)
[2018-09-15] MEDS ORDERED: Clotrimazole 1% CREAM* 30 GM TOPICAL PRN (23:09)
[2018-09-15] MEDS ORDERED: Lidocaine 5% OINT* TUBE TOPICAL PRN (23:09)
[2018-09-15] MEDS ORDERED: Levalbuterol 0.63MG/3ML NEB* UNIT OF USE INH PRN (23:09)
[2018-09-15] MEDS ORDERED: Magnesium Hydroxide LIQ* 30 ML UDC PO PRN (23:09)
[2018-09-15] MEDS ORDERED: Triamcinolone 0.5% OINT * 15 GM TUBE TOPICAL PRN (23:09)
[2018-09-15] MEDS ORDERED: Cetirizine* 10 MG TAB PO PRN (23:09)
[2018-09-15] MEDS ORDERED: Acetaminophen TAB* 325 MG PO PRN (23:09)
[2018-09-15] MEDS: Mometasone/Formoter 100/5 MDI INH SCH (23:26)
[2018-09-15] MEDS ORDERED: Albuterol/Ipratropium NEB.SOL* Albuterol 2.5 MG/Ipratropium 0.5 MG 3 ML INH SCH (23:45)
[2018-09-15] MEDS ORDERED: Ergocalciferol CAP* 50000 UNIT PO SCH (23:45)
[2018-09-16] MEDS: Enoxaparin(*) 40 MG/0.4 ML SYR SUBCUT SCH ×2 (00:27→20:42)
[2018-09-16] MEDS: Metoprolol Succinate XL TAB* 25 MG PO SCH ×3 (00:28→20:43)
[2018-09-16] MEDS: Amiodarone TAB* 200 MG PO SCH ×3 (00:29→20:43)
[2018-09-16] MEDS: Sertraline* 50 MG TAB PO SCH ×2 (01:17→20:43)
[2018-09-16] MEDS: RiFAMPin CAP* 300 MG CAP PO SCH ×3 (01:18→20:49)
[2018-09-16] MEDS: Verapamil SR TAB* 240 MG PO SCH ×3 (01:18→20:44)
[2018-09-16] MEDS ORDERED: Albuterol/Ipratropium NEB.SOL* Albuterol 2.5 MG/Ipratropium 0.5 MG 3 ML INH PRN (01:36)
[2018-09-16] MEDS ORDERED: Albuterol/Ipratropium NEB.SOL* Albuterol 2.5 MG/Ipratropium 0.5 MG 3 ML INH SCH (03:00)
--- NOTE | 2018-09-16 03:18 | HP ---
CC: Dr. Cinthya Weber; Dr. Jeremy Park* HISTORY AND PHYSICAL: DATE OF ADMISSION: 09/15/18. PRIMARY CARE PHYSICIAN: Dr. Cinthya Weber. BAIT PAINTER: Dr. Jeremy Park. ATTENDING PHYSICIAN: Florentino Mccartney MD* (dictated by MARISABEL Franklin). CHIEF COMPLAINT: 1. Palpitations. 2. Increased cough, shortness of breath, wheeze. HISTORY OF PRESENT ILLNESS: Ms. Blas is an 83-year-old female with a past medical history of MAC; on chronic therapy, chronic eosinophilia, myelodysplastic syndrome, history of lung resection, history of basal cell carcinoma who presents to the ER today with complaints of palpitations. She states that she was discharged to [facility] around 12:30 today. She had dinner around 7:20. She started to have palpitations. She states that she did not have her medications for palpitations at [facility]. The palpitations continued for approximately 2 hours. Upon arrival to the ER, she reportedly had a heart rate of 120. Prior to examination, she spontaneously converted to normal sinus rhythm. Again, the palpitations lasted from approximately 7:20 to approximately 9:20. The patient states that she has had no further palpitations. She currently and throughout the event denies chest pain, lightheadedness, headache, dizziness, nausea, vomiting, vision changes, or changes in strength. It is noted that the patient complains of increased cough , shortness of breath, and wheezing since discharge. She states that once she left these symptoms became worse. She was discharged from the hospital today with diagnoses of pneumonia, asthma exacerbation, and SVT. The patient received 10 days of treatment with meropenem. She received this treatment from 09/06/18 to 09/15/18. Upon discharge, she had completed a 10-day course of meropenem. She had also been 72 hours without an episode of SVT. In the ER, the patient received a workup which included an ECG, which showed normal sinus rhythm with a heart rate of 87. The hospitalist team was asked to evaluate the patient for admission. PAST MEDICAL HISTORY: 1. Mycobacterium avium complex, on chronic azithromycin, rifampin, prednisone. 2. Chronic eosinophilia. 3. Myelodysplastic syndrome. 4. Spinal stenosis. 5. Allergic rhinitis. 6. Vitamin D deficiency. 7. Pseudogout. 8. Radiculopathy. 9. History of breast cancer. 10. GERD. 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 12. Depression. 13. History of lung resection. 14. History of basal cell carcinoma. HOME MEDICATIONS: 1. Acetaminophen 650 mg p.o. q.6 hours p.r.n. for pain. 2. Amiodarone 200 mg p.o. b.i.d. 3. Azithromycin 500 mg p.o. daily. 4. Calcium citrate/vitamin D3 one tablet p.o. daily. 5. Cetirizine 10 mg p.o. daily p.r.n. 6. Clotrimazole 1% cream 1 application topically daily p.r.n. for itch. 7. Colchicine 0.6 mg p.o. b.i.d. 8. Diclofenac 1% gel 1 application topically daily p.r.n. for pain. 9. Ergocalciferol 50,000 units p.o. monthly. 10. Fluocinonide 1 application topically p.o. at bedtime p.r.n. for pruritus. 11. Fluticasone nasal spray 50 mcg 2 sprays to both nares daily. 12. Fluticasone/vilanterol 1 inhalation daily. 13. Ibuprofen 400 mg p.o. b.i.d. p.r.n. for pain. 14. Levalbuterol 0.63 mg/3 mL neb inhalation q.i.d. p.r.n. for shortness of breath. 15. Lidocaine 5% topically q.4 hours p.r.n. for pain. 16. Magnesium hydroxide 30 mL p.o. daily p.r.n. for constipation. 17. Magnesium oxide 400 mg p.o. b.i.d. 18. Metoprolol succinate XL 25 mg p.o. b.i.d. 19. Centrum Silver 1 tab p.o. daily. 20. Nystatin 200,000 units p.o. 4 times a day. 21. Oxycodone SR 20 mg q.12 hours, maximum daily dose 2. 22. Oxycodone 5 mg p.o. q.4 hours p.r.n. for pain, maximum daily dose 6 tabs. 23. Petroleum 41% topical application at bedtime p.r.n. for dry skin. 24. Polyethylene glycol 17 g p.o. daily p.r.n. for constipation. 25. Prednisone 7.5 mg p.o. daily. 26. Rifampin 300 mg p.o. b.i.d. 27. Sertraline 75 mg p.o. at bedtime. 28. Tiotropium 1 cap inhalation daily. 29. Verapamil SR 120 mg p.o. b.i.d. DRUG ALLERGIES: IODINATED CONTRAST, CEPHALEXIN, EPINEPHRINE, LIDOCAINE. FAMILY HISTORY: Positive for CAD. SOCIAL HISTORY: The patient states she quit smoking tobacco in 1998. She occasionally uses alcohol. 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 She currently lives at [facility]. REVIEW OF SYSTEMS: A 10-point review of systems was performed and all the pertinent positives and negatives are in the HPI. All other systems are negative. PHYSICAL EXAMINATION GENERAL: Ms. Blas is a well-developed, well-nourished elderly white female who is sitting up in bed. She appears to be in no acute distress. She is wheezing. She is currently not on oxygen. VITAL SIGNS: Temperature 98.3 temporal, heart rate 88, respiratory rate 16, oxygen saturation 96% on room air, blood pressure 140/72. HEENT: Visual lopez are grossly intact. Pupils equally round and reactive to light. Extraocular movements are intact. Sclerae without icterus. There is a conjunctival hemorrhage in the right eye, which has been in place for approximately 3 days. Mucous membranes are moist. Pharynx is clear. RESPIRATORY: Symmetrical chest expansion without use of accessory muscles. Good air exchange. Diffuse wheezing throughout bilateral lung lopez. No rhonchi or rubs. CARDIOVASCULAR: Regular rate and rhythm with S1, S2 present. No murmurs, rubs , or gallops. No JVD. ABDOMEN: Bowel sounds noted in all quadrants. The abdomen is soft. There is no tenderness to palpation. There is no hepatosplenomegaly. EXTREMITIES: Skin is warm and smooth bilaterally. There is no edema, clubbing , or cyanosis. Radial and pedal pulses are 2+ bilaterally. The patient has tenderness to palpation of bilateral lower extremities, but there is no calf tenderness. Negative Homans sign. NEURO: The patient is awake. She is alert and oriented x3. She is able to move all of her extremities. ASSESSMENT AND PLAN: Ms. Blas is an 83-year-old female with a past medical history of Mycobacterium avium complex, recent pneumonia diagnosis, and chronic obstructive pulmonary disease who presents to the ER today with palpitations, which has since resolved and increased shortness of breath, wheeze, and cough. She will be admitted to observation for: 1. Increase in cough, shortness of breath, wheeze. The patient was noted to be discharged after a 10-day course of meropenem for pneumonia. She was discharged today. She then experienced palpitations, which has since subsided, and increase in cough, wheeze, and shortness of breath, which led her to seek medical attention at the ER. Differential diagnosis includes pulmonary embolism , chronic obstructive pulmonary disease/asthma exacerbation. Pneumonia has likely resolved with treatment with meropenem, for which culture and sensitivity revealed sensitivity. Due to the patient's iodinated contrast, allergy to D-dimer will be obtained. She may require V/Q scan. The patient's home inhalers will be continued. She is also placed on DuoNebs. 2. History of supraventricular tachycardia. The patient is in normal sinus rhythm. EKG reveals normal sinus rhythm at rate of 87. She no longer has palpitations since arrival to the ER. She will continue on home medications. 3. Chronic medical conditions. Continue home medications as prescribed. 4. FEN. The patient will be placed on a heart-healthy diet. 5. DVT prophylaxis. The patient has been placed on enoxaparin 40 mg q.24 hours. TIME SPENT: Approximately 60 minutes were spent on this admission, greater than half that time was spent with the patient and caregiver obtaining history, performing physical, and reviewing the plan of care. The case has been reviewed with my attending, Dr. Mccartney, who is in agreement with the plan of care. MARISABEL RODRIGUEZ [id number]/[facility] #: [id number]
[2018-09-16 05:41] LABS: ABS Eosinophils 0.4 10^3/ul (0-0.6); ABS Lymphocytes 1.2 10^3/ul (1.0-4.8); ABS Neutrophils 2.3 10^3/ul (1.5-7.7); Hematocrit 32 % (35-47); Hemoglobin 10.8 g/dL (12.0-16.0); Lymphocyte % 24.6 %; Mean Corpuscular HGB Conc 34 g/dL (31-36); Mean Corpuscular Hemoglobin 34 pg (27-31); Mean Corpuscular Volume 101 fL (80-97); Mean Platelet Volume 10.2 fL (7.4-10.4); Nucleated Red Blood Cells % 0.1; Platelet Count 82 10^3/uL (150-450); Red Blood Count 3.14 10^6 /uL (3.70-4.87); Red Cell Distribution Width 16 % (10.5-15)
[2018-09-16 05:50] LABS: Anion Gap 4 mmol/L (2-11); BUN/Creatinine Ratio 21.5 (8-20); Blood Urea Nitrogen 14 mg/dL (6-24); CO2 Carbon Dioxide 28 mmol/L (22-32); Calcium 8.4 mg/dL (8.6-10.3); Chloride 101 mmol/L (101-111); EGFR African American 104.8 (>60); EGFR Non-African American 86.6 (>60); Glucose 85 mg/dL (70-100); Potassium 4.2 mmol/L (3.5-5.0); Sodium 133 mmol/L (135-145)
[2018-09-16 07:55] LABS: Magnesium 1.9 mg/dL (1.9-2.7)
[2018-09-16] MEDS: Tiotropium CAP.INH* CAP.INH/18 MCG (USE ORDER SET !) INH SCH (08:00)
[2018-09-16] MEDS: Mometasone/Formoter 100/5 MDI INH SCH ×2 (08:00→20:39)
[2018-09-16 08:03] LABS: % Iron Saturation 25 % (15-55); Iron 42 ug/dL (50-212); Total Iron Binding Capacity 165 mcg/dL (250-450); Transferrin 118 mg/dL (203-362)
[2018-09-16 08:21] LABS: Ferritin 262.9 ng/mL (11-307)
[2018-09-16 08:25] LABS: Folate 11.83 ng/mL (>3.99)
[2018-09-16] MEDS: Fluticasone NASAL SPRAY 50MCG* 16 gm SPRAY BTL BOTH NARES SCH (08:25)
[2018-09-16] MEDS: Magnesium Oxide TAB* 400 MG PO SCH ×2 (08:26→20:43)
[2018-09-16] MEDS: Colchicine* 0.6 MG TAB PO SCH (08:27)
[2018-09-16] MEDS: Azithromycin TAB* 250 MG PO SCH (08:28)
[2018-09-16] MEDS: oxyCODONE SR TAB(*) 20 MG TAB.SR PO SCH ×2 (08:28→20:45)
[2018-09-16] MEDS: predniSONE TAB* 5 MG PO SCH (08:29)
[2018-09-16] MEDS ORDERED: Tiotropium CAP.INH* CAP.INH/18 MCG (USE ORDER SET !) INH SCH (09:00)
[2018-09-16] MEDS ORDERED: Ondansetron INJ* 2 MG/ML VIAL IV PRN (09:34)
--- NOTE | 2018-09-16 15:46 | PN ---
Subjective Date of Service: 09/16/18 Interval History: HD # 2 on 09/16 83F emale with a PMH for MAC, Asthma, MDS, admitted recently with Pseudomonas Pneumonia tx with meropenem prior course c/b intermittent SVT failed verapamil and BB and amio, who was d/c yesterday but readmitted from [place] with symptomatic SVT that has since stopped Cinthya Weber patient, family is requesting MD to see patient Overnight no acute events VSS Labs-Stable hypona, D dimer elevated, age adjusted normal. Today seen with family at bedside, asymptomatic, family sig anxious about back and for from hospital to [place], discussed and acknowledged the real frustration that comes with the back and forth nature of the [facility] system. Dr Weber to consult tomorrow,I did speak with cardiology they are familiar with patient, and will see her tomorrow not in active SVT, Danitza Zimmerman left last note, will reconsult to her. No CP SOB GI or MSK complaints Objective Active Medications: Acetaminophen (Tylenol Tab*) 650 mg PO Q6H PRN PRN Reason: FEVER/PAIN Albuterol/Ipratropium (Duoneb (Albuterol 2.5 Mg/Ipratropium 0.5 Mg)) 1 neb INH QID PRN PRN Reason: SOB/WHEEZING Amiodarone HCl (Cordarone Tab*) 200 mg PO BID [facility] Stop: 09/20/18 21:01 Last Admin: 09/16/18 08:26 Dose: 200 mg Amiodarone HCl (Cordarone Tab*) 200 mg PO DAILY [facility] Azithromycin (Zithromax Tab*) 500 mg PO DAILY [facility] Last Admin: 09/16/18 08:28 Dose: 500 mg Cetirizine HCl (Zyrtec*) 10 mg PO DAILY PRN PRN Reason: Allergy Symptoms Clotrimazole (Clotrimazole 1%*) 1 applic TOPICAL DAILY PRN PRN Reason: ITCHING Colchicine (Colcrys*) 0.3 mg PO DAILY [facility] Last Admin: 09/16/18 08:27 Dose: 0.3 mg Enoxaparin Sodium (Lovenox(*)) 40 mg SUBCUT BEDTIME [facility] Last Admin: 09/16/18 00:27 Dose: 40 mg Ergocalciferol (Drisdol Cap*) 50,000 unit PO .MONTHLY [facility] Fluticasone Propionate (Flonase Nasal Hatch 50mcg*) 2 spray BOTH NARES DAILY [facility] Last Admin: 09/16/18 08:25 Dose: 2 spray Levalbuterol HCl (Xopenex 0.63mg/3ml Neb*) 0.63 mg INH QID PRN PRN Reason: SHORTNESS OF BREATH Lidocaine (Xylocaine 5% Oint*) 1 applic TOPICAL Q4H PRN PRN Reason: PAIN Magnesium Hydroxide (Milk Of Magnesia Liq*) 30 ml PO DAILY PRN PRN Reason: CONSTIPATION Magnesium Oxide (Magox 400 Tab*) 400 mg PO BID [facility] Last Admin: 09/16/18 08:26 Dose: 400 mg Metoprolol Succinate (Toprol Xl Tab*) 25 mg PO BID [facility] Last Admin: 09/16/18 08:29 Dose: 25 mg Mometasone Furoate/Formoterol Fumar (Dulera 100/5 Mdi*) 2 puff INH BID [facility] Last Admin: 09/16/18 08:00 Dose: Not Given Oxycodone HCl (Oxycontin(*)) 20 mg PO Q12HR [facility] Last Admin: 09/16/18 08:28 Dose: 20 mg Oxycodone HCl (Roxycodone Tab*) 5 mg PO Q4H PRN PRN Reason: PAIN Polyethylene Glycol/Electrolytes (Miralax*) 17 gm PO DAILY PRN PRN Reason: CONSTIPATION Prednisone (Deltasone Tab*) 7.5 mg PO DAILY [facility] Last Admin: 09/16/18 08:29 Dose: 7.5 mg Rifampin (Rifampin Cap*) 300 mg PO BID [facility] Last Admin: 09/16/18 08:26 Dose: 300 mg Sertraline HCl (Zoloft*) 75 mg PO BEDTIME [facility] Last Admin: 09/16/18 01:17 Dose: 75 mg Tiotropium Mclean (Spiriva Cap.Inh*) 1 cap INH DAILY [facility] Last Admin: 09/16/18 08:00 Dose: Not Given Triamcinolone Acetonide (Triamcinolone 0.5% Oint *) 1 applic TOPICAL BEDTIME PRN PRN Reason: PRURITIS Verapamil HCl (Calan Sr Tab*) 120 mg PO BID [facility] Last Admin: 09/16/18 08:27 Dose: 120 mg Vital Signs - 8 hr 09/16/18 09/16/18 09/16/18 08:28 11:05 12:06 Temperature 98.2 F Pulse Rate 73 Respiratory 18 18 20 Rate Blood Pressure 97/47 (mmHg) O2 Sat by Pulse 92 Oximetry 09/16/18 13:19 Temperature Pulse Rate 77 Respiratory Rate Blood Pressure 105/53 (mmHg) O2 Sat by Pulse Oximetry Oxygen Devices in Use Now: None Appearance: Pleasant elderly woman, thin in NAD Eyes: No Scleral Icterus, - - injected R slera Respiratory: Symmetrical Chest Expansion and Respiratory Effort, - - fine crackles Cardiovascular: NL Sounds; No Murmurs; No JVD, RRR Abdominal: NL Sounds; No Tenderness; No Distention, No Hepatosplenomegaly Lymphatic: No Cervical Adenopathy, No Axillary Adenopathy Extremities: No Edema Skin: - - Chronic venous stasis Neurological: Alert and Oriented x 3 Result Diagrams: 09/16/18 05:11 09/16/18 05:11 Assess/Plan/Problems-Billing Assessment: 83yo female with a PMH for MAC, Asthma, MDS, admitted recently with Pseudomonas Pneumonia tx with meropenem prior course c/b intermittent SVT failed verapamil and BB and amio, who was d/c yesterday but readmitted from [place] with symptomatic SVT that has since stopped - Patient Problems (1) Asthma Current Visit: No Status: Acute Code(s): J45.909 - UNSPECIFIED ASTHMA, UNCOMPLICATED SNOMED Code(s): 235349957 Comment: - Exacerbated by pneumonia, continue maintenence inhalers and steroids (2) Mycobacterium avium complex Current Visit: No Status: Acute Code(s): A31.0 - PULMONARY MYCOBACTERIAL INFECTION SNOMED Code(s): 863187927 Comment: - Continue Rifampin and Azithromycin (3) Supraventricular tachycardia Current Visit: No Status: Acute Code(s): I47.1 - SUPRAVENTRICULAR TACHYCARDIA SNOMED Code(s): 6318014 Comment: - Recurrent Episodes, resistent to Rate controlling medications - Now on Metoprolol, Verapamil, and Amiodarone - Reconsult to cardiology, EP study vs other meds vs continued monitoring - Continue to Monitor on telemetry, appreciate Cardiology input. (4) Chronic pain Current Visit: No Status: Chronic Code(s): G89.29 - OTHER CHRONIC PAIN SNOMED Code(s): 51961316 Comment: - Home medications (5) Myelodysplastic syndrome Current Visit: No Status: Chronic Code(s): D46.9 - MYELODYSPLASTIC SYNDROME , UNSPECIFIED SNOMED Code(s): 761518210 Comment: - Chronic, Stable (6) DVT prophylaxis Current Visit: No Status: Acute Code(s): Z29.9 - ENCOUNTER FOR PROPHYLACTIC MEASURES, UNSPECIFIED SNOMED Code(s): 085979768 Comment: - Lovenox while Platelets >50K (7) Full code status Current Visit: No Status: Acute Code(s): Z78.9 - OTHER SPECIFIED HEALTH STATUS SNOMED Code(s): 586730946
[2018-09-16] MEDS: Polyethylene Glycol 3350* 17 GM PACKET PO PRN (20:40)
[2018-09-16] MEDS: Capsaicin 0.025% CREAM* 60 GM TOPICAL SCH (20:48)
[2018-09-17] MEDS: Tiotropium CAP.INH* CAP.INH/18 MCG (USE ORDER SET !) INH SCH (08:03)
[2018-09-17] MEDS: Mometasone/Formoter 100/5 MDI INH SCH ×2 (08:04→21:36)
[2018-09-17 08:50] LABS: C Reactive Protein 25.89 mg/L (<8.01)
[2018-09-17] MEDS: Capsaicin 0.025% CREAM* 60 GM TOPICAL SCH ×2 (09:29→20:35)
[2018-09-17] MEDS: Fluticasone NASAL SPRAY 50MCG* 16 gm SPRAY BTL BOTH NARES SCH (09:29)
[2018-09-17] MEDS: Verapamil SR TAB* 240 MG PO SCH ×2 (09:30→20:32)
[2018-09-17] MEDS: Azithromycin TAB* 250 MG PO SCH (09:30)
[2018-09-17] MEDS: Metoprolol Succinate XL TAB* 25 MG PO SCH ×2 (09:30→20:34)
[2018-09-17] MEDS: predniSONE TAB* 5 MG PO SCH (09:30)
[2018-09-17] MEDS: Colchicine* 0.6 MG TAB PO SCH (09:31)
[2018-09-17] MEDS: Magnesium Oxide TAB* 400 MG PO SCH ×2 (09:31→20:34)
[2018-09-17] MEDS: Amiodarone TAB* 200 MG PO SCH ×2 (09:31→20:31)
[2018-09-17] MEDS: oxyCODONE SR TAB(*) 20 MG TAB.SR PO SCH ×2 (09:31→20:34)
[2018-09-17] MEDS: RiFAMPin CAP* 300 MG CAP PO SCH ×2 (09:31→20:31)
[2018-09-17] MEDS ORDERED: Amiodarone TAB* 200 MG PO ONE (10:10)
[2018-09-17] MEDS ORDERED: Diltiazem TAB* 30 MG PO PRN ×3 (10:10→10:37)
[2018-09-17 10:20] LABS: BUN/Creatinine Ratio 13.3 (8-20); Calcium 8.8 mg/dL (8.6-10.3); EGFR African American 79.1 (>60); EGFR Non-African American 65.3 (>60)
--- NOTE | 2018-09-17 10:41 | PN ---
<Lashell Aguilar - Last Filed: 09/17/18 10:44> Subjective Date of Service: 09/17/18 - psvt Interval History: No events last night, patient lying in bed with family at side. She states she has been ambulating to bathroom with no complaints. Denies recurrent sensation of heart racing with irregularity since she presented. No c/o chest pain or dizziness. Medications Active Medications: Acetaminophen (Tylenol Tab*) 650 mg PO Q6H PRN PRN Reason: FEVER/PAIN Albuterol/Ipratropium (Duoneb (Albuterol 2.5 Mg/Ipratropium 0.5 Mg)) 1 neb INH QID PRN PRN Reason: SOB/WHEEZING Amiodarone HCl (Cordarone Tab*) 400 mg PO BID [facility] Azithromycin (Zithromax Tab*) 500 mg PO DAILY [facility] Last Admin: 09/17/18 09:30 Dose: 500 mg Capsaicin (Zostrix 0.025% Cream*) 1 applic TOPICAL BID [facility] Last Admin: 09/17/18 09:29 Dose: Not Given Cetirizine HCl (Zyrtec*) 10 mg PO DAILY PRN PRN Reason: Allergy Symptoms Clotrimazole (Clotrimazole 1%*) 1 applic TOPICAL DAILY PRN PRN Reason: ITCHING Colchicine (Colcrys*) 0.3 mg PO DAILY [facility] Last Admin: 09/17/18 09:31 Dose: 0.3 mg Diltiazem HCl (Cardizem Tab*) 30 mg PO Q6HR PRN PRN Reason: TACHYCARDIA Enoxaparin Sodium (Lovenox(*)) 40 mg SUBCUT BEDTIME [facility] Last Admin: 09/16/18 20:42 Dose: 40 mg Ergocalciferol (Drisdol Cap*) 50,000 unit PO .MONTHLY [facility] Fluticasone Propionate (Flonase Nasal [place] 50mcg*) 2 spray BOTH NARES DAILY [facility] Last Admin: 09/17/18 09:29 Dose: 2 spray Levalbuterol HCl (Xopenex 0.63mg/3ml Neb*) 0.63 mg INH QID PRN PRN Reason: SHORTNESS OF BREATH Lidocaine (Xylocaine 5% Oint*) 1 applic TOPICAL Q4H PRN PRN Reason: PAIN Magnesium Hydroxide (Milk Of Magnesia Liq*) 30 ml PO DAILY PRN PRN Reason: CONSTIPATION Magnesium Oxide (Magox 400 Tab*) 400 mg PO BID [facility] Last Admin: 09/17/18 09:31 Dose: 400 mg Metoprolol Succinate (Toprol Xl Tab*) 25 mg PO BID [facility] Last Admin: 09/17/18 09:30 Dose: 25 mg Mometasone Furoate/Formoterol Fumar (Dulera 100/5 Mdi*) 2 puff INH BID [facility] Last Admin: 09/17/18 08:04 Dose: 2 puff Oxycodone HCl (Oxycontin(*)) 20 mg PO Q12HR [facility] Last Admin: 09/17/18 09:31 Dose: 20 mg Oxycodone HCl (Roxycodone Tab*) 5 mg PO Q4H PRN PRN Reason: PAIN Polyethylene Glycol/Electrolytes (Miralax*) 17 gm PO DAILY PRN PRN Reason: CONSTIPATION Last Admin: 09/16/18 20:40 Dose: 17 gm Prednisone (Deltasone Tab*) 7.5 mg PO DAILY [facility] Last Admin: 09/17/18 09:30 Dose: 7.5 mg Rifampin (Rifampin Cap*) 300 mg PO BID [facility] Last Admin: 09/17/18 09:31 Dose: 300 mg Sertraline HCl (Zoloft*) 75 mg PO BEDTIME [facility] Last Admin: 09/16/18 20:43 Dose: 75 mg Tiotropium [place] (Spiriva Cap.Inh*) 1 cap INH DAILY [facility] Last Admin: 09/17/18 08:03 Dose: 1 cap Triamcinolone Acetonide (Triamcinolone 0.5% Oint *) 1 applic TOPICAL BEDTIME PRN PRN Reason: PRURITIS Verapamil HCl (Calan Sr Tab*) 120 mg PO BID [facility] Last Admin: 09/17/18 09:30 Dose: 120 mg Objective Vital Signs: Temp Pulse Resp BP Pulse Ox 98.1 F 80 16 97/47 96 09/17/18 08:59 09/17/18 08:59 09/17/18 09:31 09/17/18 09:48 09/17/18 10:08 Oxygen Devices in Use Now: Nasal Cannula Appearance: comfortable, NAD resting in bed. Ears/Nose/Mouth/Throat: NL Teeth, Lips, Gums, Mucous Membranes Moist Neck: NL Appearance and Movements; NL JVP Respiratory: - - + inspiratory and expiratory rales throughout. Cardiovascular: NL Sounds; No Murmurs; No JVD, No Edema Abdominal: NL Sounds; No Tenderness; No Distention Extremities: No Edema Neurological: Alert and Oriented x 3 Lines/Tubes/Other Access: Clean, Dry and Intact Peripheral IV Laboratory Results: 09/16/18 05:11 09/17/18 09:43 TSH 5.20 mcIU/mL (0.34-5.60) 09/16/18 05:11 Laboratory Results - last 24 hr 09/16/18 09/16/18 09/17/18 05:11 09:57 09:43 D-Dimer, Quantitative 396 H Sodium 133 L 134 L Potassium 4.2 4.0 Chloride 101 98 L Carbon Dioxide 28 30 Anion Gap 4 6 BUN 14 11 Creatinine 0.65 0.83 Est GFR ( Amer) 104.8 79.1 Est GFR (Non-Af Amer) 86.6 65.3 BUN/Creatinine Ratio 21.5 H 13.3 Glucose 85 134 H Calcium 8.4 L 8.8 Magnesium 1.9 Iron 42 L TIBC 165 L % Saturation 25 Unsat Iron Binding < 150 Transferrin 118 L Ferritin 262.9 C-Reactive Protein 25.89 H Vitamin B12 203 Folate 11.83 TSH 5.20 Diagnostic Imaging: Patient Name: TRESA QUINTANA Medical Record#: [id number] Ordering Physician: Rommel Carballo MD Acct.#: [id number] : 1935 Age: 83 Sex: F Location: [address] [place] [address]/TELEMETRY Exam Date: 09/16/181525 ADM Status: ADM Gilma Order Information: CHEST PA & LAT 2 VWS Accession Number: [id number] CPT: 79137 INDICATION: Follow-up pneumonia. COPD. Palpitations. COMPARISON: September 07, 2018 CT and September 04, 2018 chest radiograph. TECHNIQUE: Dual energy PA and routine lateral views of the chest were obtained. REPORT: Elevated lung volumes and rarefaction of interstitial markings. No significant change in mild bibasilar alveolar and interstitial opacities favoring persistent inflammatory infiltrates. Negative for pleural effusion or pneumothorax. The heart, pulmonary vasculature, and mediastinal contours are unremarkable. IMPRESSION: #. Persistent mild bibasilar inflammatory infiltrates superimposed on advanced chronic obstructive pulmonary disease/emphysema. <Electronically signed by Khoa Muñiz MD in OV> 09/17/18743 Dictated By: Khoa Muñiz MD Dictated Date/Time: 09/17/18743 Transcribed Date/Time: 09/17/18741 Copy to: CC:Cinthya Weber MD; Penny Nuñez MD; Rommel Carballo MD; Patricia Bosch MD; Monika PETIT Imaging - [facility] [address] [address] ph ([phone]) ph ([phone]) ph ([phone]) This report is only to be considered final once signed by the Provider(s) as displayed in the "<Electronically Signed by >" field (s). Absence of a signature indicates the report is in a draft status and still needs to be finalized. In the event this document was created by someone other than the signing Provider, the individual initiating the document will be listed in the "Entered by:" or "Dictated by:" lopez. 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 Recently admitted 09/04/2018 Patient had SVT during that admit thus was sent home on Amiodarone 200mg PO BID ( First dose according to pharmacy was 09/11/2018 she has received approximately 2,400mg load so far). Will increase amiodarone to 400mg Po BIDx7 days on 09/25/2018 reduce dose to 200mg/day. Will add Diltiazem 30 mg tablet, take 1 tablet PO crushed in applesauce PRN Q6H for HR > 100/SVT only while patient is in sitting position given SBP 90's. 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 recommend keeping K+ > 4, Mag > 2. She is on multiple medications that interract with Amiodarone. Will continue verapamil. Will differ Azithromycin, Rifampin and colchicine to primary team. I personally spoke with Dr. Weber to notify her of medication interactions. Rifampin can reduce the efficacy of Amiodarone thus loading dose was increased. #3 DVT Prophylaxsis; On sub Lovenox. Patient ambulating to bathroom #4 Disposition pending course. Will d/w Dr. Bosch. Update EKG 09/18/2018 to ensure QTc remains stable. Monitor on telemetry for bradycardia. Attending: Patricia Bosch <Patricia Bosch - Last Filed: 09/17/18 20:11> Medications Active Medications: Acetaminophen (Tylenol Tab*) 650 mg PO Q6H PRN PRN Reason: FEVER/PAIN Albuterol/Ipratropium (Duoneb (Albuterol 2.5 Mg/Ipratropium 0.5 Mg)) 1 neb INH QID PRN PRN Reason: SOB/WHEEZING Amiodarone HCl (Cordarone Tab*) 400 mg PO BID [facility] Azithromycin (Zithromax Tab*) 500 mg PO DAILY [facility] Last Admin: 09/17/18 09:30 Dose: 500 mg Capsaicin (Zostrix 0.025% Cream*) 1 applic TOPICAL BID [facility] Last Admin: 09/17/18 09:29 Dose: Not Given Cetirizine HCl (Zyrtec*) 10 mg PO DAILY PRN PRN Reason: Allergy Symptoms Clotrimazole (Clotrimazole 1%*) 1 applic TOPICAL DAILY PRN PRN Reason: ITCHING Colchicine (Colcrys*) 0.3 mg PO DAILY [facility] Last Admin: 09/17/18 09:31 Dose: 0.3 mg Diltiazem HCl (Cardizem Tab*) 30 mg PO Q6HR PRN PRN Reason: TACHYCARDIA Enoxaparin Sodium (Lovenox(*)) 40 mg SUBCUT BEDTIME [facility] Last Admin: 09/16/18 20:42 Dose: 40 mg Ergocalciferol (Drisdol Cap*) 50,000 unit PO .MONTHLY [facility] Fluticasone Propionate (Flonase Nasal [place] 50mcg*) 2 spray BOTH NARES DAILY [facility] Last Admin: 09/17/18 09:29 Dose: 2 spray Levalbuterol HCl (Xopenex 0.63mg/3ml Neb*) 0.63 mg INH QID PRN PRN Reason: SHORTNESS OF BREATH Lidocaine (Xylocaine 5% Oint*) 1 applic TOPICAL Q4H PRN PRN Reason: PAIN Magnesium Hydroxide (Milk Of Magnesia Liq*) 30 ml PO DAILY PRN PRN Reason: CONSTIPATION Magnesium Oxide (Magox 400 Tab*) 400 mg PO BID [facility] Last Admin: 09/17/18 09:31 Dose: 400 mg Metoprolol Succinate (Toprol Xl Tab*) 25 mg PO BID [facility] Last Admin: 09/17/18 09:30 Dose: 25 mg Mometasone Furoate/Formoterol Fumar (Dulera 100/5 Mdi*) 2 puff INH BID [facility] Last Admin: 09/17/18 08:04 Dose: 2 puff Oxycodone HCl (Oxycontin(*)) 20 mg PO Q12HR [facility] Last Admin: 09/17/18 09:31 Dose: 20 mg Oxycodone HCl (Roxycodone Tab*) 5 mg PO Q4H PRN PRN Reason: PAIN Polyethylene Glycol/Electrolytes (Miralax*) 17 gm PO DAILY PRN PRN Reason: CONSTIPATION Last Admin: 09/16/18 20:40 Dose: 17 gm Prednisone (Deltasone Tab*) 7.5 mg PO DAILY [facility] Last Admin: 09/17/18 09:30 Dose: 7.5 mg Rifampin (Rifampin Cap*) 300 mg PO BID [facility] Last Admin: 09/17/18 09:31 Dose: 300 mg Sertraline HCl (Zoloft*) 75 mg PO BEDTIME [facility] Last Admin: 09/16/18 20:43 Dose: 75 mg Tiotropium [place] (Spiriva Cap.Inh*) 1 cap INH DAILY [facility] Last Admin: 09/17/18 08:03 Dose: 1 cap Triamcinolone Acetonide (Triamcinolone 0.5% Oint *) 1 applic TOPICAL BEDTIME PRN PRN Reason: PRURITIS Verapamil HCl (Calan Sr Tab*) 120 mg PO BID [facility] Last Admin: 09/17/18 09:30 Dose: 120 mg Objective Vital Signs: Temp Pulse Resp BP Pulse Ox 98.3 F 76 16 98/49 97 09/17/18 15:27 09/17/18 15:27 09/17/18 15:27 09/17/18 15:27 09/17/18 15:27 Laboratory Results: 09/16/18 05:11 09/17/18 09:43 TSH 5.20 mcIU/mL (0.34-5.60) 09/16/18 05:11 Assessment/Plan The patient was seen by me personally and examined, the patient's daughter was present. She is feeling better today wrt breathing. Multiple questions were asked by the patient and her daughter. Her daughter expressed concerns about BP being a bit low, I explained effectsof verapamil (and lopressor). Exam: Elderly, in chair, appears more energetic than over the weekend. Resp: Rhoncorous cough, wheezing no long present. Cor: S1S2 regular. Ext: skin thin, ecchymotic, no edema. 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 Complicated by SVT, symptomatic per patient on recurrence shortly after she was back at [facility]. I could not locate any strips of SVT for this admission. Dr Mendes asking for something that could be given PRN at [facility] if recurrent events. As above, increase amiodarone loading. Short acting diltiazem could be tried PRN at [facility]. Consider sending home with an EM if unable to get ECG/rhythm at [facility].
[2018-09-17] MEDS: Sertraline* 50 MG TAB PO SCH (20:33)
[2018-09-17] MEDS: Enoxaparin(*) 40 MG/0.4 ML SYR SUBCUT SCH (20:35)
[2018-09-17] MEDS: Polyethylene Glycol 3350* 17 GM PACKET PO PRN (20:50)
[2018-09-17] MEDS ORDERED: Amiodarone TAB* 200 MG PO SCH (21:00)
[2018-09-18 06:59] LABS: Hematocrit 31 % (35-47); Hemoglobin 10.3 g/dL (12.0-16.0); Mean Corpuscular HGB Conc 34 g/dL (31-36); Mean Corpuscular Hemoglobin 34 pg (27-31); Mean Corpuscular Volume 102 fL (80-97); Mean Platelet Volume 9.9 fL (7.4-10.4); Platelet Count 81 10^3/uL (150-450); Red Blood Count 3.01 10^6 /uL (3.70-4.87); Red Cell Distribution Width 16 % (10.5-15); White Blood Count 4.3 10^3/uL (3.5-10.8)
[2018-09-18 07:14] LABS: C Reactive Protein 37.87 mg/L (<8.01); Magnesium 1.9 mg/dL (1.9-2.7)
[2018-09-18] MEDS: Mometasone/Formoter 100/5 MDI INH SCH ×2 (07:41→19:59)
[2018-09-18] MEDS: Tiotropium CAP.INH* CAP.INH/18 MCG (USE ORDER SET !) INH SCH (07:42)
[2018-09-18 08:17] LABS: ABS Basophils 0.2 10^3/ul (0-0.2); ABS Eosinophils 0.4 10^3/ul (0-0.6); ABS Lymphocytes 1.1 10^3/ul (1.0-4.8); ABS Monocytes 0.9 10^3/ul (0-0.8); ABS Neutrophils 1.6 10^3/ul (1.5-7.7); Eosinophil % 9.2 %
[2018-09-18] MEDS: Metoprolol Succinate XL TAB* 25 MG PO SCH ×2 (09:21→21:39)
[2018-09-18] MEDS: Verapamil SR TAB* 240 MG PO SCH ×2 (09:21→21:42)
[2018-09-18] MEDS: RiFAMPin CAP* 300 MG CAP PO SCH ×2 (09:21→21:42)
[2018-09-18] MEDS: predniSONE TAB* 5 MG PO SCH (09:21)
[2018-09-18] MEDS: Fluticasone NASAL SPRAY 50MCG* 16 gm SPRAY BTL BOTH NARES SCH (09:22)
[2018-09-18] MEDS: Azithromycin TAB* 250 MG PO SCH (09:22)
[2018-09-18] MEDS: Colchicine* 0.6 MG TAB PO SCH (09:22)
[2018-09-18] MEDS: Amiodarone TAB* 200 MG PO SCH (09:22)
[2018-09-18] MEDS: Magnesium Oxide TAB* 400 MG PO SCH ×2 (09:22→21:39)
[2018-09-18] MEDS: oxyCODONE SR TAB(*) 20 MG TAB.SR PO SCH ×2 (09:22→21:41)
[2018-09-18] MEDS: Capsaicin 0.025% CREAM* 60 GM TOPICAL SCH ×2 (09:23→21:39)
--- NOTE | 2018-09-18 10:20 | PN ---
<Lashell Aguilar - Last Filed: 09/18/18 10:15> Subjective Date of Service: 09/18/18 - PSVT Interval History: No events last night, patient lying in bed with family at side. She states she has been ambulating to bathroom and hallway with no complaints. Denies recurrent sensation of heart racing with irregularity since she presented. No c/ o chest pain or dizziness. Medications Active Medications: Acetaminophen (Tylenol Tab*) 650 mg PO Q6H PRN PRN Reason: FEVER/PAIN Albuterol/Ipratropium (Duoneb (Albuterol 2.5 Mg/Ipratropium 0.5 Mg)) 1 neb INH QID PRN PRN Reason: SOB/WHEEZING Amiodarone HCl (Cordarone Tab*) 400 mg PO BID [facility] Last Admin: 09/18/18 09:22 Dose: 400 mg Azithromycin (Zithromax Tab*) 500 mg PO DAILY [facility] Last Admin: 09/18/18 09:22 Dose: 500 mg Capsaicin (Zostrix 0.025% Cream*) 1 applic TOPICAL BID [facility] Last Admin: 09/18/18 09:23 Dose: Not Given Cetirizine HCl (Zyrtec*) 10 mg PO DAILY PRN PRN Reason: Allergy Symptoms Clotrimazole (Clotrimazole 1%*) 1 applic TOPICAL DAILY PRN PRN Reason: ITCHING Colchicine (Colcrys*) 0.3 mg PO DAILY [facility] Last Admin: 09/18/18 09:22 Dose: 0.3 mg Diltiazem HCl (Cardizem Tab*) 30 mg PO Q6HR PRN PRN Reason: TACHYCARDIA Enoxaparin Sodium (Lovenox(*)) 40 mg SUBCUT BEDTIME [facility] Last Admin: 09/17/18 20:35 Dose: 40 mg Ergocalciferol (Drisdol Cap*) 50,000 unit PO .MONTHLY [facility] Fluticasone Propionate (Flonase Nasal [place] 50mcg*) 2 spray BOTH NARES DAILY [facility] Last Admin: 09/18/18 09:22 Dose: 2 spray Levalbuterol HCl (Xopenex 0.63mg/3ml Neb*) 0.63 mg INH QID PRN PRN Reason: SHORTNESS OF BREATH Lidocaine (Xylocaine 5% Oint*) 1 applic TOPICAL Q4H PRN PRN Reason: PAIN Magnesium Hydroxide (Milk Of Magnesia Liq*) 30 ml PO DAILY PRN PRN Reason: CONSTIPATION Magnesium Oxide (Magox 400 Tab*) 400 mg PO BID [facility] Last Admin: 09/18/18 09:22 Dose: 400 mg Metoprolol Succinate (Toprol Xl Tab*) 25 mg PO BID [facility] Last Admin: 09/18/18 09:21 Dose: 25 mg Mometasone Furoate/Formoterol Fumar (Dulera 100/5 Mdi*) 2 puff INH BID [facility] Last Admin: 09/18/18 07:41 Dose: 2 puff Oxycodone HCl (Oxycontin(*)) 20 mg PO Q12HR [facility] Last Admin: 09/18/18 09:22 Dose: 20 mg Oxycodone HCl (Roxycodone Tab*) 5 mg PO Q4H PRN PRN Reason: PAIN Polyethylene Glycol/Electrolytes (Miralax*) 17 gm PO DAILY PRN PRN Reason: CONSTIPATION Last Admin: 09/17/18 20:50 Dose: 17 gm Prednisone (Deltasone Tab*) 7.5 mg PO DAILY [facility] Last Admin: 09/18/18 09:21 Dose: 7.5 mg Rifampin (Rifampin Cap*) 300 mg PO BID [facility] Last Admin: 09/18/18 09:21 Dose: 300 mg Sertraline HCl (Zoloft*) 75 mg PO BEDTIME [facility] Last Admin: 09/17/18 20:33 Dose: 75 mg Tiotropium [place] (Spiriva Cap.Inh*) 1 cap INH DAILY [facility] Last Admin: 09/18/18 07:42 Dose: 1 cap Triamcinolone Acetonide (Triamcinolone 0.5% Oint *) 1 applic TOPICAL BEDTIME PRN PRN Reason: PRURITIS Verapamil HCl (Calan Sr Tab*) 120 mg PO BID [facility] Last Admin: 09/18/18 09:21 Dose: 120 mg Objective Vital Signs: Temp Pulse Resp BP Pulse Ox 98.6 F 88 16 96/41 97 09/18/18 07:39 09/18/18 08:41 09/18/18 09:22 09/18/18 08:50 09/18/18 07:42 Oxygen Devices in Use Now: None Appearance: comfortable, NAD resting in bed. Eyes: No Scleral Icterus, PERRLA Ears/Nose/Mouth/Throat: NL Teeth, Lips, Gums, Mucous Membranes Moist Neck: NL Appearance and Movements; NL JVP Respiratory: - - + inspiratory and expiratory rales throughout. Cardiovascular: NL Sounds; No Murmurs; No JVD, No Edema Abdominal: NL Sounds; No Tenderness; No Distention Extremities: No Edema Neurological: Alert and Oriented x 3 Lines/Tubes/Other Access: Clean, Dry and Intact Peripheral IV Laboratory Results: 09/18/18 06:46 09/17/18 09:43 TSH 5.20 mcIU/mL (0.34-5.60) 09/16/18 05:11 Laboratory Results - last 24 hr 09/17/18 09/18/18 09/18/18 09:43 06:46 06:46 WBC 4.3 RBC 3.01 L Hgb 10.3 L Hct 31 L MCV 102 H MCH 34 H MCHC 34 RDW 16 H Plt Count 81 L MPV 9.9 Neut % (Auto) 38.1 Lymph % (Auto) 26.0 Grant % (Auto) 21.0 Eos % (Auto) 9.2 Baso % (Auto) 5.7 Absolute Neuts (auto) 1.6 Absolute Lymphs (auto) 1.1 Absolute Monos (auto) 0.9 H Absolute Eos (auto) 0.4 Absolute Basos (auto) 0.2 Absolute Nucleated RBC 0.0 Nucleated RBC % 0.0 Sodium 134 L Potassium 4.0 Chloride 98 L Carbon Dioxide 30 Anion Gap 6 BUN 11 Creatinine 0.83 Est GFR ( Amer) 79.1 Est GFR (Non-Af Amer) 65.3 BUN/Creatinine Ratio 13.3 Glucose 134 H Calcium 8.8 Magnesium 1.9 C-Reactive Protein 37.87 H Diagnostic Imaging: Patient Name: TRESA QUINTANA Medical Record#: [id number] Ordering Physician: Rommel Carballo MD Acct.#: [id number] : 1935 Age: 83 Sex: F Location: [address] [place] [address]/TELEMETRY Exam Date: 09/16/18 1526 ADM Status: ADM Gilma Order Information: CHEST PA & LAT 2 VWS Accession Number: [id number] CPT: 23361 INDICATION: Follow-up pneumonia. COPD. Palpitations. COMPARISON: September 07, 2018 CT and September 04, 2018 chest radiograph. TECHNIQUE: Dual energy PA and routine lateral views of the chest were obtained. REPORT: Elevated lung volumes and rarefaction of interstitial markings. No significant change in mild bibasilar alveolar and interstitial opacities favoring persistent inflammatory infiltrates. Negative for pleural effusion or pneumothorax. The heart, pulmonary vasculature, and mediastinal contours are unremarkable. IMPRESSION: #. Persistent mild bibasilar inflammatory infiltrates superimposed on advanced chronic obstructive pulmonary disease/emphysema. <Electronically signed by Khoa Muñiz MD in OV> 09/17/18743 Dictated By: Khoa Muñiz MD Dictated Date/Time: 09/17/18743 Transcribed Date/Time: 09/17/18741 Copy to: CC:Cinthya Weber MD; Penny Nuñez MD; Rommel Carballo MD; Patricia Bosch MD; Monika Kelley PR Imaging - [facility] - [place] [facility] [address] [address] ph ([phone]) ph ([phone]) ph ([phone]) This report is only to be considered final once signed by the Provider(s) as displayed in the "<Electronically Signed by >" field (s). Absence of a signature indicates the report is in a draft status and still needs to be finalized. In the event this document was created by someone other than the signing Provider, the individual initiating the document will be listed in the "Entered by:" or "Dictated by:" lopez. 1 of 1 EKG Data: 09/18/2018; Sinus HR Telemetry; Sinus 70's Assessment/Plan #1 h/o PSVT; She has not had any reoccurrence since presenting and episode was not captured on telemetry or ECG. Amiodarone load was increased to 400mg Po BID , on 09/25/2018 dose is to be reduced to 200mg/day. She is on Verapamil 120mg PO BID and Toprol 25mg PO BID. I'm told [facility] has an ECG however it is not clear if they are able to obtain EKG during nighttime hours. If not we recommend 30 day event monitor to correlate symptoms. QTc on today's ECG is stable-. Recommend keeping K+> 4, Mag > 2 due to potential for QTc prolongation. HR stable in 70's. She has as needed PO Diltiazem 30mg Q6H prn for SVT. Given relative low BP this should only be taken in sitting position. She is to f/u with Dr. Bosch on 10/17/2018 at 2:20pm at our [facility] location #2 h/o MAC; on Rifampin and azithromycin therapy, differ to primary team and Dr. Weber. #3 DVT Prophylaxis; On sub Q Lovenox therapy. #4 disposition pending course. Will sign off. If [facility] is unable to obtain ECGs please let our service know so we can place order for 30 day EM. She is on multiple medications that can interact with Amiodarone Dr. Weber aware of interactions will differ Colchicine, azithromycin and Rifampin therapy to her given h/o MAC. QTc is stable on today's ecg. Attending: Arden Mckeon <Arden Mckeon - Last Filed: 09/18/18 16:38> Medications Active Medications: Acetaminophen (Tylenol Tab*) 650 mg PO Q6H PRN PRN Reason: FEVER/PAIN Albuterol/Ipratropium (Duoneb (Albuterol 2.5 Mg/Ipratropium 0.5 Mg)) 1 neb INH QID PRN PRN Reason: SOB/WHEEZING Amiodarone HCl (Cordarone Tab*) 400 mg PO BID [facility] Last Admin: 09/18/18 09:22 Dose: 400 mg Azithromycin (Zithromax Tab*) 500 mg PO DAILY [facility] Last Admin: 09/18/18 09:22 Dose: 500 mg Capsaicin (Zostrix 0.025% Cream*) 1 applic TOPICAL BID [facility] Last Admin: 09/18/18 09:23 Dose: Not Given Cetirizine HCl (Zyrtec*) 10 mg PO DAILY PRN PRN Reason: Allergy Symptoms Clotrimazole (Clotrimazole 1%*) 1 applic TOPICAL DAILY PRN PRN Reason: ITCHING Colchicine (Colcrys*) 0.3 mg PO DAILY [facility] Last Admin: 09/18/18 09:22 Dose: 0.3 mg Diltiazem HCl (Cardizem Tab*) 30 mg PO Q6HR PRN PRN Reason: TACHYCARDIA Enoxaparin Sodium (Lovenox(*)) 40 mg SUBCUT BEDTIME [facility] Last Admin: 09/17/18 20:35 Dose: 40 mg Ergocalciferol (Drisdol Cap*) 50,000 unit PO .MONTHLY [facility] Fluticasone Propionate (Flonase Nasal [place] 50mcg*) 2 spray BOTH NARES DAILY [facility] Last Admin: 09/18/18 09:22 Dose: 2 spray Levalbuterol HCl (Xopenex 0.63mg/3ml Neb*) 0.63 mg INH QID PRN PRN Reason: SHORTNESS OF BREATH Lidocaine (Xylocaine 5% Oint*) 1 applic TOPICAL Q4H PRN PRN Reason: PAIN Magnesium Hydroxide (Milk Of Magnesia Liq*) 30 ml PO DAILY PRN PRN Reason: CONSTIPATION Magnesium Oxide (Magox 400 Tab*) 400 mg PO BID [facility] Last Admin: 09/18/18 09:22 Dose: 400 mg Metoprolol Succinate (Toprol Xl Tab*) 25 mg PO BID [facility] Last Admin: 09/18/18 09:21 Dose: 25 mg Mometasone Furoate/Formoterol Fumar (Dulera 100/5 Mdi*) 2 puff INH BID [facility] Last Admin: 09/18/18 07:41 Dose: 2 puff Oxycodone HCl (Oxycontin(*)) 20 mg PO Q12HR [facility] Last Admin: 09/18/18 09:22 Dose: 20 mg Oxycodone HCl (Roxycodone Tab*) 5 mg PO Q4H PRN PRN Reason: PAIN Polyethylene Glycol/Electrolytes (Miralax*) 17 gm PO DAILY PRN PRN Reason: CONSTIPATION Last Admin: 09/17/18 20:50 Dose: 17 gm Prednisone (Deltasone Tab*) 7.5 mg PO DAILY [facility] Last Admin: 09/18/18 09:21 Dose: 7.5 mg Rifampin (Rifampin Cap*) 300 mg PO BID [facility] Last Admin: 09/18/18 09:21 Dose: 300 mg Sertraline HCl (Zoloft*) 75 mg PO BEDTIME [facility] Last Admin: 09/17/18 20:33 Dose: 75 mg Tiotropium [place] (Spiriva Cap.Inh*) 1 cap INH DAILY [facility] Last Admin: 09/18/18 07:42 Dose: 1 cap Triamcinolone Acetonide (Triamcinolone 0.5% Oint *) 1 applic TOPICAL BEDTIME PRN PRN Reason: PRURITIS Verapamil HCl (Calan Sr Tab*) 120 mg PO BID [facility] Last Admin: 09/18/18 09:21 Dose: 120 mg Objective Vital Signs: Temp Pulse Resp BP Pulse Ox 97.9 F 71 16 93/44 92 09/18/18 11:39 09/18/18 11:39 09/18/18 13:27 09/18/18 11:39 09/18/18 11:39 Laboratory Results: 09/18/18 06:46 09/17/18 09:43 TSH 5.20 mcIU/mL (0.34-5.60) 09/16/18 05:11 Assessment/Plan Chart reviewed, patient examined, discussed with Ms. Aguilar. Patient ambulated about castaneda and seems to be improving. Will need to monitor her progress on high dose amio given her age, copd, and potential med interactions. Will consider decreasing dose sooner to use lowest dose necessary to suppress svt. agree with rest of plan as above. Counseling and/or Coordination of Care Minutes: > half of the 35+ minutes spent face to face and coordinating care.
[2018-09-18] MEDS ORDERED: Sodium Chloride(INHALANT) 3%* 4 ML NEB.SOLN INH ONE (14:00)
[2018-09-18] MEDS: Enoxaparin(*) 40 MG/0.4 ML SYR SUBCUT SCH (21:39)
[2018-09-18] MEDS: Sertraline* 50 MG TAB PO SCH (21:40)
[2018-09-18] MEDS: Polyethylene Glycol 3350* 17 GM PACKET PO PRN (21:46)
[2018-09-19] MEDS: Tiotropium CAP.INH* CAP.INH/18 MCG (USE ORDER SET !) INH SCH (07:41)
[2018-09-19] MEDS: Mometasone/Formoter 100/5 MDI INH SCH (07:41)
[2018-09-19] MEDS ORDERED: Amiodarone TAB* 200 MG PO SCH (08:00)
[2018-09-19] MEDS: predniSONE TAB* 5 MG PO SCH (08:09)
[2018-09-19] MEDS: RiFAMPin CAP* 300 MG CAP PO SCH (08:09)
[2018-09-19] MEDS: Fluticasone NASAL SPRAY 50MCG* 16 gm SPRAY BTL BOTH NARES SCH (08:09)
[2018-09-19] MEDS: oxyCODONE SR TAB(*) 20 MG TAB.SR PO SCH (08:09)
[2018-09-19] MEDS: Metoprolol Succinate XL TAB* 25 MG PO SCH (08:09)
[2018-09-19] MEDS: Colchicine* 0.6 MG TAB PO SCH (08:09)
[2018-09-19] MEDS: Azithromycin TAB* 250 MG PO SCH (08:10)
[2018-09-19] MEDS: Capsaicin 0.025% CREAM* 60 GM TOPICAL SCH (08:10)
[2018-09-19] MEDS: Magnesium Oxide TAB* 400 MG PO SCH (08:10)
[2018-09-19] MEDS: Verapamil SR TAB* 240 MG PO SCH (08:10)
[2018-09-19 09:07] VITALS: BP 102/47
--- NOTE | 2018-09-19 10:37 | TRS ---
TRANSFER SUMMARY: DATE OF ADMISSION: 09/15/18 DATE OF DISCHARGE: 09/19/18 DISCHARGE DIAGNOSES: 1. Supraventricular tachycardia. 2. History of pseudomonas pneumonia. 3. History of mycobacterium avium intracellulare. 4. Asthma. 5. History of depression. 6. History of spinal stenosis. 7. History of breast cancer. 8. Gastroesophageal reflux disease. 9. History of pseudogout. 10. History of basal cell carcinoma. 11. Myelodysplasia. HISTORY: Alis Blas is an 83-year-old woman who had been discharged from the hospital the same day. She was readmitted because of symptomatic SVT. Please see the dictated admission note for details of the present illness, past medical history, family history, social and personal history, review of systems , and physical examination. LABORATORY DATA: CBC: WBC 5.0, H and H 10.8/32, MCV 101, PLT 82K. Repeat CBC on 09/18/18 was essentially unchanged. D-dimer was 396 which is normal for age with correction. ABGs, pH 7.43, pCO2 of 45, pO2 of 104. Chemistries: Sodium 133, potassium 4.2, chloride 101, CO2 of 28, BUN/creatinine 14/0.65, glucose 85 , calcium 8.4. Iron TIBC were both low with a ferritin of 262.9. CRP was 25.89 on 09/16/18, 37.87 on 09/18/18 and 29.65 on 09/19/18. B12 was low normal at 203, folate 11.83. TSH 5.20. Percent iron saturation was 25%. Sputum Gram stain showed neutrophils and gram-positive coccobacilli. Culture is pending. 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 Cardiovascular: EKG on 09/15/18 showed sinus rhythm normal. EKG on 09/16/18, sinus rhythm, prolonged CA interval, consider LVH. EKG on 09/18/18, normal sinus rhythm, borderline prolonged CA interval, probable LVH. No significant change. CONSULTATION: Cardiology on 09/17/18. Dr. Bosch recommended using short acting diltiazem p.r.n. at discharge. Increase amiodarone loading. Follow up cardiac consultation on 09/18/18. Dr. Mckeon recommended an event monitor using the lowest dose necessary of amio to suppress SVT. Overnight oximetry on 09/19/18 showed O2 sat in the 90s while awake, but while sleeping, went into the 80s, went up into the 90s with 1 L nasal cannula O2. HOSPITAL COURSE: The patient was admitted. She was placed on her usual medications with loading doses of amiodarone. She had no SVT while in the hospital on cardiac monitoring. She had normal sinus rhythm with occasional PVCs. She was asymptomatic. She felt fairly well. She was still coughing and did bring up a sputum, which is being cultured at the time of discharge. There was some concern that her CRP was going up, but then came down again without further treatment. We discussed that she could have recurrent arrhythmias, could have recurrent pneumonia, but at this point she was doing well on the current regimen and by the time of discharge, she felt ready for discharge. She did have a sacral decubitus for which Mepilex was used. At the time of dictation, she is being discharged on the medications as per the discharge plan to shelter unit at [facility]. On PE her lungs show bibasilar rales and heart is regular. . She is to get PT at [facility]. She is to have Mepilex for her wound. She is to be on a regular diet. Activity as tolerated. She is to follow up with Dr. Bosch on 10/17/18. [employer] will be getting her an event recorder. She is to have labs done on 09/29/18, CRP, CBC, magnesium, and BMP. Daughter was present at the time of discharge. She will transport her. Her amiodarone dose should go to 200 mg daily on 09/25/18. She will get O2 via nasal cannula at night at 1 liter per minute. [id number]/[facility] #: [id number] [facility]
[2018-09-20 14:39] LABS: Procalcitonin, S <0.10 ng/mL (<=0.15)
[2018-09-21] MEDS ORDERED: Amiodarone TAB* 200 MG PO SCH (09:00)
[2018-09-23 09:49] LABS: Methylmalonic Acid 1.28 nmol/mL (<=0.40)
== END 2018-09-19 13:15 | DRG 309 ==
LOC: ED 21:39 → MEDTELE 23:06 → OBSVTOIN 09-17 09:00
PROVIDERS: ADMIT Physician Assistant Medical; ATTEND Internal Medicine Geriatric Medicine
DX: I47.1 Supraventricular tachycardia (principal); A31.0 Pulmonary mycobacterial infection; F32.9 Major depressive disorder, single episode, unspecified; M48.00 Spinal stenosis, site unspecified; K21.9 Gastro-esophageal reflux disease without esophagitis; M11.20 Other chondrocalcinosis, unspecified site; D46.9 Myelodysplastic syndrome, unspecified; I49.3 Ventricular premature depolarization; J44.9 Chronic obstructive pulmonary disease, unspecified; K57.90 Diverticulosis of intestine, part unspecified, without perforation or abscess without bleeding; J30.9 Allergic rhinitis, unspecified; M54.10 Radiculopathy, site unspecified; M88.9 Osteitis deformans of unspecified bone; M19.90 Unspecified osteoarthritis, unspecified site; M81.0 Age-related osteoporosis without current pathological fracture; L89.159 Pressure ulcer of sacral region, unspecified stage; G89.29 Other chronic pain; Z90.2 Acquired absence of lung [part of]; Z88.8 Allergy status to other drugs, medicaments and biological substances; Z85.828 Personal history of other malignant neoplasm of skin; Z85.3 Personal history of malignant neoplasm of breast; Z87.01 Personal history of pneumonia (recurrent); Z82.49 Family history of ischemic heart disease and other diseases of the circulatory system; Z91.041 Radiographic dye allergy status; Z87.891 Personal history of nicotine dependence; Z72.89 Other problems related to lifestyle; Z89.421 Acquired absence of other right toe(s); Z98.42 Cataract extraction status, left eye; Z97.4 Presence of external hearing-aid; Z98.41 Cataract extraction status, right eye; Z80.0 Family history of malignant neoplasm of digestive organs; R09.02 Hypoxemia
CPT/HCPCS: 36415; 36600; 71046; 80048; 82607; 82728; 82746; 82803; 83540; 83550; 83735; 83921; 84145; 84443; 85025; 85379; 86140; 87070; 87205; 93005; 94640; 99283; A9270-GY; G8978-GP-CJ; G8979-GP-CI; G8987-GO-CI; G8988-GO-CH; J1650; J7512

== ENCOUNTER 2019-03-13 11:24 | Inpatient (IN) | payer MEDICARE, BC ==
--- OUTSIDE RECORDS SUMMARY | 2019-03-13 11:36 | XMS REPORT | Continuity of Care Document ---
:1935 External Reference #:[id number] Author Name Matti Durand M.D. 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 Onset: 2015 without tendon injury Eosinophil count raised Magaly Will, N.P. Onset: 11/28/2015 Rotator cuff tear arthropathy Celio Zavala MD Onset: 12/02/2015 Full thickness rotator cuff tear Celio Zavala MD Onset: 12/02/2015 Joint pain in left hand Celio Zavala MD Onset: 06/13/2018 Localized, primary osteoarthritis Celio Zavala MD Onset: 06/13/2018 Unspecified fracture of left pubis, subsequent Celio Zavala MD Onset: 2018 encounter for fracture with routine healing Social History Type Date Description Comments Sex Unknown ETOH Use Occasionally consumes alcohol Tobacco Use Start: Unknown End: Patient is a former smoker quit 1968 Unknown Recreational Drug Use Denies Drug Use Smoking Status Reviewed: 01/23/19 Patient is a former smoker quit 1968 Exercise Type/Frequency Exercises regularly Allergies, Adverse Reactions, Alerts Active Allergies Reaction Severity Comments Date CT Dye 10/15/2013 Keflex 11/28/2015 Xylocaine With Epinephrine 01/09/2017 Amiodarone fatigue, hypothyroidism 12/11/2018 Medications Active Medications SIG Qnty Indications Ordering Date Provider Xopenex 1 vial via 72ml J45.50 Magaly Dennisbull, 08/22/2018 0.63mg/3ML nebulizer qid prn, N.P. Nebulizer do not combine with ventolin Sertraline HCL 1.5 tabs po qhs 45tabs Magaly Nicolette, 07/11/2018 50mg N.P. Tablets Azithromycin 1 tab by mouth 30tabs Magalykimberli Will, 05/23/2018 500mg every day N.P. Tablets T.E.D. Anti-Embolism 12"L, 12"calf b/l 2units R60.0 Magaly Nicolette, 2018 Stockings Knee Length N.P. Misc Flonase Allergy 2 sprays each nare Magaly Nicolette, 11/28/2015 Relief daily N.P. 50mcg/Act Suspension Inderal 40 mg 1/2 tablet po Unknown prn ( 20mg 1 tablet po prn HR >110 per fdc) Metoprolol Succinate 1 by mouth bid Unknown ER 50mg Tablets ER 24HR Levothyroxine Sodium 1 by mouth every Unknown day 50mcg Tablets Cardizem CD 1 by mouth twice Unknown 180mg Caps daily ER 24HR Cetirizine HCL 1 by mouth every Unknown 10mg day Chewtabs Proair HFA 2 puffs every 4 Unknown 108(90Base) hours as needed mcg/Act Aerosol Zofran take 1 tab every 6 Unknown 4mg Tablets hours as needed for vomiting. Tylenol 2 tablets every 4 Unknown 325mg Capsules hours as needed for pain Milk Of Magnesia 30 milliliters by Unknown mouth every day as 400mg/5ML Suspension needed Prednisone 1.5 tabs by mouth 45tabs Magaly Will, 5mg Tablets every day N.P. Voltaren 4g apply to hip Unknown 1% Gel area 4times a day Spiriva Handihaler 1 cap by mouth 30caps Magaly Will, every day N.P. 18mcg Capsules Oxycodone HCL 1 cap by mouth Unknown 5mg every 4 hours as Capsules needed Oxycontin 1 tab by mouth 60tabs Magaly Nicolette, 20mg Tab ER twice a day N.P. 12H Abuse-Det Miralax 1 capful every day Unknown 3350NF Packet Ibuprofen 200 2 tabs po bid prn Unknown 200mg Tablets Fluocinonide apply at bedtime Unknown 0.05% prn Ointment Colchicine 1 tab by mouth 60tabs Magaly Dennisbull, 0.6mg daily N.P. Tablets Centrum Silver 1 tab po qd Unknown 50+Women 50+Women Tablets Calcitrate 1 tab po qd Unknown 119-533nr-Ybar Tablets Breo Ellipta 1 puff by mouth Magaly Will, every day N.P. 200-25mcg/Inh Aerosol Vitamin D 1 cap by mouth 1caps Magaly Will, (Ergocalciferol) every month N.P. [id number] Capsules Rifampin 1 tab by mouth 60caps Magaly Dennisbull, 300mg Capsules twice a day N.P. History Medications Moxifloxacin HCL 1 tab po qd x5 14tabs Magaly Lopezll, 08/22/2018 - 400mg days (send on N.P. 10/01/2018 Tablets quantity of 5 not 14) Nystatin 5 ML swish and 473ml B37.0 Magalykimberli DennisNicolette, 08/15/2018 - 370167Zcof/ML swallow 4 times N.P. 10/01/2018 Suspension a day x 2 weeks Prednisone 5 tabs x2 day, 4 27tabs J06.9 Magaly Dennisbull, 08/15/2018 - 10mg Tablets tabs x 2day, 3 N.P. 10/01/2018 tabs x 1 day, 2 tabs x2 day, 1 tab x 2 day Levaquin 1 tab by mouth 5tabs J06.9 Magaly Nicolette, 08/15/2018 - 750mg Tablets every day x 5 N.P. 10/01/2018 days Medications Administered in Office Medication SIG Qnty Indications Ordering Provider Date Triamcinolone (Kenalog) Celio Zavala MD 01/06/2019 Injection Triamcinolone (Kenalog) Celio Zavala MD 10/03/2018 Injection Triamcinolone (Kenalog) Celio Zavala MD 05/13/2018 Injection Triamcinolone (Kenalog) Celio Zavala MD 02/27/2018 Injection Triamcinolone (Kenalog) Celio Zavala MD 11/26/2017 Injection Triamcinolone (Kenalog) Celio Zavala MD 08/06/2017 Injection Triamcinolone (Kenalog) Celio Zavala MD 04/26/2017 Injection Triamcinolone (Kenalog) Celio Zavala MD 12/27/2016 Injection Triamcinolone (Kenalog) Celio Zavala MD 09/25/2016 Injection Triamcinolone (Kenalog) Celio Zavala MD 06/28/2016 Injection Triamcinolone (Kenalog) Celio Zavala MD 03/29/2016 Injection Celestone 3 mg and 3mg Dipti Nieves ANP-C 11/04/2015 Injection Depomedrol 40MG oMe Booth M.D. 08/25/2015 Injection Depomedrol 80MG Rebecca Bennett M.D. 01/14/2014 Injection Depomedrol 80MG Moe Booth M.D. 03/06/2011 Injection Depomedrol 40MG Fito Jiménez M.D. 02/17/2010 Injection Immunizations Description No Information Available Vital Signs Date Vital Result Comment 01/23/2019 9:52am Height 64 inches 5'4" Weight 123.50 lb Heart Rate 60 /min BP Systolic Sitting 120 mmHg BP Diastolic Sitting 68 mmHg Respiratory Rate 14 /min Body Temperature 98.3 F O2 % BldC Oximetry 97 % BMI (Body Mass Index) 21.2 kg/m2 01/06/2019 1:03pm Height 64 inches 5'4" Weight 132.00 lb Heart Rate 100 /min BP Systolic 100 mmHg BP Diastolic 72 mmHg Body Temperature 98.6 F Pain Level 7 BMI (Body Mass Index) 22.7 kg/m2 Results Test Date Facility Test Result H/L Range Note Comp Metabolic 08/22/2018 [facility] Sodium 135 mmol/L Normal 135-145 [address] [place] [address] [phone] Potassium 4.7 mmol/L Normal 3.5-5.0 Chloride 101 mmol/L Normal 101-111 Co2 Carbon Dioxide 30 mmol/L Normal 22-32 Anion Gap 4 mmol/L Normal 2-11 Glucose 86 mg/dL Normal 70-100 Blood Urea Nitrogen 16 mg/dL Normal 6-24 Creatinine 0.81 mg/dL Normal 0.51-0.95 BUN/Creatinine Ratio 19.8 Normal 8-20 Calcium 8.8 mg/dL Normal 8.6-10.3 Total Protein 6.0 g/dL Low 6.4-8.9 Albumin 3.6 g/dL Normal 3.2-5.2 Globulin 2.4 g/dL Normal 2-4 Albumin/Globulin Ratio 1.5 Normal 1-3 Total Bilirubin 0.70 mg/dL Normal 0.2-1.0 Alkaline Phosphatase 100 U/L Normal 34-104 Alt 17 U/L Normal 7-52 Ast 15 U/L Normal 13-39 Egfr Non- 67.2 >60 Egfr 81.3 >60 2 Laboratory test 08/22/2018 [facility] C Reactive 44.38 mg/L High <8.01 [address] [place] [address] [phone] B-Type Natriuretic Peptide BNP 49 pg/mL <=100 4 CBC Auto 08/22/2018 [facility] White Blood 6.8 10^3/uL Normal 3.5-10.[address] [place] [address] [phone] Red Blood Count 3.71 10^6/uL Normal 3.70-4.87 Hemoglobin 12.9 g/dL Normal 12.0-16.0 Hematocrit 39 % Normal 35-47 Mean Corpuscular Volume 104 fL High 80-97 Mean Corpuscular Hemoglobin 35 pg High 27-31 Mean Corpuscular HGB Conc 33 g/dL Normal 31-36 Red Cell Distribution Width 15 % Normal 10.5-15 Platelet Count 96 10^3/uL Low 150-450 5 Mean Platelet Volume 12.6 fL High 7.4-10.4 Abs Neutrophils 4.2 10^3/uL Normal 1.5-7.7 Abs Lymphocytes 0.5 10^3/uL Low 1.0-4.8 Abs Monocytes 1.4 10^3/uL High 0-0.8 Abs Eosinophils 0.5 10^3/uL Normal 0-0.6 Abs Basophils 0.1 10^3/uL Normal 0-0.2 Abs Nucleated RBC 0.0 10^3/uL Granulocyte % 62.5 % Lymphocyte % 7.7 % Monocyte % 20.1 % Eosinophil % 8.1 % Basophil % 1.6 % Nucleated Red Blood Cells % 0.0 Laboratory test 08/22/2018 [facility] Erythrocyte Sed 36 mm/Hr High 0-29 [address] Rate [place], [place] [id number] [phone] Laboratory test 08/15/2018 [facility] Fungal Cult SEE RESULT 7, [address] [place] [address] [phone] Laboratory test 08/15/2018 [facility] Fungal Cult SEE RESULT [address] [place] [address] [phone] Laboratory test 08/15/2018 [facility] Fungal Cult SEE RESULT [address] Other Sources [place]OW [place], [place] [address] [phone] Laboratory test 08/15/2018 [facility] Fungal Cult SEE RESULT [address] [place] [address] [phone] Urinalysis 08/14/2018 [facility] Urine Color Elenita [address] [place] [address] [phone] Urine Appearance Cloudy Urine Specific [place] 1.016 Normal 1.010-1.030 Urine pH 7.0 Normal 5-9 Urine Urobilinogen Negative Negative Urine Ketones Negative Negative Urine Protein Negative Negative Urine Leukocytes Negative Negative Urine Blood Negative Negative Urine Nitrite Negative Negative Urine Bilirubin Negative Negative Urine Glucose Negative Negative Urine Culture And 08/14/2018 [facility] Urine SEE RESULT [address] [place] [address] [phone] Influenza A & B 08/14/2018 [facility] Influenza A NEGATIVE Negative 14, Request [address] Molecular 15 [place] [address] [phone] Influenza B Molecular NEGATIVE Negative 1 CC: [facility] ADULT [id number] 2 Because ethnic data is not always readily [...] 15-29 5 Kidney failure <15 (or dialysis) 3 CC: [facility] ADULT [id number] CC: [facility] ADULT [phone] [id number] 5 Consistent with Previous Results Reported on 06/02/18 6 CC: KINDAL ADULT [phone] [id number] SEE RESULT BELOW Name: ALIS BLAS : [address]: Magaly Will NP Acct: [id number] Unit: [id number] AGE: 83 Location: [facility] Re08/15/18 SEX: F Status: REG REF SPEC: [id number] CANELO: 08/15/18-[address]: Magaly Will NP REQ: [id number] RECD: 08/15/18 STATUS: RES _ SOURCE: THROAT SPDESC: ORDERED: Fungal - Other COMMENTS: [id number] Procedure Result Reported Site Fungal Cult - Other Sources Preliminary 08/25/181420 ML Organism 1 ESTEFANY ALBICANS * ML - Main Lab . END OF REPORT DEPARTMENT OF PATHOLOGY, [address] [place] [address] Landon Barrera M.D. Director [facility] # [id number] 9 SEE RESULT BELOW Name: ALIS BLAS : [address]: Magaly Will NP Acct: [id number] Unit: [id number] AGE: 83 Location: [facility] Re08/15/18 SEX: F Status: REG REF SPEC: [id number] CANELO: 08/15/18-[address]: Magaly Will NP REQ: [id number] RECD: 08/15/18 STATUS: RES _ SOURCE: THROAT SPDESC: ORDERED: Fungal - Other COMMENTS: [id number] Procedure Result Reported Site Fungal Cult - Other Sources Preliminary 09/01/18- 141 ML Organism 1 ESTEFANY ALBICANS * MARY - [facility] . END OF REPORT DEPARTMENT OF PATHOLOGY, [address] [place] [address] Landon Barrera M.D. Director [facility] # [id number] 10 SEE RESULT BELOW Name: HENRRY BLASRAZIA Cabrera : [address]: Magaly Will NP Acct: [id number] Unit: [id number] AGE: 83 Location: [facility] Re08/15/18 SEX: F Status: REG REF SPEC: [id number] CANELO: 08/15/18-[address]: Magaly Will NP REQ: [id number] RECD: 08/15/18 STATUS: RES _ SOURCE: THROAT SPDESC: ORDERED: Fungal - Other COMMENTS: [id number] Procedure Result Reported Site Fungal Cult - Other Sources Preliminary 09/08/18- 1513 ML Organism 1 ESTEFANY ALBICANS * ML - Main Lab . END OF REPORT DEPARTMENT OF PATHOLOGY, [address] [place] [address] Landon Barrera M.D. Director [facility] # [id number] 11 SEE RESULT BELOW Name: LILIAN,ALIS Cabrera : [address]: Magaly Will NP Acct: [id number] Unit: [id number] AGE: 83 Location: [facility] Re08/15/18 SEX: F Status: REG REF SPEC: [id number] CANELO: 08/15/18-[address]: Magaly Will NP REQ: [id number] RECD: 08/15/18 STATUS: COMP _ SOURCE: THROAT SPDESC: ORDERED: Fungal - Other COMMENTS: [id number] Procedure Result Reported Site Fungal Cult - Other Sources Final 09/15/18- 4024 ML Organism 1 ESTEFANY ALBICANS * ML - Main Lab . END OF REPORT DEPARTMENT OF PATHOLOGY, [address] [place] [address] Landon Barrera M.D. Director [facility] # [id number] SEE RESULT BELOW Name: ALIS BLAS : [address]: Magaly Will NP Acct: [id number] Unit: [id number] AGE: 83 Location: [facility] Re08/14/18 SEX: F Status: REG REF SPEC: [id number] CANELO: 08/14/18-[address]: Magaly Will NP REQ: [id number] RECD: 08/15/18277 STATUS: COMP _ SOURCE: URINE SPDESC: ORDERED: Urine Culture COMMENTS: [id number] QUERIES: Urine Source: Random Procedure Result Reported Site Urine Culture Final 08/16/18- 1355 ML No Growth (<1,000 CFU/mL) * ML - Main Lab . END OF REPORT DEPARTMENT OF PATHOLOGY, [address] [place] [address] Landon Barrera M.D. Director [facility] # [id number] 15 Nature Photographer: [id number] Procedures Date Code Description Status 01/06/201988965 Inject/Drain Joint/Bursa Major W/O US Completed 10/03/201896268 Inject/Drain Joint/Bursa Major W/O US Completed 10/02/2018 44201 EKG Tracing & Interpretation Completed 09/18/2018 10295 EKG, Interpretation Only Completed 09/13/2018 86613 EKG, Interpretation Only Completed 08/26/2018 28923 ECHO Transthorasic Realtime 2D W Doppler & Color Flow Hosp Completed 08/26/2018 91207 EKG, Interpretation Only Completed Medical Devices Description No Information Available Encounters Type Date Location Provider Dx Diagnosis Office Visit 12/11/2018 [facility] Alphonse Rothman I47.1 Supraventricular 11:20a Of [facility] Huerta, DO FACC tachycardia Office Visit 10/02/2018 [facility] Alphonse Rothman I47.1 Supraventricular 3:40p Of 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 Huerta, DO FACC tachycardia Office Visit 09/18/2018 [facility] Arden Glover47.1 Supraventricular 2:52p Lucas Mckeon tachycardia Z51.81 Encounter for therapeutic drug level monitoring Z79.899 Other long-term (current) drug therapy Office Visit 09/17/2018 [facility] Patricia Bosch I47.1 Supraventricular 2:17p Cardiology Kelly Zavala 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 Z51.81 Encounter for therapeutic drug level monitoring Z79.899 Other long-term (current) drug therapy J18.9 Pneumonia, unspecified organism Office Visit 09/15/2018 [facility] Monika 12:03p Assoc,pc MARISABEL Kelley Hospitalists Office Visit 09/15/2018 [facility] Quintin Anaya, J18.9 Pneumonia, 10:06a Assoc,pc PA unspecified Hospitalists organism I47.1 Supraventricular tachycardia J45.901 Unspecified asthma with (acute) exacerbation Office Visit 09/14/2018 [facility] I47.1 Supraventricular 10:06a Assoc,vik Anaya PA tachycardia Hospitalists J15.1 Pneumonia due to Pseudomonas J45.901 Unspecified asthma with (acute) exacerbation A31.0 Pulmonary mycobacterial infection Office Visit 09/13/2018 [facility] I47.1 Supraventricular 10:05a Assoc,vik Anaya PA tachycardia Hospitalists J15.1 Pneumonia due to Pseudomonas J45.901 Unspecified asthma with (acute) exacerbation A31.0 Pulmonary mycobacterial infection Office Visit 09/13/2018 [facility] Patricia Bosch I47.1 Supraventricular 12:49p Of Ivan Zavala tachycardia Office Visit 09/12/2018 [facility] I47.1 Supraventricular 10:05a Assoc,MARISABEL Joy tachycardia Hospitalists J15.1 Pneumonia due to Pseudomonas J45.901 Unspecified asthma with (acute) exacerbation A31.0 Pulmonary mycobacterial infection Office Visit 09/12/2018 [facility] Qujuana S. I47.1 Supraventricular 11:13a Cardiology Lucas Mcknight tachycardia Office Visit 09/11/2018 [facility] Qutaybeh S. I47.1 Supraventricular 10:16a Cardiology Lucas Mcknight tachycardia Office Visit 09/10/2018 [facility] Elmira Prasad J18.9 Pneumonia, 7:57a For Infectious Jena, PUSHER RUNNER unspecified organism Diseases J44.9 Chronic obstructive pulmonary disease, unspecified A31.0 Pulmonary mycobacterial infection Office Visit 09/09/2018 7:56a [facility] Clyde Bear18.9 Pneumonia, Infectious Lucas Durand unspecified Diseases organism J44.9 Chronic obstructive pulmonary disease, unspecified Office Visit 09/09/2018 [facility] Jeremy So I47.1 Supraventricular 11:37a Cardiology Kelly Park M.D. 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 electrocardiogram [facility] [ECG] [EKG] I47.1 Supraventricular tachycardia Office Visit 08/25/2018 [facility] Quintin J45.901 Unspecified asthma 10:14a vik Fernandez PA with (acute) Hospitalists exacerbation I47.1 Supraventricular tachycardia Office Visit 08/25/2018 11:29a Marianela Puntam18.9 Pneumonia, Home N.P. unspecified organism J45.50 Severe persistent asthma, uncomplicated Office Visit 08/22/2018 12:22p Ludmila Will J06.9 Acute upper Home N.P. respiratory infection, unspecified J45.50 Severe persistent asthma, uncomplicated Office Visit 08/18/2018 10:48a Ludmila Will, B37.0 [place] Home N.P. stomatitis J06.9 Acute upper respiratory infection, unspecified H61.23 Impacted cerumen, bilateral Office Visit 08/15/2018 8:49a Ludmila Will, B37.0 [place] [facility] N.P. stomatitis J06.9 Acute upper respiratory infection, unspecified Office Visit 08/14/2018 11:07a Ludmila Will, J06.9 Acute upper Home N.P. respiratory infection, unspecified H61.23 Impacted cerumen, bilateral Assessments Date Code Description Provider 01/23/2019 A31.0 Pulmonary mycobacterial infection Matti Durand M.D. 01/23/2019 R05 Cough Matti Durand M.D. 01/23/2019 R91.8 Other nonspecific abnormal finding of Matti Durand M.D. lung field 01/06/2019 M75.121 Complete rotator cuff tear or rupture Celio Zavala MD of right shoulder, not 12/11/2018 I47.1 Supraventricular tachycardia Alphonse Huerta, DO FAC 10/03/2018 M75.121 Complete rotator cuff tear or rupture Celio Zavala MD of right shoulder, not 10/02/2018 I47.1 Supraventricular tachycardia Alphonse Huerta, DO [facility] 09/18/2018 R94.31 Abnormal electrocardiogram [ECG] Arden Mckeon M.D. [EKG] 09/18/2018 I47.1 Supraventricular tachycardia Arden Mckeon M.D. 09/18/2018 Z51.81 Encounter for therapeutic drug level Arden Mckeon M.D. monitoring 09/18/2018 Z79.899 Other long-term (current) drug Arden Mckeon M.D. therapy 09/17/2018 I47.1 Supraventricular tachycardia Patricia Bosch M.D. 09/17/2018 Z51.81 Encounter for therapeutic drug level Patricia Bosch M.D. monitoring 09/17/2018 Z79.899 Other rn long term care (current) drug Patricia Bosch M.D. therapy 09/17/2018 J18.9 Pneumonia, unspecified organism Patricia Bosch M.D. 09/16/2018 I47.1 Supraventricular tachycardia Penny Nuñez MD 09/16/2018 J45.901 Unspecified asthma with (acute) Penny Nuñez MD exacerbation 09/15/2018 J18.9 Pneumonia, unspecified organism Quintin Anaya, PA 09/15/2018 I47.1 Supraventricular tachycardia Quintin Anaya, PA 09/15/2018 J45.901 Unspecified asthma with (acute) Quintin Héctor, PA exacerbation 09/14/2018 I47.1 Supraventricular tachycardia Quintin Boomer, PA 09/14/2018 J15.1 Pneumonia due to Pseudomonas Quintin Héctor, PA 09/14/2018 J45.901 Unspecified asthma with (acute) Quintin Boomer, PA exacerbation 09/14/2018 A31.0 Pulmonary mycobacterial infection Quintin Anaya PA 09/13/2018 Z13.6 Encounter for screening for Patricia Bosch M.D. cardiovascular disorders 09/13/2018 I47.1 Supraventricular tachycardia Quintin Anaya, PA 09/13/2018 I47.1 Supraventricular tachycardia Patricia Bosch M.D. 09/13/2018 J15.1 Pneumonia due to Pseudomonas Quintin Boomer, PA 09/13/2018 J45.901 Unspecified asthma with (acute) Quintin Héctor, PA exacerbation 09/13/2018 A31.0 Pulmonary mycobacterial infection Quintin Anaya, PA 09/12/2018 I47.1 Supraventricular tachycardia Quintin Anaya PA 09/12/2018 I47.1 Supraventricular tachycardia Vidhi Mcknight M.D. 09/12/2018 J15.1 Pneumonia due to Pseudomonas Quintin Anaya, PA 09/12/2018 J45.901 Unspecified asthma with (acute) Quintin Héctor, PA exacerbation 09/12/2018 A31.0 Pulmonary mycobacterial infection Quintin Anaya PA 09/11/2018 I47.1 Supraventricular tachycardia Vidhi Mcknight M.D. 09/10/2018 J18.9 Pneumonia, unspecified organism [place] Jean, UBALDO 09/10/2018 J44.9 Chronic obstructive pulmonary [place] Jean, UBALDO disease, unspecified 09/10/2018 A31.0 Pulmonary mycobacterial infection Elmira Jean , [employer]NER 09/09/2018 J18.9 Pneumonia, unspecified organism Matti Durand M.D. 09/09/2018 I47.1 Supraventricular tachycardia Jeremy Park M.D. 09/09/2018 J44.9 Chronic obstructive pulmonary Matti Durand M.D. disease, unspecified 09/08/2018 I47.1 Supraventricular tachycardia Alphonse Huerta, DO FAC 09/08/2018 R00.2 Palpitations Alphonse SShayna Gutierrezno, DO FAC 09/07/2018 I47.2 Ventricular tachycardia Alphonse S. Huerta, DO [facility] 09/07/2018 R00.2 Palpitations Alphonse S. Huerta, DO [facility] 09/06/2018 I47.1 Supraventricular tachycardia Alphonse SShayna Gutierrezno, DO [facility] 09/06/2018 R00.2 Palpitations Alphonse SShayna Gutierrezno, DO [facility] 09/05/2018 R05 Cough [place] Jean, [employer]NER 09/05/2018 I47.1 Supraventricular tachycardia Alphonse Huerta, DO [facility] 09/05/2018 J44.9 Chronic obstructive pulmonary [place] Jean, UBALDO disease, unspecified 09/05/2018 R00.2 Palpitations Alphonseedu Huerta, DO [facility] 09/05/2018 R79.82 Elevated C-reactive protein (CRP) Elmira Jean , [employer]NER 09/05/2018 A31.0 Pulmonary mycobacterial infection Elmira Jean , [employer]NER 09/04/2018 I47.1 Supraventricular tachycardia Rigo Acuna M.D. 09/04/2018 I47.1 Supraventricular tachycardia Alphonse Huerta, DO [facility] 09/04/2018 A31.0 Pulmonary mycobacterial infection Rigo Acuna M.D. 09/04/2018 R00.2 Palpitations Alphonseedu Huerta, DO [facility] 09/04/2018 J45.909 Unspecified asthma, uncomplicated Rigo Acuna M.D. 08/26/2018 R94.31 Abnormal electrocardiogram [ECG] Jermey Park M.D. [EKG] 08/26/2018 R94.31 Abnormal electrocardiogram [ECG] Jeremy Park M.D. [EKG] 08/26/2018 I47.1 Supraventricular tachycardia Jeremy Park M.D. 08/25/2018 J45.901 Unspecified asthma with (acute) MARISABEL Leyva exacerbation 08/25/2018 J18.9 Pneumonia, unspecified organism Magaly Nicolette, N.P. 08/25/2018 I47.1 Supraventricular tachycardia MARISABEL Leyva 08/25/2018 J45.50 Severe persistent asthma, Magaly Nicolette, N.P. uncomplicated 08/22/2018 J06.9 Acute upper respiratory infection, Magaly Nicolette, N.P. unspecified 08/22/2018 J45.50 Severe persistent asthma, Magaly Nicolette, N.P. uncomplicated 08/18/2018 B37.0 Candidal stomatitis Magaly Nicolette, N.P. 08/18/2018 J06.9 Acute upper respiratory infection, Magaly Nicolette, N.P. unspecified 08/18/2018 H61.23 Impacted cerumen, bilateral Magaly Nicolette, N.P. 08/15/2018 B37.0 Candidal stomatitis Magaly Nicolette, N.P. 08/15/2018 J06.9 Acute upper respiratory infection, Magaly Nicolette, N.P. unspecified 08/14/2018 J06.9 Acute upper respiratory infection, Magaly Nicolette, N.P. unspecified 08/14/2018 H61.23 Impacted cerumen, bilateral Magaly Nicolette, N.P. Plan of Treatment Future Appointment(s):02/23/2019 1:20 pm - Matti Durand M.D. at [facility]/07/2020 1:45 pm - Yamel Sutherland MD at [facility]04/09/2019 1:15 pm - Celio Zavala MD at [facility] at [id number]/31/2019 11:20 am - Alphonse Huerta DO [facility] at [facility]01/23/2019 - Matti Durand M.D.A31.0 Pulmonary mycobacterial infectionFollow up:1 [id number] PahfrO43.8 Other nonspecific abnormal finding of lung fieldComments:fu CT pending Functional Status Description No Information Available Mental Status Description No Information Available Referrals Refer to Reason for Referral Status Appt Date Marci Benton MD 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 Consider ablation [address] [place] [id number] [phone]
--- OUTSIDE RECORDS SUMMARY | 2019-03-13 11:36 | XMS REPORT | Continuity of Care Document ---
:1935 External Reference #:[id number] Author Name Yovani Javed M.D. Address [address] [place] [address] Care Team Providers Name Role Phone Giuliano Ceballos M.D. - Family Care Team Information [employer] [phone] Medicine Kevin Collado M.D. - Urology Care Team Information [employer] [phone] Malathi Arroyo M.D. Care Team Information [employer] Unavailable Deborah Diaz M.D. Care Team Information [employer] Unavailable Cinthya Weber M.D. - Internal Care Team Information [employer] [phone] Medicine Problems Active Problems Provider Date Asthma Onset: Osteoarthritis Onset: Migraine Onset: H/O: hay fever Onset: Carcinoma of breast Onset: FH: Glaucoma Yovani Javed M.D. Onset: 07/29/2017 Vitreous degeneration Yovani Javed M.D. Onset: 07/12/2016 Presence of intraocular lens Yovani Javed M.D. Onset: 07/11/2015 Migraine with aura Yovani Javed M.D. Onset: 07/11/2015 Degenerative progressive high myopia Yovani Javed M.D. Onset: 07/11/2015 Social History Type Date Description Comments Sex Unknown ETOH Use Consumes 6 glasses of wine per week Tobacco Use Start: Unknown End: Patient is a former smoker Quit 1968 Unknown Recreational Drug Use Denies Drug Use Smoking Status Reviewed: 01/20/19 Patient is a former smoker Quit 1969 Allergies, Adverse Reactions, Alerts Active Allergies Reaction Severity Comments Date Xylocaine with Epi dental only 05/28/2014 Contrast Dye body rash 05/28/2014 Medications Active Medications SIG Qnty Indications Ordering Date Provider Ibuprofen 2 capsules 3 times Unknown 200mg daily as needed Capsules Miralax dissolve 17gm in Unknown [id number] Powder 4-8ox liquid and drink twice a day as needed for constipation Fluocinonide Unknown 0.05% Solution Xopenex HFA Unknown 45mcg/Act Aerosol Mylanta Maximum Unknown Strength [id number]/5ML Suspension Zofran Unknown 8mg Tablets Diclofenac Sodium Unknown 1% Gel Diltiazem HCL ER Unknown Beads 180mg Caps ER 24HR Levothyroxine Sodium Unknown 50mcg Tablets Proair HFA Unknown 108(90Base) mcg/Act Aerosol Metoprolol Succinate Unknown ER 50mg Tablets ER 24HR Clotrimazole Unknown 10mg Kenrick Breo Ellipta Unknown 200-25mcg/Inh Aerosol Ensure Unknown Liquid Lidocaine Unknown 5% Ointment Aquaphilic/Carbamide Unknown 20% Ointment Nizoral Unknown 2% Shampoo Rifampin 2 tab by mouth every Unknown 300mg Capsules day Zithromax 1 tab by mouth every Unknown 500mg Tablets day Kim 1/2 tab by mouth Unknown 180mg Tablets every day Prednisone (Tony) 1 tab by mouth every Unknown 10mg day Tablets Dulera 2 intranasal puffs Unknown 100-5mcg/Act twice a day Aerosol Senna 2 tab by mouth every Unknown 8.6mg Tablets day Calcium 600 + D 1 tab by mouth every Unknown day [id number] Tablets Estrace qd Unknown 0.1mg/GM Cream Oxycodone HCL prn, does not use Unknown 5mg Capsules Oxycontin Unknown 20mg Tab ER 12H Abuse-Det Movantik Unknown 12.5mg Tablets Centrum Unknown Chewtabs Alvesco twice a day Unknown 160mcg/Act Aerosol Spiriva Respimat every day Unknown 1.25mcg/Act Aerosol Zoloft every day Unknown 50mg Tablets Colchicine Unknown 0.6mg Capsules Flonase Allergy 2 intranasal puffs Unknown Relief every day 50mcg/Act Suspension Acetaminophen 1 tablet by mouth Unknown 325mg Tablets Medications Administered in Office Medication SIG Qnty Indications Ordering Provider Date [place] 03/10/2003 Injection Immunizations Description No Information Available Vital Signs Description No Information Available Results Description No Information Available Procedures Description No Information Available Medical Devices Description No Information Available Encounters Description No Information Available Assessments Date Code Description Provider 01/20/2019 H44.23 Degenerative myopia, bilateral Yovani Javed M.D. 01/20/2019 H43.813 Vitreous degeneration, bilateral Yovani Javed M.D. 01/20/2019 Z96.1 Presence of intraocular lens Yovani Javed M.D. 01/20/2019 G43.101 Migraine with aura, not intractable, with Yovani Javed M.D. status migrainosus Plan of Treatment 01/20/2019 - Yovani Javed M.D.H44.23 Degenerative myopia, bilateralComments: Smoking can increase the risk of developing or worsening any eye related disease , as well as affect your overall health. If you are a smoker, we strongly recommend that you quit.If you are not a smoker, we strongly recommend that you do not start.Follow up:1 Year Follow Up Diagnostic Refraction You can expect to have your eyes dilated at your next visit.If Dr. Javed orders any additional testing, it may require extra time. We recommend that you bring sunglasses, as dilation drops often make you light sensitive until they wear off. We always recommend you bring someone to drive you home if you are uncomfortable driving with your eyes dilated. If you have any questions before your next visit, feel free to call our office at .H43.813 Vitreous degeneration, bilateralComments:You have a Posterior Vitreous Detachment. If you have any changes in your floaters or flashing lights, please contact this office.Z96.1 Presence of intraocular lensComments:The artificial lens implants in both eyes appear to be stable at this time.G43.101 Migraine with aura, not intractable, with status migrainosus Functional Status Description No Information Available Mental Status Description No Information Available Referrals Description No Information Available
--- OUTSIDE RECORDS SUMMARY | 2019-03-13 11:36 | XMS REPORT | Continuity of Care Document ---
:1935 External Reference #:[id number] Author Name Deborah Diaz M.D. Address [address] [place] [address] Care Team Providers Name Role Phone Lance Crum M.D. Care Team Information Training And Documentation Specialist [phone] Deborah Diaz M.D. - Allergy & Care Team Information Training And Documentation Specialist [phone] Immunology Cinthya Weber M.D. Care Team Information Training And Documentation Specialist [phone] Problems Active Problems Provider Date Uncomplicated severe persistent asthma Deborah Diaz M.D. 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 Onset: 2014 Uncomplicated severe persistent asthma Deborah Diaz M.D. Onset: 2014 Exacerbation of asthma Deborah Diaz M.D. Onset: 04/23/2014 Allergic rhinitis due to pollen Deborah Diaz M.D. 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 Onset: 02/01/2012 Allergic asthma without status asthmaticus Deborah Diaz M.D. Onset: 03/2012 Allergic rhinitis Deborah Diaz M.D. Onset: 02/01/2012 Social History Type Date Description Comments Sex Unknown ETOH Use Currently consumes one daily when well alcohol Tobacco Use Start: Unknown End: Patient is a former Unknown smoker Recreational Drug Use Never Used Drugs Allergies, Adverse Reactions, Alerts Active Allergies Reaction Severity Comments Date Contrast Dye RASH/ITCHING CT scan contrast 02/01/2012 Epinephrine with xylocaine, heart 12/05/2012 palpitations Amoxicillin 08/28/2017 Medications Active Medications SIG Qnty Indications Ordering Date Provider Nystatin swish and swallow 160ml J45.50 [facility] 11/26/2018 427343Kmrz/ML 4cc by mouth 4x a Lucas Diaz Suspension day for 10 days Spiriva Handihaler one inhalation by 30caps [facility] 01/01/2018 mouth once daily Lucas Diaz 18mcg Capsules Ventolin HFA 2 puffs inhalation 18gm A31.0 [facility] 01/01/2018 every 4 hours as Lucas Diaz 108(90Base) mcg/Act needed Aerosol Breo Ellipta 1 puff inhaled 3units Sylvia Uldrich, 06/21/2017 once daily [employer]ING[employer]-C 200-25mcg/Inh Aerosol Proair Respiclick 2 puffs every 4 1units [facility] 06/21/2017 hours as needed Lucas Diaz 108(90Base) mcg/Act for cough, wheeze Aerosol or shortness of breath Prednisone take 2.5 mg daily Unknown 2.5mg with food. Tablets Prednisone 1 tab by mouth Unknown 5mg Tablets once a day. Ibuprofen as needed Unknown 200mg Tablets Verapamil HCL ER 1 twice a day Unknown 120mg Tablets ER Xopenex 1 vial via Unknown 0.63mg/3ML nebulizer every Nebulizer 4-6 hours as needed for shortness of breath, cough or wheezing Acetaminophen 1 rectally Q6 hrs Unknown Suppository prn for minor pain or elelvated temp Mylanta Maximum 15 mls PO Q 4 hrs Unknown Strength as needed 802-147-16xu/5ML Suspension Magnesium-Oxide 1 by mouth twice a Unknown day 400(241.3mg) mg Tablets Metoprolol Succinate 1 by mouth twice a Unknown ER day 25mg Tablets ER 24HR Amiodarone HCL 1 by mouth every Unknown 200mg day Tablets Cardizem every 6 hours as Unknown 30mg Tablets needed Vitamin B12 twice a day Unknown 1000mcg Tablets ER Zofran take 1 as needed Unknown 4mg Tablets for colitis every 8 hours Levothyroxine Sodium Cinthya Weber, M.D. 50mcg Tablets Levothyroxine Sodium Cinthya Weber, M.D. 25mcg Tablets Fluocinonide as needed Unknown 0.05% Solution Cetirizine HCL 1 by mouth every Unknown 10mg day Tablets Colchicine 1 by mouth twice a Unknown 0.6mg day Tablets Centrum Silver 1 by mouth every Unknown 50+Women day 50+Women Tablets Oxycodone HCL 1 to 2 as needed Unknown 5mg every 4 hours Tablets Lyrica Cinthya Weber, 150mg Capsules M.D. Voltaren as eneded Unknown 1% Gel Flonase Allergy 2 spray each Unknown Relief nostril everyday 50mcg/Act Suspension Zithromax 1 by mouth every Unknown 500mg Tablets day Miralax every day as Unknown Powder needed Sertraline HCL 1 tab at night. Rocael Weber, 50mg M.D. Tablets Oxycontin 10 mg in am 20 mg Unknown 10mg Tab ER in pm 12H Abuse-Det Vitamin D 1 every day Unknown Tablets Calcium Citrate + D 1 tab daily. Unknown [id number] Tablets Lidoderm daily Unknown Cream Rifampin bid Unknown 300mg Capsules Medications Administered in Office Medication SIG Qnty Indications Ordering Provider Date Injection Lance Crum M.D. 11/12/2008 Injection Injection Lance Crum M.D. 11/01/2008 Injection Injection Lance Crum M.D. 10/25/2008 Injection Injection Lance Crum M.D. 10/18/2008 Injection Injection Lance Crum M.D. 10/11/2008 Injection Injection Lance Crum M.D. 10/04/2008 Injection Injection Lance Crum M.D. 09/27/2008 Injection Injection Lance Crum M.D. 09/20/2008 Injection Injection Lance Skyla, M.DShayna 09/15/2008 Injection Injection Lance Skyla, M.DShayna 09/08/2008 Injection Injection Lance Skyla, M.DShayna 08/30/2008 Injection Injection Peterjavan CabreraShayna Gill, 08/23/2008 Injection M.DShayna Injection Lance Skyla, M.DShayna 05/10/2008 Injection Injection Lance Skyla, M.DShayna 03/22/2008 Injection Injection Lance Skyla, M.DShayna 02/25/2008 Injection Injection Lance Skyla, M.DShayna 01/16/2008 Injection Injection Lance Skyla, M.DShayna 01/02/2008 Injection Injection Lance Skyla, M.DShayna 12/19/2007 Injection Injection Lance Skyla, M.DShayna 12/05/2007 Injection Injection Lance Skyla, M.DShayna 11/21/2007 Injection Injection Lance Skyla, Mark.DShayna 11/03/2007 Injection Injection Lance Skyla, M.DShayna 10/22/2007 Injection Injection Lance Skyla, M.DShayna 10/10/2007 Injection Injection Lance Skyla, M.DShayna 09/22/2007 Injection Injection Lance Skyla, M.DShayna 09/08/2007 Injection Injection Lance Skyla, M.DShayna 08/25/2007 Injection Injection Lance Skyla, M.DShayna 08/18/2007 Injection Injection Lance Skyla, M.DShayna 08/11/2007 Injection Injection Lance Skyla, M.DShayna 08/04/2007 Injection Injection Lance Skyla, M.DShayna 07/28/2007 Injection Injection Lance Skyla, M.DShayna 07/21/2007 Injection Injection Lance Skyla, M.DShayna 04/18/2007 Injection Injection Lance Skyla, M.DShayna 04/02/2007 Injection Injection Lance Skyla, M.DShayna 03/17/2007 Injection Injection Lance Skyla, M.DShayna 02/26/2007 Injection Injection Lance Skyla, M.DShayna 02/12/2007 Injection Injection Lance Skyla, M.DShayna 12/13/2006 Injection Injection Lance Skyla, Lucas 11/29/2006 Injection Injection Lance Skyla, Lucas 11/15/2006 Injection Injection Lance Skyla, Lucas 10/28/2006 Injection Injection Lance Skyla, Lucas 10/14/2006 Injection Injection Lance Skyla, RoxannaDShayna 09/30/2006 Injection Injection Lance Skyla, Lucas 09/02/2006 Injection Injection Lance Skyla, uLcas 08/21/2006 Injection Injection Lance Skyla, Lucas 08/07/2006 Injection Injection Lance Skyla, Lucas 07/24/2006 Injection Injection Lance Skyla, Lucas 07/12/2006 Injection Injection Lance Skyla, Lucas 06/28/2006 Injection Injection Lance Skyla, Lucas 06/14/2006 Injection Injection Lance Skyla, Lucas 05/31/2006 Injection Injection Lance Skyla, Lucas 05/17/2006 Injection Injection Lance Skyla, Lucas 05/03/2006 Injection Injection Lance Skyla, Lucas 04/19/2006 Injection Injection Lance Skyla, Lucas 04/03/2006 Injection Injection Lance Skyla, Lucas 03/20/2006 Injection Injection Lance Skyla, Lucas 02/18/2006 Injection Biologic Agent Vikram Gill, 02/08/2006 Administration M.DShayna Injection Injection Lance Skyla, Lucas 02/01/2006 Injection Biologic Agent Lance Skyla, Lucas 01/25/2006 Administration Injection Biologic Agent Lance SkylaLucas 12/26/2005 Administration Injection Injection Lance SkylaLucas 12/12/2005 Injection Injection Lance Skyla, Lucas 11/30/2005 Injection Biologic Agent Lance Skyla, Lucas 11/28/2005 Administration Injection Injection Lance Skyla, Lucas 11/16/2005 Injection Biologic Agent Lance SkylaLucas 11/12/2005 Administration Injection Injection Lance Skyla, Lucas 11/12/2005 Injection Injection Lance SkylaLucas malik 11/02/2005 Injection Biologic Agent Lance Lucas Crum 10/29/2005 Administration Injection Injection Lance SkylaLucas malik 10/19/2005 Injection Biologic Agent Lance Lucas Crum 10/15/2005 Administration Injection Injection Lance Lucas Crum 10/08/2005 Injection Biologic Agent Marck Landry M.D. 10/01/2005 Administration Injection Injection Lance SkylaLucas malik 09/24/2005 Injection Biologic Agent Lance SkylaLucas malik 09/12/2005 Administration Injection Injection Lance SkylaLucas malik 09/10/2005 Injection Biologic Agent Lance SkylaLucas malik 08/29/2005 Administration Injection Injection Lance SkylaLucas malik 08/27/2005 Injection Biologic Agent Lance Lucas Crum 08/15/2005 Administration Injection Injection Lance SkylaLucas malik 08/13/2005 Injection Biologic Agent Lance SkylaLucas malik 08/01/2005 Administration Injection Injection Lance SkylaLucas malik 07/30/2005 Injection Injection Lance SkylaLucas malik 07/18/2005 Injection Injection Lance SkylaLucas malik 06/20/2005 Injection Injection Lance SkylaLucas malik 05/25/2005 Injection Injection Lance Lucas Crum 2005 Injection Injection Marck Landry M.D. 04/11/2005 Injection Injection Lance SkylaLucas 03/26/2005 Injection Injection Lance SkylaLucas 03/12/2005 Injection Injection Lance SkylaLucas 02/26/2005 Injection Injection Lance SkylaLucas 02/21/2005 Injection Injection Lance Skyla, Lucas 02/14/2005 Injection Injection Lance SkylaLucas 02/07/2005 Injection Injection Lance SkylaLucas malik 01/26/2005 Injection Injection Lance SkylaLucas malik 01/12/2005 Injection Injection Lance Skyla, M.DShayna 01/10/2005 Injection Injection Lance Skyla, M.DShayna 12/29/2004 Injection Injection Lance Skyla, M.D. 12/27/2004 Injection Injection Lance Skyla, M.D. 12/13/2004 Injection Injection Lance Skyla, M.DShayna 12/11/2004 Injection Injection Lance Skyla, M.DShayna 11/29/2004 Injection Injection Lacne Skyla, M.DShayna 11/27/2004 Injection Injection Lance Skyla, M.DShayna 11/17/2004 Injection Injection Lance Skyla, M.DShayna 11/15/2004 Injection Injection Lance Skyla, M.DShayna 11/01/2004 Injection Injection Lance Skyla, M.DShayna 10/25/2004 Injection Injection Lance Skyla, M.DShayna 10/18/2004 Injection Injection Lance Skyla, M.DShayna 10/11/2004 Injection Injection Lance Skyla, M.DShayna 10/04/2004 Injection Injection Lance Skyla, M.DShayna 09/27/2004 Injection Injection Lance Skyla, M.DShayna 09/20/2004 Injection Injection Lance Skyla, M.DShayna 09/13/2004 Injection Injection Lance Skyla, M.DShayna 09/04/2004 Injection Injection Lance Skyla, M.DShayna 08/30/2004 Injection Injection Lance Skyla, M.DShayna 08/23/2004 Injection Injection Lance Skyla, M.DShayna 08/16/2004 Injection Injection Lance Skyla, M.DShayna 08/07/2004 Injection Injection Lance Skyla, M.DShayna 08/02/2004 Injection Injection Lance Skyla, M.DShayna 07/24/2004 Injection Injection Lance Skyla, M.DShayna 07/17/2004 Injection Injection Lance Skyla, M.DShayna 07/10/2004 Injection Injection Lance Skyla, M.DShayna 07/03/2004 Injection Injection Lance Skyla, M.DShayna 06/26/2004 Injection Injection Lance Skyla, M.DShayna 06/19/2004 Injection Injection Lance Skyla, M.DShayna 06/14/2004 Injection Injection Lance Skyla, M.D. 06/05/2004 Injection Injection Lance Skyla, M.D. 05/31/2004 Injection Injection Lance Skyla, M.D. 05/22/2004 Injection Injection Lance Skyla, M.D. 05/19/2004 Injection Injection Lance Skyla, M.D. 05/08/2004 Injection Injection Lance Skyla, M.D. 05/01/2004 Injection Injection Lance Skyla, M.D. 04/24/2004 Injection Injection Lance Skyla, M.D. 04/17/2004 Injection Injection Lance Skyla, M.D. 04/10/2004 Injection Injection Lance Skyla, M.D. 04/03/2004 Injection Injection Lance Skyla, M.D. 03/27/2004 Injection Injection Lance Skyla, M.D. 03/20/2004 Injection Injection Lance Skyla, M.D. 03/13/2004 Injection Injection Lance Ksyla, M.D. 02/23/2004 Injection Injection Lance Skyla, M.D. 02/21/2004 Injection Injection Lance Skyla, M.D. 02/14/2004 Injection Injection Lance Skyla, M.D. 02/11/2004 Injection Injection Lance Skyla, M.D. 02/09/2004 Injection Injection Lance Skyla, M.D. 01/19/2004 Injection Injection Lance Skyla, M.D. 01/17/2004 Injection Injection Lance Skyla, M.D. 01/14/2004 Injection Injection Lance Skyla, M.D. 01/10/2004 Injection Injection Lance Skyla, M.D. 01/03/2004 Injection Injection Lance Skyla, M.D. 12/31/2003 Injection Injection Lance Skyla, M.D. 12/24/2003 Injection Injection Lance Skyla, M.D. 12/20/2003 Injection Injection Lance Skyla, M.D. 12/15/2003 Injection Injection Lance Skyla, M.D. 12/13/2003 Injection Injection Lance Skyla, M.D. 12/08/2003 Injection Injection Lance Skyla, M.D. 12/01/2003 Injection Injection Lance Skyla, M.D. 11/29/2003 Injection Injection Lance Skyla, M.D. 11/24/2003 Injection Injection Lance Skyla, M.D. 11/19/2003 Injection Injection Lance Skyla, M.D. 11/17/2003 Injection Injection Lance Skyla, M.D. 11/05/2003 Injection Injection Lance Skyla, M.D. 11/03/2003 Injection Injection Lance Skyla, M.D. 11/01/2003 Injection Injection Lance Skyla, M.D. 10/25/2003 Injection Injection Lance Skyla, M.DShayna 10/20/2003 Injection Injection Lance Skyla, M.DShayna 10/15/2003 Injection Injection Lance Skyla, M.DShayna 10/08/2003 Injection Injection Lance Skyla, M.DShayna 10/06/2003 Injection Injection Lance Skyla, M.DShayna 10/01/2003 Injection Injection Lance Skyla, M.DShayna 09/24/2003 Injection Injection Lance Skyla, M.DShayna 09/22/2003 Injection Injection Lance Skyla, M.DShayna 09/17/2003 Injection Injection Lance Skyla, M.D. 09/10/2003 Injection Injection Lance Skyla, M.DShayna 09/08/2003 Injection Injection Lance Skyla, M.DShayna 08/30/2003 Injection Injection Lance Skyla, M.DShayna 08/25/2003 Injection Injection Lance Skyla, M.D. 08/23/2003 Injection Injection Lance Skyla, M.D. 08/16/2003 Injection Injection Lance Skyla, M.DShayna 08/11/2003 Injection Injection Lance Skyla, M.DShayna 08/06/2003 Injection Injection Lance Skyla, M.DShayna 08/02/2003 Injection Injection Lance Skyla, M.DShayna 07/28/2003 Injection Injection Lance Skyla, M.DShayna 07/19/2003 Injection Injection Lance Skyla, M.DShayna 07/12/2003 Injection Injection Lance Skyla, M.D. 07/09/2003 Injection Injection Lance Crum M.D. 07/05/2003 Injection Injection Lance Crum M.D. 06/28/2003 Injection Injection Lance Crum M.D. 06/25/2003 Injection Injection Lance Crum M.D. 06/21/2003 Injection Injection Lance Crum M.D. 06/14/2003 Injection Injection Lance Crum M.D. 06/07/2003 Injection Injection Lance Crum M.D. 05/31/2003 Injection Immunizations CPT Code Status Date Vaccine Lot # 93085 Given Unknown Pneumococcal Vaccine 91081 Given Unknown Pneumococcal Vaccine 52792 Given Unknown Pneumococcal Vaccine 43619 Given Unknown Influenza Vaccine 58613 Given Unknown Influenza Vaccine 18226 Given Unknown Influenza Vaccine 08222 Given Unknown Influenza Vaccine 20615 Given Unknown Influenza Vaccine 39364 Given Unknown Influenza Vaccine Vital Signs Date Vital Result Comment 03/06/2019 12:19pm Height 63.5 inches 5'3.50" Weight 113.00 lb Weight 51.257 kg Respiratory Rate 16 /min Heart Rate 61 /min O2 % BldC Oximetry 92 % BP Systolic 101 mmHg BP Diastolic 54 mmHg Asthma Control Test 16 Fractional Exhaled Nitric Oxide 47 BMI (Body Mass Index) 19.7 kg/m2 11/26/2018 10:53am Height 63.5 inches 5'3.50" Weight 130.00 lb Weight 58.968 kg Respiratory Rate 16 /min Heart Rate 108 /min 114 O2 % BldC Oximetry 93 % BP Systolic 91 mmHg BP Diastolic 59 mmHg Asthma Control Test 8 Takes oxygen prn Fractional Exhaled Nitric Oxide 45 BMI (Body Mass Index) 22.7 kg/m2 Results Description No Information Available Procedures Date Code Description Status 03/06/2019 64093 Nitric Oxide Gas Determination Completed 03/06/2019 89549 Pre PFT Completed 11/26/2018 66406 Nitric Oxide Gas Determination Completed 11/26/2018 17502 Pre PFT Completed 09/26/2018 68869 Nitric Oxide Gas Determination Completed 09/26/2018 25025 Pre PFT Completed Medical Devices Description No Information Available Encounters Type Date Location Provider Dx Diagnosis Office Visit 03/06/2019 Mihaela Diaz, J45.50 Severe persistent 11:40a M.D. asthma, uncomplicated A31.0 Pulmonary mycobacterial infection D46.9 Myelodysplastic syndrome, unspecified J30.1 Allergic rhinitis due to pollen D72.1 Eosinophilia Office Visit 11/26/2018 10:40a [place]haela Deborah Diaz, J45.50 Severe persistent M.D. asthma, uncomplicated A31.0 Pulmonary mycobacterial infection J30.89 Other allergic rhinitis D46.9 Myelodysplastic syndrome, unspecified J30.1 Allergic rhinitis due to pollen Office Visit 09/26/2018 11:40a [place] Deborah Diaz, J45.50 Severe persistent M.D. asthma, uncomplicated A31.0 Pulmonary mycobacterial infection J30.89 Other allergic rhinitis D46.9 Myelodysplastic syndrome, unspecified D72.1 Eosinophilia J30.1 Allergic rhinitis due to pollen Assessments Date Code Description Provider 03/06/2019 J45.50 Severe persistent asthma, uncomplicated Deborah Diaz M.D. 03/06/2019 A31.0 Pulmonary mycobacterial infection Deborah Diaz M.D. 03/06/2019 D46.9 Myelodysplastic syndrome, unspecified Deborah Diza M.D. 03/06/2019 J30.1 Allergic rhinitis due to pollen Deborah Diaz M.D. 03/06/2019 D72.1 Eosinophilia Deborah Diaz M.D. 11/26/2018 J45.50 Severe persistent asthma, uncomplicated Deborah Diaz M.D. 11/26/2018 A31.0 Pulmonary mycobacterial infection Deborah Diaz M.D. 11/26/2018 J30.89 Other allergic rhinitis Deborah Diaz M.D. 11/26/2018 D46.9 Myelodysplastic syndrome, unspecified Deborah Diaz M.D. 11/26/2018 J30.1 Allergic rhinitis due to pollen Deborah Diaz M.D. 09/26/2018 J45.50 Severe persistent asthma, uncomplicated Deborah Diaz M.D. 09/26/2018 A31.0 Pulmonary mycobacterial infection Deborah Diaz M.D. 09/26/2018 J30.89 Other allergic rhinitis Deborah Diaz M.D. 09/26/2018 D46.9 Myelodysplastic syndrome, unspecified Deborah Diaz M.D. 09/26/2018 D72.1 Eosinophilia Deborah Diaz M.D. 09/26/2018 J30.1 Allergic rhinitis due to pollen Deborah Diaz M.D. Plan of Treatment Future Appointment(s):07/15/2019 8:40 am - Deborah Diaz M.D. at [id number] - Deborah Diaz M.D.J45.50 Severe persistent asthma, twylrukwmjjlgE74.0 Pulmonary mycobacterial gruzcktbkS31.9 Myelodysplastic syndrome, becrjycgjhmK61.1 Allergic rhinitis due to wujfyzF22.1 EosinophiliaFollow up:4 months, CHECK-UP/FOLLOW UP VISIT: Continued management of patient's medical care.Recommendations:Refrain from wearing perfumes/scented colognes while visiting our office. continue ID, oncology, dermatology f/u continue PCP f/u continue Breo 200/25 1 puff once daily; continue rinsing mouth after use continue Spiriva HandiHaler 1 puff once daily use Proair 2 puffs every 4 hours for cough, shortness of breath or chest tightness for the next 2-3 days while awake, then use every 4 hours as neededcontinue prednisone 7.5 mg once daily chest CT - as scheduled 03/10/19 Functional Status Description No Information Available Mental Status Description No Information Available Referrals Refer to Reason for Referral Status Appt Date Matti Durand MD Sent 01/22/[address] [address] [phone]
--- OUTSIDE RECORDS SUMMARY | 2019-03-13 11:36 | XMS REPORT | Continuity of Care Document ---
:1935 External Reference #:[id number] Author Name Yovani Javed M.D. (transmitted by agent of provider Carrie Villegas) Address [address] [place] [address] Care Team Providers Name Role Phone Giuliano Ceballos M.D. - Family Care Team Information Data Manager [phone] Medicine Kevin Collado M.D. - Urology Care Team Information Data Manager [phone] Malathi Arroyo M.D. Care Team Information Data Manager Unavailable Deborah Diaz M.D. Care Team Information Data Manager Unavailable Cinthya Weber M.D. 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 01/20/2019 H43.813 Vitreous degeneration, bilateral Yovani [...]
--- NOTE | 2019-03-13 11:53 | ED ---
Altered Mental Status - HPI Summary HPI Summary: 83 year old female presents to the ED by EMS with a chief complaint of altered mental status for several days and abdominal pain starting last night. She reports difficulty urinating even with urge, fever, weakness, confusion and paranoia starting yesterday, and exhaustion. Last bowel movement was 3 days ago. Had nausea and vomiting 2 days ago. Pt denies any chills, erythema of eyes , sore throat, CP, SOB, cough, dysuria, hematuria, myalgia, edema, rash, or dizziness. Per daughter, patient is more talkative today than baseline. She has had a lack of appetite for several weeks and has lost 12 pounds in the last 4-6 weeks. Patient is a resident of [facility]. PMHx of left lung shadow. - History Of Current Complaint Chief Complaint: EDGeneral Stated Complaint: GENERAL ILLNESS Time Seen by Provider: 03/13/19 11:36 Hx Obtained From: Patient, Family/Despatching And Receiving Clerk Onset/Duration: Gradually Timing: Constant, Lasting Days Severity Initially: Moderate Severity Currently: Moderate Character: Confusion Aggravating Factor(s): Unknown Alleviating Factor(s): Unknown Associated Signs And Symptoms: Positive: Nausea, Vomiting, Fever, Weakness - Allergies/Home Medications Allergies/Adverse Reactions: Allergies Allergy/AdvReac Type Severity Reaction Status Date / Time Iodinated Contrast Media Allergy Severe Itching Verified 09/04/18 01:15 [Iodinated Contrast- Oral and IV Dye] cephalexin [From Keflex] Allergy Rash Verified 09/04/18 01:15 epinephrine AdvReac Severe Palpitation Verified 09/04/18 01:15 [From Xylocaine-Epinephrine] s lidocaine AdvReac Severe Palpitation Verified 09/04/18 01:15 [From Xylocaine-Epinephrine] s Home Medications: Home Medications Acetaminophen SUPP* [Tylenol Supp*] 650 mg MA Q6H PRN 03/13/19 [History Confirmed 03/13/19] Acetaminophen TAB* [Tylenol TAB*] 650 mg PO Q4H PRN 03/13/19 [History Confirmed 03/13/19] Al Hydrox/Mg Hydrox/Tin BULK* [Mylanta - BULK BOT*] 15 ml PO Q4H PRN 03/13/19 [ History Confirmed 03/13/19] Albuterol inh POWDER (NF) [Proair Respiclick] 2 puff INH Q4H PRN 03/13/19 [ History Confirmed 03/13/19] Bisacodyl SUPP* [Dulcolax Supp*] 10 mg MA DAILY PRN 03/13/19 [History Confirmed 03/13/19] Diclofenac 1% GEL (NF) [Voltaren 1% GEL (NF)] 1 applic TOPICAL Q6H PRN 03/13/19 [History Confirmed 03/13/19] Digoxin TAB* [Lanoxin TAB*] 62.5 mcg PO EVERY OTHER DAY 03/13/19 [History Confirmed 03/13/19] Digoxin TAB* [Lanoxin TAB*] 125 mcg PO EVERY OTHER DAY 03/13/19 [History Confirmed 03/13/19] Diltiazem CD CAP* [Cardizem CD CAP*] 180 mg PO BID 03/13/19 [History Confirmed 03/13/19] Ergocalciferol (Vitamin D2) [Vitamin D2] 50,000 unit PO MONTHLY 03/13/19 [ History Confirmed 03/13/19] Ketoconazole [Nizoral A-D] 1 applic TOPICAL WEEKLY 03/13/19 [History Confirmed 03/13/19] Levothyroxine TAB* [Synthroid TAB*] 50 mcg PO DAILY 03/13/19 [History Confirmed 03/13/19] Lidocaine 1 applic TOPICAL Q4HR PRN 03/13/19 [History Confirmed 03/13/19] Metoprolol Succinate XL TAB* [Toprol XL TAB*] 50 mg PO BID 03/13/19 [History Confirmed 03/13/19] Nut.tx.impaired Digestive Fxn [Ensure Clear] 120 ml PO BID 03/13/19 [History Confirmed 03/13/19] Ondansetron ODT TAB* [Zofran 4 MG Odt TAB*] 4 mg PO Q4H PRN 03/13/19 [History Confirmed 03/13/19] Petrolatum,White [Aquaphor] 1 applic TOPICAL BEDTIME PRN 03/13/19 [History Confirmed 03/13/19] Propranolol TAB* [Inderal TAB*] 20 mg PO Q4H PRN 03/13/19 [History Confirmed ] oxyCODONE SR TAB(*) [Oxycontin 20 mg (*)] 20 mg PO BID MDD 2 tabs 03/13/19 [ History Confirmed 03/13/19] PMH/Surg Hx/FS Hx/Imm Hx Endocrine/Hematology History: Reports: Hx Bone Marrow Disease - MYELODYSPLASTIC SYNDROME, Hx Anemia Denies: Hx Diabetes, Hx Systemic Lupus Erythematosus Cardiovascular History: Denies: Hx Congestive Heart Failure, Hx Hypertension, Hx Pacemaker/ICD, Hx Peripheral Vascular Disease Respiratory History: Reports: Hx Asthma - ADULT ONSET-2002, Hx Chronic Obstructive Pulmonary Disease (COPD), Other Respiratory Problems/Disorders - HX OF PETER GI History: Reports: Hx Diverticulosis Denies: Hx Jaundice History: Reports: Other Problems/Disorders - caricle of urethra Denies: Hx Dialysis, Hx Renal Disease Musculoskeletal History: Reports: Hx Arthritis, Hx Back Problems, Hx Osteoporosis, Other Musculoskeletal History - right rotator cuff injury Denies: Hx Rheumatoid Arthritis Sensory History: Reports: Hx Contacts or Glasses, Hx Hearing Aid Opthamlomology History: Reports: Hx Contacts or Glasses Neurological History: Reports: Other Neuro Impairments/Disorders - PAIN CLINIC PT Psychiatric History: Reports: Hx Depression Denies: Hx Panic Disorder - Cancer History Cancer Type, Location and Year: mastectomy . sqaumous cell toe amputation Hx Chemotherapy: No Hx Radiation Therapy: No - Surgical History Surgery Procedure, Year, and Place: SKIN BIOPSY June 29 at [facility]; T&A 194; APPENDIX 1950; Rt OVARY CYST REMOVED 1950; X3; DENTAL IMPLANTS 2013; Rt MASTECTOMY 1985; WEDGE RESECTION Rt LUNG; BRONCHOSCOPY X3; Rt BREAST BIOPSY 1971 AND 1985; HERNIA REPAIR 1969'S; D&C ; REPAIR OF DOG BITE ON LEG 07/23; CATARACTS BILATERAL 01/22 & 02/22; RIGHT 2ND TOE AMPUTATED 06/28; BONE MARROW BIOPSY X3 01/25, 04/28 & 04/30; LAMINECTOMY L3-4 & L4-5 08/04/12; SEVERAL MOH'S PROCEDURES; lumbar stimulator 09/2013 - could not be programmed so removed - CHECKED WITH DR. MENENDEZ TODAY(01/04/14)...HE LOOKED AT XRAYS DATED 10/13/13 WHICH CONFIRMED THE STIMULATOR AND LEADS HAD BEEN REMOVED..OK FOR MRI PER DR. MENENDEZ...RAMESH,RT Hx Anesthesia Reactions: No Infectious Disease History: No Infectious Disease History: Reports: Hx Shingles - January 2017, History Other Infectious Disease - MYCOBACTERIUM AVIUM Denies: Hx Clostridium Difficile, Hx Hepatitis, Hx Human Immunodeficiency Virus (HIV), Hx of Known/Suspected MRSA, Hx Tuberculosis, Traveled Outside the [place] in Last 30 Days - Family History Known Family History: Positive: Other - liver cancer Negative: Hypertension, Diabetes - Social History Alcohol Use: Rare Alcohol Amount: 4 Hx Substance Use: No Substance Use Type: Reports: None Substance Use Comment - Amount & Last Used: butran's patch Hx Tobacco Use: Yes Smoking Status (MU): Former Smoker Type: Cigarettes Length of Time of Smoking/Using Tobacco: 13 years Have You Smoked in the Last Year: No Review of Systems Positive: Fever, Fatigue. Negative: Chills Negative: Erythema Negative: Sore Throat Negative: Chest Pain Negative: Shortness Of Breath, Cough Positive: Abdominal Pain, Vomiting, Nausea Positive: other - unable to urinate even with urge. Negative: dysuria, hematuria Negative: Myalgia, Edema Negative: Rash Neurological: Negative - neg - dizziness, Other - confusion, paranoia Positive: Weakness All Other Systems Reviewed And Are Negative: Yes Physical Exam - Summary Physical Exam Summary: Constitutional: Well-developed, Well-nourished, Elderly, Alert. (-) Distressed Skin: Warm, Dry HENT: Normocephalic; Atraumatic. Dry Oral Mucosa. Eyes: Conjunctiva normal Neck: Musculoskeletal ROM normal neck. (-) JVD, (-) Stridor, (-) Tracheal deviation Cardio: Rhythm regular, rate normal, Heart sounds normal; Intact distal pulses; Radial pulses are 2+ and symmetric. (-) Murmur Pulmonary/Chest wall: Effort normal. (-) Respiratory distress, (-) Wheezes, (-) Rales. Crackles in right lung base. Abd: Soft, suprapubic tenderness, (-) Distension, (-) Guarding, (-) Rebound Musculoskeletal: (-) Edema Lymph: (-) Cervical adenopathy Neuro: Alert, Oriented x3 Psych: Mood and affect Normal Triage Information Reviewed: Yes Vital Signs On Initial Exam: Initial Vitals Temp Pulse Resp BP Pulse Ox 100.2 F 80 16 129/63 94 03/13/19 11:29 03/13/19 11:29 03/13/19 11:29 03/13/19 11:29 11/22/19 11:29 Vital Signs Reviewed: Yes Procedures - Sedation Patient Received Moderate/Deep Sedation with Procedure: No Diagnostics - Vital Signs Vital Signs Temp Pulse Resp BP Pulse Ox 03/13/19 11:29 100.2 F 80 16 129/63 94 - Laboratory Result Diagrams: 03/13/19 11:52 03/13/19 11:51 Lab Statement: Any lab studies that have been ordered have been reviewed, and results considered in the medical decision making process. - Radiology CXR Radiology Interpretation Completed By: Radiologist Summary of Radiographic Findings: IMPRESSION: 1. NO EVIDENCE FOR ACUTE FINDING. 2. THERE IS A METALLIC DENSITY PROJECTS ABOVE THE LEFT LUNG LIKELY EXTERNAL TO THE PATIENT. RECOMMEND CLINICAL CORRELATION. An ED physician has reviewed this report. Altered Mental Statu Course/Dx - Course Course Of Treatment: 83 year old female presents to the ED by EMS with a chief complaint of altered mental status for several days and abdominal pain starting last night. She reports difficulty urinating even with urge, fever, weakness, confusion and paranoia starting yesterday, and exhaustion. Last bowel movement was 3 days ago. Had nausea and vomiting 2 days ago. Pt denies any chills, erythema of eyes, sore throat, CP, SOB, cough, dysuria, hematuria, myalgia, edema, rash, or dizziness. Per daughter, patient is more talkative today than baseline. She has had a lack of appetite for several weeks and has lost 12 pounds in the last 4-6 weeks. Patient is a resident of [facility]. PMHx of left lung shadow. Physical exam reveals crackles in right lung base, dry oral mucosa, and suprapubic tenderness. The following impressions were made on the chest XR. 1. NO EVIDENCE FOR ACUTE FINDING. 2. THERE IS A METALLIC DENSITY PROJECTS ABOVE THE LEFT LUNG LIKELY EXTERNAL TO THE PATIENT. RECOMMEND CLINICAL CORRELATION. Laboratory results reveal RBC 3.62, MCV 105, MCH 35, Plt count 73 , MPV 11.3, Sodium 132, chloride 94, carbon dioxide 35, BUN 26, creatinine 1.01 , BUN/Creatinine 25.7, and normal urine. In the ED course the patient was given acetaminophen and fluids. I talked to Dr. Weber about patient, whom she saw yesterday. Dr. Weber told me about the patient's paranoia yesterday and informed me that the [facility] test taken [facility] at [facility] returned negative. Diagnoses are cough, acute urinary retention, urinary hesitation, and fever. Patient will be discharged home with follow up from both her PCP and Dr. Kent, Urology. The patient is agreeable with this plan. - Diagnoses Provider Diagnoses: Urinary hesitancy, Fever, Cough, Acute urinary retention - Provider Notifications Discussed Care Of Patient With: Cinthya Weber - Internal Medicine Time Discussed With Above Provider: 09:50 Instructed by Provider To: Other - Talked to Dr. Weber about patient, whom she saw yesterday. Dr. Weber told me about the patient's paranoia yesterday and informed me that the urine test taken yesterday at her [facility] returned negative. Discharge ED - Sign-Out/Discharge Documenting (check all that apply): Patient Departure - discharge - Discharge Plan Condition: Stable Disposition: HOME Prescriptions: Levofloxacin TAB* [Levaquin TAB*] 750 mg PO DAILY #5 tab Patient Education Materials: Fever in Adults (ED), Acute Urinary Retention in Women (ED) Referrals: Cinthya Weber MD [Primary Care Provider] - Kevin Kent MD [Medical Doctor] - Additional Instructions: Follow up with both your primary care provider and Dr. Kent, Urology, in 2- 3 days. Return to the Emergency Room if you experience new or worsened symptoms. - Attestation Statements Document Initiated by Scribe: Yes Documenting Scribe: Larry Menchaca Provider For Whom Elsyibe is Documenting (Include Credential): Daniel De Santiago MD. Scribe Attestation: Larry Glover, scribed for Daniel De Santiago MD. on 03/13/19 at 1422. Status of Scribe Document: Ready
[2019-03-13] MEDS ORDERED: Acetaminophen TAB* 325 MG PO ONE (12:02)
[2019-03-13] MEDS ORDERED: NS 0.9% 1000 ML** 1,000 ML IV ONE (12:02)
[2019-03-13 12:19] LABS: ABS Basophils 0.1 10^3/ul (0-0.2); ABS Eosinophils 0.3 10^3/ul (0-0.6); ABS Lymphocytes 0.6 10^3/ul (1.0-4.8); ABS Monocytes 1.4 10^3/ul (0-0.8); ABS Neutrophils 4.7 10^3/ul (1.5-7.7); Eosinophil % 4.1 %; Hematocrit 38 % (35-47); Hemoglobin 12.6 g/dL (12.0-16.0); Mean Corpuscular HGB Conc 33 g/dL (31-36); Mean Corpuscular Hemoglobin 35 pg (27-31); Mean Corpuscular Volume 105 fL (80-97); Mean Platelet Volume 11.3 fL (7.4-10.4); Nucleated Red Blood Cells % 0.2; Platelet Count 73 10^3/uL (150-450); Red Blood Count 3.62 10^6 /uL (3.70-4.87); Red Cell Distribution Width 15 % (10-15)
[2019-03-13 12:27] LABS: Activated Partial Thrombo Time 30.1 seconds (26.0-38.0)
[2019-03-13 12:33] LABS: Troponin I 0.01 ng/mL (<0.03)
[2019-03-13 12:37] LABS: Albumin 3.7 g/dL (3.2-5.2); Albumin/Globulin Ratio 1.3 (1-3); BUN/Creatinine Ratio 25.7 (8-20); Calcium 9.3 mg/dL (8.6-10.3); EGFR Non-African American 52.1 (>60); Globulin 2.9 g/dL (2-4); Potassium 4.8 mmol/L (3.5-5.0); Total Protein 6.6 g/dL (6.4-8.9)
[2019-03-13 13:08] LABS: Urine Appearance Clear; Urine Bilirubin Negative (Negative); Urine Blood Negative (Negative); Urine Color Yellow; Urine Glucose Negative (Negative); Urine Ketones Negative (Negative); Urine Nitrite Negative (Negative); Urine Protein Negative (Negative); Urine Specific Gravity 1.016 (1.010-1.030); Urine Urobilinogen Negative (Negative)
[2019-03-13 13:31] LABS: Digoxin 1.6 ng/ml (0.8-2.0)
[2019-03-13] MEDS ORDERED: Levofloxacin TAB* 250 MG PO ONE (14:13)
[2019-03-13 16:32] LABS: C Reactive Protein 110.74 mg/L (<8.01)
[2019-03-13] MEDS ORDERED: Levalbuterol 0.63MG/3ML NEB* UNIT OF USE INH PRN (17:15)
[2019-03-13] MEDS ORDERED: Propranolol TAB* 20 MG PO PRN ×2 (17:15→17:37)
[2019-03-13] MEDS ORDERED: Clotrimazole 1% CREAM* 30 GM TOPICAL PRN (17:15)
[2019-03-13] MEDS ORDERED: Albuterol HFA INHALER* 8 gm MDI INH PRN (17:15)
[2019-03-13] MEDS ORDERED: NS 0.9% 1000 ML** 1,000 ML IV SCH (17:30)
[2019-03-13 17:53] LABS: Influenza A Molecular NEGATIVE (Negative); Influenza B Molecular NEGATIVE (Negative)
[2019-03-13] MEDS ORDERED: Sodium Phosphate ADULT ENEMA* 118 ml bottle PR ONE (18:30)
--- NOTE | 2019-03-13 19:03 | HP ---
CC: Dr. Cinthya Weber * [facility] MEDICINE HISTORY AND PHYSICAL: DATE OF ADMISSION: 03/13/19 PRIMARY CARE PHYSICIAN: Dr. Cinthya Weber. ATTENDING PHYSICIAN: Dr. Keyonna Kasper * (dictation provided by Buffy Mcallister NP ). CHIEF COMPLAINT: Mild fever and confusion. HISTORY OF PRESENT ILLNESS: Ms. Blas is an 83-year-old female with a past medical history of Mycobacterium avium-intracellulare, chronic hypereosinophilic syndrome, myelodysplastic syndrome, asthma and issue with heart rate control with description of tachycardia, now on digoxin, who presents to the hospital today with concern for mild fevers and confusion. Ms. Blsa is attended by her son and daughter at the bedside, who help corroborate her story. Per the report, she began feeling unwell initially about 2 to 3 weeks ago. She had been started on digoxin for this unspecified tachycardia. While this controlled her heart rate well, she did have an episode of digoxin toxicity resulting in confusion. The patient's family states that she has had difficulty recovering from this, though her digoxin level was normal. She has remained weak and intermittently confused, though relatively doing well. About 2 days ago, she had an episode of vomiting and was prescribed Zofran. Since then, the patient has not been drinking inconsistently and evidencing more confusion and disorientation. Outpatient, she did have evaluation with a CRP which was 105.60. She had a chest CT which showed "diffuse reticulonodular infiltrates with some ground-glass and nodular densities, improved from the prior study favoring an infectious or inflammatory process, recommended followup in 6 months' time." At that time, she also had a CT of the brain, which showed no acute abnormality. Today the patient had a mild fever and was more confused and was brought to the hospital today for evaluation. In the emergency room, she had labs, which showed a urine with no evidence of infection. She has no leukocytosis. She does have an elevated CRP to 110.74. The patient's vital signs have been stable in the emergency room. She does have a mild fever to 100.2. She has complained of abdominal discomfort and was found to have urinary retention via ultrasound and a Zhou catheter has been placed with 500 mL of urine obtained. Her abdominal x-ray is pending. Report is that the patient, in the setting of limited oral intake and chronic narcotic use, has had no bowel movement for the past 3 days. The patient reports that in general she has been using laxatives and enemas to coax a bowel movement. Her only complaint at this time is abdominal pain and feeling somewhat confused. PAST MEDICAL HISTORY: 1. Asthma. 2. Mycobacterium avium-intracellulare. 3. GERD. 4. Myelodysplastic syndrome. 5. History of what appears to be a supraventricular tachycardia, on digoxin. 6. History of spinal stenosis. 7. Allergic rhinitis. 8. Vitamin D deficiency. 9. Pseudogout. 10. Radiculopathy. 11. History of breast cancer. 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 13. Depression. 14. History of lung resection. 15. History of basal cell carcinoma. MEDICATIONS: As outpatient are: 1. Ketoconazole 1 application topically weekly. 2. Aquaphor 1 application topically at bedtime p.r.n. 3. Clotrimazole 1% cream 1 application topically daily p.r.n. 4. Lidocaine 1 application topically q.4 hours p.r.n. 5. Ensure 125 mL p.o. b.i.d. 6. Sertraline 75 mg p.o. at bedtime. 7. Albuterol inhaler 2 puffs inhaled q.4 hours p.r.n. 8. Digoxin alternating between 62.5 and 125 mcg every other day. 9. Ergocalciferol 50,000 units p.o. monthly. 10. Metoprolol succinate 50 mg p.o. b.i.d. 11. Breo Ellipta 200/25 one inhalation daily. 12. Levothyroxine 50 mcg p.o. daily. 13. Propranolol 20 mg q.4 hours p.r.n. elevated heart rate. 14. Diltiazem CD 180 mg p.o. b.i.d. 15. Calcium citrate with vitamin D3 one tab p.o. daily. 16. Diclofenac 1% gel apply topically q.6 hours p.r.n. 17. Zofran 4 mg p.o. q.4 hours p.r.n. 18. Mylanta 15 mL p.o. q.4 hours p.r.n. 19. Tylenol 650 mg per rectum q.6 hours p.r.n. 20. Oxycodone SR 20 mg p.o. b.i.d. 21. Levalbuterol 0.63 mg inhaled q.i.d. p.r.n. 22. Fluocinonide 0.05% one application topically at bedtime p.r.n. 23. Prednisone 7.5 mg p.o. daily. 24. Tiotropium 1 cap inhaled daily. 25. Polyethylene glycol 17 g p.o. daily p.r.n. 26. Multivitamin with minerals 1 tab p.o. daily. 27. Ibuprofen p.r.n. 28. Flonase nasal spray 2 sprays both nares daily. 29. Colchicine 0.6 mg p.o. b.i.d. 30. Tylenol 650 mg q.4 hours p.r.n. 31. Bisacodyl 10 mg p.r. daily p.r.n. 32. Magnesium hydroxide 30 mL p.o. daily p.r.n. FAMILY HISTORY: Positive for coronary artery disease. SOCIAL HISTORY: The patient quit smoking in 1998. She occasionally uses alcohol. 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 She currently lives at [facility] and she is DNR. REVIEW OF SYSTEMS: A 14-point review of systems was completed with Ms. Blas and all those not mentioned above are negative. PHYSICAL EXAMINATION GENERAL: Ms. Blas is lying in the bed with her son and daughter at the bedside. VITAL SIGNS: Temperature 100.2, pulse rate 80, respiratory rate 16, O2 saturation 94% on room air, blood pressure 129/63. LUNGS: Clear to auscultation bilaterally with no accessory muscle use and good aeration. HEART: S1, S2. No murmur, rub, or gallop and regular. ABDOMEN: Soft. It is tender throughout. There is no rebound, no guarding. Bowel sounds are positive. EXTREMITIES: No cyanosis or edema. NEURO: She is alert. She is oriented x3, but she does have confusion about details. She moves all extremities equally. There is no facial asymmetry or focal weakness. Extraocular movements are intact. SKIN: The patient has multiple bruises and she has note of a coccyx ulcer stage II, no significant drainage, approximately 1 inch x 1/2 inch. DIAGNOSTIC STUDIES/LAB DATA: Sodium 132, potassium 4.8, chloride 94, serum bicarbonate 35, BUN 26, creatinine 1.01, glucose 99, lactic acid 0.6. CRP 110.74. Troponin 0.01. WBC 7.0, hemoglobin 12.6, hematocrit 38, platelet count 73 consistent with previous. INR 1.00. Urine shows no evidence of infection. Digoxin is 1.6 and serology for flu is pending. The patient had chest x-ray today, which showed no evidence for acute finding. ASSESSMENT AND PLAN: Ms. Blas is an 83-year-old female with a past medical history of Mycobacterium avium-intracellulare; chronic hypereosinophilic syndrome; myelodysplastic syndrome; supraventricular tachycardia, on digoxin; and asthma, on prednisone, who presents to the hospital with concern for fever and altered mental status. Here today, she has been found to have urinary retention, report of constipation with a tender abdomen and abdominal x-ray pending. Her labs are stable. Vitals are stable. Our plans are for observation in the hospital for the followin. Fever and confusion. The patient shows no evidence of acute infection. Her chest x-ray shows no change. Her urinalysis shows no evidence of infection. She also had no evidence of infection on 03/12/19. Her leukocyte esterase was normal and nitrites negative. At this point, pending any new change, I do not plan to continue with antibiotics. I question whether or not her symptoms could be due to constipation and subsequent urinary retention, which would explain very mild low- grade fever, elevated CRP, and confusion. Plan to monitor her closely overnight and adjust course as needed. The patient will continue with intravenous fluids. Once the abdominal x-ray is complete and if this shows constipation only, we will initiate an aggressive bowel regimen. The patient's bowel regimen has been noted to be p.r.n. at [facility] and I question whether or not she should have more routine bowel meds given that she is on high-dose narcotics. A flu swab is pending and I will follow up with this result, but she has no cough. The patient does deserve observation in the hospital because she is immunocompromised on chronic prednisone therapy. 2. Asthma. Continue home medications. Continue prednisone. 3. History of supraventricular tachycardia. Continue digoxin, level is normal as well as metoprolol. 4. Depression. Continue sertraline. 5. DVT prophylaxis with heparin subcu. 6. Code status is DNR and a MOLST form has been signed. TIME SPENT: Approximately 60 minutes was spent on the admission of this patient , more than half the time was spent with the patient at the bedside reviewing the events leading up to this hospitalization, performing the physical examination, and reviewing my plan of care. BUFFY MCALLISTER NP [id number]/[facility] #: [id number] RAVEN
[2019-03-13] MEDS: Polyethylene Glycol 3350* 17 GM PACKET PO SCH (22:42)
[2019-03-13] MEDS: Colchicine* 0.6 MG TAB PO SCH (22:42)
[2019-03-13] MEDS: Heparin VIAL(*) 5000 UNITS/ML VIAL (FIVE THOUSAND) SUBCUT SCH (22:44)
[2019-03-13] MEDS: oxyCODONE SR TAB(*) 20 MG TAB.SR PO SCH (22:50)
[2019-03-13] MEDS: Metoprolol Succinate XL TAB* 50 MG PO SCH (22:52)
[2019-03-13] MEDS: Diltiazem CD CAP* 180 MG PO SCH (22:52)
[2019-03-13] MEDS: Senna TAB 8.6 mg* TAB PO SCH (22:53)
[2019-03-13] MEDS: Sertraline* 25 MG TAB PO SCH (22:54)
[2019-03-13] MEDS: Acetaminophen TAB* 325 MG PO PRN (22:55)
[2019-03-14] MEDS: Ondansetron ODT TAB* 4 MG PO PRN ×2 (04:26→10:09)
[2019-03-14 06:54] LABS: Calcium 8.5 mg/dL (8.6-10.3)
[2019-03-14 07:00] LABS: BUN/Creatinine Ratio 24.7 (8-20); EGFR African American 91.7 (>60); EGFR Non-African American 75.8 (>60)
[2019-03-14] MEDS: Heparin VIAL(*) 5000 UNITS/ML VIAL (FIVE THOUSAND) SUBCUT SCH ×3 (08:20→20:43)
[2019-03-14] MEDS: Metoprolol Succinate XL TAB* 50 MG PO SCH ×2 (09:55→20:41)
[2019-03-14] MEDS: Polyethylene Glycol 3350* 17 GM PACKET PO SCH ×2 (09:55→20:42)
[2019-03-14] MEDS: Digoxin TAB* 0.125 MG PO SCH (09:56)
[2019-03-14] MEDS: Levothyroxine TAB* 50 MCG TAB PO SCH (09:57)
[2019-03-14] MEDS: predniSONE TAB* 5 MG PO SCH (09:57)
[2019-03-14] MEDS: Diltiazem CD CAP* 180 MG PO SCH ×2 (09:57→20:40)
[2019-03-14] MEDS: oxyCODONE SR TAB(*) 20 MG TAB.SR PO SCH ×2 (09:58→20:41)
[2019-03-14] MEDS: Acetaminophen TAB* 325 MG PO PRN ×2 (09:59→17:12)
[2019-03-14] MEDS: Fluticasone NASAL SPRAY 50MCG* 16 gm SPRAY BTL BOTH NARES SCH (09:59)
[2019-03-14] MEDS: Colchicine* 0.6 MG TAB PO SCH ×2 (15:27→20:40)
[2019-03-14] MEDS: Levofloxacin 500 MG IVPREMIX(* 500 MG/100 ML BAG IVPB SCH (15:28)
[2019-03-14] MEDS: Mometasone/Formoter 200/5 MDI INH SCH (20:27)
[2019-03-14] MEDS: Senna TAB 8.6 mg* TAB PO SCH (20:41)
[2019-03-14] MEDS: Sertraline* 25 MG TAB PO SCH (20:43)
[2019-03-15] MEDS: Acetaminophen TAB* 325 MG PO PRN ×2 (01:06→21:42)
[2019-03-15] MEDS: Heparin VIAL(*) 5000 UNITS/ML VIAL (FIVE THOUSAND) SUBCUT SCH ×3 (05:44→21:31)
[2019-03-15] MEDS: Mometasone/Formoter 200/5 MDI INH SCH ×2 (07:47→09:27)
[2019-03-15] MEDS ORDERED: Digoxin TAB* 0.125 MG PO SCH (09:00)
[2019-03-15] MEDS: Fluticasone NASAL SPRAY 50MCG* 16 gm SPRAY BTL BOTH NARES SCH (09:32)
[2019-03-15] MEDS: oxyCODONE SR TAB(*) 20 MG TAB.SR PO SCH ×2 (09:33→21:31)
[2019-03-15] MEDS: Polyethylene Glycol 3350* 17 GM PACKET PO SCH ×2 (09:33→21:32)
[2019-03-15] MEDS: Levothyroxine TAB* 50 MCG TAB PO SCH (09:33)
[2019-03-15] MEDS: Metoprolol Succinate XL TAB* 50 MG PO SCH ×2 (09:33→21:31)
[2019-03-15] MEDS: Diltiazem CD CAP* 180 MG PO SCH ×2 (09:34→21:31)
[2019-03-15] MEDS: Digoxin TAB* 0.125 MG PO SCH (09:35)
[2019-03-15] MEDS: Colchicine* 0.6 MG TAB PO SCH ×2 (09:35→21:43)
[2019-03-15] MEDS: predniSONE TAB* 5 MG PO SCH (09:35)
--- NOTE | 2019-03-15 12:01 | PN ---
Subjective - Subjective Reason for Note: Progress Note History: She has 2 family members present. She is alert and oriented and able to give a clear account of herself - clearly different from described in the chart. She has pain in her back - at the site of her decubitus and also her chronic back pain. She has a slight cough - no sputum. She denies urinary symptoms and today her appetite has improved and she is eating/drinking sufficiently. She denies fevers, chills. Active Problems: Active Problems Infection of chest (Acute) J22 Constipation (Acute) K59.00 Altered mental state (Acute) R41.82 Sacral decubitus ulcer, stage III (Acute) L89.153 Chronic pain (Chronic) G89.29 - Home medications DVT prophylaxis (Chronic) Z29.9 - Lovenox while Platelets >50K Full code status (Chronic) Z78.9 History of right breast cancer (Chronic) Z85.3 Spinal stenosis (Chronic) M48.00 Myelodysplastic syndrome (Chronic) D46.9 - Chronic, Stable Mycobacterium avium complex (Chronic) A31.0 - Continue Rifampin and Azithromycin Current Medications: Current Medications Acetaminophen (Tylenol Tab*) 650 mg PO Q4H PRN PRN Reason: FEVER/PAIN Last Admin: 03/15/19 01:06 Dose: 650 mg Albuterol (Ventolin Hfa Inhaler*) 2 puff INH Q4H PRN PRN Reason: SOB/WHEEZING Clotrimazole (Clotrimazole 1%*) 1 applic TOPICAL DAILY PRN PRN Reason: ITCHING Colchicine (Colcrys*) 0.6 mg PO BID [facility] Last Admin: 03/15/19 09:35 Dose: 0.6 mg Digoxin (Lanoxin Tab*) 0.0625 mg PO EVERY OTHER DAY [facility] Last Admin: 03/15/19 09:35 Dose: 0.0625 mg Digoxin (Lanoxin Tab*) 0.125 mg PO EVERY OTHER DAY [facility] Last Admin: 03/14/19 09:56 Dose: 0.125 mg Diltiazem HCl (Cardizem Cd Cap*) 180 mg PO BID [facility] Last Admin: 03/15/19 09:34 Dose: 180 mg Fluticasone Propionate (Flonase Nasal [place] 50mcg*) 2 spray BOTH NARES DAILY [facility] Last Admin: 11/24/19 09:32 Dose: 2 spray Heparin Sodium (Porcine) (Heparin Vial(*)) 5,000 units SUBCUT Q8HR [facility] Last Admin: 03/15/19 05:44 Dose: 5,000 units Levofloxacin/Dextrose (Levaquin 500 Mg Ivpremix(*)) 500 mg in 100 mls @ 100 mls /hr IVPB Q24H [facility] Last Admin: 03/14/19 15:28 Dose: 100 mls/hr Levalbuterol HCl (Xopenex 0.63mg/3ml Neb*) 0.63 mg INH QID PRN PRN Reason: SHORTNESS OF BREATH Levothyroxine Sodium (Synthroid Tab*) 50 mcg PO DAILY [facility] Last Admin: 03/15/19 09:33 Dose: 50 mcg Metoprolol Succinate (Toprol Xl Tab*) 50 mg PO BID [facility] Last Admin: 03/15/19 09:33 Dose: 50 mg Mometasone Furoate/Formoterol Fumar (Dulera 200/5 Mdi*) 2 puff INH BID [facility] Last Admin: 03/15/19 09:27 Dose: 2 puff Ondansetron HCl (Zofran Odt Tab*) 4 mg PO Q4H PRN PRN Reason: NAUSEA Last Admin: 03/14/19 10:09 Dose: 4 mg Oxycodone HCl (Oxycontin(*)) 20 mg PO BID [facility] Last Admin: 03/15/19 09:33 Dose: 20 mg Polyethylene Glycol/Electrolytes (Miralax*) 17 gm PO 0800,2100 [facility] Last Admin: 03/15/19 09:33 Dose: 17 gm Prednisone (Deltasone Tab*) 7.5 mg PO DAILY [facility] Last Admin: 03/15/19 09:35 Dose: 7.5 mg Propranolol HCl (Inderal Tab*) 20 mg PO Q4H PRN PRN Reason: HR > 120 Senna (Senokot 8.6 Mg Tab*) 2 tab PO BEDTIME [facility] Last Admin: 03/14/19 20:41 Dose: 2 tab Sertraline HCl (Zoloft*) 75 mg PO BEDTIME [facility] Last Admin: 03/14/19 20:43 Dose: 75 mg Home Medications: Home Medications Medication Instructions Recorded Confirmed Type Calcium Citrate/Vitamin D3 1 tab PO DAILY 04/23/18 03/13/19 History [Calcium Citrate - Vit D3 Tab] Clotrimazole 1% CREAM* 1 applic TOPICAL DAILY PRN #1 tube 09/15/18 03/13/19 Rx [Clotrimazole 1%*] Colchicine* [Colcrys*] 0.6 mg PO BID #60 tab 09/15/18 03/13/19 Rx Fluocinonide 0.05% CM(NF) [Lidex 1 applic TOPICAL BEDTIME PRN #1 09/15/18 Rx 0.05% CREAM(NF)] tube Fluticasone NASAL SPRAY 50MCG* 2 spray BOTH NARES DAILY #1 btl 09/15/18 Rx [Flonase NASAL SPRAY 50MCG*] Fluticasone/Vilanterol [Breo 1 each INH DAILY #1 blst.w.dev 09/15/18 03/13/19 Rx Ellipta 200-25 Mcg INH] Ibuprofen TAB* [Advil TAB*] 400 mg PO BID PRN #60 tab 09/15/18 03/13/19 Rx Levalbuterol 0.63MG/3ML NEB* 0.63 mg INH QID PRN #60 neb.soln 09/15/18 03/13/19 Rx [Xopenex 0.63MG/3ML NEB*] Magnesium Hydroxide LIQ* [Milk of 30 ml PO DAILY PRN #20 udc 09/15/18 03/13/19 Rx Magnesia LIQ*] Multivit-Min/Iron/Folic/Lutein 1 tab PO DAILY #30 tablet 09/15/18 03/13/19 Rx [Centrum Silver Women Tablet] Polyethylene Glycol 3350* 17 gm PO DAILY PRN #30 packet 09/15/18 03/13/19 Rx [Miralax*] Sertraline* [Zoloft*] 75 mg PO BEDTIME #45 tab 09/15/18 03/13/19 Rx Tiotropium CAPSULE (NF) [Spiriva 1 cap INH DAILY #30 cap.inh 09/15/18 03/13/19 Rx CAPSULE (NF)] predniSONE TAB* [Deltasone TAB*] 7.5 mg PO DAILY #45 tab 09/15/18 03/13/19 Rx Acetaminophen SUPP* [Tylenol Supp*] 650 mg HI Q6H PRN 03/13/19 03/13/19 History Acetaminophen TAB* [Tylenol TAB*] 650 mg PO Q4H PRN 03/13/19 03/13/19 History Al Hydrox/Mg Hydrox/Tin BULK* 15 ml PO Q4H PRN 03/13/19 03/13/19 History [Mylanta - BULK BOT*] Albuterol inh POWDER (NF) [Proair 2 puff INH Q4H PRN 03/13/19 03/13/19 History Respiclick] Bisacodyl SUPP* [Dulcolax Supp*] 10 mg HI DAILY PRN 03/13/19 03/13/19 History Diclofenac 1% GEL (NF) [Voltaren 1 applic TOPICAL Q6H PRN 03/13/19 03/13/19 History 1% GEL (NF)] Digoxin TAB* [Lanoxin TAB*] 62.5 mcg PO EVERY OTHER DAY 03/13/19 03/13/19 History Digoxin TAB* [Lanoxin TAB*] 125 mcg PO EVERY OTHER DAY 03/13/19 03/13/19 History Diltiazem CD CAP* [Cardizem CD 180 mg PO BID 03/13/19 03/13/19 History CAP*] Ergocalciferol (Vitamin D2) 50,000 unit PO MONTHLY 03/13/19 03/13/19 History [Vitamin D2] Ketoconazole [Nizoral A-D] 1 applic TOPICAL WEEKLY 03/13/19 03/13/19 History Levofloxacin TAB* [Levaquin TAB*] 750 mg PO DAILY #5 tab 03/13/19 Rx Levothyroxine TAB* [Synthroid TAB*] 50 mcg PO DAILY 03/13/19 03/13/19 History Lidocaine 1 applic TOPICAL Q4HR PRN 03/13/19 03/13/19 History Metoprolol Succinate XL TAB* 50 mg PO BID 03/13/19 03/13/19 History [Toprol XL TAB*] Nut.tx.impaired Digestive Fxn 120 ml PO BID 03/13/19 03/13/19 History [Ensure Clear] Ondansetron ODT TAB* [Zofran 4 MG 4 mg PO Q4H PRN 03/13/19 03/13/19 History Odt TAB*] Petrolatum,White [Aquaphor] 1 applic TOPICAL BEDTIME PRN 03/13/19 03/13/19 History Propranolol TAB* [Inderal TAB*] 20 mg PO Q4H PRN 03/13/19 03/13/19 History oxyCODONE SR TAB(*) [Oxycontin 20 20 mg PO BID MDD 2 tabs 03/13/19 03/13/19 History mg (*)] Allergies: Allergies Allergy/AdvReac Type Severity Reaction Status Date / Time Iodinated Contrast Media Allergy Severe Itching Verified 09/04/18 01:15 [Iodinated Contrast- Oral and IV Dye] cephalexin [From Keflex] Allergy Rash Verified 09/04/18 01:15 epinephrine AdvReac Severe Palpitation Verified 09/04/18 01:15 [From Xylocaine-Epinephrine] s lidocaine AdvReac Severe Palpitation Verified 09/04/18 01:15 [From Xylocaine-Epinephrine] s Objective - Vital Signs Vital Signs: Vital Signs 03/14/19 03/14/19 03/14/19 15:15 19:07 20:41 Temperature 98.5 F 97.8 F Pulse Rate 65 73 Respiratory 22 16 16 Rate Blood Pressure 121/44 131/50 (mmHg) O2 Sat by Pulse 95 95 Oximetry 03/14/19 03/15/19 03/15/19 22:40 03:22 08:25 Temperature 98.9 F 97.3 F Pulse Rate 60 63 Respiratory 18 18 16 Rate Blood Pressure 112/52 117/47 (mmHg) O2 Sat by Pulse 95 96 Oximetry 03/15/19 03/15/19 09:33 09:35 Temperature Pulse Rate 70 Respiratory 14 Rate Blood Pressure (mmHg) O2 Sat by Pulse Oximetry - Intake and Output Intake and Output: Intake & Output 03/12/19 03/13/19 03/14/19 03/15/19 11:59 11:59 11:59 11:59 Intake Total 2940 1238 Output Total 480 1640 Balance 2460 -402 Weight 112 lb Intake: IV Fluids 2400 478 NS (0.9%) 1000 478 Oral 540 760 Output: Zhou 330 1640 Post Void Residual 150 Other: Date of Last Bowel [id number] Movement # Bowel Movements 1 1 Estimated Stool Amount Medium ADLs: Meal Record Start: 03/13/19 18: 21 Freq: DAILY@0900,1400,1800 Status: Active Protocol: Created 03/13/19 18:21 System (Rec: 03/13/19 18:21 System [id number]) Document 03/14/19 09:00 [id number] (Rec: 03/14/19 09:38 [id number] MED-C09) Document 03/14/19 13:39 [id number] (Rec: 03/14/19 13:39 [id number] MED-C13) Document 03/14/19 18:00 [id number] (Rec: 03/14/19 18:21 [id number] MED-C09) Intake and Output Start: 03/13/19 11: 35 Freq: Status: Active Protocol: Created 03/13/19 11:35 System (Rec: 03/13/19 11:35 System [id number]) Intake and Output Start: 03/13/19 18: 21 Freq: DAILY@0600,1400,2200 Status: Active Protocol: Created 03/13/19 18:21 System (Rec: 03/13/19 18:21 System [id number]) Document 03/13/19 22:00 [id number] (Rec: 03/14/19 00:08 [id number] MED-C26) Document 03/14/19 05:25 [id number] (Rec: 03/14/19 05:33 [id number] MED-C26) Document 03/14/19 13:44 [id number] (Rec: 03/14/19 13:45 [id number] MED-C13) Document 03/14/19 17:16 [id number] (Rec: 03/14/19 17:16 [id number] MED-C15) Document 03/15/19 06:11 [id number] (Rec: 03/15/19 06:13 [id number] MED-C05) - Physical Exam General Physical Exam Comment: Frail, but hydrated and able to give a clear history. General: No Cyanosis, Yes Anemia, No Jaundice, No Clubbing Lungs and Chest: Yes: Chest Expansion Full, Chest Expansion Symetrica, Percussion Note Resonant, Vessicular Breath Sounds, Crackles - widespread dry crackles bases. No: Wheezes, Respiratory Distress, Use of Accessory Muscles Heart Rate and Rhythm: Regular Additional Cardiovascular: Yes: Normal Heart Sounds. No: Heart Murmur, Pedal Edema Abdominal Exam: Yes: Soft, Abdominal Tenderness - mild left sided tenderness, Bowel Sounds Present. No: Distention, Abdominal Mass, Hepatomegaly, Guarding, Rebound Tenderness Results - Results Radiology Results: Patient Name: TRESA QUINTANA Medical Record#: [id number] [facility]ing Phys[id number] : 1935 Age: 83 Sex: F Location: [address] [place] [address] Exam Date: [birth year]14/1952 ADM Status: ADM Gilma Order Information: CT CHEST/ABD/PEL W/O Accession Number: [id number] CPT: 58901 Indication: Fever, abdominal pain. CT of the chest, abdomen and pelvis was performed without oral or IV contrast administration. Coronal and sagittal reconstructed images were obtained. Comparison is made with previous exam dated December 01, 2018 CT of the chest. Inferior thyroid lobes are unremarkable. Emphysematous changes are noted in the lung lopez. Scarring is noted in the left upper lobe. Areas of tree-in-bud appearance in the right upper lobe laterally is also noted. This is consistent with mild inflammatory changes. Nodule is noted in the right middle lobe which is densely calcified likely representing old granuloma and is unchanged. No alveolar consolidation is noted. Previously identified spiculated nodule right upper lobe anteriorly demonstrated. No axillary adenopathy is noted. The visualized thoracic spinal structures are grossly unremarkable. CT of the abdomen and pelvis demonstrates liver and spleen to be normal in size. The pancreas demonstrates no mass effect or ductal dilatation. The common duct is dilated. No adrenal masses are noted. The kidneys demonstrate no hydronephrosis. Atherosclerotic aorta is noted. No dilated loops of bowel are noted. There is a large amount of stool throughout the colon with the colon distended with feces. Small bowel demonstrates a nonspecific dilatation is poorly visualized. Urinary bladder is in place. Old fractures of the left inferior and superior pubic ramus is noted. Degenerative changes of the left hip joint are noted. IMPRESSION: A large amount of stool is noted in the colon. There is feces throughout the right colon, descending colon and rectum. Scattered areas of airspace disease noted in the lung lopez likely representing chronic inflammatory changes. Calcified granuloma in the right middle lobe persists. Previously identified spiculated nodule in the anterior right upper lobe is no longer present. Emphysematous changes are noted. <Electronically signed by Chely Quintero MD in [place]> 03/14/19 1134 Dictated By: Chely Quintero MD Dictated Date/Time: 03/14/191128 Transcribed Date/Time: 03/14/191128 Copy to: Assessment - Problem List Assessment: Patient Problems Infection of chest (Acute) Constipation (Acute) Altered mental state (Acute) Sacral decubitus ulcer, stage III (Acute) Chronic pain (Chronic) DVT prophylaxis (Chronic) Full code status (Chronic) History of right breast cancer (Chronic) Spinal stenosis (Chronic) Myelodysplastic syndrome (Chronic) Mycobacterium avium complex (Chronic) Plan: Infection of chest (Acute) She shows no signs of respiratory distress. I looked at her CT chest - chronic changes, no clear infiltrates. She is responding to levoquin Constipation (Acute) She has mild abdominal pain and evidence of some constipation on CT scan Altered mental state (Acute) This has recovered - she is lucid and conversational today Sacral decubitus ulcer, stage III (Acute) I inspected this. It is a stage 3 and she knows she needs to off load it and improve her nutrition secondary diagnoses. Chronic pain (Chronic) She has back pain DVT prophylaxis (Chronic) Full code status (Chronic) History of right breast cancer (Chronic) Spinal stenosis (Chronic) Myelodysplastic syndrome (Chronic) Mycobacterium avium complex (Chronic) I spoke to the patient and her daughter - they agree with the management plan
[2019-03-15] MEDS: Levofloxacin 500 MG IVPREMIX(* 500 MG/100 ML BAG IVPB SCH (15:46)
[2019-03-15] MEDS: Senna TAB 8.6 mg* TAB PO SCH (21:30)
[2019-03-15] MEDS: Sertraline* 25 MG TAB PO SCH (21:31)
[2019-03-16] MEDS: Heparin VIAL(*) 5000 UNITS/ML VIAL (FIVE THOUSAND) SUBCUT SCH ×3 (05:45→20:09)
[2019-03-16 06:12] LABS: Calcium 8.2 mg/dL (8.6-10.3); Potassium 4.2 mmol/L (3.5-5.0)
[2019-03-16 06:14] LABS: ABS Basophils 0.1 10^3/ul (0-0.2); ABS Eosinophils 0.3 10^3/ul (0-0.6); ABS Lymphocytes 0.7 10^3/ul (1.0-4.8); ABS Monocytes 1.4 10^3/ul (0-0.8); Eosinophil % 5.9 %; Hematocrit 31 % (35-47); Hemoglobin 10.7 g/dL (12.0-16.0); Lymphocyte % 13.2 %; Mean Corpuscular HGB Conc 35 g/dL (31-36); Mean Corpuscular Hemoglobin 36 pg (27-31); Mean Corpuscular Volume 103 fL (80-97); Red Blood Count 3.01 10^6 /uL (3.70-4.87); Red Cell Distribution Width 15 % (10-15); White Blood Count 5.6 10^3/uL (3.5-10.8)
[2019-03-16 06:17] LABS: BUN/Creatinine Ratio 26.9 (8-20); C Reactive Protein 62.26 mg/L (<8.01); EGFR African American 84.9 (>60); EGFR Non-African American 70.2 (>60)
[2019-03-16 07:11] LABS: Mean Platelet Volume 11.8 fL (7.4-10.4); Platelet Count 46 10^3/uL (150-450)
[2019-03-16] MEDS: Fluticasone NASAL SPRAY 50MCG* 16 gm SPRAY BTL BOTH NARES SCH (08:43)
[2019-03-16] MEDS: Polyethylene Glycol 3350* 17 GM PACKET PO SCH ×2 (08:43→20:09)
[2019-03-16] MEDS: Diltiazem CD CAP* 180 MG PO SCH ×2 (08:44→20:08)
[2019-03-16] MEDS: Metoprolol Succinate XL TAB* 50 MG PO SCH ×2 (08:44→20:08)
[2019-03-16] MEDS: Colchicine* 0.6 MG TAB PO SCH ×2 (08:44→20:07)
[2019-03-16] MEDS: oxyCODONE SR TAB(*) 20 MG TAB.SR PO SCH ×2 (08:44→20:08)
[2019-03-16] MEDS: Levothyroxine TAB* 50 MCG TAB PO SCH (08:44)
[2019-03-16] MEDS: predniSONE TAB* 5 MG PO SCH (08:45)
[2019-03-16] MEDS: Digoxin TAB* 0.125 MG PO SCH (08:47)
[2019-03-16] MEDS ORDERED: Sodium Phosphate ADULT ENEMA* 118 ml bottle PR ONE (09:54)
[2019-03-16] MEDS: Levofloxacin 500 MG IVPREMIX(* 500 MG/100 ML BAG IVPB SCH (16:18)
[2019-03-16] MEDS ORDERED: Warfarin TAB(*) 3 MG PO ONE (17:00)
[2019-03-16] MEDS: Levofloxacin 250 MG IVPREMX(*) 250 MG/50 ML BAG IVPB SCH (18:06)
[2019-03-16] MEDS: Sertraline* 25 MG TAB PO SCH (20:08)
[2019-03-16] MEDS: Senna TAB 8.6 mg* TAB PO SCH (20:09)
[2019-03-17] MEDS: Mometasone/Formoter 200/5 MDI INH SCH ×3 (02:19→09:31)
[2019-03-17] MEDS: Acetaminophen TAB* 325 MG PO PRN ×2 (05:37→16:38)
[2019-03-17] MEDS: Heparin VIAL(*) 5000 UNITS/ML VIAL (FIVE THOUSAND) SUBCUT SCH ×2 (05:38→16:38)
[2019-03-17] MEDS: Metoprolol Succinate XL TAB* 50 MG PO SCH ×2 (09:26→20:30)
[2019-03-17] MEDS: Fluticasone NASAL SPRAY 50MCG* 16 gm SPRAY BTL BOTH NARES SCH (09:26)
[2019-03-17] MEDS: Polyethylene Glycol 3350* 17 GM PACKET PO SCH ×2 (09:26→22:35)
[2019-03-17] MEDS: oxyCODONE SR TAB(*) 20 MG TAB.SR PO SCH ×2 (09:27→20:30)
[2019-03-17] MEDS: predniSONE TAB* 5 MG PO SCH (09:29)
[2019-03-17] MEDS: Diltiazem CD CAP* 180 MG PO SCH ×2 (09:29→22:37)
[2019-03-17] MEDS: Colchicine* 0.6 MG TAB PO SCH ×2 (09:29→21:09)
[2019-03-17] MEDS: Levothyroxine TAB* 50 MCG TAB PO SCH (09:29)
[2019-03-17] MEDS: Digoxin TAB* 0.125 MG PO SCH (09:30)
[2019-03-17 10:25] LABS: Hematocrit 34 % (35-47); Hemoglobin 11.4 g/dL (12.0-16.0); Mean Corpuscular HGB Conc 33 g/dL (31-36); Mean Corpuscular Hemoglobin 35 pg (27-31); Mean Corpuscular Volume 105 fL (80-97); Red Blood Count 3.25 10^6 /uL (3.70-4.87); Red Cell Distribution Width 15 % (10-15); White Blood Count 5.2 10^3/uL (3.5-10.8)
[2019-03-17 10:35] LABS: Albumin/Globulin Ratio 1.3 (1-3); BUN/Creatinine Ratio 29.1 (8-20); C Reactive Protein 66.81 mg/L (<8.01); Calcium 8.5 mg/dL (8.6-10.3); Digoxin 0.7 ng/ml (0.8-2.0); EGFR African American 83.7 (>60); EGFR Non-African American 69.2 (>60); Globulin 2.3 g/dL (2-4); Potassium 4.1 mmol/L (3.5-5.0); Total Bilirubin 0.8 mg/dL (0.2-1.0); Total Protein 5.3 g/dL (6.4-8.9)
[2019-03-17 10:58] LABS: ABS Basophils 0.1 10^3/ul (0-0.2); ABS Eosinophils 0.2 10^3/ul (0-0.6); ABS Lymphocytes 0.7 10^3/ul (1.0-4.8); ABS Monocytes 1.5 10^3/ul (0-0.8); ABS Neutrophils 2.7 10^3/ul (1.5-7.7); Eosinophil % 4.7 %; Lymphocyte % 13.4 %; Mean Platelet Volume 12.3 fL (7.4-10.4); Nucleated Red Blood Cells % 0.1; Platelet Count 48 10^3/uL (150-450)
[2019-03-17] MEDS: Levofloxacin 250 MG IVPREMX(*) 250 MG/50 ML BAG IVPB SCH (16:38)
--- NOTE | 2019-03-17 17:05 | CONSULT ---
Subjective Date of Service: 03/17/19 Interval History: Ms. Blas is an 83 yo female with PMH significant for asthma, mycobacterium avium-intracellulare, GERD, myodysplastic syndrome, SVT, spinal stenosis, allergic rhinitis, Vit D deficiency, pseudogout, radiculopathy, breast cancer, paget disease, depression. She presented to the emergency room with complaints of fever and confusion. She was admitted for constipation and urinary retention. Presented to the hospital with a known pressure injury to her buttocks. She has been being followed by the wound care provider at [facility]. The wound to her buttocks has been present for about 2 months, she has been using an ointment on the area. Patient seen and examined at bedside. Family History: Unchanged from Admission Social History: Unchanged from Admission Past Medical History: Unchanged from Admission Review of Systems - Measurements Intake and Output: Intake and Output Last 24 Hours 03/15/19 03/16/19 03/17/19 03/18/19 06:59 06:59 06:59 06:59 Intake Total 1238 1515 1296 240 Output Total 1640 625 380 Balance -402 890 916 240 Intake: IV Fluids 478 30 300 ABX - LEVOFLOXACIN 300 NS (0.9%) 478 30 IVPB 105 ABX - LEVOFLOXACIN 105 Oral 760 1380 996 240 Output: Urine 225 300 Zhou 1640 400 Post Void Residual 80 Other: Estimated Void Small Medium Small Date of Last Bowel [id number] Movement # Bowel Movements 1 0 1 Estimated Stool Amount Medium Medium Small # Voids 2 0 - Review of Systems General Comments: Reports pain to the buttocks. Constitutional Symptoms: Negative: Fever, Other - Chills Dermatology: Positive: Other - Wound to buttocks Objective Active Medications: Acetaminophen (Tylenol Tab*) 650 mg PO Q4H PRN Reason: FEVER/PAIN Albuterol (Ventolin Hfa Inhaler*) 2 puff INH Q4H PRN Reason: SOB/WHEEZING Clotrimazole (Clotrimazole 1%*) 1 applic TOPICAL DAILY PRN Reason: ITCHING Colchicine (Colcrys*) 0.6 mg PO BID [facility] Digoxin (Lanoxin Tab*) 0.0625 mg PO EVERY OTHER DAY [facility] Digoxin (Lanoxin Tab*) 0.125 mg PO EVERY OTHER DAY [facility] Diltiazem HCl (Cardizem Cd Cap*) 180 mg PO BID [facility] Fluticasone Propionate (Flonase Nasal [place] 50mcg*) 2 spray BOTH NARES DAILY [facility] Heparin Sodium (Porcine) (Heparin Vial(*)) 5,000 units SUBCUT Q8HR [facility] Levofloxacin/Dextrose (Levaquin 250 Mg Ivpremx(*)) 250 mg in 50 mls @ 50 mls/ hr IVPB Q24H [facility] Levalbuterol HCl (Xopenex 0.63mg/3ml Neb*) 0.63 mg INH QID PRN Reason: SHORTNESS OF BREATH Levothyroxine Sodium (Synthroid Tab*) 50 mcg PO DAILY [facility] Metoprolol Succinate (Toprol Xl Tab*) 50 mg PO BID [facility] Mometasone Furoate/Formoterol Fumar (Dulera 200/5 Mdi*) 2 puff INH BID [facility] Ondansetron HCl (Zofran Odt Tab*) 4 mg PO Q4H PRN Reason: NAUSEA Oxycodone HCl (Oxycontin(*)) 20 mg PO BID [facility] Polyethylene Glycol/Electrolytes (Miralax*) 17 gm PO 0800,2100 [facility] Prednisone (Deltasone Tab*) 7.5 mg PO DAILY [facility] Propranolol HCl (Inderal Tab*) 20 mg PO Q4H PRN Reason: HR > 120 Senna (Senokot 8.6 Mg Tab*) 2 tab PO BEDTIME [facility] Sertraline HCl (Zoloft*) 75 mg PO BEDTIME [facility] Vital Signs - 8 hr 03/17/19 03/17/19 03/17/19 09:27 09:30 11:05 Temperature 98.1 F Pulse Rate 76 78 Respiratory 20 20 Rate Blood Pressure 118/46 (mmHg) O2 Sat by Pulse 94 Oximetry 03/17/19 11:40 Temperature Pulse Rate Respiratory 20 Rate Blood Pressure (mmHg) O2 Sat by Pulse Oximetry Oxygen Devices in Use Now: Nasal Cannula Appearance: NAD, laying in bed Ears/Nose/Mouth/Throat: Mucous Membranes Moist Respiratory: Symmetrical Chest Expansion and Respiratory Effort Skin: - - See skin note below Neurological: Alert and Oriented x 3 Result Diagrams: 03/17/19 09:35 03/17/19 09:36 Skin Deviation Note - Skin Deviation Findings Buttocks - Total area of erythema, measures 12 cm x 6 cm. There is an area of dark purplish discoloration and yellow dry eschar to the left buttock, measures 5 cm x 6 cm x 0.1 cm. There is no drainage. The surrounding skin is intact. Wound Problem/Plan Assessment: Ms. Blas is an 83 yo female with PMH significant for asthma, mycobacterium avium-intracellulare, GERD, myodysplastic syndrome, SVT, spinal stenosis, allergic rhinitis, Vit D deficiency, pseudogout, radiculopathy, breast cancer, paget disease, and depression. She presented to the emergency room with complaints of fever and confusion. She was admitted for constipation and urinary retention. Presented to the hospital with a known pressure injury to her buttocks. 1. Deep tissue injury to buttocks with superficial open area. This wound is multifactoral including DTI, shearing, stage 2 pressure injury, and unstageable area. Recommend washing the area with soap and water. Apply barrier cream to the area as needed. Frequent turning and repositioning. Will add prealbumin to last labs. Wound may require debridement (sharp vs chemical) in the future, will hold off at this time. 2. Diet. Regular diet. 3. Code Status. DNR. 4. Disposition. Inpatient, disposition per primary medicine team. TIME SPENT: Time spent for this wound consult was 25 minutes and 15 minutes was spent with the patient and daughter discussing past medical history, current wound treatments; removing the dressing; assessing, measuring, and photographing the wound; and reapplying a dressing. Is Patient a Wound Clinic Patient: No Comment: Follows with the wound care provider at [facility] Attending: Sveta Birmingham
[2019-03-17] MEDS ORDERED: ZOSYN 3.375 GM x ONE DOSE over 30 miuntes IVPB ×2 (20:00)
[2019-03-17] MEDS: Ondansetron ODT TAB* 4 MG PO PRN (20:30)
[2019-03-17] MEDS ORDERED: Vancomycin(*) 1,000 MG in NS 0.9% 250 ML* 250 ML IV ONE (20:30)
[2019-03-17] MEDS: Sertraline* 25 MG TAB PO SCH (20:35)
[2019-03-17] MEDS: Meropenem 1 GM PREMIX(*) 1 GM/50 ML BAG IV SCH (21:48)
[2019-03-17] MEDS: Senna TAB 8.6 mg* TAB PO SCH (22:33)
[2019-03-17] MEDS ORDERED: Vancomycin per Pharmacy* NOTE FOLLOW UP PRN (22:37)
[2019-03-18] MEDS: Mometasone/Formoter 200/5 MDI INH SCH ×2 (01:27→10:44)
[2019-03-18 05:41] LABS: ABS Eosinophils 0.2 10^3/ul (0-0.6); ABS Lymphocytes 0.7 10^3/ul (1.0-4.8); ABS Monocytes 1.4 10^3/ul (0-0.8); ABS Neutrophils 2.2 10^3/ul (1.5-7.7); Eosinophil % 4.3 %; Hematocrit 29 % (35-47); Hemoglobin 10.1 g/dL (12.0-16.0); Lymphocyte % 16.1 %; Mean Corpuscular HGB Conc 35 g/dL (31-36); Mean Corpuscular Hemoglobin 36 pg (27-31); Mean Corpuscular Volume 104 fL (80-97); Mean Platelet Volume 11.7 fL (7.4-10.4); Nucleated Red Blood Cells % 0.1; Platelet Count 44 10^3/uL (150-450); Red Blood Count 2.81 10^6 /uL (3.70-4.87); Red Cell Distribution Width 15 % (10-15); White Blood Count 4.4 10^3/uL (3.5-10.8)
[2019-03-18] MEDS ORDERED: Sodium Phosphate ADULT ENEMA* 118 ml bottle PR ONE (09:42)
[2019-03-18] MEDS: Meropenem 1 GM PREMIX(*) 1 GM/50 ML BAG IV SCH ×2 (10:34→21:33)
[2019-03-18] MEDS: Fluticasone NASAL SPRAY 50MCG* 16 gm SPRAY BTL BOTH NARES SCH (10:50)
[2019-03-18] MEDS: Colchicine* 0.6 MG TAB PO SCH ×2 (10:50→19:56)
[2019-03-18] MEDS: Metoprolol Succinate XL TAB* 50 MG PO SCH ×2 (10:50→19:56)
[2019-03-18] MEDS: Senna TAB 8.6 mg* TAB PO SCH ×2 (10:50→19:58)
[2019-03-18] MEDS: oxyCODONE SR TAB(*) 20 MG TAB.SR PO SCH ×2 (10:51→19:57)
[2019-03-18] MEDS: predniSONE TAB* 5 MG PO SCH (10:51)
[2019-03-18] MEDS: Levothyroxine TAB* 50 MCG TAB PO SCH (10:51)
[2019-03-18] MEDS: Diltiazem CD CAP* 180 MG PO SCH ×2 (10:52→19:59)
[2019-03-18] MEDS: Polyethylene Glycol 3350* 17 GM PACKET PO SCH ×2 (10:52→19:59)
[2019-03-18] MEDS: Digoxin TAB* 0.125 MG PO SCH (10:52)
[2019-03-18] MEDS: Acetaminophen TAB* 325 MG PO PRN ×2 (14:11→19:57)
[2019-03-18] MEDS ORDERED: Vancomycin(*) 750 MG in NS 0.9% 250 ML* 250 ML IVPB SCH (16:00)
[2019-03-18] MEDS: Sertraline* 25 MG TAB PO SCH (19:59)
[2019-03-18] MEDS: Ondansetron ODT TAB* 4 MG PO PRN (20:00)
[2019-03-18] MEDS ORDERED: Lactated Ringers 1000 ML Bag* 1,000 ML IV SCH (21:05)
[2019-03-19 06:00] LABS: ABS Basophils 0.1 10^3/ul (0-0.2); ABS Eosinophils 0.2 10^3/ul (0-0.6); ABS Lymphocytes 0.8 10^3/ul (1.0-4.8); ABS Monocytes 1.3 10^3/ul (0-0.8); ABS Neutrophils 2.4 10^3/ul (1.5-7.7); Eosinophil % 4.9 %; Hematocrit 29 % (35-47); Hemoglobin 9.9 g/dL (12.0-16.0); Lymphocyte % 15.7 %; Mean Corpuscular HGB Conc 34 g/dL (31-36); Mean Corpuscular Hemoglobin 35 pg (27-31); Mean Corpuscular Volume 103 fL (80-97); Mean Platelet Volume 11.4 fL (7.4-10.4); Platelet Count 55 10^3/uL (150-450); Red Cell Distribution Width 16 % (10-15); White Blood Count 4.8 10^3/uL (3.5-10.8)
[2019-03-19 06:09] LABS: Albumin 2.7 g/dL (3.2-5.2); Albumin/Globulin Ratio 1.3 (1-3); BUN/Creatinine Ratio 32.3 (8-20); C Reactive Protein 97.47 mg/L (<8.01); Calcium 8.3 mg/dL (8.6-10.3); EGFR African American 110.7 (>60); EGFR Non-African American 91.5 (>60); Globulin 2.1 g/dL (2-4); Potassium 4.2 mmol/L (3.5-5.0); Total Bilirubin 0.6 mg/dL (0.2-1.0); Total Protein 4.8 g/dL (6.4-8.9)
--- NOTE | 2019-03-19 07:52 | PN ---
Subjective Date of Service: 03/19/19 Interval History: HOSPITALIST PROGRESS NOTE Patient seen and examined at bedside. Care reviewed and d/w Amna Johnson RN. She still has abdominal pain. Has nausea, did not vomit, but has been NPO. Her daughter thinks her belly is very distended. Had a small BM yesterday after fleet enema. Family History: Unchanged from Admission Social History: Unchanged from Admission Past Medical History: Unchanged from Admission Objective Active Medications: Acetaminophen (Tylenol Tab*) 650 mg PO Q4H PRN PRN Reason: FEVER/PAIN Last Admin: 03/18/19 19:57 Dose: 650 mg Albuterol (Ventolin Hfa Inhaler*) 2 puff INH Q4H PRN PRN Reason: SOB/WHEEZING Clotrimazole (Clotrimazole 1%*) 1 applic TOPICAL DAILY PRN PRN Reason: ITCHING Colchicine (Colcrys*) 0.6 mg PO BID [facility] Last Admin: 03/18/19 19:56 Dose: 0.6 mg Digoxin (Lanoxin Tab*) 0.0625 mg PO EVERY OTHER DAY [facility] Last Admin: 03/17/19 09:30 Dose: 0.0625 mg Digoxin (Lanoxin Tab*) 0.125 mg PO EVERY OTHER DAY [facility] Last Admin: 03/18/19 10:52 Dose: 0.125 mg Diltiazem HCl (Cardizem Cd Cap*) 180 mg PO BID [facility] Last Admin: 03/18/19 19:59 Dose: 180 mg Fluticasone Propionate (Flonase Nasal [place] 50mcg*) 2 spray BOTH NARES DAILY [facility] Last Admin: 03/18/19 10:50 Dose: 2 spray Meropenem (Merrem 1 Gm Premix(*)) 1 gm in 50 mls @ 100 mls/hr IV Q12H [facility] Last Admin: 03/18/19 21:33 Dose: 100 mls/hr Lactated Ringer's (Lactated Ringers 1000 Ml Bag*) 1,000 mls @ 50 mls/hr IV PER RATE [facility] Last Admin: 03/18/19 21:37 Dose: 50 mls/hr Levalbuterol HCl (Xopenex 0.63mg/3ml Neb*) 0.63 mg INH QID PRN PRN Reason: SHORTNESS OF BREATH Levothyroxine Sodium (Synthroid Tab*) 50 mcg PO DAILY [facility] Last Admin: 03/18/19 10:51 Dose: 50 mcg Metoprolol Succinate (Toprol Xl Tab*) 50 mg PO BID [facility] Last Admin: 03/18/19 19:56 Dose: 50 mg Mometasone Furoate/Formoterol Fumar (Dulera 200/5 Mdi*) 2 puff INH BID [facility] Last Admin: 03/18/19 10:44 Dose: 2 puff Morphine Sulfate (Morphine Inj (Syringe))*) 1 mg IV Q1H PRN PRN Reason: PAIN - SEVERE Ondansetron HCl (Zofran Odt Tab*) 4 mg PO Q4H PRN PRN Reason: NAUSEA Last Admin: 03/18/19 20:00 Dose: 4 mg Ondansetron HCl (Zofran Inj*) 4 mg IV Q6H PRN PRN Reason: NAUSEA Oxycodone HCl (Oxycontin(*)) 20 mg PO BID [facility] Last Admin: 03/18/19 19:57 Dose: 20 mg Polyethylene Glycol/Electrolytes (Miralax*) 17 gm PO 0800,2100 [facility] Last Admin: 03/18/19 19:59 Dose: 17 gm Prednisone (Deltasone Tab*) 7.5 mg PO DAILY [facility] Last Admin: 03/18/19 10:51 Dose: 7.5 mg Propranolol HCl (Inderal Tab*) 20 mg PO Q4H PRN PRN Reason: HR > 120 Senna (Senokot 8.6 Mg Tab*) 2 tab PO BID [facility] Last Admin: 03/18/19 19:58 Dose: 2 tab Sertraline HCl (Zoloft*) 75 mg PO BEDTIME [facility] Last Admin: 03/18/19 19:59 Dose: 75 mg Vital Signs - 8 hr 03/19/19 03:28 Temperature 97.8 F Pulse Rate 63 Respiratory 16 Rate Blood Pressure 115/50 (mmHg) O2 Sat by Pulse 95 Oximetry Oxygen Devices in Use Now: Nasal Cannula Appearance: Pleasant elderly lady lying in bed in NAD. Eyes: No Scleral Icterus Ears/Nose/Mouth/Throat: Mucous Membranes Moist Neck: Trachea Midline Respiratory: Symmetrical Chest Expansion and Respiratory Effort, Clear to Auscultation Cardiovascular: RRR - Normal S1 and S2 Abdominal: - - Soft, moderate distention L>R, mild tenderness, NG, NR, BS+ hypoactive Neurological: Alert and Oriented x 3, NL Muscle Strength and Tone, - - [facility] Result Diagrams: 03/19/19 05:46 03/19/19 05:46 Assess/Plan/Problems-Billing Assessment: Mrs Blas is an 83yo F with PMH of asthma, MAC, GERD, MDS, SVT, spinal stenosis, allergic rhinitis, vitamin D deficiency, pseudogout, breast CA, Paget disease, depression, who presented to ED with c/o fever and confusion, found to have pneumonia. - Patient Problems (1) Pneumonia Comment: - CT chest showed new right lower lobe infiltrate. - Blood cultures show no growth to date and sputum is pending. - Check legionella and pneumococcal Ags. - Dr Weber d/w ID and switched abx to Meropenem on 03/17/19. (2) Abdominal pain Comment: - KUB shows colonic distention with large amount of stool. - Patient has been on opiates chronically with chronic constipation. - Will try soap suds enema. - Will add Miralax, Milk of magnesia and monitor. - Clear liquids for now. (3) Asthma Comment: - Stable. Continue bronchodilators and steroids. (4) SVT (supraventricular tachycardia) Comment: - Resume digoxin and metoprolol. (5) Depression Comment: - Resume Sertraline. (6) DVT prophylaxis Comment: - SQ heparin.
[2019-03-19] MEDS: predniSONE TAB* 5 MG PO SCH (09:00)
[2019-03-19] MEDS: Fluticasone NASAL SPRAY 50MCG* 16 gm SPRAY BTL BOTH NARES SCH (09:00)
[2019-03-19] MEDS: Metoprolol Succinate XL TAB* 50 MG PO SCH ×2 (09:00→20:37)
[2019-03-19] MEDS: Polyethylene Glycol 3350* 17 GM PACKET PO SCH (09:00)
[2019-03-19] MEDS: Digoxin TAB* 0.125 MG PO SCH ×2 (09:00→17:55)
[2019-03-19] MEDS: Diltiazem CD CAP* 180 MG PO SCH (09:00)
[2019-03-19] MEDS: oxyCODONE SR TAB(*) 20 MG TAB.SR PO SCH ×2 (09:00→20:36)
[2019-03-19] MEDS: Colchicine* 0.6 MG TAB PO SCH ×2 (09:00→20:36)
[2019-03-19] MEDS: Levothyroxine TAB* 50 MCG TAB PO SCH (09:00)
[2019-03-19] MEDS: Senna TAB 8.6 mg* TAB PO SCH (09:00)
[2019-03-19] MEDS ORDERED: Levothyroxine INJ* 100 MCG/5 ML VIAL IV SCH (10:00)
[2019-03-19] MEDS: Morphine INJ* 2 MG/ML 1 ML SYRINGE (TWO MG - NEW SYRINGE VERSION) IV PRN ×5 (10:40→23:54)
[2019-03-19] MEDS: Hydrocortisone INJ* 100 MG/2 ML VIAL (in pyxis) IV SCH ×2 (10:40→17:55)
[2019-03-19] MEDS: Meropenem 1 GM PREMIX(*) 1 GM/50 ML BAG IV SCH ×2 (10:41→20:37)
[2019-03-19] MEDS ORDERED: Acetaminophen SUPP* 650 MG SUPP PR PRN (14:20)
[2019-03-19] MEDS ORDERED: Mineral Oil ENEMA* 1 BOTTLE PR ONE (14:35)
[2019-03-19] MEDS: Magnesium Hydroxide LIQ* 30 ML UDC PO SCH ×2 (14:42→20:35)
[2019-03-19] MEDS: NS 0.9% 1000 ML** 1,000 ML IV SCH (14:45)
[2019-03-19] MEDS: Sertraline* 25 MG TAB PO SCH (20:36)
[2019-03-19] MEDS: Bisacodyl SUPP* 10 MG SUPP PR SCH (20:38)
[2019-03-20] MEDS: Hydrocortisone INJ* 100 MG/2 ML VIAL (in pyxis) IV SCH (02:56)
[2019-03-20] MEDS: NS 0.9% 1000 ML** 1,000 ML IV SCH ×2 (02:59→20:51)
[2019-03-20] MEDS: Levothyroxine TAB* 50 MCG TAB PO SCH (05:19)
[2019-03-20] MEDS ORDERED: Acetaminophen SUPP* 650 MG SUPP PR PRN (07:24)
--- NOTE | 2019-03-20 07:50 | PN ---
Subjective Date of Service: 03/20/19 Interval History: HOSPITALIST PROGRESS NOTE Patient seen and examined at bedside. Care reviewed and d/w Amna Johnson RN. She was under the impression she had had a BM earlier today but as per RN it was just the oil from her prior enema. She denies abdominal pain, N/V, tolerating clear liquids and PO meds well. Family History: Unchanged from Admission Social History: Unchanged from Admission Past Medical History: Unchanged from Admission Objective Active Medications: Acetaminophen (Tylenol Tab*) 650 mg PO Q4H PRN PRN Reason: MILD PAIN or TEMP > 100.4 Acetaminophen (Tylenol Supp*) 650 mg [place] Q4H PRN PRN Reason: MILD PAIN or TEMP > 100.4 Albuterol (Ventolin Hfa Inhaler*) 2 puff INH Q4H PRN PRN Reason: SOB/WHEEZING Bisacodyl (Dulcolax Supp*) 10 mg AR BEDTIME [facility] Last Admin: 03/19/19 20:38 Dose: 10 mg Clotrimazole (Clotrimazole 1%*) 1 applic TOPICAL DAILY PRN PRN Reason: ITCHING Colchicine (Colcrys*) 0.6 mg PO BID [facility] Last Admin: 03/19/19 20:36 Dose: 0.6 mg Digoxin (Lanoxin Tab*) 0.0625 mg PO EVERY OTHER DAY@1700 [facility] Last Admin: 03/19/19 17:55 Dose: 0.0625 mg Digoxin (Lanoxin Tab*) 0.125 mg PO EVERY OTHER DAY@1700 [facility] Fluticasone Propionate (Flonase Nasal [place] 50mcg*) 2 spray BOTH NARES DAILY [facility] Last Admin: 03/19/19 09:00 Dose: 2 spray Meropenem (Merrem 1 Gm Premix(*)) 1 gm in 50 mls @ 100 mls/hr IV Q12H [facility] Last Admin: 03/19/19 20:37 Dose: 100 mls/hr Sodium Chloride (Ns 0.9% 1000 Ml) 1,000 mls @ 75 mls/hr IV PER RATE [facility] Levalbuterol HCl (Xopenex 0.63mg/3ml Neb*) 0.63 mg INH QID PRN PRN Reason: SHORTNESS OF BREATH Levothyroxine Sodium (Synthroid Tab*) 50 mcg PO 0600 [facility] Last Admin: 03/20/19 05:19 Dose: 50 mcg Magnesium Hydroxide (Milk Of Magnesia Liq*) 30 ml PO BID [facility] Last Admin: 03/19/19 20:35 Dose: 30 ml Metoprolol Succinate (Toprol Xl Tab*) 50 mg PO BID [facility] Last Admin: 03/19/19 20:37 Dose: 50 mg Mometasone Furoate/Formoterol Fumar (Dulera 200/5 Mdi*) 2 puff INH BID [facility] Last Admin: 03/18/19 10:44 Dose: 2 puff Morphine Sulfate (Morphine Inj (Syringe))*) 1 mg IV Q1H PRN PRN Reason: PAIN - SEVERE Last Admin: 03/19/19 23:54 Dose: 1 mg Ondansetron HCl (Zofran Inj*) 4 mg IV Q6H PRN PRN Reason: NAUSEA Oxycodone HCl (Oxycontin(*)) 20 mg PO BID [facility] Last Admin: 03/19/19 20:36 Dose: 20 mg Prednisone (Deltasone Tab*) 7.5 mg PO DAILY [facility] Sertraline HCl (Zoloft*) 75 mg PO BEDTIME [facility] Last Admin: 03/19/19 20:36 Dose: 75 mg Vital Signs - 8 hr 03/19/19 03/20/19 03/20/19 23:54 00:38 00:43 Temperature Pulse Rate Respiratory 18 18 16 Rate Blood Pressure (mmHg) O2 Sat by Pulse Oximetry 03/20/19 03/20/19 03/20/19 01:00 03:30 07:25 Temperature 97.6 F 97.4 F Pulse Rate 70 73 Respiratory 16 16 18 Rate Blood Pressure 147/69 126/58 (mmHg) O2 Sat by Pulse 99 100 Oximetry Oxygen Devices in Use Now: Nasal Cannula Appearance: Pleasant frail elderly lady lying in bed in [facility]. Eyes: No Scleral Icterus Ears/Nose/Mouth/Throat: Mucous Membranes Moist Neck: Trachea Midline Respiratory: Symmetrical Chest Expansion and Respiratory Effort, - - BS+ bilaterally diminished in bases with no added sounds Cardiovascular: RRR - Normal S1 and S2 Abdominal: - - Soft, mild distention L>R, mild left flank and lower quadrant pain, NG, NR, BS+ and hypoactive Neurological: Alert and Oriented x 3, NL Muscle Strength and Tone, - - [facility] Result Diagrams: 03/19/19 05:46 03/19/19 05:46 Assess/Plan/Problems-Billing Assessment: Mrs Blas is an 83yo F with PMH of asthma, MAC, GERD, MDS, SVT, spinal stenosis, allergic rhinitis, vitamin D deficiency, pseudogout, breast CA, Paget disease, depression, who presented to ED with c/o fever and confusion, found to have pneumonia. - Patient Problems (1) Pneumonia Comment: - CT chest showed new right lower lobe infiltrate. - Blood cultures show no growth to date and sputum is pending. - Check legionella and pneumococcal Ags. - Dr Weber d/w ID and switched abx to Meropenem on 03/17/19. (2) Abdominal pain Comment: - KUB shows colonic distention with large amount of stool. - Patient has been on opiates chronically with chronic constipation. - Will continue soap suds and mineral oil enema. - Continue Miralax, Milk of magnesia and monitor - if no response, will perform manual disimpaction tomorrow. - Advance diet to full liquids. (3) Asthma Comment: - Stable. Continue bronchodilators and steroids. (4) SVT (supraventricular tachycardia) Comment: - Continue digoxin and metoprolol. (5) Depression Comment: - Continue Sertraline. (6) DVT prophylaxis Comment: - SQ heparin. Status and Disposition: Inpatient. Daughter updated at bedside.
[2019-03-20] MEDS: Colchicine* 0.6 MG TAB PO SCH ×2 (08:32→19:52)
[2019-03-20] MEDS: Metoprolol Succinate XL TAB* 50 MG PO SCH ×2 (08:32→19:52)
[2019-03-20] MEDS: oxyCODONE SR TAB(*) 20 MG TAB.SR PO SCH ×2 (08:33→19:51)
[2019-03-20] MEDS: predniSONE TAB* 5 MG PO SCH (08:33)
[2019-03-20] MEDS: Magnesium Hydroxide LIQ* 30 ML UDC PO SCH ×2 (08:34→19:49)
[2019-03-20] MEDS: Fluticasone NASAL SPRAY 50MCG* 16 gm SPRAY BTL BOTH NARES SCH (08:34)
[2019-03-20] MEDS: Polyethylene Glycol 3350* 17 GM PACKET PO SCH ×2 (10:07→19:48)
[2019-03-20] MEDS: Meropenem 1 GM PREMIX(*) 1 GM/50 ML BAG IV SCH ×2 (10:07→21:00)
[2019-03-20] MEDS ORDERED: Mineral Oil ENEMA* 1 BOTTLE PR ONE (14:00)
[2019-03-20] MEDS: Morphine INJ* 2 MG/ML 1 ML SYRINGE (TWO MG - NEW SYRINGE VERSION) IV PRN ×3 (15:03→19:37)
[2019-03-20] MEDS ORDERED: Vancomycin Trough Check NOTE FOLLOW UP ONE (15:30)
[2019-03-20] MEDS: Digoxin TAB* 0.125 MG PO SCH (18:05)
[2019-03-20] MEDS: Sertraline* 25 MG TAB PO SCH (19:50)
[2019-03-20] MEDS: Bisacodyl SUPP* 10 MG SUPP PR SCH (19:53)
[2019-03-20] MEDS: Acetaminophen TAB* 325 MG PO PRN (19:53)
[2019-03-20] MEDS: Ondansetron INJ* 2 MG/ML VIAL IV PRN (20:29)
[2019-03-20] MEDS ORDERED: HYDROmorphone INJ1* 1 MG/ML SYRINGE IV SLOW PU ONE (20:33)
[2019-03-21] MEDS: Morphine INJ* 2 MG/ML 1 ML SYRINGE (TWO MG - NEW SYRINGE VERSION) IV PRN ×2 (02:31→05:25)
[2019-03-21] MEDS: Bisacodyl SUPP* 10 MG SUPP PR SCH ×2 (02:52→19:58)
[2019-03-21] MEDS: Levothyroxine TAB* 50 MCG TAB PO SCH (05:17)
[2019-03-21] MEDS: Ondansetron INJ* 2 MG/ML VIAL IV PRN (07:24)
[2019-03-21] MEDS: Fluticasone NASAL SPRAY 50MCG* 16 gm SPRAY BTL BOTH NARES SCH (09:20)
[2019-03-21] MEDS: oxyCODONE SR TAB(*) 20 MG TAB.SR PO SCH ×2 (09:23→22:21)
[2019-03-21] MEDS: Metoprolol Succinate XL TAB* 50 MG PO SCH ×2 (09:23→22:21)
[2019-03-21] MEDS: predniSONE TAB* 5 MG PO SCH (09:30)
[2019-03-21] MEDS: Polyethylene Glycol 3350* 17 GM PACKET PO SCH ×2 (09:44→22:04)
[2019-03-21] MEDS: Magnesium Hydroxide LIQ* 30 ML UDC PO SCH ×2 (09:44→19:59)
[2019-03-21] MEDS: Meropenem 1 GM PREMIX(*) 1 GM/50 ML BAG IV SCH ×2 (10:12→22:26)
--- NOTE | 2019-03-21 10:24 | PN ---
Subjective Date of Service: 03/21/19 Interval History: HOSPITALIST PROGRESS NOTE Patient seen and examined at bedside. Care reviewed and d/w Jania Yates RN. She had a moderate sized, hard BM last night; followed by multiple soft, large volume ones. She states she's exhausted because she was not able to sleep well. In fact, she nods off during our interview and daughter provides much of the information. Family History: Unchanged from Admission Social History: Unchanged from Admission Past Medical History: Unchanged from Admission Objective Active Medications: Acetaminophen (Tylenol Tab*) 650 mg PO Q4H PRN PRN Reason: MILD PAIN or TEMP > 100.4 Last Admin: 03/20/19 19:53 Dose: 650 mg Acetaminophen (Tylenol Supp*) 650 mg [place] Q4H PRN PRN Reason: MILD PAIN or TEMP > 100.4 Albuterol (Ventolin Hfa Inhaler*) 2 puff INH Q4H PRN PRN Reason: SOB/WHEEZING Bisacodyl (Dulcolax Supp*) 10 mg [place] BEDTIME [facility] Last Admin: 03/21/19 02:52 Dose: Not Given Clotrimazole (Clotrimazole 1%*) 1 applic TOPICAL DAILY PRN PRN Reason: ITCHING Colchicine (Colcrys*) 0.6 mg PO BID [facility] Last Admin: 03/20/19 19:52 Dose: 0.6 mg Digoxin (Lanoxin Tab*) 0.0625 mg PO EVERY OTHER DAY@1700 [facility] Last Admin: 03/19/19 17:55 Dose: 0.0625 mg Digoxin (Lanoxin Tab*) 0.125 mg PO EVERY OTHER DAY@1700 [facility] Last Admin: 03/20/19 18:05 Dose: 0.125 mg Fluticasone Propionate (Flonase Nasal [place] 50mcg*) 2 spray BOTH NARES DAILY [facility] Last Admin: 03/20/19 08:34 Dose: 2 spray Meropenem (Merrem 1 Gm Premix(*)) 1 gm in 50 mls @ 100 mls/hr IV Q12H [facility] Last Admin: 03/21/19 10:12 Dose: 100 mls/hr Sodium Chloride (Ns 0.9% 1000 Ml) 1,000 mls @ 75 mls/hr IV PER RATE [facility] Last Admin: 03/20/19 20:51 Dose: 75 mls/hr Levalbuterol HCl (Xopenex 0.63mg/3ml Neb*) 0.63 mg INH QID PRN PRN Reason: SHORTNESS OF BREATH Levothyroxine Sodium (Synthroid Tab*) 50 mcg PO 0600 [facility] Last Admin: 03/21/19 05:17 Dose: 50 mcg Magnesium Hydroxide (Milk Of Magnesia Liq*) 30 ml PO BID [facility] Last Admin: 03/21/19 09:44 Dose: Not Given Metoprolol Succinate (Toprol Xl Tab*) 50 mg PO BID [facility] Last Admin: 03/21/19 09:23 Dose: 50 mg Mometasone Furoate/Formoterol Fumar (Dulera 200/5 Mdi*) 2 puff INH BID [facility] Last Admin: 03/18/19 10:44 Dose: 2 puff Morphine Sulfate (Morphine Inj (Syringe))*) 1 mg IV Q1H PRN PRN Reason: PAIN - SEVERE Last Admin: 03/21/19 05:25 Dose: 1 mg Ondansetron HCl (Zofran Inj*) 4 mg IV Q6H PRN PRN Reason: NAUSEA Last Admin: 03/21/19 07:24 Dose: 4 mg Oxycodone HCl (Oxycontin(*)) 20 mg PO BID [facility] Last Admin: 03/21/19 09:23 Dose: 20 mg Polyethylene Glycol/Electrolytes (Miralax*) 17 gm PO 0800,2100 [facility] Last Admin: 03/21/19 09:44 Dose: Not Given Prednisone (Deltasone Tab*) 7.5 mg PO DAILY [facility] Last Admin: 03/21/19 09:30 Dose: 7.5 mg Sertraline HCl (Zoloft*) 75 mg PO BEDTIME [facility] Last Admin: 03/20/19 19:50 Dose: 75 mg Vital Signs - 8 hr 03/21/19 03/21/19 03/21/19 02:31 04:24 04:38 Temperature 98.0 F Pulse Rate 75 Respiratory 16 18 16 Rate Blood Pressure 142/49 (mmHg) O2 Sat by Pulse 93 Oximetry 03/21/19 03/21/19 03/21/19 05:25 07:20 07:29 Temperature Pulse Rate Respiratory 16 22 22 Rate Blood Pressure (mmHg) O2 Sat by Pulse Oximetry 03/21/19 03/21/1919 08:00 09:00 09:23 Temperature Pulse Rate Respiratory 18 18 16 Rate Blood Pressure (mmHg) O2 Sat by Pulse 93 Oximetry Oxygen Devices in Use Now: None Appearance: Pleasant, frail, elderly lady lying in bed in [place] Eyes: No Scleral Icterus Ears/Nose/Mouth/Throat: Mucous Membranes Moist Neck: Trachea Midline Respiratory: Symmetrical Chest Expansion and Respiratory Effort, - - BS+ bilaterally diminished with bibasilar crackles Cardiovascular: RRR - Normal S1 and s2 Abdominal: - - Soft, mild distention, mild diffuse tenderness, NG, NR, BS+ hypoasctive Neurological: Alert and Oriented x 3, NL Muscle Strength and Tone, - - [place], appears to be exhausted Result Diagrams: 03/19/19 05:46 03/19/19 05:46 Assess/Plan/Problems-Billing Assessment: Mrs Blas is an 83yo F with PMH of asthma, MAC, GERD, MDS, SVT, spinal stenosis, allergic rhinitis, vitamin D deficiency, pseudogout, breast CA, Paget disease, depression, who presented to ED with c/o fever and confusion, found to have pneumonia. - Patient Problems (1) Pneumonia Comment: - CT chest showed new right lower lobe infiltrate. - Blood cultures show no growth to date and sputum culture is growing Pseudomonas. - Legionella and pneumococcal Ags are negative. - Dr Weber d/w ID and switched abx to Meropenem on 03/17/19. - Improving clinically. (2) Abdominal pain Comment: - KUB shows colonic distention with large amount of stool. - Patient has been on opiates chronically with chronic constipation. - Having multiple bowel movements. - Will need robust bowel regimen. - Advance diet to regular. (3) Asthma Comment: - Stable. Continue bronchodilators and steroids. (4) SVT (supraventricular tachycardia) Comment: - Continue digoxin and metoprolol. (5) Depression Comment: - Continue Sertraline. (6) DVT prophylaxis Comment: - SQ heparin. (7) Physical deconditioning Comment: - Will likely benefit of STR. Status and Disposition: Inpatient. Daughter updated at bedside.
[2019-03-21] MEDS: Colchicine* 0.6 MG TAB PO SCH ×2 (10:39→22:15)
[2019-03-21] MEDS: Digoxin TAB* 0.125 MG PO SCH (17:50)
[2019-03-21] MEDS: Mometasone/Formoter 200/5 MDI INH SCH ×3 (18:53→19:20)
[2019-03-21] MEDS: Sertraline* 25 MG TAB PO SCH (22:17)
[2019-03-22] MEDS: NS 0.9% 1000 ML** 1,000 ML IV SCH (01:35)
[2019-03-22] MEDS: Mometasone/Formoter 200/5 MDI INH SCH ×3 (03:34→19:53)
[2019-03-22] MEDS: Levothyroxine TAB* 50 MCG TAB PO SCH (05:34)
[2019-03-22] MEDS: Magnesium Hydroxide LIQ* 30 ML UDC PO SCH ×2 (08:11→21:08)
[2019-03-22] MEDS: Polyethylene Glycol 3350* 17 GM PACKET PO SCH ×2 (08:11→21:08)
[2019-03-22 09:07] LABS: ABS Basophils 0.1 10^3/ul (0-0.2); ABS Eosinophils 0.3 10^3/ul (0-0.6); ABS Lymphocytes 0.8 10^3/ul (1.0-4.8); ABS Monocytes 1.6 10^3/ul (0-0.8); ABS Neutrophils 2.6 10^3/ul (1.5-7.7); Eosinophil % 5.6 %; Hematocrit 31 % (35-47); Hemoglobin 10.6 g/dL (12.0-16.0); Lymphocyte % 14.8 %; Mean Corpuscular HGB Conc 34 g/dL (31-36); Mean Corpuscular Hemoglobin 36 pg (27-31); Mean Corpuscular Volume 105 fL (80-97); Mean Platelet Volume 10.6 fL (7.4-10.4); Nucleated Red Blood Cells % 0.1; Platelet Count 79 10^3/uL (150-450); Red Blood Count 2.95 10^6 /uL (3.70-4.87); Red Cell Distribution Width 16 % (10-15); White Blood Count 5.3 10^3/uL (3.5-10.8)
[2019-03-22 09:19] LABS: BUN/Creatinine Ratio 31.9 (8-20); C Reactive Protein 108.37 mg/L (<8.01); Calcium 8.1 mg/dL (8.6-10.3); EGFR African American 152.4 (>60); EGFR Non-African American 125.9 (>60)
[2019-03-22] MEDS: Fluticasone NASAL SPRAY 50MCG* 16 gm SPRAY BTL BOTH NARES SCH (09:54)
[2019-03-22] MEDS: Colchicine* 0.6 MG TAB PO SCH ×2 (09:54→21:18)
[2019-03-22] MEDS: oxyCODONE SR TAB(*) 20 MG TAB.SR PO SCH ×2 (09:55→21:19)
[2019-03-22] MEDS: Metoprolol Succinate XL TAB* 50 MG PO SCH ×2 (09:55→21:17)
[2019-03-22] MEDS: predniSONE TAB* 5 MG PO SCH (09:56)
[2019-03-22] MEDS: Meropenem 1 GM PREMIX(*) 1 GM/50 ML BAG IV SCH ×2 (10:01→21:20)
--- NOTE | 2019-03-22 10:11 | PN ---
Subjective Date of Service: 03/22/19 Interval History: HOSPITALIST PROGRESS NOTE Patient seen and examined at bedside. Care reviewed and d/w Amna Johnson RN. She feels better today. Still have multiple loose bowel movements with some abdominal cramping, but denies N/V. Tolerating regular diet well. She was able to rest yesterday and is much brighter today. Family History: Unchanged from Admission Social History: Unchanged from Admission Past Medical History: Unchanged from Admission Objective Active Medications: Acetaminophen (Tylenol Tab*) 650 mg PO Q4H PRN PRN Reason: MILD PAIN or TEMP > 100.4 Last Admin: 03/20/19 19:53 Dose: 650 mg Acetaminophen (Tylenol Supp*) 650 mg [place] Q4H PRN PRN Reason: MILD PAIN or TEMP > 100.4 Albuterol (Ventolin Hfa Inhaler*) 2 puff INH Q4H PRN PRN Reason: SOB/WHEEZING Bisacodyl (Dulcolax Supp*) 10 mg [place] BEDTIME [facility] Last Admin: 03/21/19 19:58 Dose: Not Given Clotrimazole (Clotrimazole 1%*) 1 applic TOPICAL DAILY PRN PRN Reason: ITCHING Colchicine (Colcrys*) 0.6 mg PO BID [facility] Last Admin: 03/22/19 09:54 Dose: 0.6 mg Digoxin (Lanoxin Tab*) 0.0625 mg PO EVERY OTHER DAY@1700 [facility] Last Admin: 03/21/19 17:50 Dose: 0.0625 mg Digoxin (Lanoxin Tab*) 0.125 mg PO EVERY OTHER DAY@1700 [facility] Last Admin: 03/20/19 18:05 Dose: 0.125 mg Fluticasone Propionate (Flonase Nasal [place] 50mcg*) 2 spray BOTH NARES DAILY [facility] Last Admin: 03/22/19 09:54 Dose: 2 spray Meropenem (Merrem 1 Gm Premix(*)) 1 gm in 50 mls @ 100 mls/hr IV Q12H [facility] Last Admin: 03/22/19 10:01 Dose: 100 mls/hr Levalbuterol HCl (Xopenex 0.63mg/3ml Neb*) 0.63 mg INH QID PRN PRN Reason: SHORTNESS OF BREATH Levothyroxine Sodium (Synthroid Tab*) 50 mcg PO 0600 [facility] Last Admin: 03/22/19 05:34 Dose: 50 mcg Magnesium Hydroxide (Milk Of Magncarol Liq*) 30 ml PO BID [facility] Last Admin: 03/22/19 08:11 Dose: Not Given Metoprolol Succinate (Toprol Xl Tab*) 50 mg PO BID [facility] Last Admin: 03/22/19 09:55 Dose: 50 mg Mometasone Furoate/Formoterol Fumar (Dulera 200/5 Mdi*) 2 puff INH BID [facility] Last Admin: 03/22/19 03:34 Dose: Not Given Morphine Sulfate (Morphine Inj (Syringe))*) 1 mg IV Q1H PRN PRN Reason: PAIN - SEVERE Last Admin: 03/21/19 05:25 Dose: 1 mg Ondansetron HCl (Zofran Inj*) 4 mg IV Q6H PRN PRN Reason: NAUSEA Last Admin: 03/21/19 07:24 Dose: 4 mg Oxycodone HCl (Oxycontin(*)) 20 mg PO BID [facility] Last Admin: 03/22/19 09:55 Dose: 20 mg Polyethylene Glycol/Electrolytes (Miralax*) 17 gm PO 0800,2100 [facility] Last Admin: 03/22/19 08:11 Dose: Not Given Prednisone (Deltasone Tab*) 7.5 mg PO DAILY [facility] Last Admin: 03/22/19 09:56 Dose: 7.5 mg Sertraline HCl (Zoloft*) 75 mg PO BEDTIME [facility] Last Admin: 03/21/19 22:17 Dose: 75 mg Vital Signs - 8 hr 03/22/19 03/22/19 03/22/19 04:23 07:22 09:55 Temperature 97.8 F 98.6 F Pulse Rate 75 83 Respiratory 18 13 16 Rate Blood Pressure 153/66 158/61 (mmHg) O2 Sat by Pulse 100 99 Oximetry Oxygen Devices in Use Now: Nasal Cannula Appearance: Pleasant elderly lady lying in bed in NAD. Eyes: No Scleral Icterus Ears/Nose/Mouth/Throat: Mucous Membranes Moist Neck: Trachea Midline Respiratory: Symmetrical Chest Expansion and Respiratory Effort, - - BS+ bilaterally with bibasilar crackles Cardiovascular: RRR - Normal S1 and S2 Abdominal: - - Mild distention, mild diffuse tenderness, NG, NR, BS+ normoactive Extremities: No Edema Neurological: Alert and Oriented x 3, NL Muscle Strength and Tone, - - [facility] Result Diagrams: 03/22/19 08:55 03/22/19 08:55 Assess/Plan/Problems-Billing Assessment: Mrs Blas is an 83yo F with PMH of asthma, MAC, GERD, MDS, SVT, spinal stenosis, allergic rhinitis, vitamin D deficiency, pseudogout, breast CA, Paget disease, depression, who presented to ED with c/o fever and confusion, found to have pneumonia. - Patient Problems (1) Pneumonia Comment: - CT chest showed new right lower lobe infiltrate. - Blood cultures show no growth to date and sputum culture is growing Pseudomonas sensitive to Meropenem. - Legionella and pneumococcal Ags are negative. - Dr Weber d/w ID and switched abx to Meropenem on 03/17/19. - Improving clinically, but CRP is trending up - continue to monitor. (2) Abdominal pain Comment: - KUB shows colonic distention with large amount of stool. - Patient has been on opiates chronically with chronic constipation. - Now having multiple bowel movements so will hold laxatives for now, but will benefit of a robust bowel regimen on discharge. - Advance diet to regular. (3) Asthma Comment: - Stable. Continue bronchodilators and steroids. (4) SVT (supraventricular tachycardia) Comment: - Continue digoxin and metoprolol. (5) Stage III pressure ulcer of buttock Comment: - Continue supportive care, including nutritional support. (6) Depression Comment: - Continue Sertraline. (7) DVT prophylaxis Comment: - SQ heparin. (8) Physical deconditioning Comment: - Will likely benefit of STR. Status and Disposition: Inpatient. Daughter updated at bedside.
[2019-03-22] MEDS: Digoxin TAB* 0.125 MG PO SCH (16:26)
[2019-03-22] MEDS: Bisacodyl SUPP* 10 MG SUPP PR SCH (21:08)
[2019-03-22] MEDS: Sertraline* 25 MG TAB PO SCH (21:19)
[2019-03-23] MEDS: Levothyroxine TAB* 50 MCG TAB PO SCH (06:23)
[2019-03-23] MEDS: Fluticasone NASAL SPRAY 50MCG* 16 gm SPRAY BTL BOTH NARES SCH (09:43)
[2019-03-23] MEDS: predniSONE TAB* 5 MG PO SCH (09:44)
[2019-03-23] MEDS: oxyCODONE SR TAB(*) 20 MG TAB.SR PO SCH ×2 (09:45→21:51)
[2019-03-23] MEDS: Colchicine* 0.6 MG TAB PO SCH ×2 (09:45→21:53)
[2019-03-23] MEDS: Metoprolol Succinate XL TAB* 50 MG PO SCH ×2 (09:46→21:50)
[2019-03-23] MEDS: Magnesium Hydroxide LIQ* 30 ML UDC PO SCH ×2 (09:47→19:33)
[2019-03-23] MEDS: Polyethylene Glycol 3350* 17 GM PACKET PO SCH ×2 (09:47→19:33)
--- NOTE | 2019-03-23 12:18 | CONS ---
DATE OF CONSULTATION: 03/23/2019. REQUESTING PHYSICIAN: Dr. Weber. CONSULTING SERVICE: Infectious Disease. REASON FOR CONSULTATION: Pneumonia. IMPRESSION: 1. Community-acquired pneumonia in the setting of asthma and pseudomonas colonization. Does have pseudomonas in the sputum again in the setting of a right lower lobe infiltrate. It is possibly the pathogen. Overall, she is improving her respiratory symptoms. Her oxygen requirements are essentially stable. Her CRP is increasing. Differential diagnosis includes progression of pneumonia or pleural involvement, I think less likely as she otherwise is feeling a little bit better. 2. CRP which is increasing despite overall feeling better. 3. A long history of mycobacterium avium infection, on chronic suppression up until this fall. Outpatient surveillance cultures, smear negative, but the cultures are pending. She does have some stigmata on the chest imaging of microbacterial infection. 4. ALLERGY TO KEFLEX. 5. Asthma. 6. GERD. 7. Myelodysplastic syndrome. 8. Supraventricular tachycardia. RECOMMENDATIONS: 1. Continue Meropenem 1 gm every 12 hours. She is day 6 of 7. 2. Will check a chest x-ray today to make sure there is no pleural involvement and we can follow a CRP over time. Consider alternative sources of infection if she has other symptoms that develop. HISTORY OF PRESENT ILLNESS: An 83-year-old woman with asthma and mycobacterium avium infection admitted with worsening weakness, productive cough, and low grade fever. She was started on Levaquin, but continued to feel unwell and chest x-ray showed some progression of her symptoms. A CRP that had been decreasing was slowly increasing. A CT showed reticular nodular infiltrates with some ground glass and nodular densities. Follow-up CT showed a right lower lobe infiltrate. She was switched to Meropenem which she is tolerating well. She thinks her cough is improving. Her oxygen requirements have been about the same, around 2 liters. Her sputum cultures have grown pseudomonas. Blood culture is negative. White count has been normal. She has not had diarrhea or abdominal pain. Her appetite is fair. She does feel weak. PAST MEDICAL HISTORY: 1. Supraventricular tachycardia. 2. Mycobacterium avium infection. 3. Myelodysplastic syndrome. 4. GERD. 5. Asthma. 6. Spinal stenosis. 7. Allergic rhinitis. 8. Vitamin D deficiency. 9. Pseudogout. 10. Radiculopathy. 11. Breast cancer. 12. Paget's disease. 13. Depression. 14. Status post lung resection, found to be mycobacterium avium. 15. History or basal cell carcinoma. MEDICATIONS: 1. Tylenol. 2. Bisacodyl at bedtime. 3. Colchicine. 4. Digoxin. 5. Fluticasone nasal spray. 6. Levalbuterol as needed. 7. Levothyroxine. 8. Meropenem 1 gm every 12 hours. 9. Zofran as needed. 10. Polyethylene Glycol twice a day. 11. Prednisone 7.5 mg daily. 12. Sertraline. ALLERGIES: KEFLEX, LIDOCAINE, EPINEPHRINE, CONTRAST MATERIAL. FAMILY HISTORY: Coronary artery disease. SOCIAL HISTORY: She lives in the nursing unit at [facility]. She is a nonsmoker. She does not drink alcohol. 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 REVIEW OF SYSTEMS: All negative, except as noted above to a 12 point review. PHYSICAL EXAM: General: She is awake, not diaphoretic. Vital Signs: Temperature 36.7, heart rate 80, respiratory rate 16, blood pressure 133/59, oxygen saturation 98 percent on 2 liters via nasal cannula. Neurologic: She is oriented times three. Follows all commands. HEENT: There is no conjunctival hemorrhage. Oropharynx without lesions. Neck: Supple without mass. Heart: Regular rate and rhythm without murmurs, rubs or gallops. Lungs : There is no wheeze, rale, or rhonchi. Abdomen: Soft, nontender, nondistended. There are bowel sounds present. Skin: There is no rash or splinter hemorrhage. Musculoskeletal: There is no spine tenderness to palpation or joint synovitis. LABORATORY DATA: White blood cell count 5, hemoglobin 10, MCV 105, platelets 79 , creatinine 0.4, CRP 108. Urinalysis was negative. Influenza PCR negative. Please see impressions and recommendations as outlined above that I discussed with Dr. Weber. Thank you for asking me to see Ms. Blas in consultation. [id number]/[facility] #: [id number] [place]
[2019-03-23] MEDS: Meropenem 1 GM PREMIX(*) 1 GM/50 ML BAG IV SCH ×2 (13:00→21:56)
[2019-03-23] MEDS: Digoxin TAB* 0.125 MG PO SCH (16:10)
[2019-03-23] MEDS: Warfarin TAB(*) 3 MG PO SCH (16:13)
[2019-03-23] MEDS: Fondaparinux* 7.5 MG/0.6 ML SYRINGE SUBCUT SCH (16:14)
[2019-03-23] MEDS: Bisacodyl SUPP* 10 MG SUPP PR SCH (19:33)
[2019-03-23] MEDS: Mometasone/Formoter 200/5 MDI INH SCH ×2 (19:35→21:13)
[2019-03-23] MEDS: Sertraline* 25 MG TAB PO SCH (21:52)
[2019-03-24] MEDS: Levothyroxine TAB* 50 MCG TAB PO SCH (05:51)
[2019-03-24 06:38] LABS: ABS Basophils 0.1 10^3/ul (0-0.2); ABS Eosinophils 0.3 10^3/ul (0-0.6); ABS Lymphocytes 0.9 10^3/ul (1.0-4.8); ABS Monocytes 1.2 10^3/ul (0-0.8); ABS Neutrophils 2.1 10^3/ul (1.5-7.7); Eosinophil % 5.8 %; Hematocrit 34 % (35-47); Hemoglobin 11.4 g/dL (12.0-16.0); Lymphocyte % 19.5 %; Mean Corpuscular HGB Conc 33 g/dL (31-36); Mean Corpuscular Hemoglobin 36 pg (27-31); Mean Corpuscular Volume 107 fL (80-97); Mean Platelet Volume 10.7 fL (7.4-10.4); Nucleated Red Blood Cells % 0.1; Platelet Count 94 10^3/uL (150-450); Red Cell Distribution Width 16 % (10-15); White Blood Count 4.5 10^3/uL (3.5-10.8)
[2019-03-24 06:48] LABS: INR 1.28 (0.82-1.09)
[2019-03-24 06:57] LABS: Albumin 2.9 g/dL (3.2-5.2); Albumin/Globulin Ratio 1.3 (1-3); BUN/Creatinine Ratio 31.8 (8-20); C Reactive Protein 50.28 mg/L (<8.01); Calcium 8.4 mg/dL (8.6-10.3); EGFR African American 164.4 (>60); EGFR Non-African American 135.9 (>60); Globulin 2.3 g/dL (2-4); Potassium 4.2 mmol/L (3.5-5.0); Total Bilirubin 0.8 mg/dL (0.2-1.0); Total Protein 5.2 g/dL (6.4-8.9)
[2019-03-24] MEDS: oxyCODONE SR TAB(*) 20 MG TAB.SR PO SCH ×2 (08:21→21:12)
[2019-03-24] MEDS: predniSONE TAB* 5 MG PO SCH (08:23)
[2019-03-24] MEDS: Fluticasone NASAL SPRAY 50MCG* 16 gm SPRAY BTL BOTH NARES SCH (08:24)
[2019-03-24] MEDS: Fondaparinux* 7.5 MG/0.6 ML SYRINGE SUBCUT SCH (08:24)
[2019-03-24] MEDS: Pantoprazole TAB * 40 MG TAB PO SCH (08:24)
[2019-03-24] MEDS: Magnesium Hydroxide LIQ* 30 ML UDC PO SCH ×2 (08:25→19:20)
[2019-03-24] MEDS: Colchicine* 0.6 MG TAB PO SCH ×2 (08:25→21:12)
[2019-03-24] MEDS: Polyethylene Glycol 3350* 17 GM PACKET PO SCH ×2 (08:25→19:20)
[2019-03-24] MEDS: Metoprolol Succinate XL TAB* 50 MG PO SCH ×2 (08:46→21:12)
[2019-03-24 10:39] LABS: Urine Appearance Cloudy; Urine Bilirubin Negative (Negative); Urine Blood Negative (Negative); Urine Color Yellow; Urine Glucose Negative (Negative); Urine Ketones Negative (Negative); Urine Nitrite Negative (Negative); Urine Protein Negative (Negative); Urine Urobilinogen Negative (Negative)
[2019-03-24] MEDS: Mometasone/Formoter 200/5 MDI INH SCH ×2 (11:12→19:49)
[2019-03-24] MEDS: Meropenem 1 GM PREMIX(*) 1 GM/50 ML BAG IV SCH ×2 (11:23→21:17)
--- NOTE | 2019-03-24 17:41 | PN ---
Subjective Date of Service: 03/24/19 Interval History: Ms. Blas is an 83 yo female with PMH significant for asthma, mycobacterium avium-intracellulare, GERD, myodysplastic syndrome, SVT, spinal stenosis, allergic rhinitis, Vit D deficiency, pseudogout, radiculopathy, breast cancer, paget disease, depression. She presented to the emergency room with complaints of fever and confusion. She was admitted for constipation and urinary retention. She resented to the hospital with a known pressure injury to her buttocks. She has been being followed by the wound care provider at [facility]. The wound to her buttocks has been present for about 2 months, she has been using an ointment on the area. Denies fever, chills, nausea, or vomiting. Reports pain in buttocks. Bilateral heels noted to be red and blanchable today. Patient seen and examined at bedside. Family History: Unchanged from Admission Social History: Unchanged from Admission Past Medical History: Unchanged from Admission Objective Active Medications: Acetaminophen (Tylenol Tab*) 650 mg PO Q4H PRN Reason: MILD PAIN or TEMP > 100.4 Acetaminophen (Tylenol Supp*) 650 mg MS Q4H PRN Reason: MILD PAIN or TEMP > 100.4 Albuterol (Ventolin Hfa Inhaler*) 2 puff INH Q4H PRN Reason: SOB/WHEEZING Bisacodyl (Dulcolax Supp*) 10 mg MS BEDTIME PAUL Clotrimazole (Clotrimazole 1%*) 1 applic TOPICAL DAILY PRN Reason: ITCHING Colchicine (Colcrys*) 0.6 mg PO BID PAUL Digoxin (Lanoxin Tab*) 0.0625 mg PO EVERY OTHER DAY@1700 PAUL Digoxin (Lanoxin Tab*) 0.125 mg PO EVERY OTHER DAY@1700 PAUL Fluticasone Propionate (Flonase Nasal Tieton 50mcg*) 2 spray BOTH NARES DAILY PAUL Fondaparinux (Arixtra*) 7.5 mg SUBCUT DAILY PAUL Meropenem (Merrem 1 Gm Premix(*)) 1 gm in 50 mls @ 100 mls/hr IV Q12H PAUL Levalbuterol HCl (Xopenex 0.63mg/3ml Neb*) 0.63 mg INH QID PRN Reason: SHORTNESS OF BREATH Levothyroxine Sodium (Synthroid Tab*) 50 mcg PO 0600 [facility] Magnesium Hydroxide (Milk Of Magnesia Liq*) 30 ml PO BID [facility] Metoprolol Succinate (Toprol Xl Tab*) 50 mg PO BID [facility] Mometasone Furoate/Formoterol Fumar (Dulera 200/5 Mdi*) 2 puff INH RT.BID [facility] Morphine Sulfate (Morphine Inj (Syringe))*) 1 mg IV Q1H PRN Reason: PAIN - SEVERE Ondansetron HCl (Zofran Inj*) 4 mg IV Q6H PRN Reason: NAUSEA Oxycodone HCl (Oxycontin(*)) 20 mg PO BID [facility] Pantoprazole Sodium (Protonix Tab*) 40 mg PO DAILY [facility] Polyethylene Glycol/Electrolytes (Miralax*) 17 gm PO 0800,2100 [facility] Prednisone (Deltasone Tab*) 7.5 mg PO DAILY [facility] Sertraline HCl (Zoloft*) 75 mg PO BEDTIME [facility] Warfarin Sodium (Coumadin Tab(*)) 3 mg PO DAILY@1700 [facility] Vital Signs 03/24/19 15:38 Temperature 98.2 F Pulse Rate 87 Respiratory 18 Rate Blood Pressure 115/56 (mmHg) O2 Sat by Pulse 95 Oximetry Oxygen Devices in Use Now: Nasal Cannula Appearance: NAD, laying in bed Ears/Nose/Mouth/Throat: Mucous Membranes Moist Respiratory: Symmetrical Chest Expansion and Respiratory Effort Skin: - - See skin note below Neurological: Alert and Oriented x 3 Result Diagrams: 03/24/19 06:16 03/24/19 06:16 Additional Lab and Data: Laboratory Tests 03/17/19 09:36 Prealbumin 11 L Skin Deviation Note - Skin Deviation Findings Buttocks - Total area of erythema (mostly blanchable), measures 9 cm x 10 cm. There is a superficial open area of dark purplish discoloration and red granulation tissue to the left buttock, measures 5 cm x 6 cm x 0.1 cm. There is no drainage. The surrounding skin is intact. Left iliac creast - There is an area of blanchable erythema, measures 1.5 cm x 1.5 cm. The surrounding skin is intact. Bilateral heels Blanchable erythema and boggy. Wound Problem/Plan Assessment: Ms. Blas is an 83 yo female with PMH significant for asthma, mycobacterium avium-intracellulare, GERD, myodysplastic syndrome, SVT, spinal stenosis, allergic rhinitis, Vit D deficiency, pseudogout, radiculopathy, breast cancer, paget disease, and depression. She presented to the emergency room with complaints of fever and confusion. She was admitted for constipation and urinary retention. Presented to the hospital with a known pressure injury to her buttocks. Has developed erythema to bilateral heels during her hospital stay. 1. Deep tissue injury to buttocks with superficial open area. This wound is multifactorial including DTI, shearing, stage 2 pressure injury, and unstageable area. Prealbumin to last week was 11. Wound is healing. Recommend washing the area with soap and water. Apply barrier cream to the area as needed. Frequent turning and repositioning. 2. Bilateral heels with blanchable erythema. Recommend keeping heels elevated off the bed, rotate between pillows and spanko boots. 3. Diet. Regular diet. 4. Code Status. DNR. 5. Disposition. Inpatient, disposition per primary medicine team. TIME SPENT: Time spent for this wound consult was 20 minutes and 10 minutes was spent with the patient assessing, measuring, and photographing the wound; and reapplying a dressing. Is Patient a Wound Clinic Patient: No Attending: Sveta Birmingham
[2019-03-24] MEDS: Morphine INJ* 2 MG/ML 1 ML SYRINGE (TWO MG - NEW SYRINGE VERSION) IV PRN (17:49)
[2019-03-24] MEDS: Warfarin TAB(*) 3 MG PO SCH (17:52)
[2019-03-24] MEDS: Digoxin TAB* 0.125 MG PO SCH (17:52)
[2019-03-24] MEDS: Bisacodyl SUPP* 10 MG SUPP PR SCH (19:20)
[2019-03-24] MEDS: Sertraline* 25 MG TAB PO SCH (21:13)
[2019-03-25] MEDS: Levothyroxine TAB* 50 MCG TAB PO SCH (06:26)
[2019-03-25] MEDS: Mometasone/Formoter 200/5 MDI INH SCH ×2 (08:53→19:50)
[2019-03-25 09:42] LABS: INR 2.52 (0.82-1.09)
[2019-03-25 09:53] LABS: C Reactive Protein 30.51 mg/L (<8.01)
[2019-03-25] MEDS: Polyethylene Glycol 3350* 17 GM PACKET PO SCH ×2 (10:44→20:33)
[2019-03-25] MEDS: Magnesium Hydroxide LIQ* 30 ML UDC PO SCH ×2 (10:44→20:34)
[2019-03-25] MEDS: Meropenem 1 GM PREMIX(*) 1 GM/50 ML BAG IV SCH (10:44)
[2019-03-25] MEDS: Colchicine* 0.6 MG TAB PO SCH ×2 (10:45→20:33)
[2019-03-25] MEDS: Metoprolol Succinate XL TAB* 50 MG PO SCH ×2 (10:45→20:33)
[2019-03-25] MEDS: oxyCODONE SR TAB(*) 20 MG TAB.SR PO SCH ×2 (10:45→20:33)
[2019-03-25] MEDS: predniSONE TAB* 5 MG PO SCH (10:46)
[2019-03-25] MEDS: Pantoprazole TAB * 40 MG TAB PO SCH (10:46)
[2019-03-25] MEDS: Fluticasone NASAL SPRAY 50MCG* 16 gm SPRAY BTL BOTH NARES SCH (10:46)
--- NOTE | 2019-03-25 10:47 | PN ---
Progress Note - Progress Note Date of Service: 03/25/19 SOAP: Subjective: CC: Pneumonia HPI: Ms. Blas is an 83 yo female with PMH significant for SVT, mycobacterium avium ingection, MDS, GERD, asthma, pseudogout, Paget's disease, breast cancer, depression, and basal cell CA. She presented to the hospital with weakness, productive cough, and low grade fever; found to have a right LL infiltrate. Denies fever, chills, nausea, vomiting, or cough. Reports loose stools. She is having pain in her buttocks today at the site of a pressure ulcer, but has not had morphine since yesterday. Objective: Vital Signs - 8 hr 03/25/19 03/25/19 03/25/19 03:35 07:15 09:01 Temperature 97.6 F 98.2 F Pulse Rate 78 80 80 Respiratory 16 18 14 Rate Blood Pressure 129/62 126/60 (mmHg) O2 Sat by Pulse 100 98 94 Oximetry Physical Exam: General: NAD, laying in bed Neurological: Alert and Oriented HEENT: Moist MM, no thrush Cardiovascular: Heart rate regular Respiratory: Lung sounds clear, diminished Abdominal: Bowel sounds present; ABD soft, non tender and non distended Skin: No rash. There is a pressure injury to the sacrum, mild surrounding blanchable erythema Laboratory Last Values WBC 4.5 10^3/uL (3.5-10.8) 03/24/19 06:16 RBC 3.20 10^6 /uL (3.70-4.87) L 03/24/19 06:16 Hgb 11.4 g/dL (12.0-16.0) L 03/24/19 06:16 Hct 34 % (35-47) L 03/24/19 06:16 MCV 107 fL (80-97) H 03/24/19 06:16 MCH 36 pg (27-31) H 03/24/19 06:16 MCHC 33 g/dL (31-36) 03/24/19 06:16 RDW 16 % (10-15) H 03/24/19 06:16 Plt Count 94 10^3/uL (150-450) L 03/24/19 06:16 MPV 10.7 fL (7.4-10.4) H 03/24/19 06:16 Neut % (Auto) 46.1 % 03/24/19 06:16 Lymph % (Auto) 19.5 % 03/24/19 06:16 [place]bour % (Auto) 27.3 % 03/24/19 06:16 Eos % (Auto) 5.8 % 03/24/19 06:16 Baso % (Auto) 1.3 % 03/24/19 06:16 Absolute Neuts (auto) 2.1 10^3/ul (1.5-7.7) 03/24/19 06:16 Absolute Lymphs (auto) 0.9 10^3/ul (1.0-4.8) L 03/24/19 06:16 Absolute Monos (auto) 1.2 10^3/ul (0-0.8) H 03/24/19 06:16 Absolute Eos (auto) 0.3 10^3/ul (0-0.6) 03/24/19 06:16 Absolute Basos (auto) 0.1 10^3/ul (0-0.2) 03/24/19 06:16 Absolute Nucleated RBC 0.0 10^3/ul 03/24/19 06:16 Nucleated RBC % 0.1 03/24/19 06:16 INR (Anticoag Therapy) 2.52 (0.82-1.09) H 03/25/19 08:50 APTT 30.1 seconds (26.0-38.0) 03/13/19 11:51 Sodium 133 mmol/L (135-145) L 03/24/19 06:16 Potassium 4.2 mmol/L (3.5-5.0) 03/24/19 06:16 Chloride 96 mmol/L (101-111) L 03/24/19 06:16 Carbon Dioxide 33 mmol/L (22-32) H 03/24/19 06:16 Anion Gap 4 mmol/L (2-11) 03/24/19 06:16 BUN 14 mg/dL (6-24) 03/24/19 06:16 Creatinine 0.44 mg/dL (0.51-0.95) L 03/24/19 06:16 Est GFR ( Amer) 164.4 (>60) 03/24/19 06:16 Est GFR (Non-Af Amer) 135.9 (>60) 03/24/19 06:16 BUN/Creatinine Ratio 31.8 (8-20) H 03/24/19 06:16 Glucose 87 mg/dL (70-100) 03/24/19 06:16 Lactic Acid 0.6 mmol/L (0.5-2.0) 03/13/19 11:51 Calcium 8.4 mg/dL (8.6-10.3) L 03/24/19 06:16 Total Bilirubin 0.80 mg/dL (0.2-1.0) 03/24/19 06:16 AST 17 U/L (13-39) 03/24/19 06:16 ALT 22 U/L (7-52) 03/24/19 06:16 Alkaline Phosphatase 52 U/L (34-104) 03/24/19 06:16 Troponin I 0.01 ng/mL (<0.03) 03/13/19 11:51 C-Reactive Protein 30.51 mg/L (<8.01) H 03/25/19 08:50 Total Protein 5.2 g/dL (6.4-8.9) L 03/24/19 06:16 Albumin 2.9 g/dL (3.2-5.2) L 03/24/19 06:16 Globulin 2.3 g/dL (2-4) 03/24/19 06:16 Albumin/Globulin Ratio 1.3 (1-3) 03/24/19 06:16 Prealbumin 11 mg/dL (18-38) L 03/17/19 09:36 Urine Color Yellow 03/23/19 11:15 Urine Appearance Cloudy 03/23/19 11:15 Urine pH 8.0 (5-9) 03/23/19 11:15 Ur Specific [place] 1.010 (1.010-1.030) 03/23/19 11:15 Urine Protein Negative (Negative) 03/23/19 11:15 Urine Ketones Negative (Negative) 03/23/19 11:15 Urine Blood Negative (Negative) 03/23/19 11:15 Urine Nitrate Negative (Negative) 03/23/19 11:15 Urine Bilirubin Negative (Negative) 03/23/19 11:15 Urine Urobilinogen Negative (Negative) 03/23/19 11:15 Ur Leukocyte Esterase Negative (Negative) 03/23/19 11:15 Urine Glucose Negative (Negative) 03/23/19 11:15 Vancomycin Trough 2.3 mcg/mL 03/20/19 15:46 Digoxin 0.7 ng/ml (0.8-2.0) L 03/17/19 09:36 Influenza A (Rapid) Negative (Negative) 03/13/19 17:20 Influenza B (Rapid) Negative (Negative) 03/13/19 17:20 Microbiology 03/24/19 09:15 Stool Gross Appearance - Final Stool C. difficile DNA Amplification - Final 027 Presumptive NEGATIVE Toxigenic C.diff NEGATIVE 03/24/19 09:15 Stool Gross Appearance - Final Stool 03/18/19 18:20 Gram Stain - Final Sputum Expectorated Sputum Culture - Final Pseudomonas Aeruginosa Normal Sagrario 03/20/19 17:13 Legionella Urinary Antigen - Final Urine Negative Legionella Antigen Streptococcus pneumoniae Ag Screen - Final Negative S. pneumo Antigen 03/13/19 11:52 Aerobic Blood Culture - Final Blood Venous No Growth Day 5 Anaerobic Blood Culture - Final No Growth Day 5 03/13/19 11:58 Aerobic Blood Culture - Final Blood Venous No Growth Day 5 Anaerobic Blood Culture - Final No Growth Day 5 Assessment: 1. Community acquired PNA in setting of asthma and pseudomonas colinization. Sputum culture with pseudomonas and a right LL infiltrate on xray. Blood cultures with no growth to date. Urine legionella and streptococcus negative. Chest CT with interval progression of patchy subsegmental consolidation of the right lower lobe. Afebrile and leukocytosis. Denies cough. CRP remains elevated , but is trending down. 2. Hx mycobacterium avium. Previously on chronic suppression. 3. Keflex allergy. 4. Asthma Plan: Discontinue Meropenem, today was day 8.
[2019-03-25] MEDS: Morphine INJ* 2 MG/ML 1 ML SYRINGE (TWO MG - NEW SYRINGE VERSION) IV PRN ×2 (10:48→12:28)
[2019-03-25] MEDS: Fondaparinux* 7.5 MG/0.6 ML SYRINGE SUBCUT SCH (10:48)
[2019-03-25 13:47] LABS: Digoxin 0.7 ng/ml (0.8-2.0)
[2019-03-25 14:02] LABS: TSH (Thyroid Stimulating Horm) 1.71 mcIU/mL (0.34-5.60)
[2019-03-25] MEDS: Lidocaine 2% JELLY* 5 ML TUBE LIDO2GEL7 TOPICAL PRN ×2 (15:12→22:04)
[2019-03-25] MEDS ORDERED: Warfarin TAB(*) 3 MG PO SCH (17:00)
[2019-03-25] MEDS ORDERED: Warfarin TAB(*) 1 MG PO SCH (17:30)
[2019-03-25] MEDS: Digoxin TAB* 0.125 MG PO SCH (19:07)
[2019-03-25] MEDS: Bisacodyl SUPP* 10 MG SUPP PR SCH (20:32)
[2019-03-25] MEDS: Sertraline* 25 MG TAB PO SCH (20:33)
[2019-03-25] MEDS: Acetaminophen TAB* 325 MG PO PRN (22:06)
[2019-03-26] MEDS: Levothyroxine TAB* 50 MCG TAB PO SCH (05:21)
[2019-03-26 05:53] LABS: INR 3.33 (0.82-1.09)
[2019-03-26] MEDS: Colchicine* 0.6 MG TAB PO SCH ×2 (08:54→20:38)
[2019-03-26] MEDS: predniSONE TAB* 5 MG PO SCH (08:57)
[2019-03-26] MEDS: Pantoprazole TAB * 40 MG TAB PO SCH (09:00)
[2019-03-26] MEDS: Metoprolol Succinate XL TAB* 50 MG PO SCH ×2 (09:01→20:38)
[2019-03-26] MEDS: oxyCODONE SR TAB(*) 20 MG TAB.SR PO SCH ×2 (09:02→20:38)
[2019-03-26] MEDS: Magnesium Hydroxide LIQ* 30 ML UDC PO SCH ×2 (09:05→20:42)
[2019-03-26] MEDS: Fluticasone NASAL SPRAY 50MCG* 16 gm SPRAY BTL BOTH NARES SCH (09:06)
[2019-03-26] MEDS: Fondaparinux* 7.5 MG/0.6 ML SYRINGE SUBCUT SCH (09:07)
[2019-03-26] MEDS ORDERED: WARFARIN - No Order Today* 1 NOTE MISC FOLLOW UP SCH (10:00)
[2019-03-26] MEDS: Mometasone/Formoter 200/5 MDI INH SCH ×2 (10:01→19:32)
[2019-03-26] MEDS: Polyethylene Glycol 3350* 17 GM PACKET PO SCH ×2 (11:42→20:51)
[2019-03-26] MEDS: Digoxin TAB* 0.125 MG PO SCH (18:07)
[2019-03-26] MEDS: Lidocaine 2% JELLY* 5 ML TUBE LIDO2GEL7 TOPICAL PRN (19:39)
[2019-03-26] MEDS: Sertraline* 25 MG TAB PO SCH (20:38)
[2019-03-26] MEDS: oxyCODONE TAB* 5 MG TAB PO PRN (20:38)
[2019-03-26] MEDS: Bisacodyl SUPP* 10 MG SUPP PR SCH (20:51)
[2019-03-26] MEDS ORDERED: oxyCODONE TAB* 5 MG TAB PO ONE (22:10)
[2019-03-27] MEDS: Levothyroxine TAB* 50 MCG TAB PO SCH (06:35)
[2019-03-27] MEDS: oxyCODONE TAB* 5 MG TAB PO PRN ×3 (06:35→21:43)
[2019-03-27] MEDS: Magnesium Hydroxide LIQ* 30 ML UDC PO SCH ×2 (07:26→21:45)
[2019-03-27] MEDS: Polyethylene Glycol 3350* 17 GM PACKET PO SCH ×2 (07:26→21:39)
[2019-03-27] MEDS: Mometasone/Formoter 200/5 MDI INH SCH ×2 (08:05→20:28)
[2019-03-27] MEDS: Pantoprazole TAB * 40 MG TAB PO SCH (09:09)
[2019-03-27] MEDS: Metoprolol Succinate XL TAB* 50 MG PO SCH ×2 (09:09→21:42)
[2019-03-27] MEDS: oxyCODONE SR TAB(*) 20 MG TAB.SR PO SCH ×2 (09:09→21:41)
[2019-03-27] MEDS: Colchicine* 0.6 MG TAB PO SCH ×2 (09:09→21:40)
[2019-03-27] MEDS: predniSONE TAB* 5 MG PO SCH (09:10)
[2019-03-27] MEDS: Fluticasone NASAL SPRAY 50MCG* 16 gm SPRAY BTL BOTH NARES SCH (09:13)
[2019-03-27] MEDS: Fondaparinux* 7.5 MG/0.6 ML SYRINGE SUBCUT SCH (09:13)
[2019-03-27] MEDS: Acetaminophen TAB* 325 MG PO PRN ×2 (13:07→21:42)
[2019-03-27] MEDS ORDERED: Warfarin TAB(*) 1 MG PO ONE (17:00)
[2019-03-27] MEDS: Digoxin TAB* 0.125 MG PO SCH (17:08)
[2019-03-27] MEDS: Sertraline* 25 MG TAB PO SCH (21:44)
[2019-03-27] MEDS: Bisacodyl SUPP* 10 MG SUPP PR SCH (21:45)
[2019-03-28 05:04] LABS: INR 2.45 (0.82-1.09)
[2019-03-28] MEDS: Levothyroxine TAB* 50 MCG TAB PO SCH (05:49)
[2019-03-28 07:29] LABS: Hematocrit 29 % (35-47); Hemoglobin 9.9 g/dL (12.0-16.0); Mean Corpuscular HGB Conc 35 g/dL (31-36); Mean Corpuscular Hemoglobin 36 pg (27-31); Mean Corpuscular Volume 104 fL (80-97); Mean Platelet Volume 11.6 fL (7.4-10.4); Platelet Count 101 10^3/uL (150-450); Red Blood Count 2.76 10^6 /uL (3.70-4.87); Red Cell Distribution Width 16 % (10-15); White Blood Count 5.5 10^3/uL (3.5-10.8)
[2019-03-28] MEDS: Mometasone/Formoter 200/5 MDI INH SCH (08:22)
[2019-03-28 08:32] LABS: ABS Eosinophils 0.4 10^3/ul (0-0.6); ABS Lymphocytes 1.3 10^3/ul (1.0-4.8); ABS Monocytes 1.3 10^3/ul (0-0.8); ABS Neutrophils 2.5 10^3/ul (1.5-7.7); Eosinophil % 7.5 %
[2019-03-28] MEDS: Acetaminophen TAB* 325 MG PO PRN ×2 (08:34→15:47)
[2019-03-28] MEDS: Pantoprazole TAB * 40 MG TAB PO SCH (08:34)
[2019-03-28] MEDS: oxyCODONE SR TAB(*) 20 MG TAB.SR PO SCH ×2 (08:35→20:51)
[2019-03-28] MEDS: predniSONE TAB* 5 MG PO SCH (08:35)
[2019-03-28] MEDS: Metoprolol Succinate XL TAB* 50 MG PO SCH ×2 (08:48→20:43)
[2019-03-28] MEDS: Polyethylene Glycol 3350* 17 GM PACKET PO SCH ×2 (08:50→20:48)
[2019-03-28] MEDS: Colchicine* 0.6 MG TAB PO SCH ×2 (08:54→20:53)
[2019-03-28] MEDS ORDERED: Phytonadione IV (Adult)* 10 MG/ML 1 ML AMP IV ONE (10:05)
[2019-03-28] MEDS: Magnesium Hydroxide LIQ* 30 ML UDC PO SCH ×3 (10:29→21:01)
[2019-03-28] MEDS ORDERED: Phytonadione 10 mg in 50 mL NS over 30 min IV ONE (10:30)
[2019-03-28 10:58] LABS: ABS Basophils 0.1 10^3/ul (0-0.2); ABS Eosinophils 0.3 10^3/ul (0-0.6); ABS Monocytes 1.4 10^3/ul (0-0.8); ABS Neutrophils 2.9 10^3/ul (1.5-7.7); Eosinophil % 5.7 %; Hematocrit 29 % (35-47); Hemoglobin 9.7 g/dL (12.0-16.0); Lymphocyte % 17.3 %; Mean Corpuscular HGB Conc 34 g/dL (31-36); Mean Corpuscular Hemoglobin 36 pg (27-31); Mean Corpuscular Volume 105 fL (80-97); Mean Platelet Volume 10.5 fL (7.4-10.4); Nucleated Red Blood Cells % 0.1; Platelet Count 103 10^3/uL (150-450); Red Blood Count 2.73 10^6 /uL (3.70-4.87); Red Cell Distribution Width 16 % (10-15); White Blood Count 5.7 10^3/uL (3.5-10.8)
[2019-03-28 11:13] LABS: Activated Partial Thrombo Time 54.6 seconds (26.0-38.0); INR 2.85 (0.82-1.09)
[2019-03-28] MEDS: Fluticasone NASAL SPRAY 50MCG* 16 gm SPRAY BTL BOTH NARES SCH (11:30)
[2019-03-28 11:34] LABS: Calcium 8.6 mg/dL (8.6-10.3); EGFR African American 99.5 (>60); EGFR Non-African American 82.2 (>60); Potassium 4.7 mmol/L (3.5-5.0)
[2019-03-28] MEDS: CALCITONIN ALT NARE SCH (11:34)
[2019-03-28] MEDS ORDERED: Phytonadione Oral Solution* 5 MG/25 ML UDC PO ONE (12:00)
[2019-03-28] MEDS: Lidocaine 2% JELLY* 5 ML TUBE LIDO2GEL7 TOPICAL PRN ×2 (15:47→20:38)
[2019-03-28 16:14] LABS: Urine Appearance Turbid; Urine Bilirubin Negative (Negative); Urine Blood Negative (Negative); Urine Color Yellow; Urine Glucose Negative (Negative); Urine Ketones Negative (Negative); Urine Nitrite Negative (Negative); Urine Protein Negative (Negative); Urine Specific Gravity 1.016 (1.010-1.030); Urine Urobilinogen Negative (Negative)
[2019-03-28] MEDS ORDERED: Warfarin TAB(*) 1 MG PO SCH (17:00)
[2019-03-28] MEDS: Digoxin TAB* 0.125 MG PO SCH (18:19)
[2019-03-28] MEDS: Bisacodyl SUPP* 10 MG SUPP PR SCH (20:41)
[2019-03-28] MEDS: Sertraline* 25 MG TAB PO SCH (20:49)
[2019-03-28] MEDS: oxyCODONE TAB* 5 MG TAB PO PRN (22:46)
[2019-03-29] MEDS: Levothyroxine TAB* 50 MCG TAB PO SCH (05:04)
[2019-03-29] MEDS: oxyCODONE TAB* 5 MG TAB PO PRN (05:07)
[2019-03-29] MEDS: Mometasone/Formoter 200/5 MDI INH SCH ×2 (05:32→09:14)
[2019-03-29] MEDS ORDERED: Morphine ORAL.SOLN 10 mg* 2 MG/ML UDC 5 ml PO PRN (09:20)
[2019-03-29] MEDS ORDERED: Magnesium Hydroxide LIQ* 30 ML UDC PO PRN (09:22)
[2019-03-29] MEDS ORDERED: Polyethylene Glycol 3350* 17 GM PACKET PO PRN (09:22)
[2019-03-29] MEDS: Magnesium Hydroxide LIQ* 30 ML UDC PO SCH (09:44)
[2019-03-29] MEDS: Polyethylene Glycol 3350* 17 GM PACKET PO SCH (09:44)
[2019-03-29] MEDS ORDERED: Morphine ORAL CONCENTRATE* 5 MG/0.25 ML ORAL.SYRIN PO PRN (10:22)
[2019-03-29] MEDS: Colchicine* 0.6 MG TAB PO SCH ×2 (10:40→20:29)
[2019-03-29] MEDS: Metoprolol Succinate XL TAB* 50 MG PO SCH ×2 (10:41→20:29)
[2019-03-29] MEDS: oxyCODONE SR TAB(*) 20 MG TAB.SR PO SCH ×2 (10:42→20:20)
[2019-03-29] MEDS: Pantoprazole TAB * 40 MG TAB PO SCH (10:43)
[2019-03-29] MEDS: predniSONE TAB* 5 MG PO SCH (10:44)
[2019-03-29] MEDS: Fluticasone NASAL SPRAY 50MCG* 16 gm SPRAY BTL BOTH NARES SCH (10:47)
[2019-03-29] MEDS: CALCITONIN ALT NARE SCH ×2 (12:49→14:50)
[2019-03-29] MEDS: Digoxin TAB* 0.125 MG PO SCH ×2 (17:08→17:21)
[2019-03-29] MEDS: Sertraline* 25 MG TAB PO SCH (20:20)
[2019-03-29] MEDS: Bisacodyl SUPP* 10 MG SUPP PR SCH (20:29)
[2019-03-30] MEDS: Mometasone/Formoter 200/5 MDI INH SCH ×2 (07:11→07:59)
[2019-03-30] MEDS: Pantoprazole TAB * 40 MG TAB PO SCH (09:18)
[2019-03-30] MEDS: Metoprolol Succinate XL TAB* 50 MG PO SCH (09:18)
[2019-03-30] MEDS: oxyCODONE SR TAB(*) 20 MG TAB.SR PO SCH (09:18)
[2019-03-30] MEDS: Levothyroxine TAB* 50 MCG TAB PO SCH (09:23)
[2019-03-30] MEDS: Colchicine* 0.6 MG TAB PO SCH (09:23)
[2019-03-30] MEDS: predniSONE TAB* 5 MG PO SCH (09:24)
[2019-03-30] MEDS: Fluticasone NASAL SPRAY 50MCG* 16 gm SPRAY BTL BOTH NARES SCH (09:26)
[2019-03-30] MEDS: CALCITONIN ALT NARE SCH (09:26)
--- NOTE | 2019-03-30 11:21 | DS ---
CC: [facility] * DISCHARGE SUMMARY: DATE OF ADMISSION: 03/13/19 DATE OF DISCHARGE: 03/30/19 DISCHARGE DIAGNOSES: 1. Pseudomonas pneumonia. 2. Sacral decubitus ulcer. 3. Sacral insufficiency fracture. 4. Constipation. 5. Supraventricular tachycardia. 6. Deep venous thrombosis, right calf, resolved. 7. Gastrointestinal bleeding due to anticoagulation. 8. Anemia. 9. Mycobacterium avium infection. 9. Abdominal pain, etiology uncertain. 10. Hypothyroidism. 11. DNR. 12. Urinary retention, treated with Zhou catheter. 13. Confusion. 14. History of asthma. 15. History of gastroesophageal reflux disease 16. Myelodysplasia. 17. History of spinal stenosis. 18. Allergic rhinitis. 19. Vitamin D deficiency. 20. History of pseudogout. 21. History of breast cancer. 22. History of depression. 23. History of lung resection. 24. History of basal cell carcinoma. 25. Chronic steroid therapy. 26. History of chronic hypereosinophilic syndrome. HISTORY: Alis Blas is an 83-year-old woman admitted with fever and confusion. Please see dictated admission note for details of the present illness, past medical history, family history, social and personal history, review of systems, and physical examination. Laboratory is detailed in the [facility] record. DIAGNOSTIC STUDIES/LAB DATA: Most recent labs prior to discharge are CBC on 11/07, WBC of 5.7, H and H of 9.7/29. INR 2.85. Sodium 136, potassium 4.7, chloride 95, CO2 of 38, BUN/creatinine 34/0.68, calcium 8.6, TSH 1.71. Urinalysis: Yellow turbid, dipstick negative. Digoxin level on 03/25/19 was 0.7. Stool for C. diff was negative. Stool for VRE was positive on 03/24/19. Sputum culture on 03/18/19 grew Pseudomonas aeruginosa. Please see images in [facility] system for details of imaging during this admission. EKG on 03/29/19 shows SVT, right bundle-branch block. Consultations during her admission were obtained: Wound , Infectious Disease. HOSPITAL COURSE: The patient was admitted. Initially, infection was not felt to be present. She was monitored overnight. It was felt that she was constipated. Subsequent chest CT scan did suggest that she had infiltrate and she was treated initially with levofloxacin. She initially seemed to respond to this, but subsequent imaging showed worsening of the pneumonia. Sputum was obtained, which eventually did grow pseudomonas. She was switched from levofloxacin to meropenem and vancomycin initially and then just to meropenem. She did improve with treatment of meropenem. While she was in the hospital, she developed right calf pain. On 03/23/19, venous duplex showed DVT in the right calf. She was treated with Arixtra for 5 days and warfarin was started. On the last day of Arixtra, she developed GI bleeding. Anticoagulation was reversed. Imaging showed that the DVT had resolved. On the night of 03/28/19, she had shortness of breath and SVT. She developed pain in her sacral area, which was due to sacral insufficiency fracture, which was revealed by an MRI. This was treated with nasal calcitonin. At that time, a conversation was held with her family, 3 children, that she had many problems and one thing was happening after another, treatment for one problem was causing complications i.e., treatment for immobility due to weakness and pneumonia, sacral insufficiency fracture was leading to immobility causing DVT and anticoagulation for that was leading to GI bleeding. Family understood that her prognosis was not good, and in discussion with the family, they elected comfort care. Prior to discharge, her MOLST was changed to be of do not send to the hospital unless symptoms cannot be controlled. Oral morphine was ordered. This was helpful in controlling her pain. At the time of discharge, she is going back to [facility] where she has been residing. MEDICATIONS AT THE TIME OF DISCHARGE: As follows: 1. Acetaminophen 650 q.4 h. p.r.n. pain. 2. Spiriva 1 inhalation daily. 3. Sertraline 75 mg p.o. daily. 4. Propranolol 20 mg q.4 h. p.r.n. SVT. 5. Prednisone 7.5 mg daily. 6. MiraLAX 17 g p.o. daily as needed for constipation. 7. Aquaphor p.r.n. 8. Pantoprazole 40 mg daily. 9. OxyContin 20 mg every 12 hours. 10. Ondansetron 4 mg q.4 h. p.r.n. nausea. 11. Ensure twice a day. 12. Morphine concentrate 5 mg every 2 hours p.r.n. pain. 13. Metoprolol 50 mg twice a day. 14. Milk of magnesia 30 mL p.o. daily p.r.n. constipation. 15. Lidocaine jelly topically every 2 hours p.r.n. pain from sacral decubitus. 16. Levothyroxine 50 mcg daily. 17. Ketoconazole shampoo weekly. 18. Fluocinonide cream topically at bedtime as needed. 19. Diltiazem 180 mg twice a day. 20. Digoxin 125 alternating with 62.5 mcg daily. 21. Diclofenac gel q.6 h p.r.n. joint pain. 22. Colchicine 0.6 mg twice a day. 23. Cetirizine 10 mg daily. 24. Calcitonin nasal spray 200 sprays alternating nostrils daily. 25. Dulcolax suppository 10 mg per rectal daily p.r.n. constipation. 26. Mylanta q.4 h. p.r.n. indigestion. 27. Albuterol 2 puffs every 4 hours p.r.n. shortness of breath. DIET: Regular. ACTIVITY: As tolerated. She is to have a Zhou catheter. She has oxygen. She is comfort care. She is DNR. Please see MOLST form. Wound care per suggestions in consult. [id number]/[facility] #: [id number] RAVEN
[2019-03-30 11:36] VITALS: BP 104/48
--- NOTE | 2019-03-31 22:50 | TRS ---
TRANSFER SUMMARY: ADDENDUM: The patient is being discharged to [facility] in fair condition for comfort care. [id number]/[facility] #: [id number] [facility]
== END 2019-03-30 14:00 | DRG 177 ==
LOC: ED 11:24 → MED 17:14 → OBSVTOIN 03-14 12:00
PROVIDERS: ADMIT Internal Medicine; ATTEND Internal Medicine Geriatric Medicine
PROC: 0T9B70Z Drainage of Bladder with Drainage Device, Via Natural or Artificial Opening (ICD-10-PCS; principal; 2019-03-14)
DX: J15.1 Pneumonia due to Pseudomonas (principal); L89.153 Pressure ulcer of sacral region, stage 3; I47.1 Supraventricular tachycardia; J44.0 Chronic obstructive pulmonary disease with (acute) lower respiratory infection; M84.48XA Pathological fracture, other site, initial encounter for fracture; I82.4Z1 Acute embolism and thrombosis of unspecified deep veins of right distal lower extremity; K92.2 Gastrointestinal hemorrhage, unspecified; D68.32 Hemorrhagic disorder due to extrinsic circulating anticoagulants; J45.909 Unspecified asthma, uncomplicated; K21.9 Gastro-esophageal reflux disease without esophagitis; D46.9 Myelodysplastic syndrome, unspecified; M48.00 Spinal stenosis, site unspecified; F32.9 Major depressive disorder, single episode, unspecified; M11.20 Other chondrocalcinosis, unspecified site; M54.10 Radiculopathy, site unspecified; R33.9 Retention of urine, unspecified; L89.306 Pressure-induced deep tissue damage of unspecified buttock; L89.302 Pressure ulcer of unspecified buttock, stage 2; Z66 Do not resuscitate; E03.9 Hypothyroidism, unspecified; G89.29 Other chronic pain; M54.9 Dorsalgia, unspecified; A31.0 Pulmonary mycobacterial infection; K59.09 Other constipation; M19.90 Unspecified osteoarthritis, unspecified site; M81.0 Age-related osteoporosis without current pathological fracture; D64.9 Anemia, unspecified; R10.9 Unspecified abdominal pain; R41.0 Disorientation, unspecified; E55.9 Vitamin D deficiency, unspecified; D72.1 Eosinophilia; Y92.239 Unspecified place in hospital as the place of occurrence of the external cause; T45.515A Adverse effect of anticoagulants, initial encounter; I45.10 Unspecified right bundle-branch block; Z79.51 Long term (current) use of inhaled steroids; Z88.4 Allergy status to anesthetic agent; Z91.041 Radiographic dye allergy status; Z87.891 Personal history of nicotine dependence; Z88.1 Allergy status to other antibiotic agents; Z85.828 Personal history of other malignant neoplasm of skin; Z85.3 Personal history of malignant neoplasm of breast; Z88.8 Allergy status to other drugs, medicaments and biological substances; Z79.52 Long term (current) use of systemic steroids; Z79.899 Other long term (current) drug therapy; Z79.890 Hormone replacement therapy
CPT/HCPCS: 36415; 71045; 71046; 71250; 72195; 74018; 74019; 74176; 80048; 80053; 80162; 80202; 81003; 82270; 83605; 84134; 84443; 84484; 85025; 85610; 85730; 86140; 86850; 86900; 86901; 87040; 87045; 87046; 87070; 87077; 87186; 87205; 87493; 87899; 93005; 94640; 99285; A9270-GY; G0378; G8978-GP-CL; G8978-GP-CM; G8979-GP-CJ; G8979-GP-CK; J1170; J1644; J1956; J2185; J2270; J2405; J2543; J3370; J3430; J7512